=== PATIENT | male | born 1955 | race Hispanic/Latino ===

== ENCOUNTER 2016-12-01 17:49 | Inpatient (IN) | payer OTHER ==
[~2016-12-01] VITALS: Ht 170.2 cm; Wt 77.8 kg
[~2016-12-01 17:49] MED LIST: /MOXI40TA OR; COMBIVENT MDI INH; KCL PO; LASI40TA PO; NO HISTORICAL MEDS; OMEP40CA2 PO; PRED10TA2 PO; PULM1SUS INH; TOPR25TA PO; TYLE325T5 PO
[2016-12-01] MEDS ORDERED: IPRATROPIUM 0.5MG/ALBUTEROL 2.5MG INH SOL UD 3ML (DUONEB)(J7620) As Ordered ONE (18:14)
[2016-12-01 18:35] LABS: ABG PARTIAL PRESSURE O2 78.2 mmHg (75.0-100.0)
[2016-12-01 18:36] LABS: ABG BASE EXCESS 2.5 (-2.0-2.0); ABG DEVICE NASAL CANN; ABG HCO3 30.5 MEQ/L (22.0-26.0); ABG STANDARD HCO3 26.7 MEQ/L (22.0-26.0); ABG TOTAL CO2 32.4 MEQ/L (22.0-29.0); ABG pH (ARTERIAL) 7.323 UNITS (7.350-7.450)
[2016-12-01 18:38] LABS: ABG PARTIAL PRESSURE CO2 60.2 mmHg (35.0-45.0)
[2016-12-01] MEDS ORDERED: methylPREDNISolone INJ 125 MG/2 ML VIAL (J2930) As Ordered ONE (18:42)
[2016-12-01] MEDS ORDERED: AZITHROMYCIN INJ 500MG VIAL (J0456) As Ordered ONE (18:54)
[2016-12-01] MEDS ORDERED: cefTRIAXone SOD 1 GM VIAL (J0696) As Ordered ONE (18:54)
[2016-12-01] MEDS ORDERED: ALBU17IN INH (19:04)
[2016-12-01] MEDS ORDERED: VITATAB11 PO (19:04)
[2016-12-01] MEDS ORDERED: COMBAER6 INH (19:04)
[2016-12-01 19:06] LABS: ALBUMIN 2.7 GM/DL (3.2-5.2); ALBUMIN/GLOBULIN RATIO 0.56 (1.00-1.93); ALKALINE PHOSPHATASE 147 U/L (45-117); ALT/SGPT 62 U/L (12-78); ANION GAP 5 MEQ/L (8-16); AST/SGOT 50 U/L (15-37); BILIRUBIN,DIRECT 0.2 MG/DL (0.0-0.2); BILIRUBIN,TOTAL 0.7 MG/DL (0.2-1.0); BLOOD UREA NITROGEN 21 MG/DL (7-18); CALCIUM LEVEL 8.4 MG/DL (8.5-10.1); CARBON DIOXIDE LEVEL 36 MEQ/L (21-32); CHLORIDE LEVEL 98 MEQ/L (98-107); CREATININE FOR GFR 1.01 MG/DL (0.70-1.30); GLOMERULAR FILTRATION RATE > 60.0 (>56); GLUCOSE, FASTING 156 MG/DL (70-105); POTASSIUM SERUM 4.2 MEQ/L (3.5-5.1); SODIUM LEVEL 139 MEQ/L (136-145); TOTAL PROTEIN 7.5 GM/DL (6.4-8.2)
[2016-12-01] MEDS ORDERED: FUROSEMIDE 40 MG/4 ML VIAL (J1940) As Ordered ONE (19:10)
[2016-12-01 19:11] LABS: BASO % 0.6 % (0.0-1.0); EOS # 0.1 K/mm3 (0.0-0.50); EOS % 1.1 % (0.0-3.0); LARGE UNSTAINED CELL # 0.1 K/mm3 (0.0-0.4); LARGE UNSTAINED CELL % 2.1 % (0.0-4.0); LYMPH # 1.5 K/mm3 (1.5-4.5); LYMPH % 21.5 % (24.0-44.0); MEAN CORPUSCULAR HEMOGLOBIN 30.3 pg (27.0-33.0); MEAN CORPUSCULAR VOLUME 104.6 fl (80.0-96.0); MONO # 0.6 K/mm3 (0.0-0.8); NEUTROPHILS # 4.2 K/mm3 (1.8-7.7); NEUTROPHILS % 65.6 % (36.0-66.0); PLATELET COUNT, AUTOMATED 174 k/mm3 (150-450); RED CELL DISTRIBUTION WIDTH 14.1 % (11.5-14.5); WHITE BLOOD COUNT 6.3 K/mm3 (4.0-10.0)
[2016-12-01 19:12] LABS: ADD MORPHOLOGY? YES
[2016-12-01 19:15] LABS: HYPOCHROMASIA 1+; POLYCHROMASIA 2+; STOMATOCYTES 1+
--- NOTE | 2016-12-01 19:20 | REPUSA ---
CLINICAL HISTORY: Right lower extremity swelling. TECHNIQUE: Duplex ultrasound of the right lower extremity veins was performed with grayscale, color f low imaging and Doppler spectral analysis, without and with compression. RIGHT LOWER EXTREMITY VENOUS DUPLEX ULTRASOUND: There is normal compressibility, flow and augmentation of the common femoral, superficial femoral, an d popliteal veins. IMPRESSION: No evidence of DVT in the right lower extremity.
[2016-12-01] MEDS ORDERED: FUROSEMIDE 40 MG/4 ML VIAL (J1940) IV SCH (19:30)
[2016-12-01] MEDS ORDERED: IPRATROPIUM 0.02% SOLN 0.5MG/2.5 ML NEB INH PRN (20:00)
[2016-12-01] MEDS: IPRATROPIUM 0.02% SOLN 0.5MG/2.5 ML NEB INH SCH (20:00)
[2016-12-01] MEDS ORDERED: LEVALBUTEROL 1.25 MG/0.5 ML CONCENTRATE NEB INH PRN (20:00)
[2016-12-01] MEDS: LEVALBUTEROL 1.25 MG/0.5 ML CONCENTRATE NEB INH SCH (20:00)
[2016-12-01] MEDS ORDERED: ACETAMINOPHEN TAB 650MG DOSE (2X325MG) PO PRN (20:15)
--- NOTE | 2016-12-01 20:20 | REP ---
AP PORTABLE CHEST: 12/01/2016 at 06:35 PM. Comparison: Portable chest 01/04/2013, CT angiogram chest 01/05/2013. Clinical history: Dyspnea. Findings: Lungs are hyperinflated. There is underlying COPD and some fibrosis. Patchy infrahilar atelectasis or early infiltrate may be present. There is fibrosis. The pulmonary arteries are prominent centrally consistent with COPD. I do not see pulmonary edema. There is mild venous hypertension, but the vessel margins are distinct. No interstitial edema suspected. Heart size not enlarged for portable lordotic technique. The aorta is normal. There is apparent densities overlying the mediastinum, which could be large bridging syndesmophytes or spurs in the spine. The appearance is similar to the previous study and was confirmed on prior CT. Impression: 1. Hyperinflation with COPD, some fibrosis and pulmonary artery hypertension. 2. No gross cardiomegaly but some pulmonary venous hypertension with distinct vessel margins, no evidence of edema. 3. Infrahilar patchy atelectasis or infiltrate on the right. Signed by Dominik Perales MD 12/01/2016 08:33 P
--- NOTE | 2016-12-01 21:36 | HPE ---
DATE OF ADMISSION: 12/01/2016 PRIMARY CARE PROVIDER: None. INPATIENT HOSPITALIST ATTENDING: Dr. Ernesto Deal CHIEF COMPLAINT: Shortness of breath. HISTORY OF PRESENT ILLNESS: 61-year-old male with a history of chronic obstructive pulmonary disease (COPD), congestive heart failure (CHF), unknown ejection fraction with previous admission four years ago for COPD and CHF exacerbation, who presented to the emergency room with a 2-week history of increased lower extremity edema, weight gain of about 25 pounds, shortness of breath initially with exertion and then progressively at rest, some chest pressure, no tightness, diaphoresis, nausea, vomiting, epigastric pain, fever, chills. No changes in appetite. With some dry cough. No productive sputum. 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 For the past 2 weeks he has had about one to two pillow orthopnea at home, decrease in exercise tolerance due to worsening shortness of breath. The patient admits to having noncompliance with a low salt diet. States that his significant other usually makes pasta from cans and jars at the store. He has noticed worsening edema with recent increased salt intake. The patient has not been watching his water intake as well. He currently still smokes five to six cigarettes per day. No diarrhea or constipation. No bright red blood per rectum or hematemesis. The patient has had increase in heaviness in lower extremities secondary to weight, but no significant weakness. The patient was seen at [facility] this afternoon where he was found to have 75% saturations on room air. He refused transport by emergency medical services (EMS) and presented to the emergency room on his own with saturations in the mid 80s. The hospitalist service was called for evaluation and management of the patient's shortness of breath. PAST MEDICAL HISTORY: 1. COPD. 2. CHF. PAST SURGICAL HISTORY: 1. Hernia repair. 2. Appendectomy. ALLERGIES: No known drug allergies. HOME MEDICATIONS: - Combivent 18/103 mcg per actuation, two puffs four times daily - Ventolin every 6 hours SOCIAL HISTORY: The patient had been a previous smoker of one pack a day since age 14, recently he has decreased his cigarette smoking to five to six cigarettes per day. 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 Denies any recreational drug use. FAMILY HISTORY: Father , unknown medical problems and unknown age. Mother is still alive at 86, unknown medical problems. One sister and four brothers, one brother with cancer, he is the youngest. His family is from [place]. REVIEW OF SYSTEMS: As per history of present illness. Twelve-point system otherwise negative aside from positive findings on history of present illness. PHYSICAL EXAMINATION: VITAL SIGNS: Blood pressure 145/93, pulse 115 and sinus, respiratory rate 18, temperature 98.6, 79% on room air, 74.84 kg, 5 feet 7 inches tall. GENERAL: The patient is awake, alert, oriented to person, place and time. He has mild respiratory distress, use of respiratory accessory muscles, anicteric sclerae. No jaundice. No pallor. Dry mucous membranes. Positive jugular venous distention (JVD). No thyromegaly or cervical lymphadenopathy. LUNGS: Diminished breath sounds with expiratory wheezing and rales bilaterally. HEART: S1, S2. Sinus rhythm. Episodes of sinus tachycardia. No murmurs or rubs noted. ABDOMEN: Soft, nontender, nondistended. Positive bowel sounds. EXTREMITIES: 3+ pitting edema to the sacrum. Onychomycoses of bilateral toes of both feet. LABORATORY DATA: White count 6.3, hemoglobin 16, hematocrit 56, platelet count 174, neutrophils 65.6%. Sodium 139, potassium 4.2, chloride 98, bicarbonate 36, BUN 21, creatinine 1.01, glucose 156, calcium of 8.4, total bilirubin 0.7, direct bilirubin 0.2, AST 50, ALT 62, alkaline phosphatase 147, total CK 216, MB fraction 7.4, relative index 2.43, troponin 0.05, BNP 1070. Total protein 7.5, albumin of 2.7. Respiratory syncytial virus (RSV) respiratory virus panel is pending. Two sets of blood cultures pending. IMAGING STUDIES: Chest x-ray with hilar infiltrate. Vascular ultrasound: No evidence of deep vein thrombosis (DVT) in the right lower extremity. EKG showed sinus rhythm with ventricular rate of 108, tachycardic, left atrial enlargement pattern consistent with pulmonary disease and right ventricle hypertrophy. ASSESSMENT AND PLAN: 61-year-old male with a history of chronic obstructive pulmonary disease (COPD), congestive heart failure (CHF), unknown ejection fraction, active smoker, admits to noncompliance with salt and water restriction , presented to the emergency room with 2-week history of increasing shortness of breath, lower extremity edema and 25 pound weight gain over the past 2 weeks. The patient was found to have an infrahilar infiltrate on chest x-ray, pulmonary edema with elevated BNP of 1070. The patient is admitted for congestive heart failure (CHF) exacerbation, unknown ejection fraction, to the hospitalist service as an inpatient for two midnights. Will be assigned to Dr. Ernesto Deal. IMPRESSION: 1. CHF, acute on chronic exacerbation, unknown ejection fraction. The patient is being admitted to telemetry for monitoring, rule out arrhythmia, rule out acute coronary syndrome and ischemia as the reason for the patient's decompensation. We will cycle cardiac markers every 6 hours. Check fasting lipid profile. Lasix 40 mg intravenous every 6 hours for a net negative balance of 1 liter daily, daily weights, fluid restriction, strict input and output, cardiac rehabilitation on discharge. Depending on the patient's ejection fraction, he may benefit from aspirin and statin and wxodosflhpw-jgvqkjiwpw-hnifpe (VEGA) inhibitor if creatinine permits. Await echocardiogram report. May benefit from a stress test as an outpatient to rule out ischemic heart disease. 2. COPD with active wheezing. It appears to be cardiac wheezing in light of the patient's infrahilar infiltrate and consolidation. Suspicious for bacterial pneumonia. The patient will be treated with IV ceftriaxone and azithromycin nebulizer treatments as needed. If persistent wheezing continues despite IV Lasix diuresis, may benefit from continued use of low dose steroids. Supplemental oxygen to keep saturations 88 to 92%. The patient has evidence of right ventricle hypertrophy, most likely suffers from cor pulmonale. 3. Acute hypoxic respiratory failure. Saturations to 79% on room air secondary to CHF exacerbation prompted by bacterial pneumonia and infrahilar consolidation on chest x-ray. Treat underlying cause and supplemental oxygen to keep saturations 88 to 92%. 4. Community acquired pneumonia. Check sputum culture. Continue ceftriaxone, azithromycin, nebulizer treatments and supplemental oxygen. Check for methicillin resistant Staphylococcus aureus (MRSA) and RSV panel. Check influenza A and B. 5. Active smoker. Tobacco cessation counseling. The patient refuses nicotine patch. 6. Abnormal liver function tests. Check hepatitis panel. Most likely due to congested liver from CHF. 7. Deep vein thrombosis (DVT) prophylaxis with subcutaneous Lovenox. MTDD
--- NOTE | 2016-12-01 23:36 | EDDOCDS ---
Physician Documentation [facility] Name: Kumar Shane Age: 61 yrs Sex: Male : 1955 Arrival Date: 12/01/2016 Time: 17:49 Bed 9 Private MD: NO PRIMARY PHYSICIAN, . Disposition: 12/01/16 19:16 Hospitalization ordered by Naomie Willoughby for Inpatient Admission. Preliminary diagnosis are Acute combined systolic (congestive) and diastolic (congestive) heart failure, Chronic obstructive pulmonary disease with acute lower respiratory infection. - Bed requested for PCU. - Status is Inpatient Admission. mlc - Condition is Stable. - Problem is an acute exacerbation. - Symptoms are unchanged. Historical: - Allergies: No known drug Allergies; - Home Meds: 1. Combivent 18-103 mcg/actuation Inhl aero 2 puffs 4 times per day (Last dose: 12/01/2016 09:00) 2. ventolin inhaler Unknown every 6 hours (Last dose: 12/01/2016 09:00) - PMHx: COPD; CHF; - PSHx: Hernia repair; Appendectomy; - Family history: Not pertinent. - Social history: Smoking status: Patient uses tobacco products, current every day smoker. No barriers to communication noted, The patient speaks fluent Nigerian, Speaks appropriately for age, Preferred Language: Nigerian. - : The pt / caregiver states he / she is not on anticoagulants. Home medication list is obtained from the patient. - Exposure Risk Screening:: None identified. Vital Signs: 12/01 17:51 BP 145 / 93; Pulse 115; Resp 18; Temp 98.6(O); Pulse Ox 79% ; Weight 74.84 kg / 164.99 gr2 lbs (R); Height 5 ft. 7 in. (170.18 cm) (R); Pain 0/10; 18:00 Resp 19; Pulse Ox 82% on R/A; Pain 0/10; lf1 18:12 Pulse 112 MON; Pulse Ox 92% on 4 lpm NC; dsf 18:16 Pulse 116 MON; Pulse Ox 95% ; dsf 18:22 Pulse 106 MON; Pulse Ox 98% ; dsf 18:25 BP 182 / 5; ac1 18:32 BP 182 / 0; ac1 18:48 BP 130 / 86 (auto/); dsf 18:49 Pulse 102 MON; Pulse Ox 100% ; dsf 18:58 BP 135 / 91 (auto/); dsf 18:59 Pulse 102 MON; Pulse Ox 94% ; dsf 19:13 BP 151 / 94 (auto/); dsf 19:14 Pulse 104 MON; Pulse Ox 93% ; dsf 19:28 BP 156 / 92 (auto/); dsf 19:29 Pulse 102 MON; Pulse Ox 92% ; dsf 19:37 Pulse 104 MON; Pulse Ox 93% ; dsf 19:58 BP 184 / 103 (auto/); dsf 19:58 Pulse 104 MON; Pulse Ox 95% ; dsf 20:13 BP 142 / 91 (auto/); dsf 20:14 Pulse 104 MON; Pulse Ox 92% ; dsf 20:28 BP 139 / 87 (auto/); mlc 20:28 Pulse 102 MON; Pulse Ox 95% ; mlc 20:58 BP 138 / 87 (auto/); mlc 21:06 BP 139 / 84 (auto/); mlc 21:13 BP 140 / 85 (auto/); mlc 21:28 BP 144 / 86 (auto/); mlc 21:28 Pulse 104 MON; Pulse Ox 92% ; mlc 21:43 BP 144 / 89 (auto/); mlc 21:43 Pulse 104 MON; Pulse Ox 91% ; mlc 21:58 BP 146 / 90 (auto/); mlc 21:58 Pulse 102 MON; Pulse Ox 91% ; mlc 22:13 BP 143 / 87 (auto/); mlc 22:13 Pulse 104 MON; Pulse Ox 93% ; mlc 22:28 BP 144 / 86 (auto/); mlc 22:43 BP 136 / 84 (auto/); mlc 22:43 Pulse 102 MON; Pulse Ox 93% ; mlc 22:58 BP 141 / 86 (auto/); mlc 22:58 Pulse 98 MON; Pulse Ox 93% ; mlc 23:13 BP 142 / 87 (auto/); mlc 23:14 Pulse 102 MON; Pulse Ox 92% ; mlc 23:28 BP 148 / 89 (auto/); mlc 23:28 Pulse 104 MON; Pulse Ox 92% ; mlc 23:32 BP 150 / 87; Pulse 107; Resp 20; Temp 98.1(O); Pulse Ox 92% on 2 lpm NC; Pain 0/10; jmv 17:51 Body Mass Index 25.84 (74.84 kg, 170.18 cm) gr2 MDM: 18:04 -Blood Culture (Adults Only), peripheral from different site, or from device/port/PICC sd1 etc. if present ordered. 18:04 Director Of Labor Relations/Pulse Ox/q 15 min VS ordered. sd1 18:04 IV Saline Lock ordered. sd1 18:04 Oxygen at 4L/Min NC or Home dosage ordered. sd1 18:04 Rhythm Strip to chart ordered. sd1 18:05 B-Type Natiuretic Peptide Ordered. EDMS 18:05 Basic Metabolic Profile Ordered. EDMS 18:05 CBC with Diff Ordered. EDMS 18:05 Cardiac Injury Profile Ordered. EDMS 18:05 Troponin Ordered. EDMS 18:05 -Blood Culture Ordered. EDMS 18:05 Chest, 1 View Ordered. EDMS 18:05 ECG WITH READING ER PHYS+CARDIAG ordered. EDMS 18:10 Albuterol-Ipratropium 1 neb Nebulizer every 20 minutes x3 ordered. sd1 18:11 Call Respiratory ordered. sd1 18:12 -Arterial Blood Gas Ordered. EDMS 18:13 Call Respiratory complete. lbd 18:14 -Blood Culture (Adults Only), peripheral from different site, or from device/port/PICC lbd etc. if present complete. 18:17 BLOOD CULTURES Ordered. EDMS 18:17 US Lower Extremity R/O DVT Ordered. EDMS 18:28 [facility] Banquet Server Order ordered. sd1 18:32 Albuterol-Ipratropium 1 neb Nebulizer every 20 minutes x3 ordered. ac1 18:32 LIVER PROFILE Ordered. EDMS 18:33 Financial registration complete. gb 18:33 [facility] Payment Agreement was scanned into [employer] and attached to record. gb 18:37 [facility] Banquet Server Order complete. lbd 18:39 Solu-MEDROL 125 mg IVP once ordered. sd1 18:40 -Arterial Blood Gas Reviewed. sd1 18:40 RESPIRATORY PANEL Ordered. EDMS 18:43 cefTRIAXone 1 grams IVPB once over 30 mins; dilute in 50mL of NS or D5W ordered. sd1 18:43 azithromycin 500 mg IVPB once over 1 hrs; dilute in 250mL of D5W or NS ordered. sd1 18:44 BED REQUEST+ADM ordered. EDMS 19:04 B-Type Natiuretic Peptide Reviewed. sd1 19:04 Furosemide 40 mg IVP once ordered. sd1 19:08 Basic Metabolic Profile Reviewed. sd1 19:08 LIVER PROFILE Reviewed. sd1 19:08 Troponin Reviewed. sd1 19:12 Basic Metabolic Profile Reviewed. sd1 19:12 Cardiac Injury Profile Reviewed. sd1 19:12 LIVER PROFILE Reviewed. sd1 19:12 Troponin Reviewed. sd1 19:13 RBC MORPH PROF NO CHARGE Ordered. EDMS 19:30 2 GRAM SODIUM DIET ordered. EDMS 19:32 PHYSICAL THERAPY EVAL & TREAT ordered. EDMS 19:33 Admission / Observation Status ordered. EDMS 19:33 ECHOCARD,DOPPLER/COLOR FLOW ordered. EDMS 19:34 CARDIAC MARKER PANEL Ordered. EDMS 19:35 CARDIAC MARKER PANEL Ordered. EDMS 19:37 CARDIAC MARKER PANEL Ordered. EDMS 20:04 CBC WITH DIFFERENTIAL Ordered. EDMS 20:04 CARDIAC RISK PROFILE Ordered. EDMS 20:04 THYROID STIMULATING HORMONE Ordered. EDMS 20:04 MAGNESIUM LEVEL Ordered. EDMS 20:26 MRSA SCREEN Ordered. EDMS 20:26 SPUTUM CULTURE AND GRAM STAIN Ordered. EDMS 20:39 BASIC METABOLIC PROFILE Ordered. EDMS Administered Medications: 18:10 Drug: Albuterol-Ipratropium 1 neb [ipratropium-albuterol 0.5 mg-3 mg(2.5 mg base)/3 mL ac1 nebulization soln (1 neb)] Route: Nebulizer; 18:20 Drug: Albuterol-Ipratropium 1 neb [ipratropium-albuterol 0.5 mg-3 mg(2.5 mg base)/3 mL ac1 nebulization soln (1 neb)] Route: Nebulizer; 18:20 Follow up: bs exp whz before and after tx ac1 18:25 Follow up: BP 182 / 5 ac1 18:25 Follow up: wnz bilat throughout before and after tx ac1 18:30 Drug: Albuterol-Ipratropium 1 neb [ipratropium-albuterol 0.5 mg-3 mg(2.5 mg base)/3 mL ac1 nebulization soln (1 neb)] Route: Nebulizer; 18:32 Follow up: BP 182 / 0 ac1 18:35 Follow up: bs whz bilat before and after tx ac1 18:52 Drug: Solu-MEDROL 125 mg [Solu-Medrol 500 mg intravenous solution (125 mg)] Route: IVP; dsf Site: right antecubital; 19:07 Drug: cefTRIAXone 1 grams [ceftriaxone 1 gram solution for injection] Route: IVPB; dsf Infused Over: 30 mins; Site: right antecubital; 19:37 Follow up: IV Status: Completed infusion; IV Intake: 50ml dsf 19:14 Drug: Furosemide 40 mg [furosemide 10 mg/mL injection solution (4 mL)] Route: IVP; dsf Site: right antecubital; 19:37 Drug: azithromycin 500 mg [azithromycin 500 mg intravenous solution] Route: IVPB; dsf Infused Over: 1 hrs; Site: right antecubital; 20:51 Follow up: IV Status: Completed infusion; IV Intake: 250ml dsf Signatures: Dispatcher [employer] EDMS Tricia Porter MD MD sd1 Merna Mckeon, Sporting Goods Sales Manager Unit lbd Lana Hines, Reg Reg gb Jasper,Sonam,RT RT ac1 Douglas Banks, SADDLE MECHANIC SADDLE MECHANIC [id number] Kendal Jaramillo,RN RN lf1 Zayda Rob,RN RN mlc Aurora Sandra RN dsf The chart was reviewed and I authenticate all verbal orders and agree with the evaluation and treatment provided.Corrections: (The following items were deleted from the chart) 18:32 18:29 LIVER PROFILE+LAB ordered. EDMS EDMS 20:39 19:31 BASIC METABOLIC PROFILE ordered. EDMS EDMS Attachments: 18:33 [facility] Payment Agreement gb MTDD
--- NOTE | 2016-12-01 23:36 | EDDOCDS ---
Nurse's Notes [facility] Name: Kumar Shane Age: 61 yrs Sex: Male : 1955 Arrival Date: 12/01/2016 Time: 17:49 Bed 9 Private MD: NO PRIMARY PHYSICIAN, . Diagnosis: Acute combined systolic (congestive) and diastolic (congestive) heart failure;Chronic obstructive pulmonary disease with acute lower respiratory infection Presentation: 12/01 17:58 Presenting complaint: Patient states: Was seen at [facility] this afternoon lf1 for SOB for two weeks and swelling in BL LE. O\\T\\ Sats were 75% on RA and pt. refused transport via EMS. Pt. presents to ED with SATS in the mid 80"s, states he has a history of COPD and has had shortness of breath for two weeks. Respiratory Distress: Mild respiratory distress is noted. Adult Sepsis Screening: The patient does not have new or worsening altered mentation. Patient's respiratory rate is less than 22. Systolic blood pressure is greater than 100. Patient has a qSOFA score of 0- Negative Sepsis Screen. Suicide/Homicide risk assessment- the patient denies having any suicidal and/or homicidal ideations and does not present with any other emotional, behavioral or mental health complaints. 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 Transition of care: Patient was received from [facility]. 17:58 Acuity: LOLA Level 2 lf1 17:58 Method Of Arrival: Walkin/Carried/Asstd lf1 18:02 Red Flag criteria, Finish triage while room being cleaned. Direct to room when lf1 available. charge nurse aware. Triage Assessment: 21:55 HIV screening NA for this visit Offered previously. mlc Historical: - Allergies: No known drug Allergies; - Home Meds: 1. Combivent 18-103 mcg/actuation Inhl aero 2 puffs 4 times per day (Last dose: 12/01/2016 09:00) 2. ventolin inhaler Unknown every 6 hours (Last dose: 12/01/2016 09:00) - PMHx: COPD; CHF; - PSHx: Hernia repair; Appendectomy; - Family history: Not pertinent. - Social history: Smoking status: Patient uses tobacco products, current every day smoker. No barriers to communication noted, The patient speaks fluent Anguillan, Speaks appropriately for age, Preferred Language: Anguillan. - : The pt / caregiver states he / she is not on anticoagulants. Home medication list is obtained from the patient. - Exposure Risk Screening:: None identified. Screenin:03 Screening information is obtained from the patient. Fall risk: No risks identified. dsf Assistance ADL's: requires no assistance with activities of daily living. Abuse/DV Screen: The patient / caregiver reports he/she is: not in a situation that causes fear, pain or injury. Nutritional screening: No deficits noted. Advance Directives: Currently, there is no health care proxy. home support is adequate. Assessment: 18:22 General: Appears in no apparent distress, Behavior is appropriate for age. Pain: Denies dsf pain. Neurological: Level of Consciousness is awake, alert, Oriented to person, place, time. Cardiovascular: Capillary refill < 3 seconds JVD is present bilaterally Heart tones S1 S2 present Edema is 3+ to left midcalf, left ankle, left foot, right midcalf, right ankle and right foot edema to bilateral knees and thighs. Right leg swelling worse than left Rhythm is sinus tachycardia. Respiratory: Airway is patent Respiratory effort is unlabored, Respiratory pattern is regular, Breath sounds with wheezes expiratory bilaterally. Reports shortness of breath on exertion since 2 weeks. GI: Abdomen is non- distended Bowel sounds present X 4 quads. Abd is soft and non tender X 4 quads. Derm: Skin is pink, warm & dry. 18:38 General: lab called PC02 60.2. Dr. Jaimes notified . dsf 19:22 Adult Sepsis Screening: The patient does not have new or worsening altered mentation. dsf Patient's respiratory rate is less than 22. Systolic blood pressure is greater than 100. Patient has a qSOFA score of 0- Negative Sepsis Screen. General: Appears in no apparent distress, comfortable, Behavior is appropriate for age, cooperative. Pain: Denies pain. Neurological: Level of Consciousness is awake, alert, Oriented to person, place, time. Cardiovascular: Capillary refill < 3 seconds Heart tones S1 S2 present Rhythm is sinus tachycardia. Respiratory: Airway is patent Respiratory effort is even, unlabored, Respiratory pattern is regular, symmetrical, Breath sounds with wheezes expiratory bilaterally. GI: Abdomen is non- distended Bowel sounds present X 4 quads. Abd is soft and non tender X 4 quads. Derm: Skin is pink, warm & dry. 20:22 General: Appears in no apparent distress, comfortable, Behavior is appropriate for age, dsf cooperative. Pain: Denies pain. Neurological: Level of Consciousness is awake, alert. Cardiovascular: Capillary refill < 3 seconds Rhythm is sinus tachycardia. Respiratory: Airway is patent Respiratory effort is even, unlabored, Respiratory pattern is regular, symmetrical. Derm: Skin is pink, warm & dry. 22:33 Reassessment: Patient appears in no apparent distress at this time. Patient denies pain mlc at this time. pt resting comfortably in bed. resp easy/unlabored. pt offers no complaints. . 22:33 Reassessment: PCU states there is still currently a patient in the assigned bed on the mlc unit, staff will call with update . 23:30 General: Appears in no apparent distress, comfortable, Behavior is cooperative. Pain: mlc Denies pain. Neurological: Level of Consciousness is awake, alert, Oriented to person, place, time. Respiratory: Airway is patent Respiratory effort is even, unlabored, Respiratory pattern is regular. Derm: Skin is pink, warm & dry. Vital Signs: 17:51 BP 145 / 93; Pulse 115; Resp 18; Temp 98.6(O); Pulse Ox 79% ; Weight 74.84 kg (R); gr2 Height 5 ft. 7 in. (170.18 cm) (R); Pain 0/10; 18:00 Resp 19; Pulse Ox 82% on R/A; Pain 0/10; lf1 18:12 Pulse 112 MON; Pulse Ox 92% on 4 lpm NC; dsf 18:16 Pulse 116 MON; Pulse Ox 95% ; dsf 18:22 Pulse 106 MON; Pulse Ox 98% ; dsf 18:25 BP 182 / 5; ac1 18:32 BP 182 / 0; ac1 18:48 BP 130 / 86 (auto/); dsf 18:49 Pulse 102 MON; Pulse Ox 100% ; dsf 18:58 BP 135 / 91 (auto/); dsf 18:59 Pulse 102 MON; Pulse Ox 94% ; dsf 19:13 BP 151 / 94 (auto/); dsf 19:14 Pulse 104 MON; Pulse Ox 93% ; dsf 19:28 BP 156 / 92 (auto/); dsf 19:29 Pulse 102 MON; Pulse Ox 92% ; dsf 19:37 Pulse 104 MON; Pulse Ox 93% ; dsf 19:58 BP 184 / 103 (auto/); dsf 19:58 Pulse 104 MON; Pulse Ox 95% ; dsf 20:13 BP 142 / 91 (auto/); dsf 20:14 Pulse 104 MON; Pulse Ox 92% ; dsf 20:28 BP 139 / 87 (auto/); mlc 20:28 Pulse 102 MON; Pulse Ox 95% ; mlc 20:58 BP 138 / 87 (auto/); mlc 21:06 BP 139 / 84 (auto/); mlc 21:13 BP 140 / 85 (auto/); mlc 21:28 BP 144 / 86 (auto/); mlc 21:28 Pulse 104 MON; Pulse Ox 92% ; mlc 21:43 BP 144 / 89 (auto/); mlc 21:43 Pulse 104 MON; Pulse Ox 91% ; mlc 21:58 BP 146 / 90 (auto/); mlc 21:58 Pulse 102 MON; Pulse Ox 91% ; mlc 22:13 BP 143 / 87 (auto/); mlc 22:13 Pulse 104 MON; Pulse Ox 93% ; mlc 22:28 BP 144 / 86 (auto/); mlc 22:43 BP 136 / 84 (auto/); mlc 22:43 Pulse 102 MON; Pulse Ox 93% ; mlc 22:58 BP 141 / 86 (auto/); mlc 22:58 Pulse 98 MON; Pulse Ox 93% ; mlc 23:13 BP 142 / 87 (auto/); mlc 23:14 Pulse 102 MON; Pulse Ox 92% ; mlc 23:28 BP 148 / 89 (auto/); mlc 23:28 Pulse 104 MON; Pulse Ox 92% ; mlc 23:32 BP 150 / 87; Pulse 107; Resp 20; Temp 98.1(O); Pulse Ox 92% on 2 lpm NC; Pain 0/10; jmv 17:51 Body Mass Index 25.84 (74.84 kg, 170.18 cm) gr2 Vitals: 17:51 Log In Time: December 01, 2016 at 17:51. RN notified that patient meets Red Flag gr2 criteria. ED Course: 17:50 Patient visited by Grace Lux. gr2 17:50 NO PRIMARY PHYSICIAN, . is Private Physician. gr2 17:50 Patient moved to Waiting gr2 17:56 Patient visited by Grace Lux. gr2 17:58 Patient moved to Triage 1 lf1 18:01 Triage Initiated lf1 18:03 Tricia Porter MD is Attending Physician. sd1 18:03 Patient visited by Tricia Porter MD. sd1 18:03 Patient moved to 9 lf1 18:03 quality assurance monitor on. Pulse ox on. NIBP on. dsf 18:03 Inserted saline lock: 20 gauge in right antecubital area The patient tolerated the dsf procedure well. O2 via nasal cannula \\T\\ 4L/min. 18:21 Troponin Sent. dsf 18:21 Cardiac Injury Profile Sent. dsf 18:21 CBC with Diff Sent. dsf 18:21 Basic Metabolic Profile Sent. dsf 18:21 B-Type Natiuretic Peptide Sent. dsf 18:21 -Blood Culture Sent. dsf 18:24 The patient / caregiver is instructed regarding the plan of care and ED course. Patient dsf has correct armband on for positive identification. Placed in gown. Bed in low position. Call light in reach. Side rails up X2. 18:25 Patient visited by Aurora Sandra RN. dsf 18:25 EKG done. (by ED staff). Reviewed by Tricia Porter MD. cmb 18:30 -Arterial Blood Gas Sent. ac1 18:33 Patient name changed from Kumar\\S\\\\S\\Svitlana\\S\\ to Kumar\\S\\ \\S\\Svitlana. EDMS 18:33 [facility] Payment Agreement was scanned into [employer] and attached to record. gb 18:52 RESPIRATORY PANEL Sent. dsf 18:52 BLOOD CULTURES Sent. dsf 18:53 Patient moved to Ultrasound am17 19:06 Patient moved to 9 am17 19:07 LIVER PROFILE Sent. dsf 19:16 Naomie Willoughby is Hospitalizing Provider. sd1 19:21 US Lower Extremity R/O DVT Returned. EDMS 19:38 Patient visited by Aurora Sandra,HENNA. dsf 21:00 Zayda Rob,HENNA is Primary Nurse. mlc 21:17 Chest, 1 View Returned. EDMS 21:55 No procedures done that require assistance. mlc 22:35 Patient visited by Zayda Rob RN. [facility] 23:33 Patient visited by Raj Bates PCA. jmv Administered Medications: 18:10 Drug: Albuterol-Ipratropium 1 neb [ipratropium-albuterol 0.5 mg-3 mg(2.5 mg base)/3 mL ac1 nebulization soln (1 neb)] Route: Nebulizer; 18:20 Drug: Albuterol-Ipratropium 1 neb [ipratropium-albuterol 0.5 mg-3 mg(2.5 mg base)/3 mL ac1 nebulization soln (1 neb)] Route: Nebulizer; 18:20 Follow up: bs exp whz before and after tx ac1 18:25 Follow up: BP 182 / 5 ac1 18:25 Follow up: wnz bilat throughout before and after tx ac1 18:30 Drug: Albuterol-Ipratropium 1 neb [ipratropium-albuterol 0.5 mg-3 mg(2.5 mg base)/3 mL ac1 nebulization soln (1 neb)] Route: Nebulizer; 18:32 Follow up: BP 182 / 0 ac1 18:35 Follow up: bs whz bilat before and after tx ac1 18:52 Drug: Solu-MEDROL 125 mg [Solu-Medrol 500 mg intravenous solution (125 mg)] Route: IVP; dsf Site: right antecubital; 19:07 Drug: cefTRIAXone 1 grams [ceftriaxone 1 gram solution for injection] Route: IVPB; dsf Infused Over: 30 mins; Site: right antecubital; 19:37 Follow up: IV Status: Completed infusion; IV Intake: 50ml dsf 19:14 Drug: Furosemide 40 mg [furosemide 10 mg/mL injection solution (4 mL)] Route: IVP; dsf Site: right antecubital; 19:37 Drug: azithromycin 500 mg [azithromycin 500 mg intravenous solution] Route: IVPB; dsf Infused Over: 1 hrs; Site: right antecubital; 20:51 Follow up: IV Status: Completed infusion; IV Intake: 250ml dsf Intake: 19:37 IV: 50.00ml; Total: 50.00ml. dsf 20:51 IV: 250.00ml; Total: 300.00ml. dsf Output: 20:01 Urine: 425.00ml (Voided); Total: 425.00ml. dsf 20:22 Urine: 375.00ml (Voided); Total: 800.00ml. dsf 21:55 Urine: 300.00ml (Voided); Total: 1100.00ml. [facility] RT: 18:10 Initial Med Neb Given as ordered. ac1 18:15 Respiratory: Breath sounds with wheezes bilaterally. at expiration. ac1 18:20 Subsequent Med Neb Given as ordered. ac1 18:25 Respiratory: Breath sounds with wheezes bilaterally. ac1 18:30 Subsequent Med Neb Given as ordered. ac1 18:43 Respiratory: Breath sounds with wheezes bilaterally. at expiration. ac1 Order Results: Lab Order: B-Type Natiuretic Peptide; SPEC'M 12/01/16 18:15 Test: BRAIN NATRIURETIC PEPTIDE; Value: 1070; Range: <100; Abnormal: Above high normal; Units: PG/ML; Status: F Lab Order: Basic Metabolic Profile; SPEC'M 12/01/16 18:15 Test: GLUCOSE, FASTING; Value: 156; Range: 70-105; Abnormal: Above high normal; Units: MG/DL; Status: F Test: BLOOD UREA NITROGEN; Value: 21; Range: 7-18; Abnormal: Above high normal; Units: MG/DL; Status: F Test: CREATININE FOR GFR; Value: 1.01; Range: 0.70-1.30; Units: MG/DL; Status: F Test: GLOMERULAR FILTRATION RATE; Value: > 60.0; Range: >56; Status: F Test: SODIUM LEVEL; Value: 139; Range: 136-145; Units: MEQ/L; Status: F Test: POTASSIUM SERUM; Value: 4.2; Range: 3.5-5.1; Units: MEQ/L; Status: F Test: CHLORIDE LEVEL; Value: 98; Range: 98-107; Units: MEQ/L; Status: F Test: CARBON DIOXIDE LEVEL; Value: 36; Range: 21-32; Abnormal: Above high normal; Units: MEQ/L; Status: F Test: ANION GAP; Value: 5; Range: 8-16; Abnormal: Below low normal; Units: MEQ/L; Status: F Test: CALCIUM LEVEL; Value: 8.4; Range: 8.5-10.1; Abnormal: Below low normal; Units: MG/DL; Status: F Test Note: ; Units are mL/min/1.73 m2 Chronic Kidney Disease Staging per NKF: Stage I & II GFR >=60 Normal to Mildly Decreased Stage III GFR 30-59 Moderately Decreased Stage IV GFR 15-29 Severely Decreased Stage V GFR <15 Very Little GFR Left ESRD GFR <15 on GENERAL STORE MANAGER Lab Order: CBC with Diff; SPEC'M 12/01/16 18:15 Test: WHITE BLOOD COUNT; Value: 6.3; Range: 4.0-10.0; Units: K/mm3; Status: F Test: RED BLOOD COUNT; Value: 5.38; Range: 4.30-6.10; Units: M/mm3; Status: F Test: HEMOGLOBIN; Value: 16.3; Range: 14.0-18.0; Units: g/dl; Status: F Test: HEMATOCRIT; Value: 56.3; Range: 42.0-52.0; Abnormal: Above high normal; Units: %; Status: F Test: MEAN CORPUSCULAR VOLUME; Value: 104.6; Range: 80.0-96.0; Abnormal: Above high normal; Units: fl; Status: F Test: MEAN CORPUSCULAR HEMOGLOBIN; Value: 30.3; Range: 27.0-33.0; Units: pg; Status: F Test: MEAN CORPUSCULAR HGB CONC; Value: 29.0; Range: 32.0-36.5; Abnormal: Below low normal; Units: g/dl; Status: F Test: RED CELL DISTRIBUTION WIDTH; Value: 14.1; Range: 11.5-14.5; Units: %; Status: F Test: PLATELET COUNT, AUTOMATED; Value: 174; Range: 150-450; Units: k/mm3; Status: F Test: NEUTROPHILS %; Value: 65.6; Range: 36.0-66.0; Units: %; Status: F Test: LYMPH %; Value: 21.5; Range: 24.0-44.0; Abnormal: Below low normal; Units: %; Status: F Test: MONO %; Value: 9.0; Range: 0.0-5.0; Abnormal: Above high normal; Units: %; Status: F Test: EOS %; Value: 1.1; Range: 0.0-3.0; Units: %; Status: F Test: BASO %; Value: 0.6; Range: 0.0-1.0; Units: %; Status: F Test: LARGE UNSTAINED CELL %; Value: 2.1; Range: 0.0-4.0; Units: %; Status: F Test: NEUTROPHILS #; Value: 4.2; Range: 1.8-7.7; Units: K/mm3; Status: F Test: LYMPH #; Value: 1.5; Range: 1.5-4.5; Units: K/mm3; Status: F Test: MONO #; Value: 0.6; Range: 0.0-0.8; Units: K/mm3; Status: F Test: EOS #; Value: 0.1; Range: 0.0-0.50; Units: K/mm3; Status: F Test: BASO #; Value: 0.0; Range: 0.0-0.2; Units: K/mm3; Status: F Test: LARGE UNSTAINED CELL #; Value: 0.1; Range: 0.0-0.4; Units: K/mm3; Status: F Lab Order: Cardiac Injury Profile; SPEC'M 12/01/16 18:15 Test: CPK CREATINE PHOSPHOKINASE; Value: 216; Range: 39-308; Units: U/L; Status: F Test: CK-MB VALUE MASS; Value: 7.4; Range: 0.0-3.6; Abnormal: Above high normal; Units: NG/ML; Status: F Test: MB/CK RELATIVE INDEX; Value: 3.42; Range: < OR =4; Status: F Test Note: ; DIAGNOSIS CRITERIA MMB ng/ml Relative Index (RI) NON-AMI < or = 5 N/A [place] ZONE > 5 < or = 4 AMI > 5 > 4 Lab Order: Troponin; SPEC'M 12/01/16 18:15 Test: TROPONIN I; Value: 0.05; Range: < 0.10; Units: NG/ML; Status: F Test Note: ; Troponin I Reference Interval for Telestream LOCI: 99th Percentile= 0.00-0.045 ng/ml Risk Stratification: <= 0.10 ng/ml Decreased Risk for Adverse Clinical Events. 0.10-1.50 ng/ml Increased Risk for Adverse Clinical Events. Evaluation of additional criterion and/or repeat testing in 2-6 hours is suggested to rule out myocardial damage. >= 1.50 ng/ml Indicative of Myocardial Injury. Lab Order: -Arterial Blood Gas; SPEC'M 12/01/16 18:19 Test: ABG pH (ARTERIAL); Value: 7.323; Range: 7.350-7.450; Abnormal: Below low normal; Units: UNITS; Status: F Test: ABG PARTIAL PRESSURE CO2; Value: 60.2; Range: 35.0-45.0; Abnormal: Above upper panic limits; Units: mmHg; Status: F Test: ABG PARTIAL PRESSURE O2; Value: 78.2; Range: 75.0-100.0; Units: mmHg; Status: F Test: ABG TOTAL CO2; Value: 32.4; Range: 22.0-29.0; Abnormal: Above high normal; Units: MEQ/L; Status: F Test: ABG HCO3; Value: 30.5; Range: 22.0-26.0; Abnormal: Above high normal; Units: MEQ/L; Status: F Test: ABG BASE EXCESS; Value: 2.5; Range: -2.0-2.0; Abnormal: Above high normal; Status: F Test: ABG STANDARD HCO3; Value: 26.7; Range: 22.0-26.0; Abnormal: Above high normal; Units: MEQ/L; Status: F Test: ABG O2 SATURATION; Value: 95.8; Range: 95.0-99.0; Units: %; Status: F Test: ABG DEVICE; Value: NASAL COOPER; Status: F Lab Order: LIVER PROFILE; SPEC'M 12/01/16 18:15 Test: AST/SGOT; Value: 50; Range: 15-37; Abnormal: Above high normal; Units: U/L; Status: F Test: ALT/SGPT; Value: 62; Range: 12-78; Units: U/L; Status: F Test: ALKALINE PHOSPHATASE; Value: 147; Range: 45-117; Abnormal: Above high normal; Units: U/L; Status: F Test: BILIRUBIN,TOTAL; Value: 0.7; Range: 0.2-1.0; Units: MG/DL; Status: F Test: BILIRUBIN,DIRECT; Value: 0.2; Range: 0.0-0.2; Units: MG/DL; Status: F Test: TOTAL PROTEIN; Value: 7.5; Range: 6.4-8.2; Units: GM/DL; Status: F Test: ALBUMIN; Value: 2.7; Range: 3.2-5.2; Abnormal: Below low normal; Units: GM/DL; Status: F Test: ALBUMIN/GLOBULIN RATIO; Value: 0.56; Range: 1.00-1.93; Abnormal: Below low normal; Status: F Lab Order: RESPIRATORY PANEL; SPEC'M 12/01/16 18:48 Test: RESPIRATORY PANEL; Value: RP PANEL RESULT NEGATIVE by PCR; Status: F Test: RESPIRATORY PANEL; Value: Comments:; Status: F Test Note: ; This respiratory PCR panel detects Influenza A H1, H3 and 2009 H1 viruses, Influenza B virus, Respiratory syncytial virus, Human metapneumovirus, Parainfluenza virus 1, 2, 3 and 4, Adenovirus, Rhinovirus/Enterovirus, Coronavirus HKU1, NL63, OC43 and 229E, Bordetella pertussis, Mycoplasma pneumoniae and Chlamydia pneumoniae. Lab Order: RBC MORPH PROF NO CHARGE; SPEC'M 12/01/16 18:15 Test: PLATELET ESTIMATE; Range: NORMAL; Status: I Test: POLYCHROMASIA; Value: 2+; Status: F Test: HYPOCHROMASIA; Value: 1+; Status: F Test: MACROCYTOSIS; Value: 2+; Status: F Test: STOMATOCYTES; Value: 1+; Status: F Test: PLATELET ESTIMATE; Value: NORMAL; Range: NORMAL; Status: F Radiology Order: Chest, 1 View Test: Chest, 1 View REASON FOR EXAMINATION: Shortness of Breath; AP PORTABLE CHEST: 12/01/2016 at 06:35 PM.; ; Comparison: Portable chest 01/04/2013, CT angiogram chest 01/05/2013.; ; Clinical history: Dyspnea.; ; Findings: Lungs are hyperinflated. There is underlying COPD and some fibrosis.; Patchy infrahilar atelectasis or early infiltrate may be present. There is; fibrosis. The pulmonary arteries are prominent centrally consistent with COPD.; I do not see pulmonary edema. There is mild venous hypertension, but the vessel; margins are distinct. No interstitial edema suspected. Heart size not enlarged; for portable lordotic technique. The aorta is normal. There is apparent; densities overlying the mediastinum, which could be large bridging syndesmophytes; or spurs in the spine. The appearance is similar to the previous study and was; confirmed on prior CT.; ; Impression:; ; 1. Hyperinflation with COPD, some fibrosis and pulmonary artery hypertension.; ; 2. No gross cardiomegaly but some pulmonary venous hypertension with distinct; vessel margins, no evidence of edema.; ; 3. Infrahilar patchy atelectasis or infiltrate on the right.; ; ; Signed by; Dominik Perales MD 12/01/2016 08:33 P; Radiology Order: US Lower Extremity R/O DVT Test: US Lower Extremity R/O DVT REASON FOR EXAMINATION: swelling; ; CLINICAL HISTORY: Right lower extremity swelling.; TECHNIQUE: Duplex ultrasound of the right lower extremity veins was performed with grayscale, color f; low imaging and Doppler spectral analysis, without and with compression.; ; ; RIGHT LOWER EXTREMITY VENOUS DUPLEX ULTRASOUND:; There is normal compressibility, flow and augmentation of the common femoral, superficial femoral, an; d popliteal veins.; ; IMPRESSION:; ; No evidence of DVT in the right lower extremity.; ; Outcome: 19:16 Decision to Hospitalize by Provider. sd1 21:58 Discharge Assessment: Patient awake, alert and oriented x 3. No cognitive and/or mlc functional deficits noted. Patient verbalized understanding of disposition instructions. patient administered narcotics - no. The following High Risk Discharge criteria are identified: None. Admitted to PCU accompanied by nurse, accompanied by tech, via stretcher, with oxygen, on monitor, with chart. Condition: stable. Admission hand-off: Report Faxed Fax receipt verified by HENNA Mckinnon. Property sent home with patient. 23:32 Ultrasound Study completed. mlc 23:35 Patient left the ED. mlc Signatures: Dispatcher [employer] EDVA Tricia Porter MD MD sd1 Lana Hines, Reg Reg Sonam Kaye,RT RT ac1 Kendal JaramilloRN RN lf1 Aurora Sandra RN RN [facility] Lelo Pool cmb Grace Lux gr2 Azalea Robledo am17 Zayda Rob RN RN Raj Ryan, KAE CLOSED CIRCUIT SCREEN WATCHER jmv Corrections: (The following items were deleted from the chart) 18:32 18:31 LIVER PROFILE+LAB sent. [facility] EDMS 18:32 18:31 Albuterol-Ipratropium 1 neb Nebulizer ac1 ac1 18:37 18:33 Respiratory: Breath sounds with wheezes bilaterally. at expiration ac1 ac1 18:39 18:20 Respiratory: Breath sounds with wheezes bilaterally. at expiration ac1 ac1 18:41 18:25 Subsequent Med Neb Given as ordered ac1 ac1 18:41 18:25 Respiratory: Breath sounds with wheezes bilaterally. at expiration ac1 ac1 18:41 18:30 Subsequent Med Neb Given as ordered ac1 ac1 MTDD
[2016-12-01 23:49] VITALS: BP 149/92
[2016-12-02] MEDS ORDERED: SLF 3 ML SYR IV PRN
[2016-12-02] MEDS: LEVALBUTEROL 1.25 MG/0.5 ML CONCENTRATE NEB INH SCH ×8 (00:07→23:56)
[2016-12-02] MEDS: IPRATROPIUM 0.02% SOLN 0.5MG/2.5 ML NEB INH SCH ×7 (00:07→23:56)
[2016-12-02] MEDS: FUROSEMIDE 40 MG/4 ML VIAL (J1940) IV SCH ×5 (00:16→23:54)
[2016-12-02 05:00] VITALS: BP 137/77
[2016-12-02] MEDS: SLF 3 ML SYR IV SCH ×3 (05:03→22:00)
[2016-12-02 05:28] LABS: ANION GAP 5 MEQ/L (8-16); BLOOD UREA NITROGEN 18 MG/DL (7-18); CALCIUM LEVEL 8.2 MG/DL (8.5-10.1); CARBON DIOXIDE LEVEL 38 MEQ/L (21-32); CHLORIDE LEVEL 97 MEQ/L (98-107); CHOLESTEROL LEVEL 106 MG/DL (<200); CREATININE FOR GFR 0.97 MG/DL (0.70-1.30); GLOMERULAR FILTRATION RATE > 60.0 (>56); GLUCOSE, FASTING 193 MG/DL (70-105); MAGNESIUM LEVEL 1.9 MG/DL (1.8-2.4); POTASSIUM SERUM 4.4 MEQ/L (3.5-5.1); SODIUM LEVEL 140 MEQ/L (136-145); TRIGLYCERIDES LEVEL 37 MG/DL (<150)
[2016-12-02 05:32] LABS: MEAN CORPUSCULAR HEMOGLOBIN 30.9 pg (27.0-33.0); MEAN CORPUSCULAR HGB CONC 29.9 g/dl (32.0-36.5); MEAN CORPUSCULAR VOLUME 103.3 fl (80.0-96.0); PLATELET COUNT, AUTOMATED 170 k/mm3 (150-450); RED CELL DISTRIBUTION WIDTH 14.3 % (11.5-14.5); WHITE BLOOD COUNT 4.1 K/mm3 (4.0-10.0)
[2016-12-02 08:00] VITALS: BP 146/85
[2016-12-02] MEDS: predniSONE 20 MG TAB PO SCH (09:01)
[2016-12-02] MEDS: ENOXAPARIN 40 MG/0.4 ML SYRINGE (J1650) SC SCH (09:01)
--- NOTE | 2016-12-02 10:14 | IPNPDOC ---
Text Note Date of Service The patient was seen on 12/02/16. NOTE Subjective: Patient is a 61-year-old male with congestive heart failure exacerbation, pneumonia, COPD seen for hospitalist follow up. Patient says that he has been dealing with swelling in his feet for the last 3 weeks. He is also been dealing with shortness of breath at work. Shortness of breath was reported as very bad. He said that he cannot go up any stairs without becoming short of breath. At baseline he says he has no limits and does not use any oxygen at home. Since admission he says that he has been getting better. His breathing is reported as improved. He has reported a lot of urine output. He is still having some shortness of breath and continued lower extremity swelling but reports these are improving. He denies any fevers, chills, sweats, chest pain/pressure, abdominal pain, nausea, vomiting, diarrhea, constipation. Objective: Vital signs: Temperature 96.8, pulse 105, respiratory rate 18, blood pressure 146/85, pulse ox 95% on 2 L nasal cannula Gen.: Patient awake, alert and oriented, verbal and able to answer questions appropriately. Patient does not appear to be in any acute distress Heart: Regular rate and rhythm, normal S1-S2. No murmurs, rubs, or clicks Lungs: Bilateral wheezes, right sided rhonchi to auscultation Abdomen: Active bowel sounds, soft, nontender, no masses to palpation Extremities: Bilateral lower extremity pitting edema to the level of knee Laboratory data: CBC: White blood cells 4.1, hemoglobin and hematocrit 16.0/53.5, platelets 170 Chemistry: Sodium 140, potassium 4.4, chloride 97, carbon dioxide 38, BUN 18, creatinine 0.97, glucose 193, calcium 8.2, magnesium 1.9 Cardiac marker panel at 04:46: Total creatinine kinase 153, CK-MB 5.4, CK-MB relative index 3.52, troponin I 0.04 Cardiac marker panel at 07:55: Total creatinine kinase 150, CK-MB 10.2, CK-MB relative index 3.46, troponin I 0.03 Lipid panel: Triglycerides 37, cholesterol 106, LDL 63.6, HDL 35 TSH 0.302, Free T4 1.33, total T3 of 71.0 ABG at 11:36: PH 7.337, PCO2 69.7, PaO2 70.7, HCO3 36.5 Microbiology: Blood cultures 2 pending Respiratory panel negative MRSA screen pending Assessment: Patient is a 61-year-old male with congestive heart failure exacerbation, pneumonia, COPD. He reports that he has been improving since admission yesterday and does not appear to be in any acute distress. Plan: #1: Congestive heart failure exacerbation: Patient currently diuresing well. We will continue to monitor patient. He will continue on his current Lasix dose 40 mg IV every 6 hours. We will follow-up results from echocardiogram when available. Order placed for repeat ABG at 17:00 #2: COPD: Unclear at this time if patient has COPD exacerbation superimposed on congestive heart failure. We'll continue him on azithromycin 250 mg by mouth daily, Rocephin 2 g IV daily, Atrovent nebulizer 0.5 mg scheduled every 4 hours , every 2 hours when necessary, Xopenex 1.25 mg scheduled every 4 hours, every 2 hours when necessary, prednisone 60 mg by mouth daily #3: Pneumonia versus atelectasis: Patient will continue on azithromycin, Rocephin #4: Subclinical hyperthyroidism: Elevated TSH with normal free T4, T3. In no further evaluation necessary #5: DVT prophylaxis: Continue Lovenox 40 mg subcutaneously daily My preceptor for this patient encounter was physically present in the building during the encounter and was fully available. As needed, all aspects of the patient interview, examination, medical decision making process, and medical care plan development were reviewed and approved by the preceptor. Preceptor is aware and concurs with the plan as stated in the body of this note and will attest to such by his/her cosignature Darlene JOHNSON, I+O VSDarlene, I+O Laboratory Tests 12/01/16 18:15 Red Blood Count 5.38, Mean Corpuscular Volume 104.6 H, Mean Corpuscular Hemoglobin 30.3, Mean Corpuscular Hemoglobin Concent 29.0 L, Red Cell Distribution Width 14.1, Neutrophils (%) (Auto) 65.6, Lymphocytes (%) (Auto) 21.5 L, Monocytes (%) (Auto) 9.0 H, Eosinophils (%) (Auto) 1.1, Basophils (%) ( Auto) 0.6, Neutrophils # (Auto) 4.2, Lymphocytes # (Auto) 1.5, Monocytes # (Auto ) 0.6, Eosinophils # (Auto) 0.1, Basophils # (Auto) 0.0 12/02/16 04:46 Red Blood Count 5.18, Mean Corpuscular Volume 103.3 H, Mean Corpuscular Hemoglobin 30.9, Mean Corpuscular Hemoglobin Concent 29.9 L, Red Cell Distribution Width 14.3, Neutrophils (%) (Auto) , Lymphocytes (%) (Auto) , Monocytes (%) (Auto) , Eosinophils (%) (Auto) , Basophils (%) (Auto) , Neutrophils # (Auto) , Lymphocytes # (Auto) , Monocytes # (Auto) , Eosinophils # (Auto) , Basophils # (Auto) Vital Signs Date Time Temp Pulse Resp B/P Pulse Ox O2 Delivery O2 Flow Rate FiO2 12/02/16 08:00 96.8 105 18 146/85 95 Nasal Cannula 2.0 I&O- Last 24 Hours up to 6 AM 12/02/16 06:00 Intake Total 474 ml Output Total 2300 ml Balance -1826 ml KASSIE ALEXANDRE DO Dec 02, 2016 10:14
[2016-12-02 11:53] LABS: ABG BASE EXCESS 7.5 (-2.0-2.0); ABG HCO3 36.5 MEQ/L (22.0-26.0); ABG PARTIAL PRESSURE O2 70.7 mmHg (75.0-100.0); ABG STANDARD HCO3 31.2 MEQ/L (22.0-26.0); ABG TOTAL CO2 38.6 MEQ/L (22.0-29.0); ABG pH (ARTERIAL) 7.337 UNITS (7.350-7.450)
[2016-12-02 11:57] LABS: ABG PARTIAL PRESSURE CO2 69.7 mmHg (35.0-45.0)
[2016-12-02 12:00] VITALS: BP 134/78
[2016-12-02 12:36] LABS: FREE T4 1.33 NG/DL (0.76-1.46)
--- NOTE | 2016-12-02 14:46 | ECGEPIP ---
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 Electronically Signed On 12-02-2016 14:46:20 EST by Randolph Adames
[2016-12-02 16:00] VITALS: BP 124/78
[2016-12-02] MEDS ORDERED: cefTRIAXone SOD 2 GM in D5W MINI-BAG PLUS 50 ML IV SCH (17:00)
[2016-12-02 17:14] LABS: ABG HCO3 37.3 MEQ/L (22.0-26.0); ABG STANDARD HCO3 31.3 MEQ/L (22.0-26.0); ABG TOTAL CO2 39.5 MEQ/L (22.0-29.0); ABG pH (ARTERIAL) 7.336 UNITS (7.350-7.450)
[2016-12-02 17:15] LABS: ABG PARTIAL PRESSURE CO2 71.4 mmHg (35.0-45.0); ABG PARTIAL PRESSURE O2 46.8 mmHg (75.0-100.0)
[2016-12-02] MEDS ORDERED: AZITHROMYCIN 250 MG TAB PO SCH (18:00)
[2016-12-02] MEDS ORDERED: ISOVUE-370 76% 100ML VIAL (Q9967) As Ordered ONE (18:22)
--- NOTE | 2016-12-02 18:46 | REP ---
Clinical: Acute chest pain. Technique: Axial contrast enhanced images from the thoracic inlet to the upper abdomen using 100 ml Isovue 370 intravenous contrast material with coronal and sagittal re-formations. Findings: Satisfactory enhancement of the pulmonary vasculature is achieved and no filling defects are identified to suggest pulmonary embolus. Thoracic aorta is normal caliber without aneurysm or dissection. Moderate right pleural effusion with moderate consolidation/atelectasis and air bronchograms. Small left pleural effusion and mild passive basilar atelectasis. Mild chronic bronchiectasis cannot be excluded. Limited evaluation of the upper abdomen suggests ascites and possible cirrhosis. Impression: 1. No evidence for pulmonary embolus. 2. Moderate right and small left pleural effusions with moderate right lower lobe consolidation and bibasilar passive atelectasis. 3. Mild chronic bronchiectasis. 4. Suspicion for perihepatic ascites. Signed by Lonnie Hassan MD 12/02/2016 06:37 P
[2016-12-02 20:00] VITALS: BP 140/91
[2016-12-02] MEDS ORDERED: SODIUM CHLORIDE NASAL 0.65% SPRAY BTL (OCEAN) PRN (21:00)
[2016-12-02 23:48] LABS: ABG BASE EXCESS 10.8 (-2.0-2.0); ABG HCO3 39.8 MEQ/L (22.0-26.0); ABG PARTIAL PRESSURE O2 58.9 mmHg (75.0-100.0); ABG STANDARD HCO3 34.4 MEQ/L (22.0-26.0); ABG pH (ARTERIAL) 7.367 UNITS (7.350-7.450)
[2016-12-02 23:56] VITALS: O2SAT 90
[2016-12-03] VITALS: BP 125/84
[2016-12-03] MEDS: IPRATROPIUM 0.02% SOLN 0.5MG/2.5 ML NEB INH SCH ×2 (03:56→08:31)
[2016-12-03] MEDS: LEVALBUTEROL 1.25 MG/0.5 ML CONCENTRATE NEB INH SCH ×2 (03:56→08:31)
[2016-12-03 04:00] VITALS: BP 130/75
[2016-12-03 05:14] LABS: MEAN CORPUSCULAR HEMOGLOBIN 30.1 pg (27.0-33.0); MEAN CORPUSCULAR HGB CONC 29.8 g/dl (32.0-36.5); MEAN CORPUSCULAR VOLUME 100.9 fl (80.0-96.0); PLATELET COUNT, AUTOMATED 180 k/mm3 (150-450); RED CELL DISTRIBUTION WIDTH 13.9 % (11.5-14.5); WHITE BLOOD COUNT 8.5 K/mm3 (4.0-10.0)
[2016-12-03 05:32] LABS: ANION GAP 5 MEQ/L (8-16); BLOOD UREA NITROGEN 18 MG/DL (7-18); CALCIUM LEVEL 8.2 MG/DL (8.5-10.1); CARBON DIOXIDE LEVEL 37 MEQ/L (21-32); CHLORIDE LEVEL 96 MEQ/L (98-107); GLOMERULAR FILTRATION RATE > 60.0 (>56); GLUCOSE, FASTING 162 MG/DL (70-105); POTASSIUM SERUM 4.4 MEQ/L (3.5-5.1); SODIUM LEVEL 138 MEQ/L (136-145)
[2016-12-03 05:40] LABS: HYPOCHROMASIA 2+
[2016-12-03] MEDS: SLF 3 ML SYR IV SCH (06:11)
[2016-12-03] MEDS: FUROSEMIDE 40 MG/4 ML VIAL (J1940) IV SCH (06:12)
[2016-12-03 08:00] VITALS: BP 131/79
[2016-12-03] MEDS: predniSONE 20 MG TAB PO SCH (08:35)
[2016-12-03] MEDS: ENOXAPARIN 40 MG/0.4 ML SYRINGE (J1650) SC SCH (08:35)
[2016-12-03 09:07] LABS: ABG BASE EXCESS 10.2 (-2.0-2.0); ABG HCO3 39.6 MEQ/L (22.0-26.0); ABG STANDARD HCO3 33.9 MEQ/L (22.0-26.0); ABG TOTAL CO2 41.8 MEQ/L (22.0-29.0); ABG pH (ARTERIAL) 7.351 UNITS (7.350-7.450)
[2016-12-03 09:10] LABS: ABG PARTIAL PRESSURE CO2 73.2 mmHg (35.0-45.0)
--- NOTE | 2016-12-03 15:04 | ECGEPIP ---
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
--- NOTE | 2016-12-03 16:36 | DS.PDOC ---
Discharge Summary General Date of Admission Dec 01, 2016 at 19:26 Date of Discharge Dec 03, 2016 at 10:20 Attending Physician: SHERON BETANCUR MD Discharge Summary PROCEDURES PERFORMED DURING STAY: None. COMPLICATIONS/CHIEF COMPLAINT: Chf Exacerbation ADMISSION/DISCHARGE DIAGNOSES: 1. Acute decompensated CHF exacerbation 2. Acute COPD exacerbation 3. Community-acquired pneumonia 4. Questionable cor pulmonale, echocardiogram pending 5. Acute on chronic respiratory acidosis 6. Questionable liver cirrhosis/ascites 7. Sinus tachycardia HISTORY OF PRESENT ILLNESS/HOSPITAL COURSE: This is a 61-year-old male with past medical history of COPD, possible CHF who presents complaining of swelling in his bilateral lower extremities over the last 3 weeks. Patient is also been having dyspnea on exertion which is progressively getting worse as well as orthopnea. Patient does not use oxygen at home. Patient denies chest pain/palpitations. No nausea/vomiting/abdominal pain. During the course of hospitalization patient was found to be in acute decompensated heart failure. Patient was started on diuretics. Patient was also noted to have acute on chronic respiratory acidosis and was placed on BiPAP however patient only used it for 45 minutes, and refused to use any longer. Patient was also found to have community acquired pneumonia for which was placed onto antibiotics. On 12/03/16, patient states he would like to leave AMA. I explained all the above diagnoses as well as the intended therapy. Patient understood the risks of leaving including worsening heart failure, COPD, pneumonia, as well as . Patient verbalized understanding of this diagnosis as well as the risks of leaving AGAINST MEDICAL ADVICE. Patient had good insight and good judgment. This was witnessed by the nurse at bedside. Patient signed AMA form. I have informed the patient to return to the ED as soon as possible if his symptoms worsen. He states he would like to leave now and that he will come back on Tuesday. DISCHARGE MEDICATIONS: Please see below. ALLERGIES: Please see below. PHYSICAL EXAMINATION ON DISCHARGE: Vitals: (see below) General: No acute distress, laying comfortably in bed. HEENT: Moist mucous membranes. Neck: Mild JVD. No lymphadenopathy Cardiac: Tachycardic, No murmurs Pulm: Coarse crackles bilateral lower bases b/l. No wheezing, rhonchi Abd: NT/ND + BS Ext: 2+ pitting edema the lateral lower extremities Alert and oriented 3. Good insight and judgment. LABORATORY DATA: Please see below. IMAGING: CTA chest 12/02/16 Impression: 1. No evidence for pulmonary embolus. 2. Moderate right and small left pleural effusions with moderate right lower lobe consolidation and bibasilar passive atelectasis. 3. Mild chronic bronchiectasis. 4. Suspicion for perihepatic ascites. Lower extremity ultrasound 12/01/16 IMPRESSION: No evidence of DVT in the right lower extremity. VTE Prophylaxis ordered?: Yes DISCHARGE CONDITION: Stable. DISPOSITION: Patient leaving AMA. ACTIVITY: As tolerated DIET: Low-sodium DISCHARGE PLAN AND INSTRUCTIONS: 1. Follow-up with PCP as soon as possible. Please return to the ED if symptoms worsen. TIME SPENT ON DISCHARGE: Greater than 30 minutes. Vital Signs/I&Os Vital Signs Date Time Temp Pulse Resp B/P Pulse Ox O2 Delivery O2 Flow Rate FiO2 12/03/16 08:00 Nasal Cannula 2.0 12/03/16 08:00 98.0 110 22 131/79 90 12/02/16 20:48 25 I&O- Last 24 Hours up to 6 AM 12/03/16 06:00 Intake Total 840 ml Output Total 2565 ml Balance -1725 ml Laboratory Data Labs 24H Laboratory Tests 2 12/02/16 17:03: Arterial Blood pH 7.336L, Arterial Blood Partial Pressure CO2 71.4*H, Arterial Blood Partial Pressure O2 46.8*L, Arterial Blood Total CO2 39.5H, Arterial Blood HCO3 37.3H, Arterial Blood Base Excess 8.0H, Arterial Blood Oxygen Saturation 81.1L, Blood Gas Bicarbonate Standard 31.3H 12/02/16 23:39: Arterial Blood pH 7.367, Arterial Blood Partial Pressure CO2 71.0*H, Arterial Blood Partial Pressure O2 58.9L, Arterial Blood Total CO2 42.0H, Arterial Blood HCO3 39.8H, Arterial Blood Base Excess 10.8H, Arterial Blood Oxygen Saturation 90.0L, Blood Gas Bicarbonate Standard 34.4H, Arterial Blood Gas Puncture Site RT RADIAL 12/03/16 04:56: Anion Gap 5L, Blood Urea Nitrogen 18, Creatinine 0.90, Sodium Level 138, Potassium Level 4.4, Chloride Level 96L, Carbon Dioxide Level 37H, Calcium Level 8.2L, Glomerular Filtration Rate > 60.0 12/03/16 04:57: White Blood Count 8.5, Red Blood Count 5.11, Hemoglobin 15.4, Hematocrit 51.6, Mean Corpuscular Volume 100.9H, Mean Corpuscular Hemoglobin 30.1, Mean Corpuscular Hemoglobin Concent 29.8L, Red Cell Distribution Width 13.9, Platelet Count 180, Neutrophils (%) (Auto) , Lymphocytes (%) (Auto) , Monocytes (%) (Auto) , Eosinophils (%) (Auto) , Basophils (%) (Auto) , Neutrophils # (Auto ) , Lymphocytes # (Auto) , Monocytes # (Auto) , Eosinophils # (Auto) , Basophils # (Auto) , Hypochromasia 2+, Large Unclassified Cells # , Large Unclassified Cells % , Lymphocytes (Manual) 10L, Monocytes (Manual) 7, Neutrophils 83H, Platelet Estimate NORMAL, Red Blood Cell Morphology NORMAL 12/03/16 08:56: Arterial Blood pH 7.351, Arterial Blood Partial Pressure CO2 73.2*H, Arterial Blood Partial Pressure O2 65.0L, Arterial Blood Total CO2 41.8H, Arterial Blood HCO3 39.6H, Arterial Blood Base Excess 10.2H, Arterial Blood Oxygen Saturation 92.7L, Blood Gas Bicarbonate Standard 33.9H CBC/BMP Laboratory Tests 12/03/16 04:56 Calcium Level 8.2 L 12/03/16 04:57 Red Blood Count 5.11, Mean Corpuscular Volume 100.9 H, Mean Corpuscular Hemoglobin 30.1, Mean Corpuscular Hemoglobin Concent 29.8 L, Red Cell Distribution Width 13.9, Neutrophils (%) (Auto) , Lymphocytes (%) (Auto) , Monocytes (%) (Auto) , Eosinophils (%) (Auto) , Basophils (%) (Auto) , Neutrophils # (Auto) , Lymphocytes # (Auto) , Monocytes # (Auto) , Eosinophils # (Auto) , Basophils # (Auto) Microbiology Microbiology 12/01/16 Blood Culture - Preliminary, Resulted No growth after 24 hours . All specim... 12/01/16 Blood Culture - Preliminary, Resulted No growth after 24 hours . All specim... 12/03/16 Gram Stain - Final, Resulted 12/03/16 Sputum Culture, Resulted Pending 12/02/16 MRSA Screen - Final, Complete 12/01/16 Respiratory Virus Panel (PCR) ([facility]LE[facility]) - Final, Complete Medications Scheduled Albuterol/Ipratropium (Combivent Respimat 20-100 Mcg/Act) 1 Aer Aer 2 PUFF INH QID (Reported) B1/B2/B3/B5/B6 (Vitamin B Complex) 1 Tab Tab 1 TAB PO DAILY (Reported) Scheduled PRN Albuterol Sulfate (Ventolin Hfa) 200 Puff/8 Gm Aers 2 PUFF INH QID PRN PRN SHORTNESS OF BREATH (Reported) Allergies Coded Allergies: No Known Drug Allergy (Verified Allergy, Unknown, 12/01/16) SHERON BETANCUR MD Dec 03, 2016 16:36
--- NOTE | 2016-12-04 00:36 | EDDOCDS ---
Physician Documentation [facility] Name: Kumar Shane Age: 61 yrs Sex: Male : 1955 Arrival Date: 12/01/2016 Time: 17:49 Bed 9 Private MD: NO PRIMARY PHYSICIAN, . Disposition: 12/01/16 19:16 Hospitalization ordered by Naomie Willoughby for Inpatient Admission. Preliminary diagnosis are Acute combined systolic (congestive) and diastolic (congestive) heart failure, Chronic obstructive pulmonary disease with acute lower respiratory infection. - Bed requested for PCU. - Status is Inpatient Admission. mlc - Condition is Stable. - Problem is an acute exacerbation. - Symptoms are unchanged. Historical: - Allergies: No known drug Allergies; - Home Meds: 1. Combivent 18-103 mcg/actuation Inhl aero 2 puffs 4 times per day (Last dose: 12/01/2016 09:00) 2. ventolin inhaler Unknown every 6 hours (Last dose: 12/01/2016 09:00) - PMHx: COPD; CHF; - PSHx: Hernia repair; Appendectomy; - Family history: Not pertinent. - Social history: Smoking status: Patient uses tobacco products, current every day smoker. No barriers to communication noted, The patient speaks fluent Irish, Speaks appropriately for age, Preferred Language: Irish. - : The pt / caregiver states he / she is not on anticoagulants. Home medication list is obtained from the patient. - Exposure Risk Screening:: None identified. Vital Signs: 12/01 17:51 BP 145 / 93; Pulse 115; Resp 18; Temp 98.6(O); Pulse Ox 79% ; Weight 74.84 kg / 164.99 gr2 lbs (R); Height 5 ft. 7 in. (170.18 cm) (R); Pain 0/10; 18:00 Resp 19; Pulse Ox 82% on R/A; Pain 0/10; lf1 18:12 Pulse 112 MON; Pulse Ox 92% on 4 lpm NC; dsf 18:16 Pulse 116 MON; Pulse Ox 95% ; dsf 18:22 Pulse 106 MON; Pulse Ox 98% ; dsf 18:25 BP 182 / 5; ac1 18:32 BP 182 / 0; ac1 18:48 BP 130 / 86 (auto/); dsf 18:49 Pulse 102 MON; Pulse Ox 100% ; dsf 18:58 BP 135 / 91 (auto/); dsf 18:59 Pulse 102 MON; Pulse Ox 94% ; dsf 19:13 BP 151 / 94 (auto/); dsf 19:14 Pulse 104 MON; Pulse Ox 93% ; dsf 19:28 BP 156 / 92 (auto/); dsf 19:29 Pulse 102 MON; Pulse Ox 92% ; dsf 19:37 Pulse 104 MON; Pulse Ox 93% ; dsf 19:58 BP 184 / 103 (auto/); dsf 19:58 Pulse 104 MON; Pulse Ox 95% ; dsf 20:13 BP 142 / 91 (auto/); dsf 20:14 Pulse 104 MON; Pulse Ox 92% ; dsf 20:28 BP 139 / 87 (auto/); mlc 20:28 Pulse 102 MON; Pulse Ox 95% ; mlc 20:58 BP 138 / 87 (auto/); mlc 21:06 BP 139 / 84 (auto/); mlc 21:13 BP 140 / 85 (auto/); mlc 21:28 BP 144 / 86 (auto/); mlc 21:28 Pulse 104 MON; Pulse Ox 92% ; mlc 21:43 BP 144 / 89 (auto/); mlc 21:43 Pulse 104 MON; Pulse Ox 91% ; mlc 21:58 BP 146 / 90 (auto/); mlc 21:58 Pulse 102 MON; Pulse Ox 91% ; mlc 22:13 BP 143 / 87 (auto/); mlc 22:13 Pulse 104 MON; Pulse Ox 93% ; mlc 22:28 BP 144 / 86 (auto/); mlc 22:43 BP 136 / 84 (auto/); mlc 22:43 Pulse 102 MON; Pulse Ox 93% ; mlc 22:58 BP 141 / 86 (auto/); mlc 22:58 Pulse 98 MON; Pulse Ox 93% ; mlc 23:13 BP 142 / 87 (auto/); mlc 23:14 Pulse 102 MON; Pulse Ox 92% ; mlc 23:28 BP 148 / 89 (auto/); mlc 23:28 Pulse 104 MON; Pulse Ox 92% ; mlc 23:32 BP 150 / 87; Pulse 107; Resp 20; Temp 98.1(O); Pulse Ox 92% on 2 lpm NC; Pain 0/10; jmv 17:51 Body Mass Index 25.84 (74.84 kg, 170.18 cm) gr2 MDM: 18:04 -Blood Culture (Adults Only), peripheral from different site, or from device/port/PICC sd1 etc. if present ordered. 18:04 Cattle Sorter/Pulse Ox/q 15 min VS ordered. sd1 18:04 IV Saline Lock ordered. sd1 18:04 Oxygen at 4L/Min NC or Home dosage ordered. sd1 18:04 Rhythm Strip to chart ordered. sd1 18:05 B-Type Natiuretic Peptide Ordered. EDMS 18:05 Basic Metabolic Profile Ordered. EDMS 18:05 CBC with Diff Ordered. EDMS 18:05 Cardiac Injury Profile Ordered. EDMS 18:05 Troponin Ordered. EDMS 18:05 -Blood Culture Ordered. EDMS 18:05 Chest, 1 View Ordered. EDMS 18:05 ECG WITH READING ER PHYS+CARDIAG ordered. EDMS 18:10 Albuterol-Ipratropium 1 neb Nebulizer every 20 minutes x3 ordered. sd1 18:11 Call Respiratory ordered. sd1 18:12 -Arterial Blood Gas Ordered. EDMS 18:13 Call Respiratory complete. lbd 18:14 -Blood Culture (Adults Only), peripheral from different site, or from device/port/PICC lbd etc. if present complete. 18:17 BLOOD CULTURES Ordered. EDMS 18:17 US Lower Extremity R/O DVT Ordered. EDMS 18:28 [facility] ordered. sd1 18:32 Albuterol-Ipratropium 1 neb Nebulizer every 20 minutes x3 ordered. ac1 18:32 LIVER PROFILE Ordered. EDMS 18:33 Financial registration complete. gb 18:33 [facility] Payment Agreement was scanned into [employer] and attached to record. gb 18:37 [facility] [employer] Order complete. lbd 18:39 Solu-MEDROL 125 mg IVP once ordered. sd1 18:40 -Arterial Blood Gas Reviewed. sd1 18:40 RESPIRATORY PANEL Ordered. EDMS 18:43 cefTRIAXone 1 grams IVPB once over 30 mins; dilute in 50mL of NS or D5W ordered. sd1 18:43 azithromycin 500 mg IVPB once over 1 hrs; dilute in 250mL of D5W or NS ordered. sd1 18:44 BED REQUEST+ADM ordered. EDMS 19:04 B-Type Natiuretic Peptide Reviewed. sd1 19:04 Furosemide 40 mg IVP once ordered. sd1 19:08 Basic Metabolic Profile Reviewed. sd1 19:08 LIVER PROFILE Reviewed. sd1 19:08 Troponin Reviewed. sd1 19:12 Basic Metabolic Profile Reviewed. sd1 19:12 Cardiac Injury Profile Reviewed. sd1 19:12 LIVER PROFILE Reviewed. sd1 19:12 Troponin Reviewed. sd1 19:13 RBC MORPH PROF NO CHARGE Ordered. EDMS 19:30 2 GRAM SODIUM DIET ordered. EDMS 19:32 PHYSICAL THERAPY EVAL & TREAT ordered. EDMS 19:33 Admission / Observation Status ordered. EDMS 19:33 ECHOCARD,DOPPLER/COLOR FLOW ordered. EDMS 19:34 CARDIAC MARKER PANEL Ordered. EDMS 19:35 CARDIAC MARKER PANEL Ordered. EDMS 19:37 CARDIAC MARKER PANEL Ordered. EDMS 20:04 CBC WITH DIFFERENTIAL Ordered. EDMS 20:04 CARDIAC RISK PROFILE Ordered. EDMS 20:04 THYROID STIMULATING HORMONE Ordered. EDMS 20:04 MAGNESIUM LEVEL Ordered. EDMS 20:26 MRSA SCREEN Ordered. EDMS 20:26 SPUTUM CULTURE AND GRAM STAIN Ordered. EDMS 20:39 BASIC METABOLIC PROFILE Ordered. EDMS 12/02 19:05 T-Sheet-- Draft Copy was scanned into [employer] and attached to record. klr Administered Medications: 12/01 18:10 Drug: Albuterol-Ipratropium 1 neb [ipratropium-albuterol 0.5 mg-3 mg(2.5 mg base)/3 mL ac1 nebulization soln (1 neb)] Route: Nebulizer; 18:20 Drug: Albuterol-Ipratropium 1 neb [ipratropium-albuterol 0.5 mg-3 mg(2.5 mg base)/3 mL ac1 nebulization soln (1 neb)] Route: Nebulizer; 18:20 Follow up: bs exp whz before and after tx ac1 18:25 Follow up: BP 182 / 5 ac1 18:25 Follow up: wnz bilat throughout before and after tx ac1 18:30 Drug: Albuterol-Ipratropium 1 neb [ipratropium-albuterol 0.5 mg-3 mg(2.5 mg base)/3 mL ac1 nebulization soln (1 neb)] Route: Nebulizer; 18:32 Follow up: BP 182 / 0 ac1 18:35 Follow up: bs whz bilat before and after tx ac1 18:52 Drug: Solu-MEDROL 125 mg [Solu-Medrol 500 mg intravenous solution (125 mg)] Route: IVP; dsf Site: right antecubital; 19:07 Drug: cefTRIAXone 1 grams [ceftriaxone 1 gram solution for injection] Route: IVPB; dsf Infused Over: 30 mins; Site: right antecubital; 19:37 Follow up: IV Status: Completed infusion; IV Intake: 50ml dsf 19:14 Drug: Furosemide 40 mg [furosemide 10 mg/mL injection solution (4 mL)] Route: IVP; dsf Site: right antecubital; 19:37 Drug: azithromycin 500 mg [azithromycin 500 mg intravenous solution] Route: IVPB; dsf Infused Over: 1 hrs; Site: right antecubital; 20:51 Follow up: IV Status: Completed infusion; IV Intake: 250ml dsf Signatures: Dispatcher [employer] EDMS Tricia Porter MD MD sdMerna Underwood, Gauntlet Pairer Unit lbd Lana Hines, Reg Reg gb [place],Sonam,RT RT ac1 Tiki Bankser, BROTH SETTER BROTH SETTER [id number] Kenadl Jaramillo RN RN lf1 Zayad Rob RN RN Lashae Jain Desiree RN dsf The chart was reviewed and I authenticate all verbal orders and agree with the evaluation and treatment provided.Corrections: (The following items were deleted from the chart) 18:32 18:29 LIVER PROFILE+LAB ordered. EDMS EDMS 20:39 19:31 BASIC METABOLIC PROFILE ordered. EDMS EDMS Attachments: 18:33 [facility] Payment Agreement gb 12/02 19:05 T-Sheet-- Draft Copy klr Chart Complete MTDD
--- NOTE | 2016-12-04 00:36 | EDDOCDS ---
Nurse's Notes [facility] Name: Kumar Shane Age: 61 yrs Sex: Male : 1955 Arrival Date: 12/01/2016 Time: 17:49 Bed 9 Private MD: NO PRIMARY PHYSICIAN, . Diagnosis: Acute combined systolic (congestive) and diastolic (congestive) heart failure;Chronic obstructive pulmonary disease with acute lower respiratory infection Presentation: 12/01 17:58 Presenting complaint: Patient states: Was seen at [facility] this afternoon lf1 for SOB for two weeks and swelling in BL LE. O\\T\\ Sats were 75% on RA and pt. refused transport via EMS. Pt. presents to ED with SATS in the mid 80"s, states he has a history of COPD and has had shortness of breath for two weeks. Respiratory Distress: Mild respiratory distress is noted. Adult Sepsis Screening: The patient does not have new or worsening altered mentation. Patient's respiratory rate is less than 22. Systolic blood pressure is greater than 100. Patient has a qSOFA score of 0- Negative Sepsis Screen. Suicide/Homicide risk assessment- the patient denies having any suicidal and/or homicidal ideations and does not present with any other emotional, behavioral or mental health complaints. 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 Transition of care: Patient was received from [facility]. 17:58 Acuity: LOLA Level 2 lf1 17:58 Method Of Arrival: Walkin/Carried/Asstd lf1 18:02 Red Flag criteria, Finish triage while room being cleaned. Direct to room when lf1 available. charge nurse aware. Triage Assessment: 21:55 HIV screening NA for this visit Offered previously. mlc Historical: - Allergies: No known drug Allergies; - Home Meds: 1. Combivent 18-103 mcg/actuation Inhl aero 2 puffs 4 times per day (Last dose: 12/01/2016 09:00) 2. ventolin inhaler Unknown every 6 hours (Last dose: 12/01/2016 09:00) - PMHx: COPD; CHF; - PSHx: Hernia repair; Appendectomy; - Family history: Not pertinent. - Social history: Smoking status: Patient uses tobacco products, current every day smoker. No barriers to communication noted, The patient speaks fluent Cambodian, Speaks appropriately for age, Preferred Language: Cambodian. - : The pt / caregiver states he / she is not on anticoagulants. Home medication list is obtained from the patient. - Exposure Risk Screening:: None identified. Screenin:03 Screening information is obtained from the patient. Fall risk: No risks identified. dsf Assistance ADL's: requires no assistance with activities of daily living. Abuse/DV Screen: The patient / caregiver reports he/she is: not in a situation that causes fear, pain or injury. Nutritional screening: No deficits noted. Advance Directives: Currently, there is no health care proxy. home support is adequate. Assessment: 18:22 General: Appears in no apparent distress, Behavior is appropriate for age. Pain: Denies dsf pain. Neurological: Level of Consciousness is awake, alert, Oriented to person, place, time. Cardiovascular: Capillary refill < 3 seconds JVD is present bilaterally Heart tones S1 S2 present Edema is 3+ to left midcalf, left ankle, left foot, right midcalf, right ankle and right foot edema to bilateral knees and thighs. Right leg swelling worse than left Rhythm is sinus tachycardia. Respiratory: Airway is patent Respiratory effort is unlabored, Respiratory pattern is regular, Breath sounds with wheezes expiratory bilaterally. Reports shortness of breath on exertion since 2 weeks. GI: Abdomen is non- distended Bowel sounds present X 4 quads. Abd is soft and non tender X 4 quads. Derm: Skin is pink, warm & dry. 18:38 General: lab called PC02 60.2. Dr. Jaimes notified . dsf 19:22 Adult Sepsis Screening: The patient does not have new or worsening altered mentation. dsf Patient's respiratory rate is less than 22. Systolic blood pressure is greater than 100. Patient has a qSOFA score of 0- Negative Sepsis Screen. General: Appears in no apparent distress, comfortable, Behavior is appropriate for age, cooperative. Pain: Denies pain. Neurological: Level of Consciousness is awake, alert, Oriented to person, place, time. Cardiovascular: Capillary refill < 3 seconds Heart tones S1 S2 present Rhythm is sinus tachycardia. Respiratory: Airway is patent Respiratory effort is even, unlabored, Respiratory pattern is regular, symmetrical, Breath sounds with wheezes expiratory bilaterally. GI: Abdomen is non- distended Bowel sounds present X 4 quads. Abd is soft and non tender X 4 quads. Derm: Skin is pink, warm & dry. 20:22 General: Appears in no apparent distress, comfortable, Behavior is appropriate for age, dsf cooperative. Pain: Denies pain. Neurological: Level of Consciousness is awake, alert. Cardiovascular: Capillary refill < 3 seconds Rhythm is sinus tachycardia. Respiratory: Airway is patent Respiratory effort is even, unlabored, Respiratory pattern is regular, symmetrical. Derm: Skin is pink, warm & dry. 22:33 Reassessment: Patient appears in no apparent distress at this time. Patient denies pain mlc at this time. pt resting comfortably in bed. resp easy/unlabored. pt offers no complaints. . 22:33 Reassessment: PCU states there is still currently a patient in the assigned bed on the mlc unit, staff will call with update . 23:30 General: Appears in no apparent distress, comfortable, Behavior is cooperative. Pain: mlc Denies pain. Neurological: Level of Consciousness is awake, alert, Oriented to person, place, time. Respiratory: Airway is patent Respiratory effort is even, unlabored, Respiratory pattern is regular. Derm: Skin is pink, warm & dry. Vital Signs: 17:51 BP 145 / 93; Pulse 115; Resp 18; Temp 98.6(O); Pulse Ox 79% ; Weight 74.84 kg (R); gr2 Height 5 ft. 7 in. (170.18 cm) (R); Pain 0/10; 18:00 Resp 19; Pulse Ox 82% on R/A; Pain 0/10; lf1 18:12 Pulse 112 MON; Pulse Ox 92% on 4 lpm NC; dsf 18:16 Pulse 116 MON; Pulse Ox 95% ; dsf 18:22 Pulse 106 MON; Pulse Ox 98% ; dsf 18:25 BP 182 / 5; ac1 18:32 BP 182 / 0; ac1 18:48 BP 130 / 86 (auto/); dsf 18:49 Pulse 102 MON; Pulse Ox 100% ; dsf 18:58 BP 135 / 91 (auto/); dsf 18:59 Pulse 102 MON; Pulse Ox 94% ; dsf 19:13 BP 151 / 94 (auto/); dsf 19:14 Pulse 104 MON; Pulse Ox 93% ; dsf 19:28 BP 156 / 92 (auto/); dsf 19:29 Pulse 102 MON; Pulse Ox 92% ; dsf 19:37 Pulse 104 MON; Pulse Ox 93% ; dsf 19:58 BP 184 / 103 (auto/); dsf 19:58 Pulse 104 MON; Pulse Ox 95% ; dsf 20:13 BP 142 / 91 (auto/); dsf 20:14 Pulse 104 MON; Pulse Ox 92% ; dsf 20:28 BP 139 / 87 (auto/); mlc 20:28 Pulse 102 MON; Pulse Ox 95% ; mlc 20:58 BP 138 / 87 (auto/); mlc 21:06 BP 139 / 84 (auto/); mlc 21:13 BP 140 / 85 (auto/); mlc 21:28 BP 144 / 86 (auto/); mlc 21:28 Pulse 104 MON; Pulse Ox 92% ; mlc 21:43 BP 144 / 89 (auto/); mlc 21:43 Pulse 104 MON; Pulse Ox 91% ; mlc 21:58 BP 146 / 90 (auto/); mlc 21:58 Pulse 102 MON; Pulse Ox 91% ; mlc 22:13 BP 143 / 87 (auto/); mlc 22:13 Pulse 104 MON; Pulse Ox 93% ; mlc 22:28 BP 144 / 86 (auto/); mlc 22:43 BP 136 / 84 (auto/); mlc 22:43 Pulse 102 MON; Pulse Ox 93% ; mlc 22:58 BP 141 / 86 (auto/); mlc 22:58 Pulse 98 MON; Pulse Ox 93% ; mlc 23:13 BP 142 / 87 (auto/); mlc 23:14 Pulse 102 MON; Pulse Ox 92% ; mlc 23:28 BP 148 / 89 (auto/); mlc 23:28 Pulse 104 MON; Pulse Ox 92% ; mlc 23:32 BP 150 / 87; Pulse 107; Resp 20; Temp 98.1(O); Pulse Ox 92% on 2 lpm NC; Pain 0/10; jmv 17:51 Body Mass Index 25.84 (74.84 kg, 170.18 cm) gr2 Vitals: 17:51 Log In Time: December 01, 2016 at 17:51. RN notified that patient meets Red Flag gr2 criteria. ED Course: 17:50 Patient visited by Grace Lux. gr2 17:50 NO PRIMARY PHYSICIAN, . is Private Physician. gr2 17:50 Patient moved to Waiting gr2 17:56 Patient visited by Grace Lux. gr2 17:58 Patient moved to Triage 1 lf1 18:01 Triage Initiated lf1 18:03 Tricia Porter MD is Attending Physician. sd1 18:03 Patient visited by Tricia Porter MD. sd1 18:03 Patient moved to 9 lf1 18:03 monitor worker on. Pulse ox on. NIBP on. dsf 18:03 Inserted saline lock: 20 gauge in right antecubital area The patient tolerated the dsf procedure well. O2 via nasal cannula \\T\\ 4L/min. 18:21 Troponin Sent. dsf 18:21 Cardiac Injury Profile Sent. dsf 18:21 CBC with Diff Sent. dsf 18:21 Basic Metabolic Profile Sent. dsf 18:21 B-Type Natiuretic Peptide Sent. dsf 18:21 -Blood Culture Sent. dsf 18:24 The patient / caregiver is instructed regarding the plan of care and ED course. Patient dsf has correct armband on for positive identification. Placed in gown. Bed in low position. Call light in reach. Side rails up X2. 18:25 Patient visited by Aurora Sandra RN. dsf 18:25 EKG done. (by ED staff). Reviewed by Tricia Porter MD. cmb 18:30 -Arterial Blood Gas Sent. ac1 18:33 Patient name changed from Kumar\\S\\\\S\\Svitlana\\S\\ to Kumar\\S\\ \\S\\Svitlana. EDMS 18:33 [facility] Payment Agreement was scanned into [employer] and attached to record. gb 18:52 RESPIRATORY PANEL Sent. dsf 18:52 BLOOD CULTURES Sent. dsf 18:53 Patient moved to Ultrasound am17 19:06 Patient moved to 9 am17 19:07 LIVER PROFILE Sent. dsf 19:16 Naomie Willoughby is Hospitalizing Provider. sd1 19:21 US Lower Extremity R/O DVT Returned. EDMS 19:38 Patient visited by Aurora Sandra,HENNA. dsf 21:00 Zayda Rob,HENNA is Primary Nurse. mlc 21:17 Chest, 1 View Returned. EDMS 21:55 No procedures done that require assistance. mlc 22:35 Patient visited by Zayda Rob RN. mlc 23:33 Patient visited by Raj Bates PCA. jmv 12/02 19:05 T-Sheet-- Draft Copy was scanned into [employer] and attached to record. klr Administered Medications: 12/01 18:10 Drug: Albuterol-Ipratropium 1 neb [ipratropium-albuterol 0.5 mg-3 mg(2.5 mg base)/3 mL ac1 nebulization soln (1 neb)] Route: Nebulizer; 18:20 Drug: Albuterol-Ipratropium 1 neb [ipratropium-albuterol 0.5 mg-3 mg(2.5 mg base)/3 mL ac1 nebulization soln (1 neb)] Route: Nebulizer; 18:20 Follow up: bs exp whz before and after tx ac1 18:25 Follow up: BP 182 / 5 ac1 18:25 Follow up: wnz bilat throughout before and after tx ac1 18:30 Drug: Albuterol-Ipratropium 1 neb [ipratropium-albuterol 0.5 mg-3 mg(2.5 mg base)/3 mL ac1 nebulization soln (1 neb)] Route: Nebulizer; 18:32 Follow up: BP 182 / 0 ac1 18:35 Follow up: bs whz bilat before and after tx ac1 18:52 Drug: Solu-MEDROL 125 mg [Solu-Medrol 500 mg intravenous solution (125 mg)] Route: IVP; dsf Site: right antecubital; 19:07 Drug: cefTRIAXone 1 grams [ceftriaxone 1 gram solution for injection] Route: IVPB; dsf Infused Over: 30 mins; Site: right antecubital; 19:37 Follow up: IV Status: Completed infusion; IV Intake: 50ml dsf 19:14 Drug: Furosemide 40 mg [furosemide 10 mg/mL injection solution (4 mL)] Route: IVP; dsf Site: right antecubital; 19:37 Drug: azithromycin 500 mg [azithromycin 500 mg intravenous solution] Route: IVPB; dsf Infused Over: 1 hrs; Site: right antecubital; 20:51 Follow up: IV Status: Completed infusion; IV Intake: 250ml dsf Intake: 19:37 IV: 50.00ml; Total: 50.00ml. dsf 20:51 IV: 250.00ml; Total: 300.00ml. dsf Output: 20:01 Urine: 425.00ml (Voided); Total: 425.00ml. dsf 20:22 Urine: 375.00ml (Voided); Total: 800.00ml. dsf 21:55 Urine: 300.00ml (Voided); Total: 1100.00ml. mlc RT: 18:10 Initial Med Neb Given as ordered. ac1 18:15 Respiratory: Breath sounds with wheezes bilaterally. at expiration. ac1 18:20 Subsequent Med Neb Given as ordered. ac1 18:25 Respiratory: Breath sounds with wheezes bilaterally. ac1 18:30 Subsequent Med Neb Given as ordered. ac1 18:43 Respiratory: Breath sounds with wheezes bilaterally. at expiration. ac1 Order Results: Lab Order: B-Type Natiuretic Peptide; SPEC' 12/01/16 18:15 Test: BRAIN NATRIURETIC PEPTIDE; Value: 1070; Range: <100; Abnormal: Above high normal; Units: PG/ML; Status: F Lab Order: Basic Metabolic Profile; [facility]' 12/01/16 18:15 Test: GLUCOSE, FASTING; Value: 156; Range: 70-105; Abnormal: Above high normal; Units: MG/DL; Status: F Test: BLOOD UREA NITROGEN; Value: 21; Range: 7-18; Abnormal: Above high normal; Units: MG/DL; Status: F Test: CREATININE FOR GFR; Value: 1.01; Range: 0.70-1.30; Units: MG/DL; Status: F Test: GLOMERULAR FILTRATION RATE; Value: > 60.0; Range: >56; Status: F Test: SODIUM LEVEL; Value: 139; Range: 136-145; Units: MEQ/L; Status: F Test: POTASSIUM SERUM; Value: 4.2; Range: 3.5-5.1; Units: MEQ/L; Status: F Test: CHLORIDE LEVEL; Value: 98; Range: 98-107; Units: MEQ/L; Status: F Test: CARBON DIOXIDE LEVEL; Value: 36; Range: 21-32; Abnormal: Above high normal; Units: MEQ/L; Status: F Test: ANION GAP; Value: 5; Range: 8-16; Abnormal: Below low normal; Units: MEQ/L; Status: F Test: CALCIUM LEVEL; Value: 8.4; Range: 8.5-10.1; Abnormal: Below low normal; Units: MG/DL; Status: F Test Note: ; Units are mL/min/1.73 m2 Chronic Kidney Disease Staging per NKF: Stage I & II GFR >=60 Normal to Mildly Decreased Stage III GFR 30-59 Moderately Decreased Stage IV GFR 15-29 Severely Decreased Stage V GFR <15 Very Little GFR Left ESRD GFR <15 on ENVIRONMENTAL SERVICES SUPERVISOR Lab Order: CBC with Diff; SPEC'M 12/01/16 18:15 Test: WHITE BLOOD COUNT; Value: 6.3; Range: 4.0-10.0; Units: K/mm3; Status: F Test: RED BLOOD COUNT; Value: 5.38; Range: 4.30-6.10; Units: M/mm3; Status: F Test: HEMOGLOBIN; Value: 16.3; Range: 14.0-18.0; Units: g/dl; Status: F Test: HEMATOCRIT; Value: 56.3; Range: 42.0-52.0; Abnormal: Above high normal; Units: %; Status: F Test: MEAN CORPUSCULAR VOLUME; Value: 104.6; Range: 80.0-96.0; Abnormal: Above high normal; Units: fl; Status: F Test: MEAN CORPUSCULAR HEMOGLOBIN; Value: 30.3; Range: 27.0-33.0; Units: pg; Status: F Test: MEAN CORPUSCULAR HGB CONC; Value: 29.0; Range: 32.0-36.5; Abnormal: Below low normal; Units: g/dl; Status: F Test: RED CELL DISTRIBUTION WIDTH; Value: 14.1; Range: 11.5-14.5; Units: %; Status: F Test: PLATELET COUNT, AUTOMATED; Value: 174; Range: 150-450; Units: k/mm3; Status: F Test: NEUTROPHILS %; Value: 65.6; Range: 36.0-66.0; Units: %; Status: F Test: LYMPH %; Value: 21.5; Range: 24.0-44.0; Abnormal: Below low normal; Units: %; Status: F Test: MONO %; Value: 9.0; Range: 0.0-5.0; Abnormal: Above high normal; Units: %; Status: F Test: EOS %; Value: 1.1; Range: 0.0-3.0; Units: %; Status: F Test: BASO %; Value: 0.6; Range: 0.0-1.0; Units: %; Status: F Test: LARGE UNSTAINED CELL %; Value: 2.1; Range: 0.0-4.0; Units: %; Status: F Test: NEUTROPHILS #; Value: 4.2; Range: 1.8-7.7; Units: K/mm3; Status: F Test: LYMPH #; Value: 1.5; Range: 1.5-4.5; Units: K/mm3; Status: F Test: MONO #; Value: 0.6; Range: 0.0-0.8; Units: K/mm3; Status: F Test: EOS #; Value: 0.1; Range: 0.0-0.50; Units: K/mm3; Status: F Test: BASO #; Value: 0.0; Range: 0.0-0.2; Units: K/mm3; Status: F Test: LARGE UNSTAINED CELL #; Value: 0.1; Range: 0.0-0.4; Units: K/mm3; Status: F Lab Order: Cardiac Injury Profile; [facility]' 12/01/16 18:15 Test: CPK CREATINE PHOSPHOKINASE; Value: 216; Range: 39-308; Units: U/L; Status: F Test: CK-MB VALUE MASS; Value: 7.4; Range: 0.0-3.6; Abnormal: Above high normal; Units: NG/ML; Status: F Test: MB/CK RELATIVE INDEX; Value: 3.42; Range: < OR =4; Status: F Test Note: ; DIAGNOSIS CRITERIA MMB ng/ml Relative Index (RI) NON-AMI < or = 5 N/A [place] > 5 < or = 4 AMI > 5 > 4 Lab Order: Troponin; [facility]' 12/01/16 18:15 Test: TROPONIN I; Value: 0.05; Range: < 0.10; Units: NG/ML; Status: F Test Note: ; Troponin I Reference Interval for Siemens [place] LOCI: 99th Percentile= 0.00-0.045 ng/ml Risk Stratification: <= 0.10 ng/ml Decreased Risk for Adverse Clinical Events. 0.10-1.50 ng/ml Increased Risk for Adverse Clinical Events. Evaluation of additional criterion and/or repeat testing in 2-6 hours is suggested to rule out myocardial damage. >= 1.50 ng/ml Indicative of Myocardial Injury. Lab Order: -Arterial Blood Gas; SPEC'12/01/16 18:19 Test: ABG pH (ARTERIAL); Value: 7.323; Range: 7.350-7.450; Abnormal: Below low normal; Units: UNITS; Status: F Test: ABG PARTIAL PRESSURE CO2; Value: 60.2; Range: 35.0-45.0; Abnormal: Above upper panic limits; Units: mmHg; Status: F Test: ABG PARTIAL PRESSURE O2; Value: 78.2; Range: 75.0-100.0; Units: mmHg; Status: F Test: ABG TOTAL CO2; Value: 32.4; Range: 22.0-29.0; Abnormal: Above high normal; Units: MEQ/L; Status: F Test: ABG HCO3; Value: 30.5; Range: 22.0-26.0; Abnormal: Above high normal; Units: MEQ/L; Status: F Test: ABG BASE EXCESS; Value: 2.5; Range: -2.0-2.0; Abnormal: Above high normal; Status: F Test: ABG STANDARD HCO3; Value: 26.7; Range: 22.0-26.0; Abnormal: Above high normal; Units: MEQ/L; Status: F Test: ABG O2 SATURATION; Value: 95.8; Range: 95.0-99.0; Units: %; Status: F Test: ABG DEVICE; Value: NASAL COOPER; Status: F Lab Order: LIVER PROFILE; [facility] 18[facility]15 Test: AST/SGOT; Value: 50; Range: 15-37; Abnormal: Above high normal; Units: U/L; Status: F Test: ALT/SGPT; Value: 62; Range: 12-78; Units: U/L; Status: F Test: ALKALINE PHOSPHATASE; Value: 147; Range: 45-117; Abnormal: Above high normal; Units: U/L; Status: F Test: BILIRUBIN,TOTAL; Value: 0.7; Range: 0.2-1.0; Units: MG/DL; Status: F Test: BILIRUBIN,DIRECT; Value: 0.2; Range: 0.0-0.2; Units: MG/DL; Status: F Test: TOTAL PROTEIN; Value: 7.5; Range: 6.4-8.2; Units: GM/DL; Status: F Test: ALBUMIN; Value: 2.7; Range: 3.2-5.2; Abnormal: Below low normal; Units: GM/DL; Status: F Test: ALBUMIN/GLOBULIN RATIO; Value: 0.56; Range: 1.00-1.93; Abnormal: Below low normal; Status: F Lab Order: RESPIRATORY PANEL; SPEC'M 12/01/16 18:48 Test: RESPIRATORY PANEL; Value: RP PANEL RESULT NEGATIVE by PCR; Status: F Test: RESPIRATORY PANEL; Value: Comments:; Status: F Test Note: ; This respiratory PCR panel detects Influenza A H1, H3 and 2009 H1 viruses, Influenza B virus, Respiratory syncytial virus, Human metapneumovirus, Parainfluenza virus 1, 2, 3 and 4, Adenovirus, Rhinovirus/Enterovirus, Coronavirus HKU1, NL63, OC43 and 229E, Bordetella pertussis, Mycoplasma pneumoniae and Chlamydia pneumoniae. Lab Order: RBC MORPH PROF NO CHARGE; SPEC'M 12/01/16 18:15 Test: PLATELET ESTIMATE; Range: NORMAL; Status: I Test: POLYCHROMASIA; Value: 2+; Status: F Test: HYPOCHROMASIA; Value: 1+; Status: F Test: MACROCYTOSIS; Value: 2+; Status: F Test: STOMATOCYTES; Value: 1+; Status: F Test: PLATELET ESTIMATE; Value: NORMAL; Range: NORMAL; Status: F Radiology Order: Chest, 1 View Test: Chest, 1 View REASON FOR EXAMINATION: Shortness of Breath; AP PORTABLE CHEST: 12/01/2016 at 06:35 PM.; ; Comparison: Portable chest 01/04/2013, CT angiogram chest 01/05/2013.; ; Clinical history: Dyspnea.; ; Findings: Lungs are hyperinflated. There is underlying COPD and some fibrosis.; Patchy infrahilar atelectasis or early infiltrate may be present. There is; fibrosis. The pulmonary arteries are prominent centrally consistent with COPD.; I do not see pulmonary edema. There is mild venous hypertension, but the vessel; margins are distinct. No interstitial edema suspected. Heart size not enlarged; for portable lordotic technique. The aorta is normal. There is apparent; densities overlying the mediastinum, which could be large bridging syndesmophytes; or spurs in the spine. The appearance is similar to the previous study and was; confirmed on prior CT.; ; Impression:; ; 1. Hyperinflation with COPD, some fibrosis and pulmonary artery hypertension.; ; 2. No gross cardiomegaly but some pulmonary venous hypertension with distinct; vessel margins, no evidence of edema.; ; 3. Infrahilar patchy atelectasis or infiltrate on the right.; ; ; Signed by; Dominik Perales MD 12/01/2016 08:33 P; Radiology Order: US Lower Extremity R/O DVT Test: US Lower Extremity R/O DVT REASON FOR EXAMINATION: swelling; ; CLINICAL HISTORY: Right lower extremity swelling.; TECHNIQUE: Duplex ultrasound of the right lower extremity veins was performed with grayscale, color f; low imaging and Doppler spectral analysis, without and with compression.; ; ; RIGHT LOWER EXTREMITY VENOUS DUPLEX ULTRASOUND:; There is normal compressibility, flow and augmentation of the common femoral, superficial femoral, an; d popliteal veins.; ; IMPRESSION:; ; No evidence of DVT in the right lower extremity.; ; Outcome: 19:16 Decision to Hospitalize by Provider. sd1 21:58 Discharge Assessment: Patient awake, alert and oriented x 3. No cognitive and/or mlc functional deficits noted. Patient verbalized understanding of disposition instructions. patient administered narcotics - no. The following High Risk Discharge criteria are identified: None. Admitted to PCU accompanied by nurse, accompanied by tech, via stretcher, with oxygen, on monitor, with chart. Condition: stable. Admission hand-off: Report Faxed Fax receipt verified by HENNA Mckinnon. Property sent home with patient. 23:32 Ultrasound Study completed. mlc 23:35 [place] [facility] [place]: Dispatcher [facility] Tricia Porter MD MD sd1 Lana Hines, Reg Reg gb Jasper,Sonam,RT RT ac1 Kendal JaramilloRN RN lf1 Aurora Sandra RN RN f Lelo Pool cmb Grace Lux gr2 Azalea Robledo am17 Zayda Rob,RN RN mlc Lashae Olmedo klr Paulo, Raj, [employer] OFFICER [employer]IA[employer] OFFICER jmv Corrections: (The following items were deleted from the chart) 18:32 18:31 LIVER PROFILE+LAB sent. [facility] EDMS 18:32 18:31 Albuterol-Ipratropium 1 neb Nebulizer ac1 ac1 18:37 18:33 Respiratory: Breath sounds with wheezes bilaterally. at expiration ac1 ac1 18:39 18:20 Respiratory: Breath sounds with wheezes bilaterally. at expiration ac1 ac1 18:41 18:25 Subsequent Med Neb Given as ordered ac1 ac1 18:41 18:25 Respiratory: Breath sounds with wheezes bilaterally. at expiration ac1 ac1 18:41 18:30 Subsequent Med Neb Given as ordered ac1 ac1 Chart Complete MTDD
--- NOTE | 2016-12-04 00:36 | EDDOCDS ---
Physician Documentation [facility] Name: Kumar Shane Age: 61 yrs Sex: Male : 1955 Arrival Date: 12/01/2016 Time: 17:49 Bed 9 Private MD: NO PRIMARY PHYSICIAN, . Disposition: 12/01/16 19:16 Hospitalization ordered by Naomie Willoughby for Inpatient Admission. Preliminary diagnosis are Acute combined systolic (congestive) and diastolic (congestive) heart failure, Chronic obstructive pulmonary disease with acute lower respiratory infection. - Bed requested for PCU. - Status is Inpatient Admission. mlc - Condition is Stable. - Problem is an acute exacerbation. - Symptoms are unchanged. Historical: - Allergies: No known drug Allergies; - Home Meds: 1. Combivent 18-103 mcg/actuation Inhl aero 2 puffs 4 times per day (Last dose: 12/01/2016 09:00) 2. ventolin inhaler Unknown every 6 hours (Last dose: 12/01/2016 09:00) - PMHx: COPD; CHF; - PSHx: Hernia repair; Appendectomy; - Family history: Not pertinent. - Social history: Smoking status: Patient uses tobacco products, current every day smoker. No barriers to communication noted, The patient speaks fluent Hong Konger, Speaks appropriately for age, Preferred Language: [place]er. - : The pt / caregiver states he / she is not on anticoagulants. Home medication list is obtained from the patient. - Exposure Risk Screening:: None identified. Vital Signs: 12/01 17:51 BP 145 / 93; Pulse 115; Resp 18; Temp 98.6(O); Pulse Ox 79% ; Weight 74.84 kg / 164.99 gr2 lbs (R); Height 5 ft. 7 in. (170.18 cm) (R); Pain 0/10; 18:00 Resp 19; Pulse Ox 82% on R/A; Pain 0/10; lf1 18:12 Pulse 112 MON; Pulse Ox 92% on 4 lpm NC; dsf 18:16 Pulse 116 MON; Pulse Ox 95% ; dsf 18:22 Pulse 106 MON; Pulse Ox 98% ; dsf 18:25 BP 182 / 5; ac1 18:32 BP 182 / 0; ac1 18:48 BP 130 / 86 (auto/); dsf 18:49 Pulse 102 MON; Pulse Ox 100% ; dsf 18:58 BP 135 / 91 (auto/); dsf 18:59 Pulse 102 MON; Pulse Ox 94% ; dsf 19:13 BP 151 / 94 (auto/); dsf 19:14 Pulse 104 MON; Pulse Ox 93% ; dsf 19:28 BP 156 / 92 (auto/); dsf 19:29 Pulse 102 MON; Pulse Ox 92% ; dsf 19:37 Pulse 104 MON; Pulse Ox 93% ; dsf 19:58 BP 184 / 103 (auto/); dsf 19:58 Pulse 104 MON; Pulse Ox 95% ; dsf 20:13 BP 142 / 91 (auto/); dsf 20:14 Pulse 104 MON; Pulse Ox 92% ; dsf 20:28 BP 139 / 87 (auto/); mlc 20:28 Pulse 102 MON; Pulse Ox 95% ; mlc 20:58 BP 138 / 87 (auto/); mlc 21:06 BP 139 / 84 (auto/); mlc 21:13 BP 140 / 85 (auto/); mlc 21:28 BP 144 / 86 (auto/); mlc 21:28 Pulse 104 MON; Pulse Ox 92% ; mlc 21:43 BP 144 / 89 (auto/); mlc 21:43 Pulse 104 MON; Pulse Ox 91% ; mlc 21:58 BP 146 / 90 (auto/); mlc 21:58 Pulse 102 MON; Pulse Ox 91% ; mlc 22:13 BP 143 / 87 (auto/); mlc 22:13 Pulse 104 MON; Pulse Ox 93% ; mlc 22:28 BP 144 / 86 (auto/); mlc 22:43 BP 136 / 84 (auto/); mlc 22:43 Pulse 102 MON; Pulse Ox 93% ; mlc 22:58 BP 141 / 86 (auto/); mlc 22:58 Pulse 98 MON; Pulse Ox 93% ; mlc 23:13 BP 142 / 87 (auto/); mlc 23:14 Pulse 102 MON; Pulse Ox 92% ; mlc 23:28 BP 148 / 89 (auto/); mlc 23:28 Pulse 104 MON; Pulse Ox 92% ; mlc 23:32 BP 150 / 87; Pulse 107; Resp 20; Temp 98.1(O); Pulse Ox 92% on 2 lpm NC; Pain 0/10; jmv 17:51 Body Mass Index 25.84 (74.84 kg, 170.18 cm) gr2 MDM: 18:04 -Blood Culture (Adults Only), peripheral from different site, or from device/port/PICC sd1 etc. if present ordered. 18:04 Supervisor Reinforced Steel Placing/Pulse Ox/q 15 min VS ordered. sd1 18:04 IV Saline Lock ordered. sd1 18:04 Oxygen at 4L/Min NC or Home dosage ordered. sd1 18:04 Rhythm Strip to chart ordered. sd1 18:05 B-Type Natiuretic Peptide Ordered. EDMS 18:05 Basic Metabolic Profile Ordered. EDMS 18:05 CBC with Diff Ordered. EDMS 18:05 Cardiac Injury Profile Ordered. EDMS 18:05 Troponin Ordered. EDMS 18:05 -Blood Culture Ordered. EDMS 18:05 Chest, 1 View Ordered. EDMS 18:05 ECG WITH READING ER PHYS+CARDIAG ordered. EDMS 18:10 Albuterol-Ipratropium 1 neb Nebulizer every 20 minutes x3 ordered. sd1 18:11 Call Respiratory ordered. sd1 18:12 -Arterial Blood Gas Ordered. EDMS 18:13 Call Respiratory complete. lbd 18:14 -Blood Culture (Adults Only), peripheral from different site, or from device/port/PICC lbd etc. if present complete. 18:17 BLOOD CULTURES Ordered. EDMS 18:17 US Lower Extremity R/O DVT Ordered. EDMS 18:[facility] Order ordered. sd1 18:32 Albuterol-Ipratropium 1 neb Nebulizer every 20 minutes x3 ordered. ac1 18:32 LIVER PROFILE Ordered. EDMS 18:33 Financial registration complete. gb 18:33 [facility] [place] was [place] into ICEdot and attached to record. gb 18:37 [facility] [place] Sales Project Coordinator Order complete. lbd 18:39 Solu-MEDROL 125 mg IVP once ordered. sd1 18:40 -Arterial Blood Gas Reviewed. sd1 18:40 RESPIRATORY PANEL Ordered. EDMS 18:43 cefTRIAXone 1 grams IVPB once over 30 mins; dilute in 50mL of NS or D5W ordered. sd1 18:43 azithromycin 500 mg IVPB once over 1 hrs; dilute in 250mL of D5W or NS ordered. sd1 18:44 BED REQUEST+ADM ordered. EDMS 19:04 B-Type Natiuretic Peptide Reviewed. sd1 19:04 Furosemide 40 mg IVP once ordered. sd1 19:08 Basic Metabolic Profile Reviewed. sd1 19:08 LIVER PROFILE Reviewed. sd1 19:08 Troponin Reviewed. sd1 19:12 Basic Metabolic Profile Reviewed. sd1 19:12 Cardiac Injury Profile Reviewed. sd1 19:12 LIVER PROFILE Reviewed. sd1 19:12 Troponin Reviewed. sd1 19:13 RBC MORPH PROF NO CHARGE Ordered. EDMS 19:30 2 GRAM SODIUM DIET ordered. EDMS 19:32 PHYSICAL THERAPY EVAL & TREAT ordered. EDMS 19:33 Admission / Observation Status ordered. EDMS 19:33 ECHOCARD,DOPPLER/COLOR FLOW ordered. EDMS 19:34 CARDIAC MARKER PANEL Ordered. EDMS 19:35 CARDIAC MARKER PANEL Ordered. EDMS 19:37 CARDIAC MARKER PANEL Ordered. EDMS 20:04 CBC WITH DIFFERENTIAL Ordered. EDMS 20:04 CARDIAC RISK PROFILE Ordered. EDMS 20:04 THYROID STIMULATING HORMONE Ordered. EDMS 20:04 MAGNESIUM LEVEL Ordered. EDMS 20:26 MRSA SCREEN Ordered. EDMS 20:26 SPUTUM CULTURE AND GRAM STAIN Ordered. EDMS 20:39 BASIC METABOLIC PROFILE Ordered. EDMS 12/02 19:05 T-Sheet-- Draft Copy was scanned into ICEdot and attached to record. klr Administered Medications: 12/01 18:10 Drug: Albuterol-Ipratropium 1 neb [ipratropium-albuterol 0.5 mg-3 mg(2.5 mg base)/3 mL ac1 nebulization soln (1 neb)] Route: Nebulizer; 18:20 Drug: Albuterol-Ipratropium 1 neb [ipratropium-albuterol 0.5 mg-3 mg(2.5 mg base)/3 mL ac1 nebulization soln (1 neb)] Route: Nebulizer; 18:20 Follow up: bs exp whz before and after tx ac1 18:25 Follow up: BP 182 / 5 ac1 18:25 Follow up: wnz bilat throughout before and after tx ac1 18:30 Drug: Albuterol-Ipratropium 1 neb [ipratropium-albuterol 0.5 mg-3 mg(2.5 mg base)/3 mL ac1 nebulization soln (1 neb)] Route: Nebulizer; 18:32 Follow up: BP 182 / 0 ac1 18:35 Follow up: bs whz bilat before and after tx ac1 18:52 Drug: Solu-MEDROL 125 mg [Solu-Medrol 500 mg intravenous solution (125 mg)] Route: IVP; dsf Site: right antecubital; 19:07 Drug: cefTRIAXone 1 grams [ceftriaxone 1 gram solution for injection] Route: IVPB; dsf Infused Over: 30 mins; Site: right antecubital; 19:37 Follow up: IV Status: Completed infusion; IV Intake: 50ml dsf 19:14 Drug: Furosemide 40 mg [furosemide 10 mg/mL injection solution (4 mL)] Route: IVP; dsf Site: right antecubital; 19:37 Drug: azithromycin 500 mg [azithromycin 500 mg intravenous solution] Route: IVPB; dsf Infused Over: 1 hrs; Site: right antecubital; 20:51 Follow up: IV Status: Completed infusion; IV Intake: 250ml dsf Signatures: Dispatcher MedHost EDMS Tricia Porter MD MD sdMerna Underwood, Cardroom Supervisor Unit lbd Lana Hines, Reg Reg gb [place],Sonam,RT RT ac1 Tiki Bankser, CRAP GAME BOX PERSON CRAP GAME BOX PERSON kb5 Kendal Jaramillo RN RN lf1 Zayda Rob RN RN Lashae Jain Desiree RN dsf The chart was reviewed and I authenticate all verbal orders and agree with the evaluation and treatment provided.Corrections: (The following items were deleted from the chart) 18:32 18:29 LIVER PROFILE+LAB ordered. EDMS EDMS 20:39 19:31 BASIC METABOLIC PROFILE ordered. EDMS EDMS Attachments: 18:33 [facility] gb 12/02 19:05 T-Sheet-- Draft Copy klr Chart Complete MTDD
--- NOTE | 2016-12-04 11:41 | ECHO ---
DATE OF PROCEDURE: 12/02/2016 REFERRING PHYSICIAN: Naomie Willoughby MD PATIENT LOCATION: Room 3223 REASON FOR ECHOCARDIOGRAM: Heart failure. 2D MEASUREMENTS: IVS: 1.4 cm LV: 3.7 cm LVPW: 1.4 cm LA: 3.2 cm Aorta: 3.4 cm DOPPLER MEASUREMENTS: Peak velocity across the aortic valve: 0.97 m/s Peak velocity across the LVOT: 0.52 m/s Mitral E: 0.62, Mitral A: 0.60, with a ratio of 1.0 Maximum tricuspid valve velocity: 4.2 m/s 2D COMMENTS: 1. Normal left ventricular size with mildly increased left ventricular wall thickness. Left ventricular systolic function is normal, estimated at 65 to 70%. 2. Normal left atrium. Markedly enlarged right atrium. Moderately enlarged right ventricle and the right ventricle free wall seems to be hypokinetic. 3. The atrial septum did not reveal any defect or shunt. 4. Normal aortic root. 5. Small pericardial effusion noted, no evidence of cardiac tamponade. 6. Normal aortic valve and mitral valve, as well as the tricuspid valve and the pulmonic valve. The proximal pulmonary artery branches may be minimally enlarged in limited views. 7. The inferior vena cava is mildly enlarged, central venous pressure is probably elevated. DOPPLER: It detects trace mitral regurgitation and severe tricuspid regurgitation as well as moderate pulmonic regurgitation. The calculated pulmonary artery systolic pressure is over 70 mmHg. Abnormal relaxation pattern was noted across the septal and lateral mitral valve annulus consistent with a pseudonormal pattern, left ventricular end-diastolic pressure is probably elevated. IMPRESSION: 1. Normal global left ventricular systolic function with mild concentric left ventricular hypertrophy. There are no features of left ventricular diastolic dysfunction. 2. Severe tricuspid regurgitation with severe pulmonary hypertension and dilated right heart chambers. Not mentioned, a V-shaped appearance of the ventricular septum was noted in both systole and diastole consistent with severe pulmonary hypertension, secondary to both volume and pressure overload to the right ventricle. 3. Moderate pulmonic regurgitation. 4. Trace mitral regurgitation. 5. Small pericardial effusion was noted, no evidence of cardiac tamponade.
--- NOTE | 2016-12-04 21:21 | EDDOCDS ---
Physician Documentation [facility] Name: Kumar Shane Age: 61 yrs Sex: Male : 1955 Arrival Date: 12/01/2016 Time: 17:49 Bed 9 Private MD: NO PRIMARY PHYSICIAN, . Disposition: 12/01/16 19:16 Hospitalization ordered by Naomie Willoughby for Inpatient Admission. Preliminary diagnosis are Acute combined systolic (congestive) and diastolic (congestive) heart failure, Chronic obstructive pulmonary disease with acute lower respiratory infection. - Bed requested for PCU. - Status is Inpatient Admission. mlc - Condition is Stable. - Problem is an acute exacerbation. - Symptoms are unchanged. Historical: - Allergies: No known drug Allergies; - Home Meds: 1. Combivent 18-103 mcg/actuation Inhl aero 2 puffs 4 times per day (Last dose: 12/01/2016 09:00) 2. ventolin inhaler Unknown every 6 hours (Last dose: 12/01/2016 09:00) - PMHx: COPD; CHF; - PSHx: Hernia repair; Appendectomy; - Family history: Not pertinent. - Social history: Smoking status: Patient uses tobacco products, current every day smoker. No barriers to communication noted, The patient speaks fluent Belgian, Speaks appropriately for age, Preferred Language: Belgian. - : The pt / caregiver states he / she is not on anticoagulants. Home medication list is obtained from the patient. - Exposure Risk Screening:: None identified. Vital Signs: 12/01 17:51 BP 145 / 93; Pulse 115; Resp 18; Temp 98.6(O); Pulse Ox 79% ; Weight 74.84 kg / 164.99 gr2 lbs (R); Height 5 ft. 7 in. (170.18 cm) (R); Pain 0/10; 18:00 Resp 19; Pulse Ox 82% on R/A; Pain 0/10; lf1 18:12 Pulse 112 MON; Pulse Ox 92% on 4 lpm NC; dsf 18:16 Pulse 116 MON; Pulse Ox 95% ; dsf 18:22 Pulse 106 MON; Pulse Ox 98% ; dsf 18:25 BP 182 / 5; ac1 18:32 BP 182 / 0; ac1 18:48 BP 130 / 86 (auto/); dsf 18:49 Pulse 102 MON; Pulse Ox 100% ; dsf 18:58 BP 135 / 91 (auto/); dsf 18:59 Pulse 102 MON; Pulse Ox 94% ; dsf 19:13 BP 151 / 94 (auto/); dsf 19:14 Pulse 104 MON; Pulse Ox 93% ; dsf 19:28 BP 156 / 92 (auto/); dsf 19:29 Pulse 102 MON; Pulse Ox 92% ; dsf 19:37 Pulse 104 MON; Pulse Ox 93% ; dsf 19:58 BP 184 / 103 (auto/); dsf 19:58 Pulse 104 MON; Pulse Ox 95% ; dsf 20:13 BP 142 / 91 (auto/); dsf 20:14 Pulse 104 MON; Pulse Ox 92% ; dsf 20:28 BP 139 / 87 (auto/); mlc 20:28 Pulse 102 MON; Pulse Ox 95% ; mlc 20:58 BP 138 / 87 (auto/); mlc 21:06 BP 139 / 84 (auto/); mlc 21:13 BP 140 / 85 (auto/); mlc 21:28 BP 144 / 86 (auto/); mlc 21:28 Pulse 104 MON; Pulse Ox 92% ; mlc 21:43 BP 144 / 89 (auto/); mlc 21:43 Pulse 104 MON; Pulse Ox 91% ; mlc 21:58 BP 146 / 90 (auto/); mlc 21:58 Pulse 102 MON; Pulse Ox 91% ; mlc 22:13 BP 143 / 87 (auto/); mlc 22:13 Pulse 104 MON; Pulse Ox 93% ; mlc 22:28 BP 144 / 86 (auto/); mlc 22:43 BP 136 / 84 (auto/); mlc 22:43 Pulse 102 MON; Pulse Ox 93% ; mlc 22:58 BP 141 / 86 (auto/); mlc 22:58 Pulse 98 MON; Pulse Ox 93% ; mlc 23:13 BP 142 / 87 (auto/); mlc 23:14 Pulse 102 MON; Pulse Ox 92% ; mlc 23:28 BP 148 / 89 (auto/); mlc 23:28 Pulse 104 MON; Pulse Ox 92% ; mlc 23:32 BP 150 / 87; Pulse 107; Resp 20; Temp 98.1(O); Pulse Ox 92% on 2 lpm NC; Pain 0/10; jmv 17:51 Body Mass Index 25.84 (74.84 kg, 170.18 cm) gr2 MDM: 18:04 -Blood Culture (Adults Only), peripheral from different site, or from device/port/PICC sd1 etc. if present ordered. 18:04 Prawn Trawler Hand/Pulse Ox/q 15 min VS ordered. sd1 18:04 IV Saline Lock ordered. sd1 18:04 Oxygen at 4L/Min NC or Home dosage ordered. sd1 18:04 Rhythm Strip to chart ordered. sd1 18:05 B-Type Natiuretic Peptide Ordered. EDMS 18:05 Basic Metabolic Profile Ordered. EDMS 18:05 CBC with Diff Ordered. EDMS 18:05 Cardiac Injury Profile Ordered. EDMS 18:05 Troponin Ordered. EDMS 18:05 -Blood Culture Ordered. EDMS 18:05 Chest, 1 View Ordered. EDMS 18:05 ECG WITH READING ER PHYS+CARDIAG ordered. EDMS 18:10 Albuterol-Ipratropium 1 neb Nebulizer every 20 minutes x3 ordered. sd1 18:11 Call Respiratory ordered. sd1 18:12 -Arterial Blood Gas Ordered. EDMS 18:13 Call Respiratory complete. lbd 18:14 -Blood Culture (Adults Only), peripheral from different site, or from device/port/PICC lbd etc. if present complete. 18:17 BLOOD CULTURES Ordered. EDMS 18:17 US Lower Extremity R/O DVT Ordered. EDMS 18:28 [facility] Order ordered. sd1 18:32 Albuterol-Ipratropium 1 neb Nebulizer every 20 minutes x3 ordered. ac1 18:32 LIVER PROFILE Ordered. EDMS 18:33 Financial registration complete. gb 18:33 [facility] [place] Agreement was scanned into Entitle and attached to record. gb 18:37 [facility] [place] Car Escort Order complete. lbd 18:39 Solu-MEDROL 125 mg IVP once ordered. sd1 18:40 -Arterial Blood Gas Reviewed. sd1 18:40 RESPIRATORY PANEL Ordered. EDMS 18:43 cefTRIAXone 1 grams IVPB once over 30 mins; dilute in 50mL of NS or D5W ordered. sd1 18:43 azithromycin 500 mg IVPB once over 1 hrs; dilute in 250mL of D5W or NS ordered. sd1 18:44 BED REQUEST+ADM ordered. EDMS 19:04 B-Type Natiuretic Peptide Reviewed. sd1 19:04 Furosemide 40 mg IVP once ordered. sd1 19:08 Basic Metabolic Profile Reviewed. sd1 19:08 LIVER PROFILE Reviewed. sd1 19:08 Troponin Reviewed. sd1 19:12 Basic Metabolic Profile Reviewed. sd1 19:12 Cardiac Injury Profile Reviewed. sd1 19:12 LIVER PROFILE Reviewed. sd1 19:12 Troponin Reviewed. sd1 19:13 RBC MORPH PROF NO CHARGE Ordered. EDMS 19:30 2 GRAM SODIUM DIET ordered. EDMS 19:32 PHYSICAL THERAPY EVAL & TREAT ordered. EDMS 19:33 Admission / Observation Status ordered. EDMS 19:33 ECHOCARD,DOPPLER/COLOR FLOW ordered. EDMS 19:34 CARDIAC MARKER PANEL Ordered. EDMS 19:35 CARDIAC MARKER PANEL Ordered. EDMS 19:37 CARDIAC MARKER PANEL Ordered. EDMS 20:04 CBC WITH DIFFERENTIAL Ordered. EDMS 20:04 CARDIAC RISK PROFILE Ordered. EDMS 20:04 THYROID STIMULATING HORMONE Ordered. EDMS 20:04 MAGNESIUM LEVEL Ordered. EDMS 20:26 MRSA SCREEN Ordered. EDMS 20:26 SPUTUM CULTURE AND GRAM STAIN Ordered. EDMS 20:39 BASIC METABOLIC PROFILE Ordered. EDMS 12/02 19:05 T-Sheet-- Draft Copy was scanned into Entitle and attached to record. klr Administered Medications: 12/01 18:10 Drug: Albuterol-Ipratropium 1 neb [ipratropium-albuterol 0.5 mg-3 mg(2.5 mg base)/3 mL ac1 nebulization soln (1 neb)] Route: Nebulizer; 18:20 Drug: Albuterol-Ipratropium 1 neb [ipratropium-albuterol 0.5 mg-3 mg(2.5 mg base)/3 mL ac1 nebulization soln (1 neb)] Route: Nebulizer; 18:20 Follow up: bs exp whz before and after tx ac1 18:25 Follow up: BP 182 / 5 ac1 18:25 Follow up: wnz bilat throughout before and after tx ac1 18:30 Drug: Albuterol-Ipratropium 1 neb [ipratropium-albuterol 0.5 mg-3 mg(2.5 mg base)/3 mL ac1 nebulization soln (1 neb)] Route: Nebulizer; 18:32 Follow up: BP 182 / 0 ac1 18:35 Follow up: bs whz bilat before and after tx ac1 18:52 Drug: Solu-MEDROL 125 mg [Solu-Medrol 500 mg intravenous solution (125 mg)] Route: IVP; dsf Site: right antecubital; 19:07 Drug: cefTRIAXone 1 grams [ceftriaxone 1 gram solution for injection] Route: IVPB; dsf Infused Over: 30 mins; Site: right antecubital; 19:37 Follow up: IV Status: Completed infusion; IV Intake: 50ml dsf 19:14 Drug: Furosemide 40 mg [furosemide 10 mg/mL injection solution (4 mL)] Route: IVP; dsf Site: right antecubital; 19:37 Drug: azithromycin 500 mg [azithromycin 500 mg intravenous solution] Route: IVPB; dsf Infused Over: 1 hrs; Site: right antecubital; 20:51 Follow up: IV Status: Completed infusion; IV Intake: 250ml dsf Signatures: Dispatcher MedHost EDMS Tricia Porter MD MD sdMerna Underwood, Summer Law Clerk Unit lbd Lana Hines, Reg Reg gb [place],Sonam,RT RT ac1 Tiki Bankser, AUTOMATIC WINDER OPERATOR AUTOMATIC WINDER OPERATOR [phone] Kendal Jaramillo RN RN lf1 Zayda Rob RN RN Lashae Jain Desiree RN dsf The chart was reviewed and I authenticate all verbal orders and agree with the evaluation and treatment provided.Corrections: (The following items were deleted from the chart) 18:32 18:29 LIVER PROFILE+LAB ordered. EDMS EDMS 20:39 19:31 BASIC METABOLIC PROFILE ordered. EDMS EDMS Attachments: 18:33 [facility] [place] Agreement gb 12/02 19:05 T-Sheet-- Draft Copy klr Chart Complete MTDD
--- NOTE | 2016-12-04 21:21 | EDDOCDS ---
Physician Documentation [facility] Name: Kumar Shane Age: 61 yrs Sex: Male : 1955 Arrival Date: 12/01/2016 Time: 17:49 Bed 9 Private MD: NO PRIMARY PHYSICIAN, . Disposition: 12/01/16 19:16 Hospitalization ordered by Naomie Willoughby for Inpatient Admission. Preliminary diagnosis are Acute combined systolic (congestive) and diastolic (congestive) heart failure, Chronic obstructive pulmonary disease with acute lower respiratory infection. - Bed requested for PCU. - Status is Inpatient Admission. mlc - Condition is Stable. - Problem is an acute exacerbation. - Symptoms are unchanged. Historical: - Allergies: No known drug Allergies; - Home Meds: 1. Combivent 18-103 mcg/actuation Inhl aero 2 puffs 4 times per day (Last dose: 12/01/2016 09:00) 2. ventolin inhaler Unknown every 6 hours (Last dose: 12/01/2016 09:00) - PMHx: COPD; CHF; - PSHx: Hernia repair; Appendectomy; - Family history: Not pertinent. - Social history: Smoking status: Patient uses tobacco products, current every day smoker. No barriers to communication noted, The patient speaks fluent [place], Speaks appropriately for age, Preferred Language: [place]. - : The pt / caregiver states he / she is not on anticoagulants. Home medication list is obtained from the patient. - Exposure Risk Screening:: None identified. Vital Signs: 12/01 17:51 BP 145 / 93; Pulse 115; Resp 18; Temp 98.6(O); Pulse Ox 79% ; Weight 74.84 kg / 164.99 gr2 lbs (R); Height 5 ft. 7 in. (170.18 cm) (R); Pain 0/10; 18:00 Resp 19; Pulse Ox 82% on R/A; Pain 0/10; lf1 18:12 Pulse 112 MON; Pulse Ox 92% on 4 lpm NC; dsf 18:16 Pulse 116 MON; Pulse Ox 95% ; dsf 18:22 Pulse 106 MON; Pulse Ox 98% ; dsf 18:25 BP 182 / 5; ac1 18:32 BP 182 / 0; ac1 18:48 BP 130 / 86 (auto/); dsf 18:49 Pulse 102 MON; Pulse Ox 100% ; dsf 18:58 BP 135 / 91 (auto/); dsf 18:59 Pulse 102 MON; Pulse Ox 94% ; dsf 19:13 BP 151 / 94 (auto/); dsf 19:14 Pulse 104 MON; Pulse Ox 93% ; dsf 19:28 BP 156 / 92 (auto/); dsf 19:29 Pulse 102 MON; Pulse Ox 92% ; dsf 19:37 Pulse 104 MON; Pulse Ox 93% ; dsf 19:58 BP 184 / 103 (auto/); dsf 19:58 Pulse 104 MON; Pulse Ox 95% ; dsf 20:13 BP 142 / 91 (auto/); dsf 20:14 Pulse 104 MON; Pulse Ox 92% ; dsf 20:28 BP 139 / 87 (auto/); mlc 20:28 Pulse 102 MON; Pulse Ox 95% ; mlc 20:58 BP 138 / 87 (auto/); mlc 21:06 BP 139 / 84 (auto/); mlc 21:13 BP 140 / 85 (auto/); mlc 21:28 BP 144 / 86 (auto/); mlc 21:28 Pulse 104 MON; Pulse Ox 92% ; mlc 21:43 BP 144 / 89 (auto/); mlc 21:43 Pulse 104 MON; Pulse Ox 91% ; mlc 21:58 BP 146 / 90 (auto/); mlc 21:58 Pulse 102 MON; Pulse Ox 91% ; mlc 22:13 BP 143 / 87 (auto/); mlc 22:13 Pulse 104 MON; Pulse Ox 93% ; mlc 22:28 BP 144 / 86 (auto/); mlc 22:43 BP 136 / 84 (auto/); mlc 22:43 Pulse 102 MON; Pulse Ox 93% ; mlc 22:58 BP 141 / 86 (auto/); mlc 22:58 Pulse 98 MON; Pulse Ox 93% ; mlc 23:13 BP 142 / 87 (auto/); mlc 23:14 Pulse 102 MON; Pulse Ox 92% ; mlc 23:28 BP 148 / 89 (auto/); mlc 23:28 Pulse 104 MON; Pulse Ox 92% ; mlc 23:32 BP 150 / 87; Pulse 107; Resp 20; Temp 98.1(O); Pulse Ox 92% on 2 lpm NC; Pain 0/10; jmv 17:51 Body Mass Index 25.84 (74.84 kg, 170.18 cm) gr2 MDM: 18:04 -Blood Culture (Adults Only), peripheral from different site, or from device/port/PICC sd1 etc. if present ordered. 18:04 Swed[place]/Pulse Ox/q 15 min VS ordered. sd1 18:04 IV Saline Lock ordered. sd1 18:04 Oxygen at 4L/Min NC or Home dosage ordered. sd1 18:04 Rhythm Strip to chart ordered. sd1 18:05 B-Type Natiuretic Peptide Ordered. EDMS 18:05 Basic Metabolic Profile Ordered. EDMS 18:05 CBC with Diff Ordered. EDMS 18:05 Cardiac Injury Profile Ordered. EDMS 18:05 Troponin Ordered. EDMS 18:05 -Blood Culture Ordered. EDMS 18:05 Chest, 1 View Ordered. EDMS 18:05 ECG WITH READING ER PHYS+CARDIAG ordered. EDMS 18:10 Albuterol-Ipratropium 1 neb Nebulizer every 20 minutes x3 ordered. sd1 18:11 Call Respiratory ordered. sd1 18:12 -Arterial Blood Gas Ordered. EDMS 18:13 Call Respiratory complete. lbd 18:14 -Blood Culture (Adults Only), peripheral from different site, or from device/port/PICC lbd etc. if present complete. 18:17 BLOOD CULTURES Ordered. EDMS 18:17 US Lower Extremity R/O DVT Ordered. EDMS 18:28 [facility] Bow Stapler Order ordered. sd1 18:32 Albuterol-Ipratropium 1 neb Nebulizer every 20 minutes x3 ordered. ac1 18:32 LIVER PROFILE Ordered. EDMS 18:33 Financial registration complete. gb 18:33 [facility] Payment Agreement was scanned into [employer] and attached to record. gb 18:37 [facility] [place] Order complete. lbd 18:39 Solu-MEDROL 125 mg IVP once ordered. sd1 18:40 -Arterial Blood Gas Reviewed. sd1 18:40 RESPIRATORY PANEL Ordered. EDMS 18:43 cefTRIAXone 1 grams IVPB once over 30 mins; dilute in 50mL of NS or D5W ordered. sd1 18:43 azithromycin 500 mg IVPB once over 1 hrs; dilute in 250mL of D5W or NS ordered. sd1 18:44 BED REQUEST+ADM ordered. EDMS 19:04 B-Type Natiuretic Peptide Reviewed. sd1 19:04 Furosemide 40 mg IVP once ordered. sd1 19:08 Basic Metabolic Profile Reviewed. sd1 19:08 LIVER PROFILE Reviewed. sd1 19:08 Troponin Reviewed. sd1 19:12 Basic Metabolic Profile Reviewed. sd1 19:12 Cardiac Injury Profile Reviewed. sd1 19:12 LIVER PROFILE Reviewed. sd1 19:12 Troponin Reviewed. sd1 19:13 RBC MORPH PROF NO CHARGE Ordered. EDMS 19:30 2 GRAM SODIUM DIET ordered. EDMS 19:32 PHYSICAL THERAPY EVAL & TREAT ordered. EDMS 19:33 Admission / Observation Status ordered. EDMS 19:33 ECHOCARD,DOPPLER/COLOR FLOW ordered. EDMS 19:34 CARDIAC MARKER PANEL Ordered. EDMS 19:35 CARDIAC MARKER PANEL Ordered. EDMS 19:37 CARDIAC MARKER PANEL Ordered. EDMS 20:04 CBC WITH DIFFERENTIAL Ordered. EDMS 20:04 CARDIAC RISK PROFILE Ordered. EDMS 20:04 THYROID STIMULATING HORMONE Ordered. EDMS 20:04 MAGNESIUM LEVEL Ordered. EDMS 20:26 MRSA SCREEN Ordered. EDMS 20:26 SPUTUM CULTURE AND GRAM STAIN Ordered. EDMS 20:39 BASIC METABOLIC PROFILE Ordered. EDMS 12/02 19:05 T-Sheet-- Draft Copy was scanned into [employer] and attached to record. klr Administered Medications: 12/01 18:10 Drug: Albuterol-Ipratropium 1 neb [ipratropium-albuterol 0.5 mg-3 mg(2.5 mg base)/3 mL ac1 nebulization soln (1 neb)] Route: Nebulizer; 18:20 Drug: Albuterol-Ipratropium 1 neb [ipratropium-albuterol 0.5 mg-3 mg(2.5 mg base)/3 mL ac1 nebulization soln (1 neb)] Route: Nebulizer; 18:20 Follow up: bs exp whz before and after tx ac1 18:25 Follow up: BP 182 / 5 ac1 18:25 Follow up: wnz bilat throughout before and after tx ac1 18:30 Drug: Albuterol-Ipratropium 1 neb [ipratropium-albuterol 0.5 mg-3 mg(2.5 mg base)/3 mL ac1 nebulization soln (1 neb)] Route: Nebulizer; 18:32 Follow up: BP 182 / 0 ac1 18:35 Follow up: bs whz bilat before and after tx ac1 18:52 Drug: Solu-MEDROL 125 mg [Solu-Medrol 500 mg intravenous solution (125 mg)] Route: IVP; dsf Site: right antecubital; 19:07 Drug: cefTRIAXone 1 grams [ceftriaxone 1 gram solution for injection] Route: IVPB; dsf Infused Over: 30 mins; Site: right antecubital; 19:37 Follow up: IV Status: Completed infusion; IV Intake: 50ml dsf 19:14 Drug: Furosemide 40 mg [furosemide 10 mg/mL injection solution (4 mL)] Route: IVP; dsf Site: right antecubital; 19:37 Drug: azithromycin 500 mg [azithromycin 500 mg intravenous solution] Route: IVPB; dsf Infused Over: 1 hrs; Site: right antecubital; 20:51 Follow up: IV Status: Completed infusion; IV Intake: 250ml dsf Signatures: Dispatcher [employer] EDMS Tricia Porter MD MD sdMerna Underwood, [employer] lbd Lana Hines, Reg Reg gb [place],Sonam,RT RT ac1 Tiki Bankser, TEMPLATE CLERK TEMPLATE CLERK [id number] Kendal Jaramillo RN RN lf1 Zayda Rob RN RN Lashae Jain Desiree RN dsf The chart was reviewed and I authenticate all verbal orders and agree with the evaluation and treatment provided.Corrections: (The following items were deleted from the chart) 18:32 18:29 LIVER PROFILE+LAB ordered. EDMS EDMS 20:39 19:31 BASIC METABOLIC PROFILE ordered. EDMS EDMS Attachments: 18:33 [facility] Payment Agreement gb 12/02 19:05 T-Sheet-- Draft Copy klr Chart Complete MTDD
--- NOTE | 2016-12-04 21:22 | EDDOCDS ---
Nurse's Notes [facility] Name: Kumar Shane Age: 61 yrs Sex: Male : 1955 Arrival Date: 12/01/2016 Time: 17:49 Bed 9 Private MD: NO PRIMARY PHYSICIAN, . Diagnosis: Acute combined systolic (congestive) and diastolic (congestive) heart failure;Chronic obstructive pulmonary disease with acute lower respiratory infection Presentation: 12/01 17:58 Presenting complaint: Patient states: Was seen at [facility] this afternoon lf1 for SOB for two weeks and swelling in BL LE. O\\T\\ Sats were 75% on RA and pt. refused transport via EMS. Pt. presents to ED with SATS in the mid 80"s, states he has a history of COPD and has had shortness of breath for two weeks. Respiratory Distress: Mild respiratory distress is noted. Adult Sepsis Screening: The patient does not have new or worsening altered mentation. Patient's respiratory rate is less than 22. Systolic blood pressure is greater than 100. Patient has a qSOFA score of 0- Negative Sepsis Screen. Suicide/Homicide risk assessment- the patient denies having any suicidal and/or homicidal ideations and does not present with any other emotional, behavioral or mental health complaints. 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 Transition of care: Patient was received from [facility] [place]. 17:58 Acuity: LOLA Level 2 lf1 17:58 Method Of Arrival: Walkin/Carried/Asstd lf1 18:02 Red Flag criteria, Finish triage while room being cleaned. Direct to room when lf1 available. charge nurse aware. Triage Assessment: 21:55 HIV screening NA for this visit Offered previously. mlc Historical: - Allergies: No known drug Allergies; - Home Meds: 1. Combivent 18-103 mcg/actuation Inhl aero 2 puffs 4 times per day (Last dose: 12/01/2016 09:00) 2. ventolin inhaler Unknown every 6 hours (Last dose: 12/01/2016 09:00) - PMHx: COPD; CHF; - PSHx: Hernia repair; Appendectomy; - Family history: Not pertinent. - Social history: Smoking status: Patient uses tobacco products, current every day smoker. No barriers to communication noted, The patient speaks fluent Japanese, Speaks appropriately for age, Preferred Language: Japanese. - : The pt / caregiver states he / she is not on anticoagulants. Home medication list is obtained from the patient. - Exposure Risk Screening:: None identified. Screenin:03 Screening information is obtained from the patient. Fall risk: No risks identified. dsf Assistance ADL's: requires no assistance with activities of daily living. Abuse/DV Screen: The patient / caregiver reports he/she is: not in a situation that causes fear, pain or injury. Nutritional screening: No deficits noted. Advance Directives: Currently, there is no health care proxy. home support is adequate. Assessment: 18:22 General: Appears in no apparent distress, Behavior is appropriate for age. Pain: Denies dsf pain. Neurological: Level of Consciousness is awake, alert, Oriented to person, place, time. Cardiovascular: Capillary refill < 3 seconds JVD is present bilaterally Heart tones S1 S2 present Edema is 3+ to left midcalf, left ankle, left foot, right midcalf, right ankle and right foot edema to bilateral knees and thighs. Right leg swelling worse than left Rhythm is sinus tachycardia. Respiratory: Airway is patent Respiratory effort is unlabored, Respiratory pattern is regular, Breath sounds with wheezes expiratory bilaterally. Reports shortness of breath on exertion since 2 weeks. GI: Abdomen is non- distended Bowel sounds present X 4 quads. Abd is soft and non tender X 4 quads. Derm: Skin is pink, warm & dry. 18:38 General: lab called PC02 60.2. Dr. Jaimes notified . dsf 19:22 Adult Sepsis Screening: The patient does not have new or worsening altered mentation. dsf Patient's respiratory rate is less than 22. Systolic blood pressure is greater than 100. Patient has a qSOFA score of 0- Negative Sepsis Screen. General: Appears in no apparent distress, comfortable, Behavior is appropriate for age, cooperative. Pain: Denies pain. Neurological: Level of Consciousness is awake, alert, Oriented to person, place, time. Cardiovascular: Capillary refill < 3 seconds Heart tones S1 S2 present Rhythm is sinus tachycardia. Respiratory: Airway is patent Respiratory effort is even, unlabored, Respiratory pattern is regular, symmetrical, Breath sounds with wheezes expiratory bilaterally. GI: Abdomen is non- distended Bowel sounds present X 4 quads. Abd is soft and non tender X 4 quads. Derm: Skin is pink, warm & dry. 20:22 General: Appears in no apparent distress, comfortable, Behavior is appropriate for age, dsf cooperative. Pain: Denies pain. Neurological: Level of Consciousness is awake, alert. Cardiovascular: Capillary refill < 3 seconds Rhythm is sinus tachycardia. Respiratory: Airway is patent Respiratory effort is even, unlabored, Respiratory pattern is regular, symmetrical. Derm: Skin is pink, warm & dry. 22:33 Reassessment: Patient appears in no apparent distress at this time. Patient denies pain mlc at this time. pt resting comfortably in bed. resp easy/unlabored. pt offers no complaints. . 22:33 Reassessment: PCU states there is still currently a patient in the assigned bed on the mlc unit, staff will call with update . 23:30 General: Appears in no apparent distress, comfortable, Behavior is cooperative. Pain: mlc Denies pain. Neurological: Level of Consciousness is awake, alert, Oriented to person, place, time. Respiratory: Airway is patent Respiratory effort is even, unlabored, Respiratory pattern is regular. Derm: Skin is pink, warm & dry. Vital Signs: 17:51 BP 145 / 93; Pulse 115; Resp 18; Temp 98.6(O); Pulse Ox 79% ; Weight 74.84 kg (R); gr2 Height 5 ft. 7 in. (170.18 cm) (R); Pain 0/10; 18:00 Resp 19; Pulse Ox 82% on R/A; Pain 0/10; lf1 18:12 Pulse 112 MON; Pulse Ox 92% on 4 lpm NC; dsf 18:16 Pulse 116 MON; Pulse Ox 95% ; dsf 18:22 Pulse 106 MON; Pulse Ox 98% ; dsf 18:25 BP 182 / 5; ac1 18:32 BP 182 / 0; ac1 18:48 BP 130 / 86 (auto/); dsf 18:49 Pulse 102 MON; Pulse Ox 100% ; dsf 18:58 BP 135 / 91 (auto/); dsf 18:59 Pulse 102 MON; Pulse Ox 94% ; dsf 19:13 BP 151 / 94 (auto/); dsf 19:14 Pulse 104 MON; Pulse Ox 93% ; dsf 19:28 BP 156 / 92 (auto/); dsf 19:29 Pulse 102 MON; Pulse Ox 92% ; dsf 19:37 Pulse 104 MON; Pulse Ox 93% ; dsf 19:58 BP 184 / 103 (auto/); dsf 19:58 Pulse 104 MON; Pulse Ox 95% ; dsf 20:13 BP 142 / 91 (auto/); dsf 20:14 Pulse 104 MON; Pulse Ox 92% ; dsf 20:28 BP 139 / 87 (auto/); mlc 20:28 Pulse 102 MON; Pulse Ox 95% ; mlc 20:58 BP 138 / 87 (auto/); mlc 21:06 BP 139 / 84 (auto/); mlc 21:13 BP 140 / 85 (auto/); mlc 21:28 BP 144 / 86 (auto/); mlc 21:28 Pulse 104 MON; Pulse Ox 92% ; mlc 21:43 BP 144 / 89 (auto/); mlc 21:43 Pulse 104 MON; Pulse Ox 91% ; mlc 21:58 BP 146 / 90 (auto/); mlc 21:58 Pulse 102 MON; Pulse Ox 91% ; mlc 22:13 BP 143 / 87 (auto/); mlc 22:13 Pulse 104 MON; Pulse Ox 93% ; mlc 22:28 BP 144 / 86 (auto/); mlc 22:43 BP 136 / 84 (auto/); mlc 22:43 Pulse 102 MON; Pulse Ox 93% ; mlc 22:58 BP 141 / 86 (auto/); mlc 22:58 Pulse 98 MON; Pulse Ox 93% ; mlc 23:13 BP 142 / 87 (auto/); mlc 23:14 Pulse 102 MON; Pulse Ox 92% ; mlc 23:28 BP 148 / 89 (auto/); mlc 23:28 Pulse 104 MON; Pulse Ox 92% ; mlc 23:32 BP 150 / 87; Pulse 107; Resp 20; Temp 98.1(O); Pulse Ox 92% on 2 lpm NC; Pain 0/10; jmv 17:51 Body Mass Index 25.84 (74.84 kg, 170.18 cm) gr2 Vitals: 17:51 Log In Time: December 01, 2016 at 17:51. RN notified that patient meets Red Flag gr2 criteria. ED Course: 17:50 Patient visited by Grace Lux. gr2 17:50 NO PRIMARY PHYSICIAN, . is Private Physician. gr2 17:50 Patient moved to Waiting gr2 17:56 Patient visited by Grace Lux. gr2 17:58 Patient moved to Triage 1 lf1 18:01 Triage Initiated lf1 18:03 Tricia Porter MD is Attending Physician. sd1 18:03 Patient visited by Tricia Porter MD. sd1 18:03 Patient moved to 9 lf1 18:03 copper miner blasting on. Pulse ox on. NIBP on. dsf 18:03 Inserted saline lock: 20 gauge in right antecubital area The patient tolerated the dsf procedure well. O2 via nasal cannula \\T\\ 4L/min. 18:21 Troponin Sent. dsf 18:21 Cardiac Injury Profile Sent. dsf 18:21 CBC with Diff Sent. dsf 18:21 Basic Metabolic Profile Sent. dsf 18:21 B-Type Natiuretic Peptide Sent. dsf 18:21 -Blood Culture Sent. dsf 18:24 The patient / caregiver is instructed regarding the plan of care and ED course. Patient dsf has correct armband on for positive identification. Placed in gown. Bed in low position. Call light in reach. Side rails up X2. 18:25 Patient visited by Aurora Sandra RN. dsf 18:25 EKG done. (by ED staff). Reviewed by Tricia Porter MD. cmb 18:30 -Arterial Blood Gas Sent. ac1 18:33 Patient name changed from Kumar\\S\\\\S\\Svitlana\\S\\ to Kumar\\S\\ \\S\\Svitlana. EDMS 18:33 [facility] Payment Agreement was scanned into [employer] and attached to record. gb 18:52 RESPIRATORY PANEL Sent. dsf 18:52 BLOOD CULTURES Sent. dsf 18:53 Patient moved to Ultrasound am17 19:06 Patient moved to 9 am17 19:07 LIVER PROFILE Sent. dsf 19:16 Naomie Willoughby is Hospitalizing Provider. sd1 19:21 US Lower Extremity R/O DVT Returned. EDMS 19:38 Patient visited by Aurora Sandra,HNENA. dsf 21:00 Zayda Rob,HENNA is Primary Nurse. mlc 21:17 Chest, 1 View Returned. EDMS 21:55 No procedures done that require assistance. mlc 22:35 Patient visited by Zayda Rob RN. mlc 23:33 Patient visited by Raj Bates PCA. jmv 12/02 19:05 T-Sheet-- Draft Copy was scanned into [employer] and attached to record. klr Administered Medications: 12/01 18:10 Drug: Albuterol-Ipratropium 1 neb [ipratropium-albuterol 0.5 mg-3 mg(2.5 mg base)/3 mL ac1 nebulization soln (1 neb)] Route: Nebulizer; 18:20 Drug: Albuterol-Ipratropium 1 neb [ipratropium-albuterol 0.5 mg-3 mg(2.5 mg base)/3 mL ac1 nebulization soln (1 neb)] Route: Nebulizer; 18:20 Follow up: bs exp whz before and after tx ac1 18:25 Follow up: BP 182 / 5 ac1 18:25 Follow up: wnz bilat throughout before and after tx ac1 18:30 Drug: Albuterol-Ipratropium 1 neb [ipratropium-albuterol 0.5 mg-3 mg(2.5 mg base)/3 mL ac1 nebulization soln (1 neb)] Route: Nebulizer; 18:32 Follow up: BP 182 / 0 ac1 18:35 Follow up: bs whz bilat before and after tx ac1 18:52 Drug: Solu-MEDROL 125 mg [Solu-Medrol 500 mg intravenous solution (125 mg)] Route: IVP; dsf Site: right antecubital; 19:07 Drug: cefTRIAXone 1 grams [ceftriaxone 1 gram solution for injection] Route: IVPB; dsf Infused Over: 30 mins; Site: right antecubital; 19:37 Follow up: IV Status: Completed infusion; IV Intake: 50ml dsf 19:14 Drug: Furosemide 40 mg [furosemide 10 mg/mL injection solution (4 mL)] Route: IVP; dsf Site: right antecubital; 19:37 Drug: azithromycin 500 mg [azithromycin 500 mg intravenous solution] Route: IVPB; dsf Infused Over: 1 hrs; Site: right antecubital; 20:51 Follow up: IV Status: Completed infusion; IV Intake: 250ml dsf Intake: 19:37 IV: 50.00ml; Total: 50.00ml. dsf 20:51 IV: 250.00ml; Total: 300.00ml. dsf Output: 20:01 Urine: 425.00ml (Voided); Total: 425.00ml. dsf 20:22 Urine: 375.00ml (Voided); Total: 800.00ml. dsf 21:55 Urine: 300.00ml (Voided); Total: 1100.00ml. mlc RT: 18:10 Initial Med Neb Given as ordered. ac1 18:15 Respiratory: Breath sounds with wheezes bilaterally. at expiration. ac1 18:20 Subsequent Med Neb Given as ordered. ac1 18:25 Respiratory: Breath sounds with wheezes bilaterally. ac1 18:30 Subsequent Med Neb Given as ordered. ac1 18:43 Respiratory: Breath sounds with wheezes bilaterally. at expiration. ac1 Order Results: Lab Order: B-Type Natiuretic Peptide; SPEC' 12/01/16 18:15 Test: BRAIN NATRIURETIC PEPTIDE; Value: 1070; Range: <100; Abnormal: Above high normal; Units: PG/ML; Status: F Lab Order: Basic Metabolic Profile; [facility]' 12/01/16 18:15 Test: GLUCOSE, FASTING; Value: 156; Range: 70-105; Abnormal: Above high normal; Units: MG/DL; Status: F Test: BLOOD UREA NITROGEN; Value: 21; Range: 7-18; Abnormal: Above high normal; Units: MG/DL; Status: F Test: CREATININE FOR GFR; Value: 1.01; Range: 0.70-1.30; Units: MG/DL; Status: F Test: GLOMERULAR FILTRATION RATE; Value: > 60.0; Range: >56; Status: F Test: SODIUM LEVEL; Value: 139; Range: 136-145; Units: MEQ/L; Status: F Test: POTASSIUM SERUM; Value: 4.2; Range: 3.5-5.1; Units: MEQ/L; Status: F Test: CHLORIDE LEVEL; Value: 98; Range: 98-107; Units: MEQ/L; Status: F Test: CARBON DIOXIDE LEVEL; Value: 36; Range: 21-32; Abnormal: Above high normal; Units: MEQ/L; Status: F Test: ANION GAP; Value: 5; Range: 8-16; Abnormal: Below low normal; Units: MEQ/L; Status: F Test: CALCIUM LEVEL; Value: 8.4; Range: 8.5-10.1; Abnormal: Below low normal; Units: MG/DL; Status: F Test Note: ; Units are mL/min/1.73 m2 Chronic Kidney Disease Staging per NKF: Stage I & II GFR >=60 Normal to Mildly Decreased Stage III GFR 30-59 Moderately Decreased Stage IV GFR 15-29 Severely Decreased Stage V GFR <15 Very Little GFR Left ESRD GFR <15 on LMFT Lab Order: CBC with Diff; SPEC'M 12/01/16 18:15 Test: WHITE BLOOD COUNT; Value: 6.3; Range: 4.0-10.0; Units: K/mm3; Status: F Test: RED BLOOD COUNT; Value: 5.38; Range: 4.30-6.10; Units: M/mm3; Status: F Test: HEMOGLOBIN; Value: 16.3; Range: 14.0-18.0; Units: g/dl; Status: F Test: HEMATOCRIT; Value: 56.3; Range: 42.0-52.0; Abnormal: Above high normal; Units: %; Status: F Test: MEAN CORPUSCULAR VOLUME; Value: 104.6; Range: 80.0-96.0; Abnormal: Above high normal; Units: fl; Status: F Test: MEAN CORPUSCULAR HEMOGLOBIN; Value: 30.3; Range: 27.0-33.0; Units: pg; Status: F Test: MEAN CORPUSCULAR HGB CONC; Value: 29.0; Range: 32.0-36.5; Abnormal: Below low normal; Units: g/dl; Status: F Test: RED CELL DISTRIBUTION WIDTH; Value: 14.1; Range: 11.5-14.5; Units: %; Status: F Test: PLATELET COUNT, AUTOMATED; Value: 174; Range: 150-450; Units: k/mm3; Status: F Test: NEUTROPHILS %; Value: 65.6; Range: 36.0-66.0; Units: %; Status: F Test: LYMPH %; Value: 21.5; Range: 24.0-44.0; Abnormal: Below low normal; Units: %; Status: F Test: MONO %; Value: 9.0; Range: 0.0-5.0; Abnormal: Above high normal; Units: %; Status: F Test: EOS %; Value: 1.1; Range: 0.0-3.0; Units: %; Status: F Test: BASO %; Value: 0.6; Range: 0.0-1.0; Units: %; Status: F Test: LARGE UNSTAINED CELL %; Value: 2.1; Range: 0.0-4.0; Units: %; Status: F Test: NEUTROPHILS #; Value: 4.2; Range: 1.8-7.7; Units: K/mm3; Status: F Test: LYMPH #; Value: 1.5; Range: 1.5-4.5; Units: K/mm3; Status: F Test: MONO #; Value: 0.6; Range: 0.0-0.8; Units: K/mm3; Status: F Test: EOS #; Value: 0.1; Range: 0.0-0.50; Units: K/mm3; Status: F Test: BASO #; Value: 0.0; Range: 0.0-0.2; Units: K/mm3; Status: F Test: LARGE UNSTAINED CELL #; Value: 0.1; Range: 0.0-0.4; Units: K/mm3; Status: F Lab Order: Cardiac Injury Profile; [facility]' 12/01/16 18:15 Test: CPK CREATINE PHOSPHOKINASE; Value: 216; Range: 39-308; Units: U/L; Status: F Test: CK-MB VALUE MASS; Value: 7.4; Range: 0.0-3.6; Abnormal: Above high normal; Units: NG/ML; Status: F Test: MB/CK RELATIVE INDEX; Value: 3.42; Range: < OR =4; Status: F Test Note: ; DIAGNOSIS CRITERIA MMB ng/ml Relative Index (RI) NON-AMI < or = 5 N/A [place]ONE > 5 < or = 4 AMI > 5 > 4 Lab Order: Troponin; [facility]' 12/01/16 18:15 Test: TROPONIN I; Value: 0.05; Range: < 0.10; Units: NG/ML; Status: F Test Note: ; Troponin I Reference Interval for Siemens [place] LOCI: 99th Percentile= 0.00-0.045 ng/ml Risk Stratification: <= 0.10 ng/ml Decreased Risk for Adverse Clinical Events. 0.10-1.50 ng/ml Increased Risk for Adverse Clinical Events. Evaluation of additional criterion and/or repeat testing in 2-6 hours is suggested to rule out myocardial damage. >= 1.50 ng/ml Indicative of Myocardial Injury. Lab Order: -Arterial Blood Gas; SPEC'12/01/16 18:19 Test: ABG pH (ARTERIAL); Value: 7.323; Range: 7.350-7.450; Abnormal: Below low normal; Units: UNITS; Status: F Test: ABG PARTIAL PRESSURE CO2; Value: 60.2; Range: 35.0-45.0; Abnormal: Above upper panic limits; Units: mmHg; Status: F Test: ABG PARTIAL PRESSURE O2; Value: 78.2; Range: 75.0-100.0; Units: mmHg; Status: F Test: ABG TOTAL CO2; Value: 32.4; Range: 22.0-29.0; Abnormal: Above high normal; Units: MEQ/L; Status: F Test: ABG HCO3; Value: 30.5; Range: 22.0-26.0; Abnormal: Above high normal; Units: MEQ/L; Status: F Test: ABG BASE EXCESS; Value: 2.5; Range: -2.0-2.0; Abnormal: Above high normal; Status: F Test: ABG STANDARD HCO3; Value: 26.7; Range: 22.0-26.0; Abnormal: Above high normal; Units: MEQ/L; Status: F Test: ABG O2 SATURATION; Value: 95.8; Range: 95.0-99.0; Units: %; Status: F Test: ABG DEVICE; Value: NASAL COOPER; Status: F Lab Order: LIVER PROFILE; [facility] 18:15 Test: AST/SGOT; Value: 50; Range: 15-37; Abnormal: Above high normal; Units: U/L; Status: F Test: ALT/SGPT; Value: 62; Range: 12-78; Units: U/L; Status: F Test: ALKALINE PHOSPHATASE; Value: 147; Range: 45-117; Abnormal: Above high normal; Units: U/L; Status: F Test: BILIRUBIN,TOTAL; Value: 0.7; Range: 0.2-1.0; Units: MG/DL; Status: F Test: BILIRUBIN,DIRECT; Value: 0.2; Range: 0.0-0.2; Units: MG/DL; Status: F Test: TOTAL PROTEIN; Value: 7.5; Range: 6.4-8.2; Units: GM/DL; Status: F Test: ALBUMIN; Value: 2.7; Range: 3.2-5.2; Abnormal: Below low normal; Units: GM/DL; Status: F Test: ALBUMIN/GLOBULIN RATIO; Value: 0.56; Range: 1.00-1.93; Abnormal: Below low normal; Status: F Lab Order: RESPIRATORY PANEL; SPEC'M 12/01/16 18:48 Test: RESPIRATORY PANEL; Value: RP PANEL RESULT NEGATIVE by PCR; Status: F Test: RESPIRATORY PANEL; Value: Comments:; Status: F Test Note: ; This respiratory PCR panel detects Influenza A H1, H3 and 2009 H1 viruses, Influenza B virus, Respiratory syncytial virus, Human metapneumovirus, Parainfluenza virus 1, 2, 3 and 4, Adenovirus, Rhinovirus/Enterovirus, Coronavirus HKU1, NL63, OC43 and 229E, Bordetella pertussis, Mycoplasma pneumoniae and Chlamydia pneumoniae. Lab Order: RBC MORPH PROF NO CHARGE; SPEC'M 12/01/16 18:15 Test: PLATELET ESTIMATE; Range: NORMAL; Status: I Test: POLYCHROMASIA; Value: 2+; Status: F Test: HYPOCHROMASIA; Value: 1+; Status: F Test: MACROCYTOSIS; Value: 2+; Status: F Test: STOMATOCYTES; Value: 1+; Status: F Test: PLATELET ESTIMATE; Value: NORMAL; Range: NORMAL; Status: F Radiology Order: Chest, 1 View Test: Chest, 1 View REASON FOR EXAMINATION: Shortness of Breath; AP PORTABLE CHEST: 12/01/2016 at 06:35 PM.; ; Comparison: Portable chest 01/04/2013, CT angiogram chest 01/05/2013.; ; Clinical history: Dyspnea.; ; Findings: Lungs are hyperinflated. There is underlying COPD and some fibrosis.; Patchy infrahilar atelectasis or early infiltrate may be present. There is; fibrosis. The pulmonary arteries are prominent centrally consistent with COPD.; I do not see pulmonary edema. There is mild venous hypertension, but the vessel; margins are distinct. No interstitial edema suspected. Heart size not enlarged; for portable lordotic technique. The aorta is normal. There is apparent; densities overlying the mediastinum, which could be large bridging syndesmophytes; or spurs in the spine. The appearance is similar to the previous study and was; confirmed on prior CT.; ; Impression:; ; 1. Hyperinflation with COPD, some fibrosis and pulmonary artery hypertension.; ; 2. No gross cardiomegaly but some pulmonary venous hypertension with distinct; vessel margins, no evidence of edema.; ; 3. Infrahilar patchy atelectasis or infiltrate on the right.; ; ; Signed by; Dominik Perales MD 12/01/2016 08:33 P; Radiology Order: US Lower Extremity R/O DVT Test: US Lower Extremity R/O DVT REASON FOR EXAMINATION: swelling; ; CLINICAL HISTORY: Right lower extremity swelling.; TECHNIQUE: Duplex ultrasound of the right lower extremity veins was performed with grayscale, color f; low imaging and Doppler spectral analysis, without and with compression.; ; ; RIGHT LOWER EXTREMITY VENOUS DUPLEX ULTRASOUND:; There is normal compressibility, flow and augmentation of the common femoral, superficial femoral, an; d popliteal veins.; ; IMPRESSION:; ; No evidence of DVT in the right lower extremity.; ; Outcome: 19:16 Decision to Hospitalize by Provider. sd1 21:58 Discharge Assessment: Patient awake, alert and oriented x 3. No cognitive and/or mlc functional deficits noted. Patient verbalized understanding of disposition instructions. patient administered narcotics - no. The following High Risk Discharge criteria are identified: None. Admitted to PCU accompanied by nurse, accompanied by tech, via stretcher, with oxygen, on monitor, with chart. Condition: stable. Admission hand-off: Report Faxed Fax receipt verified by HENNA Mckinnon. Property sent home with patient. 23:32 Ultrasound Study completed. mlc 23:35 Patient left the ED. [facility] [place] Signatures: Dispatcher [facility] Tricia Porter MD MD sd1 Lana Hines, Reg Reg gb Jasper,Sonam,RT RT ac1 Kendal JaramilloRN RN lf1 Aurora Sandra RN RN f Lelo Pool cmb Grace Lux gr2 Azalea Robledo am17 Zayda Rob,RN RN mlc Lashae Olmedo klr Paulo, Raj, CLINICAL RN LIAISON CLINICAL RN LIAISON jmv Corrections: (The following items were deleted from the chart) 18:32 18:31 LIVER PROFILE+LAB sent. [facility] EDMS 18:32 18:31 Albuterol-Ipratropium 1 neb Nebulizer ac1 ac1 18:37 18:33 Respiratory: Breath sounds with wheezes bilaterally. at expiration ac1 ac1 18:39 18:20 Respiratory: Breath sounds with wheezes bilaterally. at expiration ac1 ac1 18:41 18:25 Subsequent Med Neb Given as ordered ac1 ac1 18:41 18:25 Respiratory: Breath sounds with wheezes bilaterally. at expiration ac1 ac1 18:41 18:30 Subsequent Med Neb Given as ordered ac1 ac1 Chart Complete MTDD
== END 2016-12-03 10:20 | disposition left against medical advice (07) | DRG 194 ==
LOC: M ED 17:49 → M ED INP 19:26 → M PCU 23:46 → M ICU 12-02 19:21
PROVIDERS: ADMIT General Practice; ATTEND Internal Medicine
DX: I50.9 Heart failure, unspecified (principal); J96.01 Acute respiratory failure with hypoxia; J18.9 Pneumonia, unspecified organism; K74.60 Unspecified cirrhosis of liver; R18.8 Other ascites; J44.9 Chronic obstructive pulmonary disease, unspecified; F17.210 Nicotine dependence, cigarettes, uncomplicated; Z79.899 Other long term (current) drug therapy

== ENCOUNTER 2016-12-03 15:01 | Inpatient (IN) | payer OTHER ==
[~2016-12-03] VITALS: Ht 170.2 cm; Wt 68.0 kg
[~2016-12-03 15:01] MED LIST changes: +ALBU17IN INH; +COMBAER6 INH; +VITATAB11 PO
[2016-12-03] MEDS ORDERED: ALBUTEROL SULFATE 2.5 MG/0.5 ML INH NEB SOLN As Ordered ONE (15:31)
[2016-12-03] MEDS ORDERED: ONDANSETRON 4MG/2ML VIAL (J2405) IV PRN (15:45)
[2016-12-03] MEDS ORDERED: ALBUTEROL SULFATE 2.5 MG/0.5 ML INH NEB SOLN NEB PRN (15:45)
[2016-12-03] MEDS ORDERED: BISACODYL 10 MG SUPP PR PRN (15:45)
[2016-12-03 15:48] LABS: ABG BASE EXCESS 11.6 (-2.0-2.0); ABG DEVICE NASAL CANN; ABG HCO3 40.4 MEQ/L (22.0-26.0); ABG TOTAL CO2 42.5 MEQ/L (22.0-29.0); ABG pH (ARTERIAL) 7.385 UNITS (7.350-7.450)
[2016-12-03 15:49] LABS: ABG PARTIAL PRESSURE O2 45.1 mmHg (75.0-100.0)
--- NOTE | 2016-12-03 15:58 | HPEPDOC ---
Medical History and Physical Date of Admission 12/03/16 History and Physical ATTENDING: Dr. Deal PCP: None CC: SOB HPI: 61yoM with a past medical history significant for COPD who was admitted for COPD exacerbation and decompensated CHF who signed out AMA 12/03/16 AM and returns this PM related to worsening SOB. Pt states that while he was here he did notice improvement in his breathing and edema but he "had to leave" and states "I had to walk". Pt has had a 2-3 weeks h/o increased LE edema, weight gain of 25 pounds, SOB at rest, orthopnea, and decreased tolerance for activity. Denies cough/sputum. States he has wheezing all the time. Denies any fevers, chills, weakness, headache, CP, cough, palpitations, abdominal pain, N/V/D or changes in bowel or bladder habits. Upon presentation to the hospital the patient was found to have CHF and COPD exacerbation, thus the hospitalist team was consulted. PMHx: COPD CHF PSHX: hernia repair appendectomy SOCHX: The patient had been a previous smoker of one pack a day since age 14, recently he has decreased his cigarette smoking to five to six cigarettes per day. 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 Denies any recreational drug use. FAMHX: Father , unknown medical problems and unknown age. Mother is still alive at 86, unknown medical problems. One sister and four brothers, one brother with cancer, he is the youngest. His family is from [place]. ROS: As noted in HPI, otherwise 11pt ROS of systems reviewed and unremarkable. PE: GEN: 61yoM, appears older than stated age. No acute distress lying on stretcher in ED. Alert and oriented x 3. HEENT: Normocephalic, atraumatic. Pupils are equal, round, and reactive to light. Extraocular movements are intact. No nystagmus appreciated. Sclera are nonicteric. Conjunctiva without injection. Nose midline. EACs both patent BL. TMs both visualized and singh with good cone of light, no bulging or erythema. No facial asymmetry. Moist mucous membranes. Dentition poor. Pharynx pink and moist. Neck supple, trachea midline. No lymphadenopathy or thyromegaly appreciated. CHEST: Regular rate and rhythm, +S1, +S2. JVD elevated at angle of jaw at 45 degrees. LUNGS: decreased BS bilaterally. Diffuse insp/exp wheezes, rales at bases B/L, No rhonchi. Breathing appears symmetric and easy. Patient is speaking in full sentences. No accessory muscle use. ABD: Round, soft, non-tender, non-distended. +Bowel sounds throughout. No rebound or guarding. No costovertebral angle tenderness. EXT: 2-3mm edema progressing to prox pretibial areas B/L. trace at thighs B/L. 1-2mm sacral edema appreciated. SKIN: No rashes. NEURO: Alert and oriented x 3. Cranial nerves III-XII are intact. No focal deficits appreciated. A&P: 61yoM with a past medical history significant for COPD who was admitted for COPD exacerbation and decompensated CHF who signed out AMA 12/03/16 AM and returns this PM related to worsening SOB. The patient will be admitted to /S for at least [address] Deal's service. Pt is discussed with Dr White. 1. Chronic hypercarbic respiratory Failure. ABG pending. 2. COPD exacerbation. prn O2, Duoneb/Pulmicort nebs, restart antibiotics as previously ordered- IV Rocephin/Zithromax. Restart po prednisone. 3. Decompensated CHF. I/O, daily wt, low Na diet, IV Lasix 40 mg IV Q8. Monitor daily labs. Echo pending. 4. Tobacco use. encourage cessation. 5. Non compliance. encourage compliance with treatment. DVT prophylaxis. Lovenox. SCD/TEDS. The patient is a Full code. Vital Signs 173/101 116 22 96.9 88RA Laboratory Data Labs 24H Item Value Date Time White Blood Count 8.5 K/mm3 12/03/16456 Red Blood Count 5.11 M/mm3 12/03/16456 Hemoglobin 15.4 g/dl 12/03/16456 Hematocrit 51.6 % 12/03/16456 Mean Corpuscular Volume 100.9 fl H 12/03/16456 Mean Corpuscular Hemoglobin 30.1 pg 12/03/16456 Mean Corpuscular Hemoglobin Concent 29.8 g/dl L 12/03/16 045 Red Cell Distribution Width 13.9 % 12/03/16 045 Platelet Count 180 k/mm3 12/03/16 0457 Sodium Level 138 MEQ/L 12/03/16 0456 Potassium Level 4.4 MEQ/L 12/03/16 0456 Chloride Level 96 MEQ/L L 12/03/16 0456 Carbon Dioxide Level 37 MEQ/L H 12/03/16 0456 Anion Gap 5 MEQ/L L 12/03/16 0456 Blood Urea Nitrogen 18 MG/DL 12/03/16 0456 Creatinine 0.90 MG/DL 12/03/16 0456 Glomerular Filtration Rate > 60.0 12/03/16 0456 Fasting Glucose 162 MG/DL H 12/03/16 0456 Calcium Level 8.2 MG/DL L 12/03/16 0456 Home Medications Scheduled Albuterol/Ipratropium (Combivent Respimat 20-100 Mcg/Act) 1 Aer Aer 2 PUFF INH QID B1/B2/B3/B5/B6 (Vitamin B Complex) 1 Tab Tab 1 TAB PO DAILY Scheduled PRN Albuterol Sulfate (Ventolin Hfa) 200 Puff/8 Gm Aers 2 PUFF INH QID PRN PRN SHORTNESS OF BREATH Allergies Coded Allergies: No Known Drug Allergy (Verified Allergy, Unknown, 12/01/16) Oliva Ortiz Dec 03, 2016 15:58
[2016-12-03] MEDS ORDERED: FUROSEMIDE 20 MG/2 ML VIAL (J1940) As Ordered ONE (17:04)
[2016-12-03] MEDS ORDERED: FUROSEMIDE 40 MG/4 ML VIAL (J1940) As Ordered ONE (17:05)
[2016-12-03] MEDS ORDERED: FUROSEMIDE 100 MG/10 ML VIAL (J1940) IV ONE (17:15)
--- NOTE | 2016-12-03 19:38 | EDDOCDS ---
Physician Documentation [facility] Name: Kumar Shane Age: 61 yrs Sex: Male : 1955 Arrival Date: 12/03/2016 Time: 15:01 Bed 5 Private MD: NO PRIMARY PHYSICIAN, . Disposition: 12/03/16 15:23 Hospitalization ordered by Petty White for Inpatient Admission. Preliminary diagnosis is Chronic obstructive pulmonary disease with (acute) exacerbation. - Bed requested for 4 [place]. - Status is Inpatient Admission. mlc - Condition is Stable. - Problem is an ongoing problem. - Symptoms are unchanged. Historical: - Allergies: no known allergies; - Home Meds: 1. Combivent 18-103 mcg/actuation Inhl aero 2 puffs 4 times per day 2. ventolin inhaler Unknown every 6 hours - PMHx: CHF; COPD; - PSHx: Hernia repair; Appendectomy; - Social history: Smoking status: Patient uses tobacco products, current every day smoker. No barriers to communication noted, The patient speaks fluent [place]ian. - Family history: Not pertinent. - : The pt / caregiver states he / she is not on anticoagulants. Home medication list is obtained from the patient. - Exposure Risk Screening:: None identified. Vital Signs: 12/03 15:02 BP 173 / 101; Pulse 116; Resp 22; Temp 96.9(T); Pulse Ox 88% on R/A; Weight 80.38 kg / dem1 177.21 lbs (M); Height 5 ft. 7 in. (170.18 cm); Pain 0/10; 15:31 BP 142 / 91 (auto/); jo3 15:32 Pulse 112 MON; jo3 15:46 BP 132 / 83 (auto/); jo3 15:46 Pulse 104 MON; Pulse Ox 99% ; jo3 16:01 BP 143 / 93 (auto/); jo3 16:01 Pulse 108 MON; Pulse Ox 93% ; jo3 16:16 BP 142 / 89 (auto/); jo3 16:16 Pulse 104 MON; Pulse Ox 95% ; jo3 16:31 BP 148 / 94 (auto/); jo3 16:31 Pulse 104 MON; Pulse Ox 94% ; jo3 16:46 BP 153 / 104 (auto/); jo3 16:46 Pulse 106 MON; Pulse Ox 93% ; jo3 17:31 BP 157 / 94 (auto/); jo3 17:31 Pulse 104 MON; jo3 18:20 BP 166 / 92 (auto/); jo3 18:20 Pulse 104 MON; jo3 18:31 BP 158 / 94 (auto/); jo3 18:31 Pulse 106 MON; jo3 18:50 BP 149 / 96 (auto/); jo3 18:51 Pulse 108 MON; jo3 19:33 BP 159 / 81; Pulse 111; Resp 18; Temp 97.7; Pulse Ox 92% on 2 lpm NC; Pain 0/10; mlc 15:02 Body Mass Index 27.75 (80.38 kg, 170.18 cm) dem1 MDM: 15:22 Oxygen at 2L/min via NC ordered. ke 15:22 Call Respiratory ordered. ke 15:22 Albuterol 5 mg Nebulizer once ordered. ke 15:23 BED REQUEST+ADM ordered. EDMS 15:24 -Arterial Blood Gas Ordered. EDMS 15:26 Call Respiratory complete. jo3 15:43 Admission / Observation Status ordered. EDMS 15:43 2 GRAM SODIUM DIET ordered. EDMS 15:52 Financial registration complete. zo 16:00 [facility] Payment Agreement was scanned into [employer] and attached to record. zo 16:10 IV Saline Lock ordered. jo3 17:20 Furosemide 60 mg IVP once ordered. jo3 19:31 ARTERIAL BLOOD GAS Ordered. EDMS 19:31 CBC WITH DIFFERENTIAL Ordered. EDMS 19:31 BASIC METABOLIC PROFILE Ordered. EDMS Administered Medications: 15:42 Drug: Albuterol 5 mg [albuterol sulfate 2.5 mg/0.5 mL solution for nebulization (1 mL)] js Route: Nebulizer; 17:15 Drug: Furosemide 60 mg [furosemide 10 mg/mL injection solution (6 mL)] Route: IVP; jo3 Site: right antecubital; Signatures: Dispatcher [employer] EDMS Lewis Tijerina, Vicki Fierro RN RN jo3 Olin, Zoeann zo Raymond, Jessica, RN RN jjr Booth, Mandy, RN RN mlc Steggeman, Michele, RN RN mts Sumell, James js The chart was reviewed and I authenticate all verbal orders and agree with the evaluation and treatment provided.Corrections: (The following items were deleted from the chart) 17:27 16:05 ECHOCARD,DOPPLER/COLOR FLOW ordered. EDMS EDMS Attachments: 16:00 [facility] Payment Agreement zo MTDD
--- NOTE | 2016-12-03 19:38 | EDDOCDS ---
Nurse's Notes [facility] Name: Kumar Shane Age: 61 yrs Sex: Male : 1955 Arrival Date: 12/03/2016 Time: 15:01 Bed 5 Private MD: NO PRIMARY PHYSICIAN, . Diagnosis: Chronic obstructive pulmonary disease with (acute) exacerbation Presentation: 12/03 15:06 Presenting complaint: Patient states: admitted to [facility] 2 days ago and left this morning jjr AMA, dx CHF and COPD exac, returns with continued SOB. Adult Sepsis Screening: The patient does not have new or worsening altered mentation. Patient has a respiratory rate of greater than or equal to 22 (1 point). Systolic blood pressure is greater than 100. Patient has a qSOFA score of 1- Negative Sepsis Screen. Suicide/Homicide risk assessment- the patient denies having any suicidal and/or homicidal ideations and does not present with any other emotional, behavioral or mental health complaints. Status: Patient is not a extension service agent or dependent. Transition of care: patient was not received from another setting of care. 15:06 Acuity: LOLA Level 3 jjr 15:06 Method Of Arrival: Wheelchair jjr Triage Assessment: 15:08 General: Appears in no apparent distress. Pain: Denies pain. HIV screening NA for this jjr visit Offered previously. Respiratory: Onset: The symptoms/episode began/occurred gradually, Airway is patent Respiratory effort is even, unlabored, Respiratory pattern is regular. Historical: - Allergies: no known allergies; - Home Meds: 1. Combivent 18-103 mcg/actuation Inhl aero 2 puffs 4 times per day 2. ventolin inhaler Unknown every 6 hours - PMHx: CHF; COPD; - PSHx: Hernia repair; Appendectomy; - Social history: Smoking status: Patient uses tobacco products, current every day smoker. No barriers to communication noted, The patient speaks fluent [place] Islander. - Family history: Not pertinent. - : The pt / caregiver states he / she is not on anticoagulants. Home medication list is obtained from the patient. - Exposure Risk Screening:: None identified. Screenin:11 Screening information is obtained from the patient. Fall risk: No risks identified. jo3 Assistance ADL's: requires no assistance with activities of daily living. Abuse/DV Screen: The patient / caregiver reports he/she is: not in a situation that causes fear, pain or injury. Nutritional screening: No deficits noted. Advance Directives: There is no active DNR order. home support is adequate. Assessment: 16:11 General: Appears in no apparent distress, comfortable, Behavior is appropriate for age, jo3 cooperative, pleasant. Neurological: No deficits noted. Level of Consciousness is awake, alert, Oriented to person, place, time. Cardiovascular: Capillary refill is brisk Edema is 4+ to left midcalf, left ankle, left foot, right midcalf, right ankle and right foot pitting to left midcalf, left ankle, left foot, right midcalf, right ankle and right foot additional; dependent edema noted Rhythm is sinus tachycardia No ectopy. Chest pain is denied. Respiratory: Airway is patent Respiratory effort is even, unlabored, Breath sounds are diminished in right upper lobe, left upper lobe, left posterior upper lobe, right posterior upper lobe, left posterior lower lobe, right posterior middle lobe and right posterior lower lobe Breath sounds with wheezes expiratory in left posterior upper lobe, right posterior upper lobe, left posterior lower lobe, right posterior middle lobe and right posterior lower lobe Reports shortness of breath at rest. Derm: Skin is pink, warm & dry. 17:02 Reassessment: Patient appears in no apparent distress at this time. No significant jo3 changes noted at this time. Significant other at bedside. Awaiting admission at this time. Aware of plan of care . 18:00 General: Appears in no apparent distress, comfortable, Behavior is appropriate for age, jo3 cooperative, pleasant. Neurological: Level of Consciousness is awake, alert, Oriented to person, place, time. Cardiovascular: Rhythm is sinus tachycardia No ectopy. Respiratory: Airway is patent Respiratory effort is even, unlabored. : Urine is clear, 850cc out since Lasix administration. 18:50 Reassessment: Patient appears in no apparent distress at this time. No significant jo3 changes noted at this time. Pt resting quietly on stretcher in state of comfort. awaiting admission to medical floor at this time. Additional 250cc output noted. aware of plan of care . 19:33 General: Appears in no apparent distress, comfortable, Behavior is cooperative, mlc pleasant. Pain: Denies pain. Neurological: Level of Consciousness is awake, alert, Oriented to person, place, time. Cardiovascular: Heart tones S1 S2 present. Cardiovascular: Edema is 4+ to left knee, left midcalf, left ankle, left foot, right knee, right midcalf, right ankle and right foot. Respiratory: Airway is patent Respiratory effort is even, unlabored, Respiratory pattern is regular, Breath sounds are diminished bilaterally. Derm: Skin is pink, warm & dry. Vital Signs: 15:02 BP 173 / 101; Pulse 116; Resp 22; Temp 96.9(T); Pulse Ox 88% on R/A; Weight 80.38 kg dem1 (M); Height 5 ft. 7 in. (170.18 cm); Pain 0/10; 15:31 BP 142 / 91 (auto/); jo3 15:32 Pulse 112 MON; jo3 15:46 BP 132 / 83 (auto/); jo3 15:46 Pulse 104 MON; Pulse Ox 99% ; jo3 16:01 BP 143 / 93 (auto/); jo3 16:01 Pulse 108 MON; Pulse Ox 93% ; jo3 16:16 BP 142 / 89 (auto/); jo3 16:16 Pulse 104 MON; Pulse Ox 95% ; jo3 16:31 BP 148 / 94 (auto/); jo3 16:31 Pulse 104 MON; Pulse Ox 94% ; jo3 16:46 BP 153 / 104 (auto/); jo3 16:46 Pulse 106 MON; Pulse Ox 93% ; jo3 17:31 BP 157 / 94 (auto/); jo3 17:31 Pulse 104 MON; jo3 18:20 BP 166 / 92 (auto/); jo3 18:20 Pulse 104 MON; jo3 18:31 BP 158 / 94 (auto/); jo3 18:31 Pulse 106 MON; jo3 18:50 BP 149 / 96 (auto/); jo3 18:51 Pulse 108 MON; jo3 19:33 BP 159 / 81; Pulse 111; Resp 18; Temp 97.7; Pulse Ox 92% on 2 lpm NC; Pain 0/10; mlc 15:02 Body Mass Index 27.75 (80.38 kg, 170.18 cm) [facility] Vitals: 15:02 Log In Time: December 03, 2016 at 15:00. RN notified that patient meets Red Flag dem1 criteria. ED Course: 15:02 Patient visited by Rick Willson. dem1 15:02 NO PRIMARY PHYSICIAN, . is Private Physician. dem1 15:02 Patient moved to Waiting dem1 15:05 Patient visited by Rick Willson. dem1 15:08 Triage Initiated jjr 15:09 Patient moved to 5 jjr 15:13 [facility] ke 15:13 Patient visited by Lewis Tijerina FNP. ke 15:13 Patient visited by Lewis Tijerina FNP. ke 15:23 Petty White is Hospitalizing Provider. ke 15:41 -Arterial Blood Gas Sent. js 16:00 Patient name changed from Kumar\S\\S\Svitlana\S\ to Kumar\S\ \S\Svitlana. EDMS 16:00 REPLACED BY [facility] Payment Agreement was scanned into [employer] and attached to record. zo 16:11 The patient / caregiver is instructed regarding the plan of care and ED course. jo3 16:11 Inserted saline lock: 18 gauge in right antecubital area. jo3 16:15 Patient visited by Vicki Arellano,HENNA. jo3 17:03 Patient visited by Vicki Arellano,HENNA. jo3 19:04 Zayda Rob,HENNA is Primary Nurse. mlc 19:33 No procedures done that require assistance. mlc Administered Medications: 15:42 Drug: Albuterol 5 mg [albuterol sulfate 2.5 mg/0.5 mL solution for nebulization (1 mL)] js Route: Nebulizer; 17:15 Drug: Furosemide 60 mg [furosemide 10 mg/mL injection solution (6 mL)] Route: IVP; jo3 Site: right antecubital; Output: 18:05 Urine: 875.00ml (Voided); Total: 875.00ml. jjr 18:52 Urine: 250.00ml (Voided); Total: 1125.00ml. jo3 19:33 Urine: 625.00ml (Voided); Total: 1750.00ml. mlc RT: 15:42 ABG's drawn from right radial artery allens test done and positive pressure held for 5 js minutes no bleeding noted pressure bandage applied specimen sent pt. tolerated well. Initial Med Neb Given as ordered Patient was instructed and evaluated on procedure Patient tolerated procedure well without adverse effect. Oxygen is room air. Respiratory: Breath sounds are diminished bilaterally. Order Results: Lab Order: -Arterial Blood Gas; SPEC'M 12/03/16 15:38 Test: ABG pH (ARTERIAL); Value: 7.385; Range: 7.350-7.450; Units: UNITS; Status: F Test: ABG PARTIAL PRESSURE CO2; Value: 69.0; Range: 35.0-45.0; Abnormal: Above upper panic limits; Units: mmHg; Status: F Test: ABG PARTIAL PRESSURE O2; Value: 45.1; Range: 75.0-100.0; Abnormal: Critical Low; Units: mmHg; Status: F Test: ABG TOTAL CO2; Value: 42.5; Range: 22.0-29.0; Abnormal: Above high normal; Units: MEQ/L; Status: F Test: ABG HCO3; Value: 40.4; Range: 22.0-26.0; Abnormal: Above high normal; Units: MEQ/L; Status: F Test: ABG BASE EXCESS; Value: 11.6; Range: -2.0-2.0; Abnormal: Above high normal; Status: F Test: ABG STANDARD HCO3; Value: 35.0; Range: 22.0-26.0; Abnormal: Above high normal; Units: MEQ/L; Status: F Test: ABG O2 SATURATION; Value: 83.6; Range: 95.0-99.0; Abnormal: Below low normal; Units: %; Status: F Test: ABG DEVICE; Value: NASAL COOPER; Status: F Outcome: 15:23 Decision to Hospitalize by Provider. 19:21 Admission hand-off: Report Faxed Fax receipt verified by HENNA Patterson. [facility] 19:33 Discharge Assessment: Patient awake, alert and oriented x 3. No cognitive and/or [facility] functional deficits noted. Patient verbalized understanding of disposition instructions. patient administered narcotics - no. The following High Risk Discharge criteria are identified: None. Admitted to Med/Surg accompanied by tech, via stretcher, with chart. Condition: stable. No special radiology studies were completed. Property :Personal belongings accompany Pt. 19:37 Patient left the ED. [facility] Signatures: Dispatcher [facility] Wil Gamble Karl, LUMBER MATERIAL HANDLER LUMBER MATERIAL HANDLER Vicki Carey,RN RN jo3 Chawdick George Jessica, RN RN Rick Schuster Mandy,RN RN mlc MTDD
[2016-12-03 19:44] VITALS: BP 146/96
[2016-12-03] MEDS: BUDESONIDE 0.5 MG/2 ML INHALATION SUSPENSION INH SCH (20:00)
[2016-12-03] MEDS: IPRATROPIUM 0.5MG/ALBUTEROL 2.5MG INH SOL UD 3ML (DUONEB)(J7620) NEB SCH (20:00)
[2016-12-03] MEDS: SENOKOT S TAB PO SCH (21:03)
[2016-12-03 22:00] VITALS: BP 148/90
[2016-12-03] MEDS: FUROSEMIDE 40 MG/4 ML VIAL (J1940) IV SCH (23:49)
[2016-12-04] MEDS: IPRATROPIUM 0.5MG/ALBUTEROL 2.5MG INH SOL UD 3ML (DUONEB)(J7620) NEB SCH ×4 (01:35→20:15)
[2016-12-04 05:48] LABS: MEAN CORPUSCULAR HEMOGLOBIN 30.5 pg (27.0-33.0); MEAN CORPUSCULAR HGB CONC 30.2 g/dl (32.0-36.5); MEAN CORPUSCULAR VOLUME 100.9 fl (80.0-96.0); PLATELET COUNT, AUTOMATED 176 k/mm3 (150-450); RED CELL DISTRIBUTION WIDTH 13.9 % (11.5-14.5); WHITE BLOOD COUNT 6.8 K/mm3 (4.0-10.0)
[2016-12-04 05:50] LABS: ANION GAP 3 MEQ/L (8-16); BLOOD UREA NITROGEN 14 MG/DL (7-18); CALCIUM LEVEL 8.8 MG/DL (8.5-10.1); CARBON DIOXIDE LEVEL 44 MEQ/L (21-32); CHLORIDE LEVEL 92 MEQ/L (98-107); CREATININE FOR GFR 0.71 MG/DL (0.70-1.30); GLOMERULAR FILTRATION RATE > 60.0 (>56); GLUCOSE, FASTING 89 MG/DL (70-105); POTASSIUM SERUM 4.1 MEQ/L (3.5-5.1); SODIUM LEVEL 139 MEQ/L (136-145)
[2016-12-04 06:00] VITALS: BP 151/91
[2016-12-04] MEDS: BUDESONIDE 0.5 MG/2 ML INHALATION SUSPENSION INH SCH ×2 (07:54→20:15)
[2016-12-04] MEDS: cefTRIAXone SOD 2 GM in D5W MINI-BAG PLUS 50 ML IV SCH (08:05)
[2016-12-04] MEDS: FUROSEMIDE 40 MG/4 ML VIAL (J1940) IV SCH ×2 (08:05→16:00)
[2016-12-04 08:28] LABS: ABG BASE EXCESS 11.5 (-2.0-2.0); ABG HCO3 40.5 MEQ/L (22.0-26.0); ABG PARTIAL PRESSURE O2 56.7 mmHg (75.0-100.0); ABG TOTAL CO2 42.7 MEQ/L (22.0-29.0); ABG pH (ARTERIAL) 7.378 UNITS (7.350-7.450)
[2016-12-04 08:42] LABS: ABG PARTIAL PRESSURE CO2 70.4 mmHg (35.0-45.0)
[2016-12-04] MEDS: predniSONE 20 MG TAB PO SCH (09:42)
[2016-12-04] MEDS: SENOKOT S TAB PO SCH ×2 (09:42→20:19)
[2016-12-04] MEDS: AZITHROMYCIN 250 MG TAB PO SCH (09:42)
[2016-12-04] MEDS: PANTOPRAZOLE 40MG TAB (PROTONIX) PO SCH (09:42)
[2016-12-04] MEDS: ENOXAPARIN 40 MG/0.4 ML SYRINGE (J1650) SC SCH (09:43)
--- NOTE | 2016-12-04 09:48 | REP ---
Clinical: Question of cirrhosis. Technique: Real time singh scale ultrasound examination using curved array transducer. Findings: The liver has a coarsened echotexture without focal hepatic lesion identified and may be related to underlying hepatocellular disease. The pancreas is incompletely evaluated due to interposed bowel gas. The gallbladder is without gallstones, wall thickening, or pericholecystic fluid. No biliary ductal dilatation is appreciated and the common bile duct measures 5 mm diameter. The right kidney is normal in reniform shape without hydronephrosis and measures 10.4 x 5.7 x 4.7 cm demonstrating extra renal pelvis. Right pleural effusion noted. Impression: Coarsened hepatic echotexture may reflect underlying hepatocellular disease. Signed by Lonnie Hassan MD 12/04/2016 09:39 A
[2016-12-04 10:03] VITALS: BP 150/91
--- NOTE | 2016-12-04 11:21 | IPNPDOC ---
Text Note Date of Service The patient was seen on 12/04/16. NOTE Subjective: Patient is a 61-year-old male with congestive heart failure exacerbation, community-acquired pneumonia seen for hospitalist follow up. Patient says that his legs are thinning out and that he is breathing a little bit better. He continues to have a little shortness of breath. He denies any fevers, chills, sweats, chest pain/pressure, abdominal pain, nausea, vomiting, diarrhea or constipation. Objective: Vital signs: Temperature 96.8, pulse 109, respiratory rate 18, blood pressure 150/91, pulse ox 89% on 1 L nasal cannula Gen.: Patient awake, alert and oriented, verbal and able to answer questions appropriately. Patient does not appear to be in any acute distress Heart: Tachycardic with regular rhythm, normal S1-S2. No murmurs, rubs, clicks or gallops Lungs: Bilateral wheezes to auscultation. No rales or rhonchi Abdomen: Active bowel sounds, soft, nontender, no masses to palpation Extremities: Bilateral lower extremity pitting edema to level of just below knee Laboratory data: CBC: White blood cells 6.8, hemoglobin and hematocrit 15.9/52.7, platelets 176 Chemistry: Sodium 139, potassium 4.1, chloride 92, Carbon dioxide 44, BUN 13, creatinine 0.71, glucose 89, calcium 8.8 ABG: PH 7.378, PCO2 70.4, PO2 56.7, HCO3 of 40.5, oxygen saturation 88% Microbiology: Blood cultures 2 no growth after 48 hours Sputum: Few white blood cells, few epithelial cells, few gram-positive cocci in pairs and chains, few gram-negative rods Imaging: Abdominal ultrasound: Coarse hepatic echotexture which may reflect underlying hepatocellular disease Assessment: Patient is a 61-year-old male with exacerbation of congestive heart failure, community-acquired pneumonia. He continues to show daily improvement. Plan: #1: Congestive heart failure exacerbation: Results from echocardiogram still pending. He will continue on his current dose of Lasix 40 mg IV every 8 hours ( for a net negative fluid balance of 2 1/2 L). #2: Community-acquired pneumonia: Orders placed for urine antigen for Legionella and strep pneumoniae. Patient will continue on his current dose of azithromycin 500 mg by mouth daily, ceftriaxone 2 g IV every 24 hours #3: COPD: Patient will continue on current medications albuterol sulfate 2.5 mg inhalation every 2 hours when necessary, DuoNeb a 3 mL scheduled every 6 hours, azithromycin 500 mg by mouth daily, Pulmicort 0.5 mg scheduled inhalation twice a day, ceftriaxone 2 g IV every 24 hours, prednisone 40 mg by mouth daily #4: Abnormal liver ultrasound: Further evaluation for hepatocellular disease with hepatitis profile. We will check a drug screen, ethanol level. #5: DVT prophylaxis: Continue Lovenox 40 mg subcutaneously daily My preceptor for this patient encounter was physically present in the building during the encounter and was fully available. As needed, all aspects of the patient interview, examination, medical decision making process, and medical care plan development were reviewed and approved by the preceptor. Preceptor is aware and concurs with the plan as stated in the body of this note and will attest to such by his/her cosignature Darlene JOHNSON, I+O VS, Darlene I+O Laboratory Tests 12/04/16 05:21 Calcium Level 8.8, Red Blood Count 5.23, Mean Corpuscular Volume 100.9 H, Mean Corpuscular Hemoglobin 30.5, Mean Corpuscular Hemoglobin Concent 30.2 L, Red Cell Distribution Width 13.9, Neutrophils (%) (Auto) , Lymphocytes (%) (Auto) , Monocytes (%) (Auto) , Eosinophils (%) (Auto) , Basophils (%) (Auto) , Neutrophils # (Auto) , Lymphocytes # (Auto) , Monocytes # (Auto) , Eosinophils # (Auto) , Basophils # (Auto) Vital Signs Date Time Temp Pulse Resp B/P Pulse Ox O2 Delivery O2 Flow Rate FiO2 12/04/16 10:03 96.8 109 18 150/91 89 Nasal Cannula 1.0 I&O- Last 24 Hours up to 6 AM 12/04/16 06:00 Intake Total 720 ml Output Total 3250 ml Balance -2530 ml KASSIE ALEXANDRE DO Dec 04, 2016 11:21
[2016-12-04 14:30] VITALS: BP 137/81
[2016-12-04 22:00] VITALS: BP 137/84
[2016-12-05] MEDS: FUROSEMIDE 40 MG/4 ML VIAL (J1940) IV SCH ×3 (00:17→16:00)
[2016-12-05] MEDS: IPRATROPIUM 0.5MG/ALBUTEROL 2.5MG INH SOL UD 3ML (DUONEB)(J7620) NEB SCH ×4 (01:27→20:19)
[2016-12-05 06:00] VITALS: BP 158/88
[2016-12-05 06:29] LABS: ANION GAP 5 MEQ/L (8-16); BLOOD UREA NITROGEN 15 MG/DL (7-18); CALCIUM LEVEL 8.7 MG/DL (8.5-10.1); CARBON DIOXIDE LEVEL 45 MEQ/L (21-32); CHLORIDE LEVEL 90 MEQ/L (98-107); CREATININE FOR GFR 0.82 MG/DL (0.70-1.30); GLOMERULAR FILTRATION RATE > 60.0 (>56); GLUCOSE, FASTING 121 MG/DL (70-105); POTASSIUM SERUM 3.8 MEQ/L (3.5-5.1); SODIUM LEVEL 140 MEQ/L (136-145)
[2016-12-05 06:32] LABS: BASO % 0.2 % (0.0-1.0); EOS % 0.6 % (0.0-3.0); LARGE UNSTAINED CELL # 0.2 K/mm3 (0.0-0.4); LARGE UNSTAINED CELL % 2.6 % (0.0-4.0); LYMPH # 1.4 K/mm3 (1.5-4.5); LYMPH % 15.6 % (24.0-44.0); MEAN CORPUSCULAR HEMOGLOBIN 30.3 pg (27.0-33.0); MEAN CORPUSCULAR HGB CONC 30.1 g/dl (32.0-36.5); MEAN CORPUSCULAR VOLUME 100.8 fl (80.0-96.0); MONO # 0.9 K/mm3 (0.0-0.8); MONO % 12.4 % (0.0-5.0); NEUTROPHILS # 5.2 K/mm3 (1.8-7.7); NEUTROPHILS % 68.6 % (36.0-66.0); PLATELET COUNT, AUTOMATED 176 k/mm3 (150-450); RED CELL DISTRIBUTION WIDTH 13.9 % (11.5-14.5); WHITE BLOOD COUNT 7.6 K/mm3 (4.0-10.0)
[2016-12-05] MEDS: BUDESONIDE 0.5 MG/2 ML INHALATION SUSPENSION INH SCH ×2 (08:05→20:19)
[2016-12-05] MEDS: AZITHROMYCIN 250 MG TAB PO SCH (08:09)
[2016-12-05] MEDS: SENOKOT S TAB PO SCH ×2 (08:09→20:46)
[2016-12-05] MEDS: predniSONE 20 MG TAB PO SCH (08:09)
[2016-12-05] MEDS: cefTRIAXone SOD 2 GM in D5W MINI-BAG PLUS 50 ML IV SCH (08:09)
[2016-12-05] MEDS: PANTOPRAZOLE 40MG TAB (PROTONIX) PO SCH (08:09)
[2016-12-05] MEDS: ENOXAPARIN 40 MG/0.4 ML SYRINGE (J1650) SC SCH (08:10)
--- NOTE | 2016-12-05 11:40 | IPNPDOC ---
Text Note Date of Service The patient was seen on 12/05/16. NOTE Subjective: Pt states his breathing and LE swelling are improving. Objective: Vitals: (see below) General: No acute distress, laying comfortably in bed. HEENT: Moist mucous membranes. Neck: Mild JVD. No lymphadenopathy Cardiac: Tachycardic, No murmurs Pulm: Coarse crackles b/l bases R>L. Mild exp wheezing. B/l rhonchi. Abd: NT/ND + BS Ext: 2+ Pitting edema BLE improved from yesterday. Labs (see below) Images: Abd u/s 12/04/16 Findings: The liver has a coarsened echotexture without focal hepatic lesion identified and may be related to underlying hepatocellular disease. The pancreas is incompletely evaluated due to interposed bowel gas. The gallbladder is without gallstones, wall thickening, or pericholecystic fluid. No biliary ductal dilatation is appreciated and the common bile duct measures 5 mm diameter. The right kidney is normal in reniform shape without hydronephrosis and measures 10.4 x 5.7 x 4.7 cm demonstrating extra renal pelvis. Right pleural effusion noted. Impression: Coarsened hepatic echotexture may reflect underlying hepatocellular disease. CTA Chest 12/03/16 Impression: 1. No evidence for pulmonary embolus. 2. Moderate right and small left pleural effusions with moderate right lower lobe consolidation and bibasilar passive atelectasis. 3. Mild chronic bronchiectasis. 4. Suspicion for perihepatic ascites. Echo 12/02/16 IMPRESSION: 1. Normal global left ventricular systolic function with mild concentric left ventricular hypertrophy. There are no features of left ventricular diastolic dysfunction. 2. Severe tricuspid regurgitation with severe pulmonary hypertension and dilated right heart chambers. Not mentioned, a V-shaped appearance of the ventricular septum was noted in both systole and diastole consistent with severe pulmonary hypertension, secondary to both volume and pressure overload to the right ventricle. 3. Moderate pulmonic regurgitation. 4. Trace mitral regurgitation. 5. Small pericardial effusion was noted, no evidence of cardiac tamponade. Assessment/Plan 1. Acute decompensated right sided HF with Cor Pulmonale; Has Severe pulm HTN. ( Echo see above) COPD. CTA negative for PE. Continue diuresis, as is he diuresing well. ?Need for nitrates. Will consult cardiology given new diagnosis , and the need for careful diuresis. 2. Acte COPD exacerbation with chronic CO2 retention. Likely from CAP, which is being treated with Azithro/rocephin. Blood/sputum cx pending. Cont steroids, nebs. 3. Hepatocellular dz - LFTs noted. Hepatitis panel. ? related to cor pulmonale. 4. Sinus Tachycardia DVT prophy: Enoxaparin VS,Fishbone, I+O VS, Fishbone, I+O Laboratory Tests 12/05/16 05:51 Calcium Level 8.7 12/05/16 05:52 Red Blood Count 5.28, Mean Corpuscular Volume 100.8 H, Mean Corpuscular Hemoglobin 30.3, Mean Corpuscular Hemoglobin Concent 30.1 L, Red Cell Distribution Width 13.9, Neutrophils (%) (Auto) 68.6 H, Lymphocytes (%) (Auto) 15.6 L, Monocytes (%) (Auto) 12.4 H, Eosinophils (%) (Auto) 0.6, Basophils (%) ( Auto) 0.2, Neutrophils # (Auto) 5.2, Lymphocytes # (Auto) 1.4 L, Monocytes # ( Auto) 0.9 H, Eosinophils # (Auto) 0.0, Basophils # (Auto) 0.0 Vital Signs Date Time Temp Pulse Resp B/P Pulse Ox O2 Delivery O2 Flow Rate FiO2 12/05/16 09:00 Nasal Cannula 1.0 12/05/16 06:00 97.3 103 20 158/88 91 I&O- Last 24 Hours up to 6 AM 12/05/16 06:00 Intake Total 1130 ml Output Total 3850 ml Balance -2720 ml SHERON BETANCUR MD Dec 05, 2016 11:40
[2016-12-05 12:13] VITALS: BP 143/82
[2016-12-05 16:20] VITALS: BP 146/89
[2016-12-05 19:38] VITALS: BP 157/95
--- NOTE | 2016-12-05 20:38 | EDDOCDS ---
Physician Documentation [facility] Name: Kumar Shane Age: 61 yrs Sex: Male : 1955 Arrival Date: 12/03/2016 Time: 15:01 Bed 5 Private MD: NO PRIMARY PHYSICIAN, . Disposition: 12/03/16 15:23 Hospitalization ordered by Petty White for Inpatient Admission. Preliminary diagnosis is Chronic obstructive pulmonary disease with (acute) exacerbation. - Bed requested for 4 [place]. - Status is Inpatient Admission. mlc - Condition is Stable. - Problem is an ongoing problem. - Symptoms are unchanged. Historical: - Allergies: no known allergies; - Home Meds: 1. Combivent 18-103 mcg/actuation Inhl aero 2 puffs 4 times per day 2. ventolin inhaler Unknown every 6 hours - PMHx: CHF; COPD; - PSHx: Hernia repair; Appendectomy; - Social history: Smoking status: Patient uses tobacco products, current every day smoker. No barriers to communication noted, The patient speaks fluent Danish. - Family history: Not pertinent. - : The pt / caregiver states he / she is not on anticoagulants. Home medication list is obtained from the patient. - Exposure Risk Screening:: None identified. Vital Signs: 12/03 15:02 BP 173 / 101; Pulse 116; Resp 22; Temp 96.9(T); Pulse Ox 88% on R/A; Weight 80.38 kg / dem1 177.21 lbs (M); Height 5 ft. 7 in. (170.18 cm); Pain 0/10; 15:31 BP 142 / 91 (auto/); jo3 15:32 Pulse 112 MON; jo3 15:46 BP 132 / 83 (auto/); jo3 15:46 Pulse 104 MON; Pulse Ox 99% ; jo3 16:01 BP 143 / 93 (auto/); jo3 16:01 Pulse 108 MON; Pulse Ox 93% ; jo3 16:16 BP 142 / 89 (auto/); jo3 16:16 Pulse 104 MON; Pulse Ox 95% ; jo3 16:31 BP 148 / 94 (auto/); jo3 16:31 Pulse 104 MON; Pulse Ox 94% ; jo3 16:46 BP 153 / 104 (auto/); jo3 16:46 Pulse 106 MON; Pulse Ox 93% ; jo3 17:31 BP 157 / 94 (auto/); jo3 17:31 Pulse 104 MON; jo3 18:20 BP 166 / 92 (auto/); jo3 18:20 Pulse 104 MON; jo3 18:31 BP 158 / 94 (auto/); jo3 18:31 Pulse 106 MON; jo3 18:50 BP 149 / 96 (auto/); jo3 18:51 Pulse 108 MON; jo3 19:33 BP 159 / 81; Pulse 111; Resp 18; Temp 97.7; Pulse Ox 92% on 2 lpm NC; Pain 0/10; mlc 15:02 Body Mass Index 27.75 (80.38 kg, 170.18 cm) dem1 MDM: 15:22 Oxygen at 2L/min via NC ordered. ke 15:22 Call Respiratory ordered. ke 15:22 Albuterol 5 mg Nebulizer once ordered. ke 15:23 BED REQUEST+ADM ordered. EDMS 15:24 -Arterial Blood Gas Ordered. EDMS 15:26 Call Respiratory complete. jo3 15:43 Admission / Observation Status ordered. EDMS 15:43 2 GRAM SODIUM DIET ordered. EDMS 15:52 Financial registration complete. zo 16:00 [facility] Payment Agreement was scanned into CardioMind and attached to record. zo 16:10 IV Saline Lock ordered. jo3 17:20 Furosemide 60 mg IVP once ordered. jo3 19:31 ARTERIAL BLOOD GAS Ordered. EDMS 19:31 CBC WITH DIFFERENTIAL Ordered. EDMS 19:31 BASIC METABOLIC PROFILE Ordered. EDMS 12/04 09:16 T-Sheet-- Draft Copy was scanned into CardioMind and attached to record. [facility] Administered Medications: 12/03 15:42 Drug: Albuterol 5 mg [albuterol sulfate 2.5 mg/0.5 mL solution for nebulization (1 mL)] js Route: Nebulizer; 17:15 Drug: Furosemide 60 mg [furosemide 10 mg/mL injection solution (6 mL)] Route: IVP; jo3 Site: right antecubital; Signatures: Dispatcher MedHost EDMS Lewis Tijerina, Vicki Fierro RN RN jo3 Chadwick George Jessica, RN RN jjr Booth, Mandy, RN RN mlc Steggeman, Michele, RN RN Tricia Momin James js The chart was reviewed and I authenticate all verbal orders and agree with the evaluation and treatment provided.Corrections: (The following items were deleted from the chart) 17:27 16:05 ECHOCARD,DOPPLER/COLOR FLOW ordered. EDMS EDMS Attachments: 16:00 [facility] Payment Agreement zo 12/04 09:16 T-Sheet-- Draft Copy [facility] Chart Complete MTDD
--- NOTE | 2016-12-05 20:38 | EDDOCDS ---
Nurse's Notes [facility] Name: Kumar Shane Age: 61 yrs Sex: Male : 1955 Arrival Date: 12/03/2016 Time: 15:01 Bed 5 Private MD: NO PRIMARY PHYSICIAN, . Diagnosis: Chronic obstructive pulmonary disease with (acute) exacerbation Presentation: 12/03 15:06 Presenting complaint: Patient states: admitted to [facility] 2 days ago and left this morning jjr AMA, dx CHF and COPD exac, returns with continued SOB. Adult Sepsis Screening: The patient does not have new or worsening altered mentation. Patient has a respiratory rate of greater than or equal to 22 (1 point). Systolic blood pressure is greater than 100. Patient has a qSOFA score of 1- Negative Sepsis Screen. Suicide/Homicide risk assessment- the patient denies having any suicidal and/or homicidal ideations and does not present with any other emotional, behavioral or mental health complaints. Status: Patient is not a electromedical service engineer or dependent. Transition of care: patient was not received from another setting of care. 15:06 Acuity: LOLA Level 3 jjr 15:06 Method Of Arrival: Wheelchair jjr Triage Assessment: 15:08 General: Appears in no apparent distress. Pain: Denies pain. HIV screening NA for this jjr visit Offered previously. Respiratory: Onset: The symptoms/episode began/occurred gradually, Airway is patent Respiratory effort is even, unlabored, Respiratory pattern is regular. Historical: - Allergies: no known allergies; - Home Meds: 1. Combivent 18-103 mcg/actuation Inhl aero 2 puffs 4 times per day 2. ventolin inhaler Unknown every 6 hours - PMHx: CHF; COPD; - PSHx: Hernia repair; Appendectomy; - Social history: Smoking status: Patient uses tobacco products, current every day smoker. No barriers to communication noted, The patient speaks fluent Latvian. - Family history: Not pertinent. - : The pt / caregiver states he / she is not on anticoagulants. Home medication list is obtained from the patient. - Exposure Risk Screening:: None identified. Screenin:11 Screening information is obtained from the patient. Fall risk: No risks identified. jo3 Assistance ADL's: requires no assistance with activities of daily living. Abuse/DV Screen: The patient / caregiver reports he/she is: not in a situation that causes fear, pain or injury. Nutritional screening: No deficits noted. Advance Directives: There is no active DNR order. home support is adequate. Assessment: 16:11 General: Appears in no apparent distress, comfortable, Behavior is appropriate for age, jo3 cooperative, pleasant. Neurological: No deficits noted. Level of Consciousness is awake, alert, Oriented to person, place, time. Cardiovascular: Capillary refill is brisk Edema is 4+ to left midcalf, left ankle, left foot, right midcalf, right ankle and right foot pitting to left midcalf, left ankle, left foot, right midcalf, right ankle and right foot additional; dependent edema noted Rhythm is sinus tachycardia No ectopy. Chest pain is denied. Respiratory: Airway is patent Respiratory effort is even, unlabored, Breath sounds are diminished in right upper lobe, left upper lobe, left posterior upper lobe, right posterior upper lobe, left posterior lower lobe, right posterior middle lobe and right posterior lower lobe Breath sounds with wheezes expiratory in left posterior upper lobe, right posterior upper lobe, left posterior lower lobe, right posterior middle lobe and right posterior lower lobe Reports shortness of breath at rest. Derm: Skin is pink, warm & dry. 17:02 Reassessment: Patient appears in no apparent distress at this time. No significant jo3 changes noted at this time. Significant other at bedside. Awaiting admission at this time. Aware of plan of care . 18:00 General: Appears in no apparent distress, comfortable, Behavior is appropriate for age, jo3 cooperative, pleasant. Neurological: Level of Consciousness is awake, alert, Oriented to person, place, time. Cardiovascular: Rhythm is sinus tachycardia No ectopy. Respiratory: Airway is patent Respiratory effort is even, unlabored. : Urine is clear, 850cc out since Lasix administration. 18:50 Reassessment: Patient appears in no apparent distress at this time. No significant jo3 changes noted at this time. Pt resting quietly on stretcher in state of comfort. awaiting admission to medical floor at this time. Additional 250cc output noted. aware of plan of care . 19:33 General: Appears in no apparent distress, comfortable, Behavior is cooperative, mlc pleasant. Pain: Denies pain. Neurological: Level of Consciousness is awake, alert, Oriented to person, place, time. Cardiovascular: Heart tones S1 S2 present. Cardiovascular: Edema is 4+ to left knee, left midcalf, left ankle, left foot, right knee, right midcalf, right ankle and right foot. Respiratory: Airway is patent Respiratory effort is even, unlabored, Respiratory pattern is regular, Breath sounds are diminished bilaterally. Derm: Skin is pink, warm & dry. Vital Signs: 15:02 BP 173 / 101; Pulse 116; Resp 22; Temp 96.9(T); Pulse Ox 88% on R/A; Weight 80.38 kg dem1 (M); Height 5 ft. 7 in. (170.18 cm); Pain 0/10; 15:31 BP 142 / 91 (auto/); jo3 15:32 Pulse 112 MON; jo3 15:46 BP 132 / 83 (auto/); jo3 15:46 Pulse 104 MON; Pulse Ox 99% ; jo3 16:01 BP 143 / 93 (auto/); jo3 16:01 Pulse 108 MON; Pulse Ox 93% ; jo3 16:16 BP 142 / 89 (auto/); jo3 16:16 Pulse 104 MON; Pulse Ox 95% ; jo3 16:31 BP 148 / 94 (auto/); jo3 16:31 Pulse 104 MON; Pulse Ox 94% ; jo3 16:46 BP 153 / 104 (auto/); jo3 16:46 Pulse 106 MON; Pulse Ox 93% ; jo3 17:31 BP 157 / 94 (auto/); jo3 17:31 Pulse 104 MON; jo3 18:20 BP 166 / 92 (auto/); jo3 18:20 Pulse 104 MON; jo3 18:31 BP 158 / 94 (auto/); jo3 18:31 Pulse 106 MON; jo3 18:50 BP 149 / 96 (auto/); jo3 18:51 Pulse 108 MON; jo3 19:33 BP 159 / 81; Pulse 111; Resp 18; Temp 97.7; Pulse Ox 92% on 2 lpm NC; Pain 0/10; mlc 15:02 Body Mass Index 27.75 (80.38 kg, 170.18 cm) [facility] Vitals: 15:02 Log In Time: December 03, 2016 at 15:00. RN notified that patient meets Red Flag dem1 criteria. ED Course: 15:02 Patient visited by Rick Willson. dem1 15:02 NO PRIMARY PHYSICIAN, . is Private Physician. dem1 15:02 Patient moved to Waiting dem1 15:05 Patient visited by Rick Willson. dem1 15:08 Triage Initiated jjr 15:09 Patient moved to 5 jjr 15:13 [facility] ke 15:13 Patient visited by Lewis Tijerina FNP. ke 15:13 Patient visited by Lewis Tijerina FNP. ke 15:23 Petty White is Hospitalizing Provider. ke 15:41 -Arterial Blood Gas Sent. js 16:00 Patient name changed from Kumar\S\\S\Svitlana\S\ to Kumar\S\ \S\Svitlana. EDMS 16:00 [facility] Payment Agreement was scanned into In[employer] and attached to record. zo 16:11 The patient / caregiver is instructed regarding the plan of care and ED course. jo3 16:11 Inserted saline lock: 18 gauge in right antecubital area. jo3 16:15 Patient visited by Vicki Arellano,HENNA. jo3 17:03 Patient visited by Vicki Arellano,HENNA. jo3 19:04 Zayda Rob,HENNA is Primary Nurse. mlc 19:33 No procedures done that require assistance. mlc 12/04 09:16 T-Sheet-- Draft Copy was scanned into In[employer] and attached to record. seh Administered Medications: 12/03 15:42 Drug: Albuterol 5 mg [albuterol sulfate 2.5 mg/0.5 mL solution for nebulization (1 mL)] js Route: Nebulizer; 17:15 Drug: Furosemide 60 mg [furosemide 10 mg/mL injection solution (6 mL)] Route: IVP; jo3 Site: right antecubital; Output: 18:05 Urine: 875.00ml (Voided); Total: 875.00ml. jjr 18:52 Urine: 250.00ml (Voided); Total: 1125.00ml. jo3 19:33 Urine: 625.00ml (Voided); Total: 1750.00ml. mlc RT: 15:42 ABG's drawn from right radial artery allens test done and positive pressure held for 5 js minutes no bleeding noted pressure bandage applied specimen sent pt. tolerated well. Initial Med Neb Given as ordered Patient was instructed and evaluated on procedure Patient tolerated procedure well without adverse effect. Oxygen is room air. Respiratory: Breath sounds are diminished bilaterally. Order Results: Lab Order: -Arterial Blood Gas; SPEC'M 12/03/16 15:38 Test: ABG pH (ARTERIAL); Value: 7.385; Range: 7.350-7.450; Units: UNITS; Status: F Test: ABG PARTIAL PRESSURE CO2; Value: 69.0; Range: 35.0-45.0; Abnormal: Above upper panic limits; Units: mmHg; Status: F Test: ABG PARTIAL PRESSURE O2; Value: 45.1; Range: 75.0-100.0; Abnormal: Critical Low; Units: mmHg; Status: F Test: ABG TOTAL CO2; Value: 42.5; Range: 22.0-29.0; Abnormal: Above high normal; Units: MEQ/L; Status: F Test: ABG HCO3; Value: 40.4; Range: 22.0-26.0; Abnormal: Above high normal; Units: MEQ/L; Status: F Test: ABG BASE EXCESS; Value: 11.6; Range: -2.0-2.0; Abnormal: Above high normal; Status: F Test: ABG STANDARD HCO3; Value: 35.0; Range: 22.0-26.0; Abnormal: Above high normal; Units: MEQ/L; Status: F Test: ABG O2 SATURATION; Value: 83.6; Range: 95.0-99.0; Abnormal: Below low normal; Units: %; Status: F Test: ABG DEVICE; Value: NASAL COOPER; Status: F Outcome: 15:23 Decision to Hospitalize by Provider. ke 19:21 Admission hand-off: Report Faxed Fax receipt verified by HENNA Patterson. [facility] [place] 19:33 Discharge Assessment: Patient awake, alert and oriented x 3. No cognitive and/or [facility] [place] functional deficits noted. Patient verbalized understanding of disposition instructions. patient administered narcotics - no. The following High Risk Discharge criteria are identified: None. Admitted to Med/Surg accompanied by tech, via stretcher, with chart. Condition: stable. No special radiology studies were completed. Property :Personal belongings accompany Pt. 19:37 Patient left the ED. [facility] [place] Signatures: Dispatcher MedHost EDMS Wil White Karl, HEALTH PLAN ADVISOR Vicki Velarde,RN RN Chadwick Herrera Jessica RN RN Rick Schuster Mandy, RN RN mlc Hoffert, Sarah seh Chart Complete MTDD
--- NOTE | 2016-12-05 20:39 | EDDOCDS ---
Physician Documentation [facility] Name: Kumar Shane Age: 61 yrs Sex: Male : 1955 Arrival Date: 12/03/2016 Time: 15:01 Bed 5 Private MD: NO PRIMARY PHYSICIAN, . Disposition: 12/03/16 15:23 Hospitalization ordered by Petty White for Inpatient Admission. Preliminary diagnosis is Chronic obstructive pulmonary disease with (acute) exacerbation. - Bed requested for 4 [place]. - Status is Inpatient Admission. mlc - Condition is Stable. - Problem is an ongoing problem. - Symptoms are unchanged. Historical: - Allergies: no known allergies; - Home Meds: 1. Combivent 18-103 mcg/actuation Inhl aero 2 puffs 4 times per day 2. ventolin inhaler Unknown every 6 hours - PMHx: CHF; COPD; - PSHx: Hernia repair; Appendectomy; - Social history: Smoking status: Patient uses tobacco products, current every day smoker. No barriers to communication noted, The patient speaks fluent Tajik. - Family history: Not pertinent. - : The pt / caregiver states he / she is not on anticoagulants. Home medication list is obtained from the patient. - Exposure Risk Screening:: None identified. Vital Signs: 12/03 15:02 BP 173 / 101; Pulse 116; Resp 22; Temp 96.9(T); Pulse Ox 88% on R/A; Weight 80.38 kg / dem1 177.21 lbs (M); Height 5 ft. 7 in. (170.18 cm); Pain 0/10; 15:31 BP 142 / 91 (auto/); jo3 15:32 Pulse 112 MON; jo3 15:46 BP 132 / 83 (auto/); jo3 15:46 Pulse 104 MON; Pulse Ox 99% ; jo3 16:01 BP 143 / 93 (auto/); jo3 16:01 Pulse 108 MON; Pulse Ox 93% ; jo3 16:16 BP 142 / 89 (auto/); jo3 16:16 Pulse 104 MON; Pulse Ox 95% ; jo3 16:31 BP 148 / 94 (auto/); jo3 16:31 Pulse 104 MON; Pulse Ox 94% ; jo3 16:46 BP 153 / 104 (auto/); jo3 16:46 Pulse 106 MON; Pulse Ox 93% ; jo3 17:31 BP 157 / 94 (auto/); jo3 17:31 Pulse 104 MON; jo3 18:20 BP 166 / 92 (auto/); jo3 18:20 Pulse 104 MON; jo3 18:31 BP 158 / 94 (auto/); jo3 18:31 Pulse 106 MON; jo3 18:50 BP 149 / 96 (auto/); jo3 18:51 Pulse 108 MON; jo3 19:33 BP 159 / 81; Pulse 111; Resp 18; Temp 97.7; Pulse Ox 92% on 2 lpm NC; Pain 0/10; mlc 15:02 Body Mass Index 27.75 (80.38 kg, 170.18 cm) dem1 MDM: 15:22 Oxygen at 2L/min via NC ordered. ke 15:22 Call Respiratory ordered. ke 15:22 Albuterol 5 mg Nebulizer once ordered. ke 15:23 BED REQUEST+ADM ordered. EDMS 15:24 -Arterial Blood Gas Ordered. EDMS 15:26 Call Respiratory complete. jo3 15:43 Admission / Observation Status ordered. EDMS 15:43 2 GRAM SODIUM DIET ordered. EDMS 15:52 Financial registration complete. zo 16:00 [facility] [place] Agreement was scanned into MetaNotes and attached to record. zo 16:10 IV Saline Lock ordered. jo3 17:20 Furosemide 60 mg IVP once ordered. jo3 19:31 ARTERIAL BLOOD GAS Ordered. EDMS 19:31 CBC WITH DIFFERENTIAL Ordered. EDMS 19:31 BASIC METABOLIC PROFILE Ordered. EDMS 12/04 09:16 T-Sheet-- Draft Copy was scanned into MetaNotes and attached to record. [facility] Administered Medications: 12/03 15:42 Drug: Albuterol 5 mg [albuterol sulfate 2.5 mg/0.5 mL solution for nebulization (1 mL)] js Route: Nebulizer; 17:15 Drug: Furosemide 60 mg [furosemide 10 mg/mL injection solution (6 mL)] Route: IVP; jo3 Site: right antecubital; Signatures: Dispatcher MedHost EDMS Lewis Tijerina, Vicki Fierro RN RN jo3 Chadwick George Jessica, RN RN jjr Booth, Mandy, RN RN mlc Steggeman, Michele, RN RN Tricia Momin James js The chart was reviewed and I authenticate all verbal orders and agree with the evaluation and treatment provided.Corrections: (The following items were deleted from the chart) 17:27 16:05 ECHOCARD,DOPPLER/COLOR FLOW ordered. EDMS EDMS Attachments: 16:00 [facility] Payment Agreement zo 12/04 09:16 T-Sheet-- Draft Copy [facility] Chart Complete MTDD
--- NOTE | 2016-12-05 21:32 | CR ---
DATE OF CONSULTATION: 12/05/2016 REFERRING PROVIDER: Dr. Ernesto Deal. REASON FOR CONSULTATION: Heart failure. HISTORY OF PRESENT ILLNESS: A 61-year-old male with a history of chronic obstructive pulmonary disease (COPD) and congestive heart failure was recently admitted on 11/29/2016, with manifestation of heart failure. However, he had an echocardiogram done on 12/02/2016, that revealed a normal global left ventricular systolic function estimated at 65-70%, but markedly enlarged right atrium and moderately enlarged right ventricle with right ventricular systolic dysfunction. Also noted was severe tricuspid regurgitation with severe pulmonary hypertension, and the calculated pulmonary artery systolic pressure was over 70 mmHg. Moderate pulmonic regurgitation also noted with small pericardial effusion. The patient was treated for a couple of days, but it seemed that he left the hospital on 12/03/2016, and according to the chart, he stated that he needed to work and he was not improving. He came back the same day because he was not feeling well and was admitted with the same diagnosis. Cardiology consult was called. When I saw Mr. Kumar Shane, he was lying supine in bed in no acute distress at rest. Prior to his first hospitalization, it seemed that he was having orthopnea. His pedal edema has improved. He denies any chest pain, palpitations, syncope or near syncope. He has no nausea, vomiting, diarrhea, melena, or hematemesis. He denies any bleeding. There is no focal manifestation. He has a past medical history positive as mentioned above for COPD and congestive heart failure due to left ventricular diastolic dysfunction, and his echocardiogram done on revealed right-sided systolic dysfunction with a dilated right heart chambers and severe pulmonary hypertension, small pericardial effusion. He denies any history of hypertension, hyperlipidemia, diabetes mellitus, obstructive coronary artery disease, myocardial infarction, cerebrovascular accident (CVA), sudden cardiac . He denies kidney disease, thyroid disorders. Past surgical history is positive for appendectomy and hernia repair; otherwise unremarkable. CURRENT MEDICATIONS: - Lovenox 40 mg subcutaneous daily - pantoprazole 40 mg by mouth daily - Zithromax 500 mg by mouth daily - prednisone 40 mg by mouth daily - ceftriaxone 2 grams Intravenous (IV) daily - Lasix 40 mg IV every eight hours - Senokot one tablet by mouth three times a day - DuoNeb one nebulizer every six hours via inhalation - Pulmicort 0.5 mg twice a day via inhalation - Dulcolax 10 mg via suppository per rectum daily for constipation - Zofran 4 mg IV as needed for nausea or vomiting - albuterol sulfate 2.5 mg every two hours as needed for shortness of breath and wheezing FAMILY HISTORY: Noncontributory. SOCIAL HISTORY: The patient lives with his significant other. He does smoke, less than 10 cigarettes a day. He denies alcohol (EtOH) abuse. His parents are from [place] and his mother is still alive. ADVANCE DIRECTIVES: The patient is FULL CODE. PHYSICAL EXAMINATION: VITAL SIGNS: The patient is alert and oriented, in no acute distress at rest, and his blood pressure when I saw him earlier today was 143/82, with a pulse of 107, respirations 18, and his temperature is 98.5 degrees Fahrenheit, with an oxygen saturation of 84-91% on one liter nasal cannula. He has a negative fluid balance of 2.8 liters for 12/04/2016. HEENT: Atraumatic. NECK: Supple. No carotid bruits. LUNGS: Decreased breath sounds at the bases, particularly at the right base, but no wheezing or crackles. HEART: Examination reveals normal S1, S2 without gallops. The point of maximum impulse (PMI) is slightly displaced anteriorly. There is no rub. There is a systolic murmur grade 1-2 over 6 at the lower left sternal border without any significant radiation. ABDOMEN: Soft and bowel sounds active. EXTREMITIES: Reveal +2 bilateral pedal edema. NEUROLOGIC: Examination is negative for focal deficit. LABORATORY DATA: BMP done today, 12/05/2016, revealed a sodium of 140, potassium 3.8, chloride 90, CO2 45, BUN 15, creatinine 0.82, GFR more than 60, fasting glucose 121, and calcium 8.7. CBC revealed a WBC of 7.6, hemoglobin 16.0, hematocrit 53.2, and MCV was 100.8 with platelets of 176,000. Toxicology screening is pending. Workup for hepatitis also pending. ABG on admission 12/03/2016, revealed a pH of 7.38, pCO2 69.0, pO2 45.1, with a bicarbonate of 40 and done on nasal cannula. ABG done yesterday, 12/04/2016, revealed a pH of 7.37, with a pCO2 of 70.4, pO2 of 66.7, and bicarbonate 40.5. IMAGING: Abdominal ultrasound done on 12/04/2016, revealed right pleural effusion and findings consistent with underlying hepatocellular disease. No hydronephrosis. Electrocardiogram done on 12/01/2016, on the last hospitalization, revealed a normal sinus rhythm, mildly tachycardic at 108 beats per minute, biatrial enlargement, right axis deviation, nonspecific ST-T abnormalities, and increased right ventricular strain. Chest x-ray on 12/01/2016, revealed findings consistent with COPD and some pulmonary fibrosis, and findings of pulmonary artery hypertension. No cardiomegaly. Ultrasound of the right lower extremity done on 12/01/2016, revealed no evidence of DVT. CT pulmonary angiogram on 12/02/2016, revealed no evidence of pulmonary embolism but moderate right pleural effusion and smaller left pleural effusion, chronic bronchiectasis and perihepatic ascites. IMPRESSION: 1. A 61-year-old male with a long history of chronic obstructive pulmonary disease, smoking, who was admitted with shortness of breath and was found to have severe pulmonary hypertension and right ventricular systolic dysfunction and dilated right heart chambers, severe tricuspid regurgitation, possible ascites. Findings are most probably consistent with right-sided heart failure. It seems on the second hospitalization, his condition has improved. The IV Lasix will now continue the same, and we will need to monitor closely his blood urea nitrogen (BUN) and creatinine, and serum potassium. He will need to change his diet. He knows that he has to follow a low-salt diet upon discharge. I have noted that his blood pressure is on the high side, so he will be started on an angiotensin II receptor blockers (ARB), but I doubt this will help with his right ventricular systolic dysfunction. He probably has severe lung disease and upon discharge, he should have a referral to see one of the pulmonologists. His Lasix can be continued accordingly. Regarding his right pleural effusion, if there is no improvement, he might benefit from thoracentesis for both diagnostic purpose and symptomatic treatment in view of his shortness of breath. He does have a long history of smoking, he is at risk to develop malignant lung disease. 2. Probable pneumonia, and this is being addressed. 3. History of chronic obstructive pulmonary disease (COPD), severe. 4. History of smoking. The patient is aware that he needs to quit smoking. This was discussed with family. It was a pleasure to participate in the care of . Kumar Shane for his underlying cardiac condition. I will continue to monitor him along with you as needed while in the hospital and upon discharge as outpatient if necessary. Please do not hesitate to call if any questions.
[2016-12-06 00:15] VITALS: BP 158/97
[2016-12-06] MEDS: IPRATROPIUM 0.5MG/ALBUTEROL 2.5MG INH SOL UD 3ML (DUONEB)(J7620) NEB SCH ×4 (01:08→20:03)
[2016-12-06 04:24] VITALS: BP 158/99
[2016-12-06 05:41] LABS: MEAN CORPUSCULAR HEMOGLOBIN 29.8 pg (27.0-33.0); MEAN CORPUSCULAR HGB CONC 29.9 g/dl (32.0-36.5); MEAN CORPUSCULAR VOLUME 99.8 fl (80.0-96.0); PLATELET COUNT, AUTOMATED 175 k/mm3 (150-450); RED CELL DISTRIBUTION WIDTH 13.8 % (11.5-14.5); WHITE BLOOD COUNT 5.9 K/mm3 (4.0-10.0)
[2016-12-06 06:01] LABS: BLOOD UREA NITROGEN 15 MG/DL (7-18); CALCIUM LEVEL 8.6 MG/DL (8.5-10.1); CHLORIDE LEVEL 91 MEQ/L (98-107); CREATININE FOR GFR 0.84 MG/DL (0.70-1.30); GLOMERULAR FILTRATION RATE > 60.0 (>56); GLUCOSE, FASTING 96 MG/DL (70-105); POTASSIUM SERUM 3.8 MEQ/L (3.5-5.1); SODIUM LEVEL 138 MEQ/L (136-145)
[2016-12-06 06:28] LABS: CARBON DIOXIDE LEVEL 48 MEQ/L (21-32)
[2016-12-06] MEDS: BUDESONIDE 0.5 MG/2 ML INHALATION SUSPENSION INH SCH ×2 (07:14→20:02)
[2016-12-06 07:17] LABS: HYPOCHROMASIA 1+
[2016-12-06 08:00] VITALS: BP 157/97
[2016-12-06 08:08] LABS: ABG BASE EXCESS 11.1 (-2.0-2.0); ABG HCO3 38.8 MEQ/L (22.0-26.0); ABG PARTIAL PRESSURE O2 50.7 mmHg (75.0-100.0); ABG STANDARD HCO3 34.5 MEQ/L (22.0-26.0); ABG TOTAL CO2 40.7 MEQ/L (22.0-29.0)
[2016-12-06 08:11] LABS: ABG PARTIAL PRESSURE CO2 61.2 mmHg (35.0-45.0)
[2016-12-06] MEDS: predniSONE 20 MG TAB PO SCH (08:21)
[2016-12-06] MEDS: SENOKOT S TAB PO SCH ×2 (08:21→20:01)
[2016-12-06] MEDS: AZITHROMYCIN 250 MG TAB PO SCH (08:21)
[2016-12-06] MEDS: PANTOPRAZOLE 40MG TAB (PROTONIX) PO SCH (08:21)
[2016-12-06] MEDS: FUROSEMIDE 40 MG/4 ML VIAL (J1940) IV SCH ×2 (08:21)
[2016-12-06] MEDS: ENOXAPARIN 40 MG/0.4 ML SYRINGE (J1650) SC SCH (08:22)
[2016-12-06] MEDS: cefTRIAXone SOD 2 GM in D5W MINI-BAG PLUS 50 ML IV SCH (08:22)
[2016-12-06] MEDS: LOSARTAN 25 MG TAB PO SCH (10:27)
--- NOTE | 2016-12-06 10:36 | IPNPDOC ---
Text Note Date of Service The patient was seen on 12/06/16. NOTE Subjective: Patient is a 61-year-old male with COPD, congestive heart failure seen for hospitalist follow-up. He says that he is breathing well, breathing better than normal. He denies any fevers, chills, sweats, chest pain/pressure, shortness of breath or difficulty breathing, abdominal pain, nausea, vomiting, diarrhea, constipation. Objective: Vital signs: Temperature 97.0, pulse 106, respiratory rate 18, blood pressure 157/97, pulse ox 96% on room air Gen.: Patient awake, alert and oriented, verbal and able to answer questions appropriately. Patient does not appear to be in any acute distress Heart: Tachycardic, regular rhythm, normal S1-S2. No murmurs, rubs, clicks or gallops Lungs: Clear to auscultation bilaterally. No wheezes, rales or rhonchi Abdomen: Active bowel sounds, soft, nontender, no masses to palpation Extremities: Bilateral lower extremity pitting edema to below knees Laboratory data: CBC: White blood cells 5.9, hemoglobin and hematocrit 16.1/53.9, platelets 175 Chemistry: Sodium 138, potassium 3.8, chloride 91, carbon dioxide 48, BUN 15, creatinine 0.84, glucose 96, calcium 8.6 ABG: PH 7.42, PCO2 61.2, PO2 50.7, HCO3 38.8, oxygen saturation 86% Assessment: Patient is a 61-year-old male with exacerbation of congestive heart failure, community-acquired pneumonia. He continues to show daily improvement Plan: #1: Congestive heart failure: Echocardiogram showed normal left ventricular systolic function, severe pulmonary hypertension. As to not over diurese patient , dose of Lasix was decreased to 40 mg IV every 12 hours with net negative goal of 1500 miles per day #2: Community-acquired pneumonia: Continue ceftriaxone 2 g IV every 24 hours, azithromycin 500 mg by mouth daily #3: Pulmonary hypertension: Diagnosed via echocardiogram. Patient will require referral to pulmonology as outpatient #4: COPD: Stable, continue current medications #5: DVT prophylaxis: Continue Lovenox 40 mg subcutaneously daily My preceptor for this patient encounter was physically present in the building during the encounter and was fully available. As needed, all aspects of the patient interview, examination, medical decision making process, and medical care plan development were reviewed and approved by the preceptor. Preceptor is aware and concurs with the plan as stated in the body of this note and will attest to such by his/her cosignature Darlene JOHNSON, I+O Darlene JOHNSON I+O Laboratory Tests 12/06/16 05:08 Calcium Level 8.6, Red Blood Count 5.40, Mean Corpuscular Volume 99.8 H, Mean Corpuscular Hemoglobin 29.8, Mean Corpuscular Hemoglobin Concent 29.9 L, Red Cell Distribution Width 13.8, Neutrophils (%) (Auto) , Lymphocytes (%) (Auto) , Monocytes (%) (Auto) , Eosinophils (%) (Auto) , Basophils (%) (Auto) , Neutrophils # (Auto) , Lymphocytes # (Auto) , Monocytes # (Auto) , Eosinophils # (Auto) , Basophils # (Auto) Vital Signs Date Time Temp Pulse Resp B/P Pulse Ox O2 Delivery O2 Flow Rate FiO2 12/06/16 10:27 154/92 12/06/16 08:00 97.0 106 18 96 Room Air 12/06/16 04:32 1.0 I&O- Last 24 Hours up to 6 AM 12/06/16 06:00 Intake Total 1770 ml Output Total 2650 ml Balance -880 ml KASSIE ALEXANDRE DO Dec 06, 2016 10:36
[2016-12-06 12:00] VITALS: BP 132/97
[2016-12-06 16:00] VITALS: BP 132/78
[2016-12-06 20:00] VITALS: BP 136/80
[2016-12-07] VITALS: BP 138/90
[2016-12-07] MEDS ORDERED: FUROSEMIDE 40 MG/4 ML VIAL (J1940) IV SCH
[2016-12-07] MEDS: IPRATROPIUM 0.5MG/ALBUTEROL 2.5MG INH SOL UD 3ML (DUONEB)(J7620) NEB SCH ×4 (00:54→20:19)
[2016-12-07 04:00] VITALS: BP 138/89
[2016-12-07 06:21] LABS: BASO % 0.2 % (0.0-1.0); EOS % 0.3 % (0.0-3.0); LARGE UNSTAINED CELL # 0.3 K/mm3 (0.0-0.4); LARGE UNSTAINED CELL % 4.1 % (0.0-4.0); LYMPH # 1.5 K/mm3 (1.5-4.5); LYMPH % 25.7 % (24.0-44.0); MEAN CORPUSCULAR HGB CONC 30.2 g/dl (32.0-36.5); MEAN CORPUSCULAR VOLUME 99.1 fl (80.0-96.0); MONO # 0.7 K/mm3 (0.0-0.8); MONO % 11.1 % (0.0-5.0); NEUTROPHILS # 3.5 K/mm3 (1.8-7.7); NEUTROPHILS % 58.5 % (36.0-66.0); PLATELET COUNT, AUTOMATED 187 k/mm3 (150-450); RED CELL DISTRIBUTION WIDTH 13.9 % (11.5-14.5)
[2016-12-07 06:27] LABS: ANION GAP 3 MEQ/L (8-16); BLOOD UREA NITROGEN 14 MG/DL (7-18); CALCIUM LEVEL 8.5 MG/DL (8.5-10.1); CARBON DIOXIDE LEVEL 43 MEQ/L (21-32); CHLORIDE LEVEL 92 MEQ/L (98-107); CREATININE FOR GFR 0.78 MG/DL (0.70-1.30); GLOMERULAR FILTRATION RATE > 60.0 (>56); GLUCOSE, FASTING 85 MG/DL (70-105); POTASSIUM SERUM 3.8 MEQ/L (3.5-5.1); SODIUM LEVEL 138 MEQ/L (136-145)
[2016-12-07] MEDS: BUDESONIDE 0.5 MG/2 ML INHALATION SUSPENSION INH SCH ×2 (07:49→20:20)
[2016-12-07] MEDS: LOSARTAN 25 MG TAB PO SCH (09:00)
[2016-12-07] MEDS: predniSONE 20 MG TAB PO SCH (09:08)
[2016-12-07] MEDS: ENOXAPARIN 40 MG/0.4 ML SYRINGE (J1650) SC SCH (09:08)
[2016-12-07] MEDS: AZITHROMYCIN 250 MG TAB PO SCH (09:08)
[2016-12-07] MEDS: PANTOPRAZOLE 40MG TAB (PROTONIX) PO SCH (09:08)
[2016-12-07] MEDS: cefTRIAXone SOD 2 GM in D5W MINI-BAG PLUS 50 ML IV SCH (09:08)
[2016-12-07] MEDS: SENOKOT S TAB PO SCH ×2 (09:09→21:50)
--- NOTE | 2016-12-07 09:50 | IPNPDOC ---
Text Note Date of Service The patient was seen on 12/07/16. NOTE Subjective: Patient is a 61-year-old male admitted for COPD, congestive heart failure exacerbation, who is found to have pulmonary hypertension, seen for hospitalist follow up. Patient says he is doing beautiful today, his legs are looking good. He is not requiring any oxygen. Says he has been up walking around his room. He denies any fevers, chills, sweats, chest pain, pressure, shortness of breath, difficulty breathing, abdominal pain, nausea, vomiting, diarrhea, constipation Objective: Vital signs: Temperature 95.6, pulse 104, respiratory rate 20, blood pressure 124/80, pulse ox 96% on room air Gen.: Patient awake, alert and oriented, verbal and able to answer questions appropriately. Patient does not appear to be in any acute distress Heart: Regular rate and rhythm, normal S1-S2. No murmurs, rubs, clicks or gallops Lungs: Clear to auscultation bilaterally. No wheezes, rales or rhonchi Abdomen: Active bowel sounds, soft, nontender, no masses to palpation Extremities: Bilateral lower extremity pitting edema to mid [place] Laboratory data: CBC: White blood cells 6.0, hemoglobin and hematocrit 16.4/30.0, platelets 187 Chemistry: Sodium 1:30, potassium 3.8, chloride 92, Carbon dioxide 43, BUN 14, creatinine 0.78, glucose 85, calcium 8.5 Hepatitis serology: Hepatitis A IgM negative, hep B surface antigen negative, hep beatris core IgM antibody negative, hep C antibody index 0.1 Microbiology: Blood cultures 2 no growth after 5 days Assessment: Patient is a 61-year-old male with congestive heart failure exacerbation, community-acquired pneumonia. He continues to show daily improvement Plan: #1: Congestive heart failure exacerbation: Improving. Patient will be transferred to [facility]. Patient's Lasix changed to 40 mg by mouth twice a day. #2: Community-acquired pneumonia: Continue ceftriaxone 2 g IV every 24 hours, azithromycin 500 mg by mouth daily #3: Pulmonary hypertension: Diagnosed via echocardiogram. Patient will require outpatient referral to pulmonology #4: COPD: Stable, continue current medications #5: DVT prophylaxis: Continue Lovenox 40 mg subcutaneously daily My preceptor for this patient encounter was physically present in the building during the encounter and was fully available. As needed, all aspects of the patient interview, examination, medical decision making process, and medical care plan development were reviewed and approved by the preceptor. Preceptor is aware and concurs with the plan as stated in the body of this note and will attest to such by his/her cosignature Darlene JOHNSON, I+O Darlene JOHNSON I+O Laboratory Tests 12/07/16 05:45 Calcium Level 8.5, Red Blood Count 5.47, Mean Corpuscular Volume 99.1 H, Mean Corpuscular Hemoglobin 30.0, Mean Corpuscular Hemoglobin Concent 30.2 L, Red Cell Distribution Width 13.9, Neutrophils (%) (Auto) 58.5, Lymphocytes (%) (Auto ) 25.7, Monocytes (%) (Auto) 11.1 H, Eosinophils (%) (Auto) 0.3, Basophils (%) ( Auto) 0.2, Neutrophils # (Auto) 3.5, Lymphocytes # (Auto) 1.5, Monocytes # (Auto ) 0.7, Eosinophils # (Auto) 0.0, Basophils # (Auto) 0.0 Vital Signs Date Time Temp Pulse Resp B/P Pulse Ox O2 Delivery O2 Flow Rate FiO2 12/07/16 09:00 124/80 12/07/16 08:00 95.6 104 20 96 Room Air 12/06/16 04:32 1.0 I&O- Last 24 Hours up to 6 AM 12/07/16 06:00 Intake Total 1200 ml Output Total 4150 ml Balance -2950 ml KASSIE ALEXANDRE DO Dec 07, 2016 09:50
[2016-12-07 11:45] VITALS: BP 130/90
[2016-12-07 20:00] VITALS: BP 136/85
[2016-12-07] MEDS: FUROSEMIDE 40 MG TAB PO SCH (21:50)
[2016-12-08] VITALS (7 sets, daily range): BP systolic 134–148; BP diastolic 80–90
[2016-12-08] MEDS: IPRATROPIUM 0.5MG/ALBUTEROL 2.5MG INH SOL UD 3ML (DUONEB)(J7620) NEB SCH ×4 (02:29→20:39)
[2016-12-08 06:58] LABS: BASO % 0.3 % (0.0-1.0); EOS # 0.1 K/mm3 (0.0-0.50); LARGE UNSTAINED CELL # 0.2 K/mm3 (0.0-0.4); LARGE UNSTAINED CELL % 3.7 % (0.0-4.0); LYMPH # 1.5 K/mm3 (1.5-4.5); LYMPH % 24.8 % (24.0-44.0); MEAN CORPUSCULAR HEMOGLOBIN 29.4 pg (27.0-33.0); MEAN CORPUSCULAR HGB CONC 30.2 g/dl (32.0-36.5); MEAN CORPUSCULAR VOLUME 97.6 fl (80.0-96.0); MONO # 0.7 K/mm3 (0.0-0.8); NEUTROPHILS # 3.6 K/mm3 (1.8-7.7); NEUTROPHILS % 58.2 % (36.0-66.0); PLATELET COUNT, AUTOMATED 179 k/mm3 (150-450); RED CELL DISTRIBUTION WIDTH 13.7 % (11.5-14.5); WHITE BLOOD COUNT 6.2 K/mm3 (4.0-10.0)
[2016-12-08 07:19] LABS: ANION GAP 6 MEQ/L (8-16); BLOOD UREA NITROGEN 16 MG/DL (7-18); CALCIUM LEVEL 8.7 MG/DL (8.5-10.1); CARBON DIOXIDE LEVEL 38 MEQ/L (21-32); CHLORIDE LEVEL 95 MEQ/L (98-107); CREATININE FOR GFR 0.79 MG/DL (0.70-1.30); GLOMERULAR FILTRATION RATE > 60.0 (>56); GLUCOSE, FASTING 88 MG/DL (70-105); SODIUM LEVEL 139 MEQ/L (136-145)
[2016-12-08] MEDS: BUDESONIDE 0.5 MG/2 ML INHALATION SUSPENSION INH SCH ×2 (08:22→20:39)
[2016-12-08] MEDS: ENOXAPARIN 40 MG/0.4 ML SYRINGE (J1650) SC SCH (08:27)
[2016-12-08] MEDS: cefTRIAXone SOD 2 GM in D5W MINI-BAG PLUS 50 ML IV SCH (08:27)
[2016-12-08] MEDS: FUROSEMIDE 40 MG TAB PO SCH (08:28)
[2016-12-08] MEDS: predniSONE 20 MG TAB PO SCH (08:28)
[2016-12-08] MEDS: AZITHROMYCIN 250 MG TAB PO SCH (08:28)
[2016-12-08] MEDS: PANTOPRAZOLE 40MG TAB (PROTONIX) PO SCH (08:28)
[2016-12-08] MEDS: SENOKOT S TAB PO SCH ×2 (08:31→21:14)
[2016-12-08] MEDS: LOSARTAN 25 MG TAB PO SCH (08:31)
--- NOTE | 2016-12-08 16:54 | IPNPDOC ---
Text Note Date of Service The patient was seen on 12/08/16. NOTE Subjective: Patient is a 61-year-old male admitted for COPD, congestive heart failure exacerbation, who was found to have pulmonary hypertension, seen for hospitalist follow up. Patient says that he is feeling good. He says that he has been walking up and down the halls. He says that he feels like he can go home. He denies any fevers, chills, sweats, chest pain/pressure, shortness of breath, difficulty breathing, abdominal pain, nausea, vomiting, diarrhea, constipation. Of note, patient mentions that he currently does not have a primary care provider. Patient says that he was seeing Dr. Avilez but Dr. Avilez has since retired. Objective: Vital signs: Temperature 98.7, pulse 108, respiratory rate 20, blood pressure 134/86, pulse ox 92% on room air Gen.: Patient awake, alert and oriented, verbal and able to answer questions appropriately. Patient does not appear to be in any acute distress Heart: Tachycardic with regular rhythm. No murmurs, rubs, clicks or gallops Lungs: Clear to auscultation bilaterally. No wheezes, rales or rhonchi Abdomen: Active bowel sounds, soft, nontender, no masses to palpation Extremities: Mild bilateral pitting edema to mid [place] Laboratory data: CBC: White blood cells 6.2, hemoglobin and hematocrit 15.9/52.6, platelets 179 Chemistry: Sodium 139, potassium 4.0, chloride 95, carbon dioxide 38, BUN 16, creatinine 0.79, glucose 88, calcium 8.7 Assessment: Patient is a 61-year-old male with congestive heart failure exacerbation, community-acquired pneumonia, who was found to have pulmonary hypertension on echocardiogram. Patient continues to show daily improvement. Plan: #1: Congestive heart failure exacerbation: Improving. Patient given a.m. dose of Lasix, p.m. dose discontinued #2: Community-acquired pneumonia: Continue ceftriaxone 2 g IV every 24 hours, azithromycin 500 mg by mouth daily #3: Pulmonary hypertension: Diagnosed via echocardiogram. Patient will require outpatient referral to pulmonology #4: COPD: Stable, continue current medications #5: DVT prophylaxis: Continue Lovenox 40 mg subcutaneously daily Disposition: Anticipate discharge within next 24 hours. Patient will require appointment with new primary care provider prior to discharge. My preceptor for this patient encounter was physically present in the building during the encounter and was fully available. As needed, all aspects of the patient interview, examination, medical decision making process, and medical care plan development were reviewed and approved by the preceptor. Preceptor is aware and concurs with the plan as stated in the body of this note and will attest to such by his/her cosignature Darlene JOHNSON, I+O VSDarlene I+O Laboratory Tests 12/08/16 06:21 Calcium Level 8.7, Red Blood Count 5.39, Mean Corpuscular Volume 97.6 H, Mean Corpuscular Hemoglobin 29.4, Mean Corpuscular Hemoglobin Concent 30.2 L, Red Cell Distribution Width 13.7, Neutrophils (%) (Auto) 58.2, Lymphocytes (%) (Auto ) 24.8, Monocytes (%) (Auto) 12.0 H, Eosinophils (%) (Auto) 1.0, Basophils (%) ( Auto) 0.3, Neutrophils # (Auto) 3.6, Lymphocytes # (Auto) 1.5, Monocytes # (Auto ) 0.7, Eosinophils # (Auto) 0.1, Basophils # (Auto) 0.0 Vital Signs Date Time Temp Pulse Resp B/P Pulse Ox O2 Delivery O2 Flow Rate FiO2 12/08/16 12:00 98.7 108 20 134/86 92 Room Air 12/06/16 04:32 1.0 I&O- Last 24 Hours up to 6 AM 12/08/16 06:00 Intake Total 1390 ml Output Total 1825 ml Balance -435 ml KASSIE ALEXANDRE DO Dec 08, 2016 16:53
[2016-12-09] VITALS: BP 132/80
[2016-12-09 00:06] LABS: ORGANISM ID Not indicated. (.); SPECIMEN SOURCE Urine (.)
[2016-12-09] MEDS: IPRATROPIUM 0.5MG/ALBUTEROL 2.5MG INH SOL UD 3ML (DUONEB)(J7620) NEB SCH ×2 (02:11→07:55)
[2016-12-09 04:00] VITALS: BP 140/98
[2016-12-09 07:24] LABS: BASO % 0.2 % (0.0-1.0); EOS % 0.5 % (0.0-3.0); LARGE UNSTAINED CELL # 0.3 K/mm3 (0.0-0.4); LARGE UNSTAINED CELL % 3.8 % (0.0-4.0); LYMPH # 1.5 K/mm3 (1.5-4.5); LYMPH % 22.4 % (24.0-44.0); MEAN CORPUSCULAR HEMOGLOBIN 30.1 pg (27.0-33.0); MEAN CORPUSCULAR HGB CONC 30.6 g/dl (32.0-36.5); MEAN CORPUSCULAR VOLUME 98.6 fl (80.0-96.0); MONO # 0.7 K/mm3 (0.0-0.8); MONO % 10.6 % (0.0-5.0); NEUTROPHILS # 4.1 K/mm3 (1.8-7.7); NEUTROPHILS % 62.5 % (36.0-66.0); PLATELET COUNT, AUTOMATED 185 k/mm3 (150-450); RED CELL DISTRIBUTION WIDTH 13.7 % (11.5-14.5); WHITE BLOOD COUNT 6.6 K/mm3 (4.0-10.0)
[2016-12-09] MEDS ORDERED: COZA1TAB PO (07:38)
[2016-12-09] MEDS ORDERED: FURO40TA2 PO (07:38)
[2016-12-09] MEDS ORDERED: PRED10TA OR (07:38)
[2016-12-09 07:40] LABS: ANION GAP 6 MEQ/L (8-16); BLOOD UREA NITROGEN 19 MG/DL (7-18); CALCIUM LEVEL 8.8 MG/DL (8.5-10.1); CARBON DIOXIDE LEVEL 37 MEQ/L (21-32); CHLORIDE LEVEL 100 MEQ/L (98-107); CREATININE FOR GFR 0.84 MG/DL (0.70-1.30); GLOMERULAR FILTRATION RATE > 60.0 (>56); GLUCOSE, FASTING 104 MG/DL (70-105); POTASSIUM SERUM 4.2 MEQ/L (3.5-5.1); SODIUM LEVEL 143 MEQ/L (136-145)
[2016-12-09] MEDS: BUDESONIDE 0.5 MG/2 ML INHALATION SUSPENSION INH SCH (07:55)
[2016-12-09 08:00] VITALS: BP 145/70
[2016-12-09] MEDS: ENOXAPARIN 40 MG/0.4 ML SYRINGE (J1650) SC SCH (08:52)
[2016-12-09] MEDS: PANTOPRAZOLE 40MG TAB (PROTONIX) PO SCH (08:52)
[2016-12-09] MEDS: cefTRIAXone SOD 2 GM in D5W MINI-BAG PLUS 50 ML IV SCH (08:52)
[2016-12-09] MEDS: SENOKOT S TAB PO SCH (08:53)
[2016-12-09] MEDS: LOSARTAN 25 MG TAB PO SCH (08:53)
[2016-12-09] MEDS: AZITHROMYCIN 250 MG TAB PO SCH (08:53)
[2016-12-09] MEDS: predniSONE 20 MG TAB PO SCH (08:53)
--- NOTE | 2016-12-09 11:07 | DS.PDOC ---
Discharge Summary General Date of Admission Dec 03, 2016 at 15:37 Date of Discharge Dec 09, 2016 at 10:50 Discharge Summary Consults: Dr. Millard (Cardiology) Discharge diagnosis: Congestive heart failure exacerbation Secondary diagnosis: Community-acquired pneumonia, pulmonary hypertension, COPD Hospital course: Patient initially admitted on 12/01/16 with complaint of shortness of breath. Patient was admitted, started on IV Lasix for congestive heart failure exacerbation. Started on ceftriaxone, azithromycin, prednisone for COPD exacerbation, community-acquired pneumonia. On 12/03/16 recent decided to leave AGAINST MEDICAL ADVICE. Patient was readmitted to hospital later that day. He was restarted on his medications. Echocardiogram performed prior to discharge from initial hospitalization showed normal left ventricular systolic function with mild left ventricular hypertrophy, severe tricuspid regurgitation, severe pulmonary hypertension, moderate pulmonary regurgitation, trace mitral regurgitation. Abdominal ultrasound performed on 12/04/16 showed coarsened hepatic echotexture, patient was evaluated for hepatitis, hepatitis panel negative. Patient continued on antibiotics throughout hospital course. Patient continued on diuretics, diuretics were tapered at end of hospitalization. Remainder of patient's hospitalization was uneventful. Progress note on date of discharge: Subjective: Patient awake in bed. He says he is feeling good today. He says he is ready to go home. He denies any fevers, chills, sweats, chest pain/pressure, shortness of breath, difficulty breathing, abdominal pain, nausea, vomiting, diarrhea, constipation. Objective: Vitals: Temperature 97.9, pulse 108, respiratory rate 18, blood pressure 145/70 , pulse ox 92% on room air Gen.: Patient awake, alert and oriented, verbal and able to answer questions appropriately. He does not appear to be in any acute distress Heart: Tachycardic, regular rhythm. No murmurs, rubs, clicks or gallops Lungs: Clear to auscultation bilaterally. No wheezes, rales or rhonchi Abdomen: Active bowel sounds, soft, nontender, no masses to palpation Labs: CBC: White blood cell 6.6, hemoglobin and hematocrit 16.1/52.7, platelets 185 Chemistry: Sodium 143, potassium 4.2, chloride 100, Carbon dioxide 37, BUN 6, creatinine 0.84, glucose 104, calcium 8.8 Assessment: Patient is a 61-year-old male admitted for congestive heart failure exacerbation , community-acquired pneumonia. Patient was found to have pulmonary hypertension on echocardiogram while hospitalized. Patient is ready to be discharged home today. Disposition: Discharge patient to home Follow-up: With Moralesfransico Potrillo on 12/16 at 10:45am Patient will require outpatient referral to pulmonology for further evaluation of pulmonary hypertension Activity: As tolerated Diet: 2 g sodium diet, 1500 mL fluid restriction Medications on discharge: Furosemide 40 mg by mouth daily Losartan 25 mg by mouth daily Prednisone 30 mg 3 days, then 20 mg 3 days, then 10 mg 3 days, then stop Albuterol sulfate 2 puffs 4 times a day as needed for shortness of breath Combivent 2 puffs inhaled 4 times a day Vitamin B complex 1 tablet by mouth daily Cc: Dr. Donahue Time spent on discharge: Greater than 30 minutes Medications Scheduled Albuterol/Ipratropium (Combivent Respimat 20-100 Mcg/Act) 1 Aer Aer 2 PUFF INH QID (Reported) B1/B2/B3/B5/B6 (Vitamin B Complex) 1 Tab Tab 1 TAB PO DAILY (Reported) Furosemide (Furosemide) 40 Mg Tab 40 MG PO DAILY Losartan Potassium (Cozaar) 25 Mg Tab 25 MG PO DAILY Prednisone (Prednisone) 10 Mg Tab 10 MG OR DAILY Scheduled PRN Albuterol Sulfate (Ventolin Hfa) 200 Puff/8 Gm Aers 2 PUFF INH QID PRN PRN SHORTNESS OF BREATH (Reported) Allergies Coded Allergies: No Known Drug Allergy (Verified Allergy, Unknown, 12/01/16) KASSIE ALEXANDRE DO Dec 09, 2016 11:07
== END 2016-12-09 10:50 | disposition home or self-care (01) | DRG 194 ==
LOC: M ED 15:01 → M ED INP 15:37 → M MSPAV 19:44 → M PCU 12-05 12:09 → M PED 12-07 11:45
PROVIDERS: ADMIT Internal Medicine Nephrology; ATTEND Internal Medicine
DX: I50.33 Acute on chronic diastolic (congestive) heart failure (principal); J96.12 Chronic respiratory failure with hypercapnia; J18.9 Pneumonia, unspecified organism; I27.2 Other secondary pulmonary hypertension; I27.81 Cor pulmonale (chronic); J44.1 Chronic obstructive pulmonary disease with (acute) exacerbation; I36.1 Nonrheumatic tricuspid (valve) insufficiency; F17.210 Nicotine dependence, cigarettes, uncomplicated; Z91.19 Patient's noncompliance with other medical treatment and regimen; Z79.899 Other long term (current) drug therapy

== ENCOUNTER → 2017-01-21 | Outpatient (CLI) | payer OTHER ==
[~2017-01-21] MED LIST changes: +COZA1TAB PO; +FURO40TA2 PO; +PRED10TA OR
[2017-01-21 16:37] LABS: BASO % 0.7 % (0.0-1.0); EOS # 0.1 K/mm3 (0.0-0.50); EOS % 2.8 % (0.0-3.0); LARGE UNSTAINED CELL # 0.2 K/mm3 (0.0-0.4); LARGE UNSTAINED CELL % 3.4 % (0.0-4.0); LYMPH # 1.9 K/mm3 (1.5-4.5); MEAN CORPUSCULAR HEMOGLOBIN 28.7 pg (27.0-33.0); MEAN CORPUSCULAR HGB CONC 29.4 g/dl (32.0-36.5); MEAN CORPUSCULAR VOLUME 97.5 fl (80.0-96.0); MONO # 0.5 K/mm3 (0.0-0.8); MONO % 11.1 % (0.0-5.0); NEUTROPHILS # 2.1 K/mm3 (1.8-7.7); PLATELET COUNT, AUTOMATED 157 k/mm3 (150-450); RED CELL DISTRIBUTION WIDTH 13.6 % (11.5-14.5); WHITE BLOOD COUNT 4.6 K/mm3 (4.0-10.0)
[2017-01-21 17:50] LABS: ALBUMIN 3.3 GM/DL (3.2-5.2); ALBUMIN/GLOBULIN RATIO 0.79 (1.00-1.93); ALKALINE PHOSPHATASE 137 U/L (45-117); ALT/SGPT 35 U/L (12-78); ANION GAP 5 MEQ/L (8-16); AST/SGOT 27 U/L (15-37); BILIRUBIN,TOTAL 0.3 MG/DL (0.2-1.0); BLOOD UREA NITROGEN 11 MG/DL (7-18); CALCIUM LEVEL 8.8 MG/DL (8.5-10.1); CARBON DIOXIDE LEVEL 33 MEQ/L (21-32); CHLORIDE LEVEL 103 MEQ/L (98-107); CREATININE FOR GFR 0.98 MG/DL (0.70-1.30); FREE T4 1.07 NG/DL (0.76-1.46); GLOMERULAR FILTRATION RATE > 60.0 (>56); GLUCOSE, FASTING 129 MG/DL (70-105); POTASSIUM SERUM 4.8 MEQ/L (3.5-5.1); SODIUM LEVEL 141 MEQ/L (136-145); TOTAL PROTEIN 7.5 GM/DL (6.4-8.2)
== END ==
LOC: M WUC 12:05
PROVIDERS: ATTEND Physician Assistant
DX: I50.22 Chronic systolic (congestive) heart failure (principal)

== ENCOUNTER 2017-03-09 15:06 | Inpatient (IN) | payer OTHER ==
[~2017-03-09] VITALS: Ht 162.6 cm; Wt 69.8 kg
[2017-03-09] MEDS ORDERED: BREO1INH3 INH (15:18)
[2017-03-09] MEDS ORDERED: SPIR25TA2 PO (15:18)
[2017-03-09] MEDS ORDERED: FUROSEMIDE 40 MG/4 ML VIAL (J1940) IV ONE (16:00)
[2017-03-09 16:11] LABS: ADD MORPHOLOGY? YES; BASO # 0.1 K/mm3 (0.0-0.2); BASO % 1.2 % (0.0-1.0); EOS % 0.7 % (0.0-3.0); LARGE UNSTAINED CELL # 0.2 K/mm3 (0.0-0.4); LARGE UNSTAINED CELL % 3.5 % (0.0-4.0); LYMPH # 1.4 K/mm3 (1.5-4.5); LYMPH % 21.4 % (24.0-44.0); MEAN CORPUSCULAR HEMOGLOBIN 30.5 pg (27.0-33.0); MEAN CORPUSCULAR HGB CONC 29.6 g/dl (32.0-36.5); MEAN CORPUSCULAR VOLUME 102.9 fl (80.0-96.0); MONO # 0.9 K/mm3 (0.0-0.8); MONO % 13.2 % (0.0-5.0); NEUTROPHILS # 3.9 K/mm3 (1.8-7.7); PLATELET COUNT, AUTOMATED 159 k/mm3 (150-450); RED CELL DISTRIBUTION WIDTH 16.2 % (11.5-14.5); WHITE BLOOD COUNT 6.4 K/mm3 (4.0-10.0)
[2017-03-09 16:15] LABS: ALBUMIN 2.9 GM/DL (3.2-5.2); ALKALINE PHOSPHATASE 138 U/L (45-117); ALT/SGPT 88 U/L (12-78); ANION GAP 3 MEQ/L (8-16); AST/SGOT 82 U/L (15-37); BILIRUBIN,DIRECT 0.4 MG/DL (0.0-0.2); BLOOD UREA NITROGEN 35 MG/DL (7-18); CARBON DIOXIDE LEVEL 39 MEQ/L (21-32); CHLORIDE LEVEL 92 MEQ/L (98-107); GLOMERULAR FILTRATION RATE > 60.0 (>56); GLUCOSE, FASTING 107 MG/DL (70-105); POTASSIUM SERUM 5.1 MEQ/L (3.5-5.1); SODIUM LEVEL 134 MEQ/L (136-145); THYROXINE (T4) 7.8 UG/DL (4.5-12.0); TOTAL PROTEIN 7.7 GM/DL (6.4-8.2)
[2017-03-09 17:34] LABS: ANISOCYTOSIS 1+; HYPOCHROMASIA 2+; OVALOCYTES 1+; POIKILOCYTOSIS 1+; POLYCHROMASIA 1+; TARGET CELLS 1+
[2017-03-09] MEDS ORDERED: FUROSEMIDE 100 MG/10 ML VIAL (J1940) IV ONE (18:00)
[2017-03-09] MEDS ORDERED: FURO40TA2 PO (18:18)
[2017-03-09] MEDS ORDERED: ONDANSETRON 4 MG TAB (S0181) PO PRN (18:30)
[2017-03-09] MEDS ORDERED: GLUCOSE 4 GM CHEW TABLET PO PRN (18:30)
[2017-03-09] MEDS ORDERED: ACETAMINOPHEN TAB 650MG DOSE (2X325MG) PO PRN (18:30)
[2017-03-09] MEDS ORDERED: GLUCAGON FOR INJ 1 MG VIAL (J1610) SC PRN (18:30)
[2017-03-09] MEDS ORDERED: DEXTROSE 50% 50 ML SYRINGE IV PRN (18:30)
[2017-03-09] MEDS ORDERED: ONDANSETRON 4MG/2ML VIAL (J2405) IV PRN (18:30)
--- NOTE | 2017-03-09 19:29 | HPEPDOC ---
Medical History and Physical Date of Admission March 09, 2017 at 18:27 History and Physical HISTORY AND PHYSICAL Date of admission: 03/09/2017 PCP: The patient is unsure of his PCPs name, but he does note that the first name is Morales and his office is on [facility] Chief complaint: Trouble breathing and swelling for the past month HPI: 61-year-old male with COPD, chronic diastolic CHF who presented to the emergency department stating that he had had increasing shortness of breath as well as increasing lower extremity edema for the past month. At baseline, he has no limitations to his physical abilities, and a week or 2 ago he noticed he had trouble climbing stairs, and now he notes that he can't even walk 20 feet without getting short of breath. He states that nothing seems to make her breathing easier, but he does find that sitting makes the breathing more difficult. Interestingly enough, he notes that lying flat does not bother him. He states that he has not missed any doses of his medications. He reports that he saw his PCP yesterday, who added on spironolactone. 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 He denies any alcohol or drug use. He does smoke regularly. He used to smoke approximately one pack per day but is now down to about 5 cigarettes daily. Allergies: No known drug allergies Review of systems: General: Positive for chills, negative for fever Eyes: Positive for blurry vision, negative for ocular discharge ENT: Negative for sore throat and nose bleed Cardiovascular: Negative for chest pain and palpitations Respiratory: Positive for cough and shortness of breath GI: Negative for nausea, vomiting, diarrhea, constipation Musculoskeletal: Negative for neck and back pain Skin: Negative for rash Neuro: Negative for headache, dizziness, numbness, tingling Psych: Negative for depression and suicidal ideation Endocrine: Negative For polyuria : Negative for dysuria Heme: Negative for bleeding Home meds: See below Physical exam: Vital signs: Vital Sign - Last 24 Hours 03/09/17 03/09/17 03/09/17 03/09/17 15:07 15:21 15:30 15:32 Temp 98.7 Pulse 116 106 Resp 28 B/P (MAP) 127/94 (105) 137/87 (104) Pulse Ox 74 92 O2 Delivery Room Air Nasal Cannula Nasal Cannula O2 Flow Rate 4.0 4.0 03/09/17 03/09/17 03/09/17 03/09/17 15:32 15:36 15:45 15:51 Pulse 103 103 B/P (MAP) 134/92 (106) Pulse Ox 96 97 03/09/17 03/09/17 03/09/17 03/09/17 16:01 16:02 16:06 16:10 Pulse 103 B/P (MAP) 149/109 (122) 150/91 (110) 151/96 (114) Pulse Ox 95 03/09/17 03/09/17 03/09/17 03/09/17 16:20 16:21 16:30 16:36 Pulse 102 101 B/P (MAP) 140/95 (110) 148/97 (114) Pulse Ox 92 94 03/09/17 03/09/17 03/09/17 03/09/17 16:45 16:46 16:51 17:00 Pulse 101 B/P (MAP) 146/100 (115) 150/99 (116) 150/98 (115) Pulse Ox 94 03/09/17 03/09/17 03/09/17 03/09/17 17:06 17:21 17:36 17:39 Pulse 105 108 100 B/P (MAP) 134/86 (102) Pulse Ox 94 03/09/17 03/09/17 03/09/17 03/09/17 17:41 17:45 17:51 18:00 Temp 98.7 Pulse 106 99 Resp 28 B/P (MAP) 134/86 (102) 127/84 (98) 120/78 (92) Pulse Ox 92 96 O2 Delivery Nasal Cannula O2 Flow Rate 4.0 03/09/17 03/09/17 03/09/17 03/09/17 18:06 18:15 18:21 18:30 Pulse 98 97 B/P (MAP) 138/87 (104) 142/96 (111) Pulse Ox 95 92 03/09/17 03/09/17 03/09/17 03/09/17 18:36 18:45 18:51 19:00 Pulse 102 96 B/P (MAP) 143/87 (105) 136/90 (105) Pulse Ox 93 94 03/09/17 03/09/17 19:06 19:16 Temp 98.9 Pulse 102 B/P (MAP) 136/76 (96) Gen.: awake, alert, no acute distress Eyes: Extraocular movements intact, normal sclera ENT: Moist mucous membranes Cardiovascular: RRR, no murmurs rubs or gallops Lungs: coarse rhonchi in all lung doan Abdomen: Soft, NT/ND, normal BS Musculoskeletal: normal range of motion Extremities: 3+ pitting edema extending above the knees Neuro: alert and oriented 3, normal speech, no focal deficits Psych: Normal mood with congruent affect Labs and radiology: See below Potassium 5.1 Creatinine 1.3 A1c 6.7 AST 82, ALT 88, alkaline phosphatase 138 Troponin 0.06 BNP 1600 EKG does not show any evidence of acute infarct or ischemia Assessment and plan: 61-year-old male with COPD and chronic diastolic CHF who presented to the emergency department with increasing shortness of breath and lower extremity swelling and is admitted with acute on chronic diastolic CHF exacerbation. 1. Acute on chronic diastolic CHF exacerbation: Patient is extremely edematous and has coarse rhonchi on exam. He has received IV Lasix in the ER, which we will continue. An echo completed in November of this year shows diastolic dysfunction as well as right heart failure with severe TR, severe pulmonary hypertension, and moderate pulmonary regurgitation. We will follow daily weights and I's and O's. We will monitor the patient on telemetry and continue to trend troponins. 2. COPD: The patient is currently requiring 4 L of oxygen, but on exam, his lungs sound more rhonchorous and consistent with fluid rather than wheezy as if a COPD exacerbation. We will continue to treat the CHF exacerbation, and we'll continue his home Combivent. As we do not have his home Breo Ellipta on formulary, we'll substitute Advair. 3. Hyperkalemia: The patient's potassium is 5.1. He does report taking spironolactone at home, but per his report, he only recently started that in the last day or 2. We will hold his spironolactone and recheck his potassium in the morning as he is receiving IV Lasix. He will be monitored on telemetry. 4. Diabetes mellitus type 2: The patient's A1c is 6.7. The patient does not report a history of diabetes mellitus and this seems to be a new finding for him. We will use sliding scale insulin while in-house. Upon discharge, it will be important to discuss with the patient fingerstick monitoring and consider possibly starting him on an oral agent. 5. Transaminitis: Most likely this secondary to hepatic congestion from his CHF. We will continue to trend. DVT prophylaxis: Lovenox Dispo: admit as an inpatient to the service of Dr. Deal CODE STATUS: Full code Vital Signs Vital Signs Date Time Temp Pulse Resp B/P (MAP) Pulse Ox O2 Delivery O2 Flow Rate FiO2 03/09/17 19:16 98.9 136/76 (96) 03/09/17 19:06 102 03/09/17 18:51 94 03/09/17 17:41 28 Nasal Cannula 4.0 Laboratory Data Labs 24H Laboratory Tests 2 03/09/17 15:29: White Blood Count 6.4, Red Blood Count 5.13, Hemoglobin 15.6, Hematocrit 52.8H, Mean Corpuscular Volume 102.9H, Mean Corpuscular Hemoglobin 30.5, Mean Corpuscular Hemoglobin Concent 29.6L, Red Cell Distribution Width 16.2H, Platelet Count 159, Neutrophils (%) (Auto) 60.0, Lymphocytes (%) (Auto) 21.4L, Monocytes (%) (Auto) 13.2H, Eosinophils (%) (Auto) 0.7, Basophils (%) (Auto) 1.2H, Neutrophils # (Auto) 3.9, Lymphocytes # (Auto) 1.4L, Monocytes # (Auto) 0.9H, Eosinophils # (Auto) 0.0, Basophils # (Auto) 0.1, Large Unclassified Cells % 3.5, Large Unclassified Cells # 0.2, Platelet Estimate NORMAL, Polychromasia 1+, Hypochromasia 2+, Poikilocytosis 1+, Anisocytosis 1+, Macrocytosis 2+, Target Cells 1+, Ovalocytes 1+, Anion Gap 3L, Glomerular Filtration Rate > 60.0, Estimated Mean Plasma Glucose 146H, Hemoglobin A1c 6.7H , Calcium Level 9.0, Aspartate Amino Transf (AST/SGOT) 82H, Alanine Aminotransferase (ALT/SGPT) 88H, Alkaline Phosphatase 138H, Total Bilirubin 1.0 , Direct Bilirubin 0.4H, Total Creatine Kinase 305, Creatine Kinase MB 8.9H, Creatine Kinase MB Relative Index 2.91, Troponin I 0.06, B-Type Natriuretic Peptide 1600H, Total Protein 7.7, Albumin 2.9L, Albumin/Globulin Ratio 0.60L, Thyroid Stimulating Hormone (TSH) 1.600, Thyroxine (T4) 7.8 CBC/BMP Laboratory Tests 03/09/17 15:29 Red Blood Count 5.13, Mean Corpuscular Volume 102.9 H, Mean Corpuscular Hemoglobin 30.5, Mean Corpuscular Hemoglobin Concent 29.6 L, Red Cell Distribution Width 16.2 H, Neutrophils (%) (Auto) 60.0, Lymphocytes (%) (Auto) 21.4 L, Monocytes (%) (Auto) 13.2 H, Eosinophils (%) (Auto) 0.7, Basophils (%) ( Auto) 1.2 H, Neutrophils # (Auto) 3.9, Lymphocytes # (Auto) 1.4 L, Monocytes # ( Auto) 0.9 H, Eosinophils # (Auto) 0.0, Basophils # (Auto) 0.1 Home Medications Scheduled Albuterol/Ipratropium (Combivent Respimat 20-100 Mcg/Act) 1 Aer Aer, 2 PUFF INH QID Fluticasone/Vilanterol (Breo Ellipta 200-25 Mcg/INH) 1 Inh Inh, 1 PUFF INH DAILY Furosemide (Furosemide) 40 Mg Tab, 40 MG PO BID Spironolactone (Spironolactone) 25 Mg Tab, 25 MG PO DAILY Scheduled PRN Albuterol Sulfate (Ventolin Hfa) 200 Puff/8 Gm Aers, 2 PUFF INH QID PRN for SHORTNESS OF BREATH Allergies Coded Allergies: No Known Drug Allergy (Verified Allergy, Unknown, 12/01/16) OTTO WOODS March 09, 2017 19:29
--- NOTE | 2017-03-09 19:41 | REP ---
CHEST, TWO VIEWS: REASON: Dyspnea. COMPARISON: 12/01/2016 Cardiomediastinal silhouette and lung doan are unchanged allowing for the technical differences between the exams. There is cardiomegaly and evidence of pulmonary arterial hypertension with chronic central pulmonary venous engorgement. No acute patchy parenchymal opacities or pleural effusions have developed. There is no keri evidence of pulmonary edema. There is no change in the osseous structures. IMPRESSION: Stable appearing chronic changes as described above. Signed by Dajuan Ziegler DO 03/10/2017 09:05 A
[2017-03-09] MEDS: IPRATROPIUM 0.5MG/ALBUTEROL 2.5MG INH SOL UD 3ML (DUONEB)(J7620) INH SCH ×2 (20:00→20:47)
[2017-03-09 20:15] VITALS: BP 145/97
[2017-03-09] MEDS: HumaLOG INSULIN (NovoLOG) PER UNIT SC SCH (20:28)
[2017-03-09 20:50] VITALS: O2SAT 92
[2017-03-09] MEDS: FUROSEMIDE 100 MG/10 ML VIAL (J1940) IV SCH (22:06)
--- NOTE | 2017-03-09 22:14 | REP ---
Clinical: Shortness of breath and edema . Technique: Chicas scale and color Doppler evaluation using linear high frequency transducer. Findings: Ultrasound examination of the right and left lower extremity deep venous structures from the common femoral vein to the popliteal vein demonstrates normal compressibility flow and wave patterns in response to respiration and augmentation. There is no evidence for deep venous thrombosis. Marked bilateral subcutaneous edema noted (right greater than left). Of note, venous wave pattern is pulsatile and may reflect underlying cardiac dysfunction. Impression: No evidence for deep venous thrombosis. Signed by Lonnie Hassan MD 03/09/2017 10:06 P
[2017-03-10] VITALS: BP 143/93
[2017-03-10 04:00] VITALS: BP 137/101
[2017-03-10 05:06] LABS: ALBUMIN 2.8 GM/DL (3.2-5.2); ALBUMIN/GLOBULIN RATIO 0.58 (1.00-1.93); ALKALINE PHOSPHATASE 132 U/L (45-117); ALT/SGPT 91 U/L (12-78); AST/SGOT 82 U/L (15-37); BILIRUBIN,TOTAL 0.9 MG/DL (0.2-1.0); BLOOD UREA NITROGEN 33 MG/DL (7-18); CALCIUM LEVEL 9.1 MG/DL (8.5-10.1); CHLORIDE LEVEL 91 MEQ/L (98-107); CREATININE FOR GFR 1.28 MG/DL (0.70-1.30); GLOMERULAR FILTRATION RATE > 60.0 (>56); GLUCOSE, FASTING 95 MG/DL (70-105); MAGNESIUM LEVEL 1.9 MG/DL (1.8-2.4); POTASSIUM SERUM 4.8 MEQ/L (3.5-5.1); SODIUM LEVEL 136 MEQ/L (136-145); TOTAL PROTEIN 7.6 GM/DL (6.4-8.2)
[2017-03-10 05:24] LABS: DIFF SLIDE NUMBER 63; MEAN CORPUSCULAR HEMOGLOBIN 30.8 pg (27.0-33.0); MEAN CORPUSCULAR HGB CONC 29.7 g/dl (32.0-36.5); MEAN CORPUSCULAR VOLUME 103.5 fl (80.0-96.0); PLATELET COUNT, AUTOMATED 146 k/mm3 (150-450); RED CELL DISTRIBUTION WIDTH 15.9 % (11.5-14.5); WHITE BLOOD COUNT 5.3 K/mm3 (4.0-10.0)
[2017-03-10 05:25] LABS: ANION GAP 1 MEQ/L (8-16); CARBON DIOXIDE LEVEL 44 MEQ/L (21-32)
[2017-03-10] MEDS: FUROSEMIDE 100 MG/10 ML VIAL (J1940) IV SCH ×2 (05:39→14:49)
[2017-03-10 06:03] LABS: BASOPHILS 1 % (0-4)
[2017-03-10 06:06] LABS: HYPOCHROMASIA 3+
[2017-03-10] MEDS: HumaLOG INSULIN (NovoLOG) PER UNIT SC SCH ×5 (07:44→21:00)
[2017-03-10 08:00] VITALS: BP 132/82
[2017-03-10] MEDS: ENOXAPARIN 40 MG/0.4 ML SYRINGE (J1650) SC SCH (08:37)
[2017-03-10] MEDS: IPRATROPIUM 0.5MG/ALBUTEROL 2.5MG INH SOL UD 3ML (DUONEB)(J7620) INH SCH ×4 (08:54→20:00)
--- NOTE | 2017-03-10 08:57 | ECGEPIP ---
Stationary ECG Study [facility] - ED Test Date: 2017-03-09 Pat Name: TRINY AMOR Department: Room: - Gender: M Boarding Mother: tk : 1955 Requested By: KAYLA Stout Order Number: [id number] Reading MD: Tricia Porter Measurements Intervals [place] Rate: 102 P: 75 CO: 134 QRS: 138 QRSD: 88 T: 12 QT: 323 QTc: 421 Interpretive Statements SINUS TACHYCARDIA LEFT ATRIAL ENLARGEMENT PATTERN CONSISTENT WITH PULMONARY DISEASE RIGHT VENTRICULAR HYPERTROPHY AND ST-T CHANGE VS ISCHEMIA DECREASED RATE 12/02/16 Electronically Signed On 03-10-2017 8:56:43 EDT by Tricia Porter
[2017-03-10] MEDS: ADVAIR HFA 230/21 INHALER INH SCH ×2 (09:00→19:10)
[2017-03-10 09:42] LABS: ABG pH (ARTERIAL) 7.247 UNITS (7.350-7.450)
[2017-03-10 09:43] LABS: ABG PARTIAL PRESSURE CO2 99.2 mmHg (35.0-45.0); ABG PARTIAL PRESSURE O2 94.9 mmHg (75.0-100.0); ABG TOTAL CO2 45.3 MEQ/L (22.0-29.0)
[2017-03-10 09:44] LABS: ABG BASE EXCESS 9.8 (-2.0-2.0); ABG HCO3 42.2 MEQ/L (22.0-26.0)
[2017-03-10 09:45] LABS: ABG STANDARD HCO3 33.5 MEQ/L (22.0-26.0)
[2017-03-10 12:00] VITALS: BP 122/77
[2017-03-10 12:04] LABS: ABG BASE EXCESS 13.6 (-2.0-2.0); ABG HCO3 45.2 MEQ/L (22.0-26.0)
[2017-03-10 12:05] LABS: ABG PARTIAL PRESSURE O2 65.9 mmHg (75.0-100.0); ABG STANDARD HCO3 37.4 MEQ/L (22.0-26.0); ABG TOTAL CO2 48.1 MEQ/L (22.0-29.0); ABG pH (ARTERIAL) 7.306 UNITS (7.350-7.450)
[2017-03-10 12:16] LABS: ABG PARTIAL PRESSURE CO2 92.7 mmHg (35.0-45.0)
--- NOTE | 2017-03-10 13:34 | IPNPDOC ---
Text Note Date of Service The patient was seen on 03/10/17. NOTE Subjective: Pt states his breathing has slightly improving. Objective: Vitals: (see below) General: No acute distress, laying comfortably in bed. HEENT: Moist mucous membranes. Neck: Mild JVD. No lymphadenopathy Cardiac: Tachycardic, No murmurs Pulm: Coarse crackles b/l bases. Mild exp wheezing. B/l rhonchi. Abd: NT/ND + BS Ext: 2+ Pitting edema BLE Labs (see below) Images: CXR 03/09/17 Cardiomediastinal silhouette and lung doan are unchanged allowing for the technical differences between the exams. There is cardiomegaly and evidence of pulmonary arterial hypertension with chronic central pulmonary venous engorgement. No acute patchy parenchymal opacities or pleural effusions have developed. There is no keri evidence of pulmonary edema. There is no change in the osseous structures. IMPRESSION: Stable appearing chronic changes as described above. Echo 12/02/16 IMPRESSION: 1. Normal global left ventricular systolic function with mild concentric left ventricular hypertrophy. There are no features of left ventricular diastolic dysfunction. 2. Severe tricuspid regurgitation with severe pulmonary hypertension and dilated right heart chambers. Not mentioned, a V-shaped appearance of the ventricular septum was noted in both systole and diastole consistent with severe pulmonary hypertension, secondary to both volume and pressure overload to the right ventricle. 3. Moderate pulmonic regurgitation. 4. Trace mitral regurgitation. 5. Small pericardial effusion was noted, no evidence of cardiac tamponade. Assessment/Plan 1. Acute decompensated right sided HF with Cor Pulmonale; Has Severe pulm HTN/ TR. (Echo see above) Continue diuresis with lasix IV. Monitor I/O. 2. Acte COPD exacerbation with acute hypoxic and hypercapneic resp. failure. Does have chronic CO2 retention with baseline PaCO2 in the 60-70. Cont steroids , nebs. Placed on BiPAP with slight improvement. Will continue Bipap. Fluid restriction. 3. Hepatocellular dz - LFTs noted. ? related to cor pulmonale/vascular congestion. 4. Sinus Tachycardia 2/2 to above. cont to monitor. DVT prophy: Enoxaparin Will need outpt pulmonary f/u. Prognosis is guarded. VS,Fishbone, I+O VS, Fishbone, I+O Laboratory Tests 03/09/17 15:29 Red Blood Count 5.13, Mean Corpuscular Volume 102.9 H, Mean Corpuscular Hemoglobin 30.5, Mean Corpuscular Hemoglobin Concent 29.6 L, Red Cell Distribution Width 16.2 H, Neutrophils (%) (Auto) 60.0, Lymphocytes (%) (Auto) 21.4 L, Monocytes (%) (Auto) 13.2 H, Eosinophils (%) (Auto) 0.7, Basophils (%) ( Auto) 1.2 H, Neutrophils # (Auto) 3.9, Lymphocytes # (Auto) 1.4 L, Monocytes # ( Auto) 0.9 H, Eosinophils # (Auto) 0.0, Basophils # (Auto) 0.1 03/10/17 04:32 Red Blood Count 5.17, Mean Corpuscular Volume 103.5 H, Mean Corpuscular Hemoglobin 30.8, Mean Corpuscular Hemoglobin Concent 29.7 L, Red Cell Distribution Width 15.9 H, Calcium Level 9.1, Aspartate Amino Transf (AST/SGOT) 82 H, Alanine Aminotransferase (ALT/SGPT) 91 H, Total Creatine Kinase 187, Alkaline Phosphatase 132 H, Total Bilirubin 0.9, Total Protein 7.6, Albumin 2.8 L Vital Signs Date Time Temp Pulse Resp B/P (MAP) Pulse Ox O2 Delivery O2 Flow Rate FiO2 03/10/17 12:00 BIPAP/CPAP 35 03/10/17 12:00 99.1 106 20 122/77 (92) 96 4.0 I&O- Last 24 Hours up to 6 AM 03/10/17 05:59 Intake Total 600 ml Output Total 3725 ml Balance -3125 ml SHERON BETANCUR MD Mar 10, 2017 13:34
[2017-03-10] MEDS ORDERED: ISOVUE-370 76% 100ML VIAL (Q9967) As Ordered ONE (15:41)
[2017-03-10 15:55] LABS: ABG BASE EXCESS 16.8 (-2.0-2.0); ABG HCO3 48.7 MEQ/L (22.0-26.0); ABG PARTIAL PRESSURE O2 60.3 mmHg (75.0-100.0); ABG STANDARD HCO3 40.8 MEQ/L (22.0-26.0); ABG TOTAL CO2 51.6 MEQ/L (22.0-29.0); ABG pH (ARTERIAL) 7.332 UNITS (7.350-7.450)
[2017-03-10 16:00] VITALS: BP 148/92
--- NOTE | 2017-03-10 17:43 | REP ---
CT ANGIOGRAM CHEST: TECHNIQUE: Axial contrast enhanced images from the thoracic inlet to the upper abdomen using 100 mL Isovue 370 intravenous contrast material with multiplanar reformations. The lungs show small effusions bilaterally with minor bibasilar atelectasis. There is no CT evidence of a pulmonary embolism. I do not see significant adenopathy in the mediastinal or hilar regions. There is no thoracic aortic aneurysm or dissection. There is no pericardial effusion. The heart is normal in size. There is mild free fluid around the liver. Pancreas demonstrates apparent dilated duct in the region of the pancreatic head and body. IMPRESSION: No CT evidence of pulmonary embolism. Very small bilateral pleural effusions with bibasilar atelectatic change. Mild perihepatic ascites. Pancreatic duct appears somewhat dilated in the region of the pancreatic head and body, approximate diameter is maximally 9 mm. Further evaluation may be made with MRCP. Signed by Orville Chicas MD 03/10/2017 07:16 P
[2017-03-10 20:00] VITALS: BP 139/86
[2017-03-10 23:32] LABS: ABG BASE EXCESS 15.1 (-2.0-2.0); ABG HCO3 45.7 MEQ/L (22.0-26.0); ABG PARTIAL PRESSURE O2 60.2 mmHg (75.0-100.0); ABG STANDARD HCO3 38.8 MEQ/L (22.0-26.0); ABG TOTAL CO2 48.3 MEQ/L (22.0-29.0); ABG pH (ARTERIAL) 7.348 UNITS (7.350-7.450)
[2017-03-11] VITALS (7 sets, daily range): BP systolic 108–137; BP diastolic 68–90; O2SAT 97
[2017-03-11 05:09] LABS: DIFF SLIDE NUMBER 38; MEAN CORPUSCULAR HGB CONC 29.2 g/dl (32.0-36.5); MEAN CORPUSCULAR VOLUME 102.9 fl (80.0-96.0); PLATELET COUNT, AUTOMATED 148 k/mm3 (150-450); RED CELL DISTRIBUTION WIDTH 16.1 % (11.5-14.5); WHITE BLOOD COUNT 5.3 K/mm3 (4.0-10.0)
[2017-03-11 05:10] LABS: BASO % 0.6 % (0.0-1.0); EOS % 0.4 % (0.0-3.0); LARGE UNSTAINED CELL # 0.2 K/mm3 (0.0-0.4); LARGE UNSTAINED CELL % 3.8 % (0.0-4.0); LYMPH # 1.3 K/mm3 (1.5-4.5); LYMPH % 24.2 % (24.0-44.0); MONO # 0.7 K/mm3 (0.0-0.8); MONO % 12.8 % (0.0-5.0); NEUTROPHILS # 3.1 K/mm3 (1.8-7.7); NEUTROPHILS % 58.3 % (36.0-66.0)
[2017-03-11 05:11] LABS: ADD MORPHOLOGY? YES
[2017-03-11 05:17] LABS: ALKALINE PHOSPHATASE 118 U/L (45-117); ALT/SGPT 72 U/L (12-78); AST/SGOT 59 U/L (15-37); BILIRUBIN,TOTAL 0.8 MG/DL (0.2-1.0); BLOOD UREA NITROGEN 25 MG/DL (7-18); CALCIUM LEVEL 8.6 MG/DL (8.5-10.1); CHLORIDE LEVEL 93 MEQ/L (98-107); CREATININE FOR GFR 0.75 MG/DL (0.70-1.30); GLUCOSE, FASTING 99 MG/DL (70-105); MAGNESIUM LEVEL 1.9 MG/DL (1.8-2.4); POTASSIUM SERUM 4.3 MEQ/L (3.5-5.1); SODIUM LEVEL 139 MEQ/L (136-145); TOTAL PROTEIN 6.7 GM/DL (6.4-8.2)
[2017-03-11 05:40] LABS: ANION GAP 1 MEQ/L (8-16); CARBON DIOXIDE LEVEL 45 MEQ/L (21-32)
[2017-03-11 06:14] LABS: ALBUMIN 2.4 GM/DL (3.2-5.2); ALBUMIN/GLOBULIN RATIO 0.56 (1.00-1.93)
[2017-03-11 06:24] LABS: HYPOCHROMASIA 1+
[2017-03-11] MEDS: HumaLOG INSULIN (NovoLOG) PER UNIT SC SCH ×2 (07:15→12:00)
[2017-03-11] MEDS: ADVAIR HFA 230/21 INHALER INH SCH ×2 (07:49→19:45)
[2017-03-11] MEDS: IPRATROPIUM 0.5MG/ALBUTEROL 2.5MG INH SOL UD 3ML (DUONEB)(J7620) INH SCH ×4 (08:00→20:00)
[2017-03-11 08:31] LABS: ABG BASE EXCESS 12.4 (-2.0-2.0); ABG HCO3 41.9 MEQ/L (22.0-26.0); ABG PARTIAL PRESSURE O2 67.9 mmHg (75.0-100.0); ABG STANDARD HCO3 36.1 MEQ/L (22.0-26.0); ABG TOTAL CO2 44.2 MEQ/L (22.0-29.0)
[2017-03-11 08:35] LABS: ABG PARTIAL PRESSURE CO2 75.9 mmHg (35.0-45.0)
[2017-03-11] MEDS ORDERED: SPIRONOLACTONE 25 MG TAB PO SCH (09:00)
[2017-03-11] MEDS: ENOXAPARIN 40 MG/0.4 ML SYRINGE (J1650) SC SCH (09:08)
[2017-03-11] MEDS: FUROSEMIDE 40 MG/4 ML VIAL (J1940) IV SCH ×2 (09:08→20:58)
--- NOTE | 2017-03-11 10:58 | IPNPDOC ---
Text Note Date of Service The patient was seen on 03/11/17. NOTE Subjective: Breathing has improved. Was feeling fatigued yesterday, but fells better since his hypercapnia has improved on BIPAP. Objective: Vitals: (see below) General: No acute distress, laying comfortably in bed. HEENT: Moist mucous membranes. Neck: Mild JVD. No lymphadenopathy Cardiac: Tachycardic, No murmurs Pulm: Coarse crackles b/l bases. Mild exp wheezing. B/l rhonchi. Abd: NT/ND + BS Ext: 2+ Pitting edema BLE Labs (see below) Images: CXR 03/09/17 Cardiomediastinal silhouette and lung doan are unchanged allowing for the technical differences between the exams. There is cardiomegaly and evidence of pulmonary arterial hypertension with chronic central pulmonary venous engorgement. No acute patchy parenchymal opacities or pleural effusions have developed. There is no keri evidence of pulmonary edema. There is no change in the osseous structures. IMPRESSION: Stable appearing chronic changes as described above. Echo 12/02/16 IMPRESSION: 1. Normal global left ventricular systolic function with mild concentric left ventricular hypertrophy. There are no features of left ventricular diastolic dysfunction. 2. Severe tricuspid regurgitation with severe pulmonary hypertension and dilated right heart chambers. Not mentioned, a V-shaped appearance of the ventricular septum was noted in both systole and diastole consistent with severe pulmonary hypertension, secondary to both volume and pressure overload to the right ventricle. 3. Moderate pulmonic regurgitation. 4. Trace mitral regurgitation. 5. Small pericardial effusion was noted, no evidence of cardiac tamponade. Assessment/Plan 1. Acute decompensated right sided HF with R; Has Severe pulm HTN/TR. (Echo see above) Continue diuresis with lasix IV. Monitor I/O. Restart spironolactone. 2. Acte COPD exacerbation with acute hypoxic and hypercapneic resp. failure. Does have chronic CO2 retention with baseline PaCO2 in the 60-70, now down from 99 to 75. Cont steroids, nebs. Placed on BiPAP with significant improvement. Will continue Bipap. Fluid restriction. 3. Hepatocellular dz - LFTs noted. ? related to cor pulmonale/vascular congestion. 4. Sinus Tachycardia 2/2 to above. improved. CTA negative for PE. Cont to monitor. DVT prophy: Enoxaparin Will need outpt pulmonary f/u. Prognosis is guarded. VS,Fishbone, I+O VS, Fishbone, I+O Laboratory Tests 03/11/17 04:15 Red Blood Count 5.10, Mean Corpuscular Volume 102.9 H, Mean Corpuscular Hemoglobin 30.0, Mean Corpuscular Hemoglobin Concent 29.2 L, Red Cell Distribution Width 16.1 H, Neutrophils (%) (Auto) 58.3, Lymphocytes (%) (Auto) 24.2, Monocytes (%) (Auto) 12.8 H, Eosinophils (%) (Auto) 0.4, Basophils (%) ( Auto) 0.6, Neutrophils # (Auto) 3.1, Lymphocytes # (Auto) 1.3 L, Monocytes # ( Auto) 0.7, Eosinophils # (Auto) 0.0, Basophils # (Auto) 0.0, Calcium Level 8.6, Aspartate Amino Transf (AST/SGOT) 59 H, Alanine Aminotransferase (ALT/SGPT) 72, Alkaline Phosphatase 118 H, Total Bilirubin 0.8, Total Protein 6.7, Albumin 2.4 L Vital Signs Date Time Temp Pulse Resp B/P (MAP) Pulse Ox O2 Delivery O2 Flow Rate FiO2 03/11/17 08:00 BIPAP/CPAP 35 03/11/17 08:00 98.4 98 24 131/90 (104) 94 03/11/17 04:00 2.0 I&O- Last 24 Hours up to 6 AM 03/11/17 06:00 Intake Total 1200 ml Output Total 3150 ml Balance -1950 ml SHERON BETANCUR MD Mar 11, 2017 10:58
[2017-03-11 15:21] LABS: ABG BASE EXCESS 17.4 (-2.0-2.0); ABG HCO3 47.9 MEQ/L (22.0-26.0); ABG PARTIAL PRESSURE O2 61.8 mmHg (75.0-100.0); ABG STANDARD HCO3 41.4 MEQ/L (22.0-26.0); ABG TOTAL CO2 50.5 MEQ/L (22.0-29.0)
[2017-03-11 15:24] LABS: ABG PARTIAL PRESSURE CO2 84.7 mmHg (35.0-45.0)
[2017-03-11 22:31] LABS: ABG pH (ARTERIAL) 7.399 UNITS (7.350-7.450)
[2017-03-11 22:34] LABS: ABG BASE EXCESS 16.9 (-2.0-2.0); ABG HCO3 46.5 MEQ/L (22.0-26.0); ABG PARTIAL PRESSURE O2 86.8 mmHg (75.0-100.0); ABG TOTAL CO2 48.9 MEQ/L (22.0-29.0)
[2017-03-12] VITALS (9 sets, daily range): BP systolic 116–142; BP diastolic 66–89; O2SAT 93–95
[2017-03-12 04:53] LABS: MEAN CORPUSCULAR HEMOGLOBIN 30.5 pg (27.0-33.0); MEAN CORPUSCULAR HGB CONC 29.6 g/dl (32.0-36.5); MEAN CORPUSCULAR VOLUME 102.8 fl (80.0-96.0); PLATELET COUNT, AUTOMATED 152 k/mm3 (150-450); WHITE BLOOD COUNT 5.4 K/mm3 (4.0-10.0)
[2017-03-12 04:59] LABS: ALBUMIN 2.4 GM/DL (3.2-5.2); ALBUMIN/GLOBULIN RATIO 0.55 (1.00-1.93); ALKALINE PHOSPHATASE 113 U/L (45-117); ALT/SGPT 63 U/L (12-78); AST/SGOT 44 U/L (15-37); BILIRUBIN,TOTAL 0.9 MG/DL (0.2-1.0); BLOOD UREA NITROGEN 17 MG/DL (7-18); CALCIUM LEVEL 8.9 MG/DL (8.5-10.1); CHLORIDE LEVEL 92 MEQ/L (98-107); CREATININE FOR GFR 0.76 MG/DL (0.70-1.30); GLOMERULAR FILTRATION RATE > 60.0 (>56); GLUCOSE, FASTING 93 MG/DL (70-105); MAGNESIUM LEVEL 1.9 MG/DL (1.8-2.4); POTASSIUM SERUM 3.9 MEQ/L (3.5-5.1); SODIUM LEVEL 142 MEQ/L (136-145); TOTAL PROTEIN 6.8 GM/DL (6.4-8.2)
[2017-03-12 05:38] LABS: ANION GAP 4 MEQ/L (8-16); CARBON DIOXIDE LEVEL 46 MEQ/L (21-32)
[2017-03-12 05:58] LABS: ABG BASE EXCESS 16.7 (-2.0-2.0); ABG HCO3 45.4 MEQ/L (22.0-26.0); ABG PARTIAL PRESSURE CO2 69.6 mmHg (35.0-45.0); ABG PARTIAL PRESSURE O2 61.1 mmHg (75.0-100.0); ABG STANDARD HCO3 40.7 MEQ/L (22.0-26.0); ABG TOTAL CO2 47.5 MEQ/L (22.0-29.0); ABG pH (ARTERIAL) 7.432 UNITS (7.350-7.450)
[2017-03-12 06:34] LABS: BASOPHILS 1 % (0-4)
[2017-03-12 06:35] LABS: ANISOCYTOSIS 2+; POLYCHROMASIA 1+
[2017-03-12 06:36] LABS: POIKILOCYTOSIS 1+
[2017-03-12] MEDS ORDERED: AcetaZOLAMIDE 250 MG TAB PO ONE (08:00)
[2017-03-12] MEDS: IPRATROPIUM 0.5MG/ALBUTEROL 2.5MG INH SOL UD 3ML (DUONEB)(J7620) INH SCH ×4 (08:00→20:00)
[2017-03-12] MEDS: ADVAIR HFA 230/21 INHALER INH SCH ×2 (08:12→20:43)
--- NOTE | 2017-03-12 08:26 | REP ---
Portable chest, 08:08 a.m., 03/12/2017: Comparisons are the PA and lateral chest 03/09/[address] of 03/10 17. There are no focal infiltrates. There are no pleural effusions. Cardiac size is upper normal. The central maria isabel appear enlarged, unchanged, possibly pulmonary hypertension. No hilar masses are identified on the comparison CT. Mediastinum and bony thorax are unremarkable. Impression: No acute cardiopulmonary findings. Signed by Orville Hidalgo MD 03/12/2017 08:18 A
[2017-03-12] MEDS ORDERED: FUROSEMIDE 40 MG/4 ML VIAL (J1940) IV SCH (09:00)
[2017-03-12] MEDS: ENOXAPARIN 40 MG/0.4 ML SYRINGE (J1650) SC SCH (09:54)
[2017-03-12] MEDS: NICOTINE 7 MG/24 HR TRANSDERMAL TD SCH (10:58)
--- NOTE | 2017-03-12 11:10 | IPNPDOC ---
Text Note Date of Service The patient was seen on 03/12/17. NOTE Subjective: Breathing has continued to improve. Tolerated BiPAP well. Objective: Vitals: (see below) General: No acute distress, laying comfortably in bed. HEENT: Moist mucous membranes. Neck: Mild JVD. No lymphadenopathy Cardiac: Tachycardic, No murmurs Pulm: Coarse crackles b/l bases. Mild exp wheezing. B/l rhonchi. Improved. Abd: NT/ND + BS Ext: 2+ Pitting edema BLE, improved. Labs (see below) Images: CXR 03/09/17 Cardiomediastinal silhouette and lung doan are unchanged allowing for the technical differences between the exams. There is cardiomegaly and evidence of pulmonary arterial hypertension with chronic central pulmonary venous engorgement. No acute patchy parenchymal opacities or pleural effusions have developed. There is no keri evidence of pulmonary edema. There is no change in the osseous structures. IMPRESSION: Stable appearing chronic changes as described above. Echo 12/02/16 IMPRESSION: 1. Normal global left ventricular systolic function with mild concentric left ventricular hypertrophy. There are no features of left ventricular diastolic dysfunction. 2. Severe tricuspid regurgitation with severe pulmonary hypertension and dilated right heart chambers. Not mentioned, a V-shaped appearance of the ventricular septum was noted in both systole and diastole consistent with severe pulmonary hypertension, secondary to both volume and pressure overload to the right ventricle. 3. Moderate pulmonic regurgitation. 4. Trace mitral regurgitation. 5. Small pericardial effusion was noted, no evidence of cardiac tamponade. Assessment/Plan 1. Acute decompensated right sided HF with R; Has Severe pulm HTN/TR. (Echo see above) Continue diuresis with lasix IV. Monitor I/O. Restart spironolactone. 2. Acte COPD exacerbation with acute hypoxic and hypercapnic resp. failure. Does have chronic CO2 retention with baseline PaCO2 in the 60-70, now down from 99 --> 75--> 69. Cont steroids, nebs. Placed on BiPAP with significant improvement. Fluid restriction. 3. Metabolic alkalosis 2/2 lasix. Hold lasix for now. Diamox 500mg x1. 4. Hepatocellular dz - LFTs improved. ? related to cor pulmonale/vascular congestion. 5. Sinus Tachycardia 2/2 to above. improved. CTA negative for PE. Cont to monitor. DVT prophy: Enoxaparin Will need outpt pulmonary f/u. Prognosis is guarded. VS,Fishbone, I+O VS, Fishbone, I+O Laboratory Tests 03/12/17 04:05 Red Blood Count 5.14, Mean Corpuscular Volume 102.8 H, Mean Corpuscular Hemoglobin 30.5, Mean Corpuscular Hemoglobin Concent 29.6 L, Red Cell Distribution Width 16.0 H, Calcium Level 8.9, Aspartate Amino Transf (AST/SGOT) 44 H, Alanine Aminotransferase (ALT/SGPT) 63, Alkaline Phosphatase 113, Total Bilirubin 0.9, Total Protein 6.8, Albumin 2.4 L Vital Signs Date Time Temp Pulse Resp B/P (MAP) Pulse Ox O2 Delivery O2 Flow Rate FiO2 03/12/17 08:13 106 03/12/17 08:13 94 Nasal Cannula 3.0 03/12/17 08:13 30 03/12/17 08:00 99.7 142/80 (100) 03/12/17 04:00 40 I&O- Last 24 Hours up to 6 AM 03/12/17 06:00 Intake Total 840 ml Output Total 3275 ml Balance -2435 ml SHERON BETANCUR MD Mar 12, 2017 11:10
--- NOTE | 2017-03-12 11:36 | ECHO ---
DATE OF STUDY: 03/10/2017 REFERRING PHYSICIAN: Dr. Ernesto Deal INDICATION: Heart failure, unspecified. HEIGHT: 163 cm WEIGHT: 78 kg 2D MEASUREMENTS: Left atrium: 4.1 cm Aortic root: 3.6 cm Ventricular septum: 1.52 cm Posterior wall: 1.60 cm Left ventricle diastole: 4.1 cm LVOT: 2.0 cm Right ventricle: 4.2 cm Inferior vena cava: 2.0 cm DOPPLER MEASUREMENTS: Aortic valve velocity: 96.1 cm/s LVOT velocity: 63.2 cm/s Mitral E velocity: 70.1 cm/s Mitral A velocity: 79.0 cm/s Severe tricuspid regurgitation. Estimated right ventricle systolic pressure: At least 104 mmHg assuming a right pressure of at least 20 mmHg. Mild pulmonic regurgitation. MITRAL ANNULAR TISSUE DOPPLER: Technically difficult acquisition. DESCRIPTION: Rhythm was sinus tachycardia. Image quality was fair. No pericardial effusion. This is a 2D, M-mode, color flow Doppler, and pulse wave Doppler examination including mitral annular tissue Doppler. CONCLUSIONS: 1. Very severe elevation of estimated right ventricle systolic pressure (at least 104 mmHg). Mild right ventricle dilatation with presence of right ventricle hypertrophy. Severe reduction in right ventricle diastolic function with severe hypokinesis of the right ventricle free wall. Partial flattening of the ventricular septum in both diastole and systole in keeping with both volume and pressure overload of the right ventricle. Structurally, normal-appearing tricuspid leaflets. Severe tricuspid regurgitation. Mild pulmonic regurgitation. Mild right atrial dilatation. Inferior vena cava plethora. Suggestive of elevated central venous pressure of at least 20 mmHg. 2. Normal left ventricle regional wall motion. Normal left ventricular (LV) systolic function. Left ventricular ejection fraction (LVEF) 70% by visual estimate. Moderate concentric left ventricle hypertrophy. Probably grade 1 LV diastolic dysfunction (impaired relaxation filling pattern). 3. Mild left atrial dilatation.
[2017-03-12 16:41] LABS: ANION GAP 2 MEQ/L (8-16); BLOOD UREA NITROGEN 17 MG/DL (7-18); CALCIUM LEVEL 8.4 MG/DL (8.5-10.1); CARBON DIOXIDE LEVEL 41 MEQ/L (21-32); CHLORIDE LEVEL 95 MEQ/L (98-107); CREATININE FOR GFR 0.75 MG/DL (0.70-1.30); GLOMERULAR FILTRATION RATE > 60.0 (>56); GLUCOSE, FASTING 121 MG/DL (70-105); MAGNESIUM LEVEL 1.9 MG/DL (1.8-2.4); POTASSIUM SERUM 4.1 MEQ/L (3.5-5.1); SODIUM LEVEL 138 MEQ/L (136-145)
[2017-03-13] VITALS (10 sets, daily range): BP systolic 116–136; BP diastolic 63–88; O2SAT 94–98
[2017-03-13 04:46] LABS: MEAN CORPUSCULAR HEMOGLOBIN 30.5 pg (27.0-33.0); MEAN CORPUSCULAR HGB CONC 29.4 g/dl (32.0-36.5); MEAN CORPUSCULAR VOLUME 103.7 fl (80.0-96.0); PLATELET COUNT, AUTOMATED 139 k/mm3 (150-450); RED CELL DISTRIBUTION WIDTH 15.9 % (11.5-14.5); WHITE BLOOD COUNT 5.7 K/mm3 (4.0-10.0)
[2017-03-13 04:52] LABS: ALBUMIN 2.4 GM/DL (3.2-5.2); ALBUMIN/GLOBULIN RATIO 0.51 (1.00-1.93); ALKALINE PHOSPHATASE 116 U/L (45-117); ALT/SGPT 56 U/L (12-78); ANION GAP 2 MEQ/L (8-16); AST/SGOT 47 U/L (15-37); BILIRUBIN,TOTAL 0.7 MG/DL (0.2-1.0); BLOOD UREA NITROGEN 15 MG/DL (7-18); CALCIUM LEVEL 8.7 MG/DL (8.5-10.1); CARBON DIOXIDE LEVEL 40 MEQ/L (21-32); CHLORIDE LEVEL 98 MEQ/L (98-107); CREATININE FOR GFR 0.84 MG/DL (0.70-1.30); GLOMERULAR FILTRATION RATE > 60.0 (>56); GLUCOSE, FASTING 118 MG/DL (70-105); MAGNESIUM LEVEL 2.1 MG/DL (1.8-2.4); POTASSIUM SERUM 4.3 MEQ/L (3.5-5.1); SODIUM LEVEL 140 MEQ/L (136-145); TOTAL PROTEIN 7.1 GM/DL (6.4-8.2)
[2017-03-13 05:19] LABS: EOSINOPHILS 1 % (0-5); HYPOCHROMASIA 2+
[2017-03-13 05:20] LABS: ANISOCYTOSIS 1+
[2017-03-13 06:30] LABS: ABG pH (ARTERIAL) 7.294 UNITS (7.350-7.450)
[2017-03-13 06:32] LABS: ABG BASE EXCESS 5.2 (-2.0-2.0); ABG HCO3 34.7 MEQ/L (22.0-26.0); ABG PARTIAL PRESSURE CO2 73.2 mmHg (35.0-45.0); ABG PARTIAL PRESSURE O2 123.1 mmHg (75.0-100.0)
[2017-03-13 06:33] LABS: ABG STANDARD HCO3 29.1 MEQ/L (22.0-26.0)
[2017-03-13] MEDS: IPRATROPIUM 0.5MG/ALBUTEROL 2.5MG INH SOL UD 3ML (DUONEB)(J7620) INH SCH ×4 (08:00→20:00)
[2017-03-13] MEDS: ADVAIR HFA 230/21 INHALER INH SCH ×2 (08:08→20:07)
[2017-03-13] MEDS: ENOXAPARIN 40 MG/0.4 ML SYRINGE (J1650) SC SCH (09:07)
[2017-03-13] MEDS: NICOTINE 7 MG/24 HR TRANSDERMAL TD SCH (09:07)
[2017-03-13] MEDS: FUROSEMIDE 20 MG/2 ML VIAL (J1940) IV SCH ×2 (09:07→16:37)
--- NOTE | 2017-03-13 13:38 | IPNPDOC ---
Text Note Date of Service The patient was seen on 03/13/17. NOTE Subjective: Tolerated BiPAP well. Objective: Vitals: (see below) General: No acute distress, laying comfortably in bed. HEENT: Moist mucous membranes. Neck: Mild JVD. No lymphadenopathy Cardiac: Tachycardic, No murmurs Pulm: Coarse crackles b/l bases. Mild exp wheezing. B/l rhonchi. Improved. Abd: NT/ND + BS Ext: 1+ Pitting edema BLE, improved. Labs (see below) Images: CXR 03/09/17 Cardiomediastinal silhouette and lung doan are unchanged allowing for the technical differences between the exams. There is cardiomegaly and evidence of pulmonary arterial hypertension with chronic central pulmonary venous engorgement. No acute patchy parenchymal opacities or pleural effusions have developed. There is no keri evidence of pulmonary edema. There is no change in the osseous structures. IMPRESSION: Stable appearing chronic changes as described above. Echo 12/02/16 IMPRESSION: 1. Normal global left ventricular systolic function with mild concentric left ventricular hypertrophy. There are no features of left ventricular diastolic dysfunction. 2. Severe tricuspid regurgitation with severe pulmonary hypertension and dilated right heart chambers. Not mentioned, a V-shaped appearance of the ventricular septum was noted in both systole and diastole consistent with severe pulmonary hypertension, secondary to both volume and pressure overload to the right ventricle. 3. Moderate pulmonic regurgitation. 4. Trace mitral regurgitation. 5. Small pericardial effusion was noted, no evidence of cardiac tamponade. Assessment/Plan 1. Acute decompensated right sided HF with R; Has Severe pulm HTN/TR. (Echo see above) Restart lasix IV. s/p one dose of diamox. Monitor I/O. -8L balance. Will also start low dose ACEi 2. Acte COPD exacerbation with acute hypoxic and hypercapnic resp. failure. Does have chronic CO2 retention with baseline PaCO2 in the 60-70, Improved. Cont bipap at night. Cont steroids, nebs. Fluid restriction. 3. Metabolic alkalosis improved s/p Diamox x1. 4. Hepatocellular dz - LFTs improved. ? related to cor pulmonale/vascular congestion. 5. Sinus Tachycardia 2/2 to above. improved. CTA negative for PE. Cont to monitor. DVT prophy: Enoxaparin Will need outpt pulmonary f/u. Prognosis is guarded. VS,Fishbone, I+O VS, Fishbone, I+O Laboratory Tests 03/12/17 16:05 Calcium Level 8.4 L 03/13/17 04:03 Calcium Level 8.7, Red Blood Count 4.82, Mean Corpuscular Volume 103.7 H, Mean Corpuscular Hemoglobin 30.5, Mean Corpuscular Hemoglobin Concent 29.4 L, Red Cell Distribution Width 15.9 H, Aspartate Amino Transf (AST/SGOT) 47 H, Alanine Aminotransferase (ALT/SGPT) 56, Alkaline Phosphatase 116, Total Bilirubin 0.7, Total Protein 7.1, Albumin 2.4 L Vital Signs Date Time Temp Pulse Resp B/P (MAP) Pulse Ox O2 Delivery O2 Flow Rate FiO2 03/13/17 12:00 99.2 116 18 116/70 (85) 95 Nasal Cannula 3.0 03/13/17 08:09 40 I&O- Last 24 Hours up to 6 AM 03/13/17 06:00 Intake Total 1210 ml Output Total 1900 ml Balance -690 ml SHERON BETANCUR MD Mar 13, 2017 13:38
[2017-03-13] MEDS: LISINOPRIL *2.5 MG* TAB PO SCH (14:59)
--- NOTE | 2017-03-13 16:36 | ECGEPIP ---
Stationary ECG Study [facility] Test Date: 2017-03-12 Pat Name: TRINY AMOR Department: Room: [place] [address] Gender: M Education Specialist: : [id number] Requested By: SHERON BETANCUR Order Number: [id number] Reading MD: Marcelina Curtis Measurements Intervals [place] Rate: 114 P: 72 NE: 134 QRS: 156 QRSD: 86 T: 1 QT: 313 QTc: 431 Interpretive Statements SINUS TACHYCARDIA LEFT ATRIAL ENLARGEMENT PATTERN CONSISTENT WITH PULMONARY DISEASE RIGHT VENTRICULAR HYPERTROPHY AND ST-T CHANGE SIMILAR 03/09/17 Electronically Signed On 03-13-2017 16:36:39 EDT by Marcelina Curtis
[2017-03-14] VITALS (7 sets, daily range): BP systolic 120–135; BP diastolic 69–86; O2SAT 97
[2017-03-14 04:19] LABS: MEAN CORPUSCULAR HEMOGLOBIN 30.1 pg (27.0-33.0); MEAN CORPUSCULAR HGB CONC 28.7 g/dl (32.0-36.5); MEAN CORPUSCULAR VOLUME 104.8 fl (80.0-96.0); PLATELET COUNT, AUTOMATED 156 k/mm3 (150-450); RED CELL DISTRIBUTION WIDTH 15.8 % (11.5-14.5); WHITE BLOOD COUNT 4.8 K/mm3 (4.0-10.0)
[2017-03-14 04:28] LABS: ALBUMIN 2.4 GM/DL (3.2-5.2); ALKALINE PHOSPHATASE 116 U/L (45-117); ALT/SGPT 51 U/L (12-78); ANION GAP 2 MEQ/L (8-16); AST/SGOT 36 U/L (15-37); BILIRUBIN,TOTAL 0.5 MG/DL (0.2-1.0); BLOOD UREA NITROGEN 18 MG/DL (7-18); CALCIUM LEVEL 8.6 MG/DL (8.5-10.1); CARBON DIOXIDE LEVEL 37 MEQ/L (21-32); CHLORIDE LEVEL 102 MEQ/L (98-107); CREATININE FOR GFR 0.84 MG/DL (0.70-1.30); GLOMERULAR FILTRATION RATE > 60.0 (>56); GLUCOSE, FASTING 131 MG/DL (70-105); MAGNESIUM LEVEL 2.1 MG/DL (1.8-2.4); POTASSIUM SERUM 4.3 MEQ/L (3.5-5.1); SODIUM LEVEL 141 MEQ/L (136-145); TOTAL PROTEIN 7.2 GM/DL (6.4-8.2)
[2017-03-14 05:13] LABS: BASOPHILS 1 % (0-4); EOSINOPHILS 1 % (0-5)
[2017-03-14 05:14] LABS: ANISOCYTOSIS 1+; HYPOCHROMASIA 3+
[2017-03-14] MEDS: ADVAIR HFA 230/21 INHALER INH SCH ×2 (07:38→20:06)
[2017-03-14] MEDS: IPRATROPIUM 0.5MG/ALBUTEROL 2.5MG INH SOL UD 3ML (DUONEB)(J7620) INH SCH ×4 (08:00→20:00)
[2017-03-14] MEDS: TIOTROPIUM INHALER/CAPSULE (SPIRIVA) INH SCH (08:00)
[2017-03-14] MEDS: LISINOPRIL *2.5 MG* TAB PO SCH (08:20)
[2017-03-14] MEDS: FUROSEMIDE 20 MG/2 ML VIAL (J1940) IV SCH (08:20)
[2017-03-14] MEDS: ENOXAPARIN 40 MG/0.4 ML SYRINGE (J1650) SC SCH (08:20)
[2017-03-14] MEDS: NICOTINE 7 MG/24 HR TRANSDERMAL TD SCH (08:20)
[2017-03-14 08:36] LABS: ABG BASE EXCESS 1.8 (-2.0-2.0); ABG HCO3 29.4 MEQ/L (22.0-26.0); ABG PARTIAL PRESSURE CO2 58.1 mmHg (35.0-45.0); ABG PARTIAL PRESSURE O2 75.9 mmHg (75.0-100.0); ABG TOTAL CO2 31.2 MEQ/L (22.0-29.0); ABG pH (ARTERIAL) 7.322 UNITS (7.350-7.450)
--- NOTE | 2017-03-14 12:02 | IPNPDOC ---
Text Note Date of Service The patient was seen on 03/14/17. NOTE Subjective: Breathing and LE edema have significantly improved. Objective: Vitals: (see below) General: No acute distress, laying comfortably in bed. HEENT: Moist mucous membranes. Neck: Mild JVD. No lymphadenopathy Cardiac: Tachycardic, No murmurs Pulm: Coarse crackles b/l bases. Mild exp wheezing. B/l rhonchi. Improved. Abd: NT/ND + BS Ext: 1+ Pitting edema BLE, improved. Labs (see below) Images: CXR 03/09/17 Cardiomediastinal silhouette and lung doan are unchanged allowing for the technical differences between the exams. There is cardiomegaly and evidence of pulmonary arterial hypertension with chronic central pulmonary venous engorgement. No acute patchy parenchymal opacities or pleural effusions have developed. There is no keri evidence of pulmonary edema. There is no change in the osseous structures. IMPRESSION: Stable appearing chronic changes as described above. Echo 12/02/16 IMPRESSION: 1. Normal global left ventricular systolic function with mild concentric left ventricular hypertrophy. There are no features of left ventricular diastolic dysfunction. 2. Severe tricuspid regurgitation with severe pulmonary hypertension and dilated right heart chambers. Not mentioned, a V-shaped appearance of the ventricular septum was noted in both systole and diastole consistent with severe pulmonary hypertension, secondary to both volume and pressure overload to the right ventricle. 3. Moderate pulmonic regurgitation. 4. Trace mitral regurgitation. 5. Small pericardial effusion was noted, no evidence of cardiac tamponade. Assessment/Plan 1. Acute decompensated right sided HF with R; Has Severe pulm HTN/TR. (Echo see above) Cont lasix IV. s/p one dose of diamox. Monitor I/O. -9.7L balance. Cont low dose ACEi. Fluid restriction. Pulmonary consulted. 2. Acte COPD exacerbation with acute hypoxic and hypercapnic resp. failure. Does have chronic CO2 retention with baseline PaCO2 in the 60-70, Improved. Off bipap now. Cont steroids, nebs. ABG in am. 3. Metabolic alkalosis improved s/p Diamox x1. 4. Hepatocellular dz - LFTs improved. ? related to cor pulmonale/vascular congestion. 5. Sinus Tachycardia 2/2 to above. improved. CTA negative for PE. Cont to monitor. DVT prophy: Enoxaparin Will need outpt pulmonary f/u. Prognosis is guarded. VS,Fishbone, I+O VS, Fishbone, I+O Laboratory Tests 03/14/17 03:36 Red Blood Count 5.01, Mean Corpuscular Volume 104.8 H, Mean Corpuscular Hemoglobin 30.1, Mean Corpuscular Hemoglobin Concent 28.7 L, Red Cell Distribution Width 15.8 H, Calcium Level 8.6, Aspartate Amino Transf (AST/SGOT) 36, Alanine Aminotransferase (ALT/SGPT) 51, Alkaline Phosphatase 116, Total Bilirubin 0.5, Total Protein 7.2, Albumin 2.4 L Vital Signs Date Time Temp Pulse Resp B/P (MAP) Pulse Ox O2 Delivery O2 Flow Rate FiO2 03/14/17 08:20 131/83 03/14/17 08:00 99.1 104 20 95 Nasal Cannula 2.0 03/14/17 00:00 40 I&O- Last 24 Hours up to 6 AM 03/14/17 06:00 Intake Total 1460 ml Output Total 3175 ml Balance -1715 ml SHERON BETANCUR MD Mar 14, 2017 12:02
--- NOTE | 2017-03-14 13:52 | CCN ---
DATE: 03/14/2017 HISTORY OF PRESENT ILLNESS: Mr. Shane was admitted to the hospital on 03/09/2017. He had acute on chronic hypercarbic hypoxic respiratory failure requiring bilevel noninvasive therapy. His pCO2 was as high as 99.2 on his initial presentation. I am consulted for the first time today for his COPD. Although it mentions diastolic dysfunction in the initial admission I believe he is more pulmonary hypertension as the cause of his systemic edema rather than diastolic dysfunction based on his echocardiogram that was obtained during his hospitalization which shows severe pulmonary hypertension, severe dilation of the right ventricle and "D"ing of the septum. There is concentric LVH with mild left atrial enlargement, grade 1 diastolic dysfunction. The patient himself states he feels that he is back at his baseline, has no increase in his usual level of shortness breath. No cough, fever, chills. He feels much better than when he first came in. We spent over 5 minutes discussing nicotine use and nicotine dependence. He plans on continuing attempts towards quitting using the patch. He has had chronic lower extremity edema. He states he is hungry and looking for lunch and that is his biggest complaint today. PAST MEDICAL HISTORY: 1. Chronic obstructive pulmonary disease. I do not have any formal spirometry or pulmonary function testing. 2. History of chronic hypercarbic respiratory failure with prior COPD admissions. 3. Severe pulmonary hypertension. 4. Nicotine dependence. FAMILY HISTORY: Patient denies family history of sarcoidosis. Denies any family history of hypertension, coronary disease or congestive heart failure (CHF). 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 He is a regular smoker, smokes one pack a day for the past 40 years. Denies alcohol use. No illicit drug use. ALLERGIES: No known drug allergies. CURRENT MEDICATIONS: - furosemide 20 mg IV b.i.d. - lisinopril 2.5 mg p.o. daily - nicotine one patch daily - Lovenox 40 mg subcu daily - Advair 2 puffs inhaled b.i.d. - DuoNeb - Tylenol - Zofran. REVIEW OF SYSTEMS: GENERAL: The patient denies any weight loss. No fever, chills, night sweats. HEENT: He has had no recent change in vision. No epistaxis. No difficulty swallowing. CARDIAC: He denies chest discomfort. No orthopnea, PND. No symptoms of claudication. PULMONARY: No pleuritis. No history of tuberculosis contacts. He denies hemoptysis. He has had no productive cough. He does have occasional wheeze. GASTROINTESTINAL (GI): No nausea, vomiting, diarrhea and change in bowel habits , constipation or blood in stool. GENITOURINARY (): No burning or pain with urination. No frequent nocturia. ENDOCRINE: He does complain of increased thirst, but has no prior history of diabetes or hypothyroidism. No hot or cold intolerance. NEURO: No unilateral weakness, tremor, or history of seizure. No history of head trauma. PSYCH: No depression, anxiety or mood swings. No suicidal ideation. ALLERGIES: No history of seasonal allergies or frequent respiratory infections. SLEEP: No snoring, witnessed apneas or history of sleep apnea. No excessive daytime somnolence. PHYSICAL EXAM: Temperature is 99.7, pulse is 109, respiratory rate is 22, blood pressure is 131/77, oxygen saturation is 95% on 2.0 liters. HEENT: Sclerae clear and anicteric. Pupils are equal and reactive to light. Tongue is midline. He is edentulous. CARDIOVASCULAR: Regular S1-S2 without audible murmur, rub or gallop. Heart sounds are quite distant. PMI does not appear displaced. He does have significant pitting edema to the level of his mid calf. PULMONARY: Decreased breath sounds throughout without rales, rhonchi or wheezes. Mild prolongation of the expiratory phase. No dullness to percussion. ABDOMEN: Soft, nontender, nondistended. No hepatosplenomegaly. No masses or hernia. SKIN: No rashes, jaundice or bruising. NEURO: No unilateral weakness, tremor or evidence of seizure activity. MUSCULOSKELETAL: Normal muscle tone for stated age. LABORATORY EVALUATION: Shows a white blood cell count of 4.8, hemoglobin of 15.1, hematocrit of 52.5 and a platelet count 156. Arterial blood gas this morning is 7.33, pCO2 of 58, PaO2 of 76. This is after being on bilevel at night. Sodium is 141, potassium 4.3, chloride is 102, bicarb is 37, BUN is 18, creatinine is 0.8 with a glucose of 131. Chest x-ray from admission shows cardiomegaly without significant infiltrate or pulmonary edema. CT angio from 03/10 shows no evidence of pulmonary embolism but does have bronchiectasis, gypsy pulmonary vasculature and very large RV. IMPRESSION: 1. Acute on chronic respiratory failure, hypercarbic, hypoxic in nature. Would attempt to take the patient off BiPAP tonight, recheck blood gas in the morning to ensure that he is safe to go home. 2. Probable underlying chronic obstructive pulmonary disease, likely the cause of the severe hypertension seen on echocardiogram. Recommend adding Spiriva, ambulating with oximetry to be ascertain oxygen requirements. At this point in time there is some evidence of bronchiectasis and CT scan, although mild. 3. Severe pulmonary hypertension. Treatment would be aimed at treatment of his underlying lung disease. He should followup in the office. He has appointment with me on March 28. Will at that time perform lung function testing. 4. Nicotine dependence. Extensive counseled on the need to quit smoking. He expresses understanding and will continue his efforts towards smoking cessation. He plans on using nicotine patches. Thank you for this consultation. JOSE FRANCISCO
[2017-03-14] MEDS ORDERED: SLF 3 ML SYR IV PRN (20:00)
[2017-03-14] MEDS: SLF 3 ML SYR IV SCH (21:35)
[2017-03-15 00:10] VITALS: BP 127/75
[2017-03-15 04:20] VITALS: BP 136/83
[2017-03-15] MEDS: SLF 3 ML SYR IV SCH ×2 (05:53→14:00)
[2017-03-15 06:15] LABS: ABG BASE EXCESS 5.2 (-2.0-2.0); ABG HCO3 33.3 MEQ/L (22.0-26.0); ABG PARTIAL PRESSURE O2 63.5 mmHg (75.0-100.0); ABG TOTAL CO2 35.3 MEQ/L (22.0-29.0); ABG pH (ARTERIAL) 7.335 UNITS (7.350-7.450)
[2017-03-15 06:18] LABS: ABG PARTIAL PRESSURE CO2 63.9 mmHg (35.0-45.0)
[2017-03-15 06:34] LABS: MEAN CORPUSCULAR VOLUME 103.5 fl (80.0-96.0); PLATELET COUNT, AUTOMATED 150 k/mm3 (150-450); RED CELL DISTRIBUTION WIDTH 15.9 % (11.5-14.5); WHITE BLOOD COUNT 4.5 K/mm3 (4.0-10.0)
[2017-03-15 06:42] LABS: ALBUMIN 2.3 GM/DL (3.2-5.2); ALKALINE PHOSPHATASE 102 U/L (45-117); ALT/SGPT 55 U/L (12-78); ANION GAP 1 MEQ/L (8-16); AST/SGOT 43 U/L (15-37); BILIRUBIN,TOTAL 0.6 MG/DL (0.2-1.0); BLOOD UREA NITROGEN 17 MG/DL (7-18); CALCIUM LEVEL 8.7 MG/DL (8.5-10.1); CARBON DIOXIDE LEVEL 35 MEQ/L (21-32); CHLORIDE LEVEL 104 MEQ/L (98-107); CREATININE FOR GFR 0.62 MG/DL (0.70-1.30); GLOMERULAR FILTRATION RATE > 60.0 (>56); GLUCOSE, FASTING 97 MG/DL (70-105); POTASSIUM SERUM 4.3 MEQ/L (3.5-5.1); SODIUM LEVEL 140 MEQ/L (136-145); TOTAL PROTEIN 6.9 GM/DL (6.4-8.2)
[2017-03-15 07:18] LABS: EOSINOPHILS 3 % (0-5)
[2017-03-15 07:20] LABS: ANISOCYTOSIS 1+; HYPOCHROMASIA 2+
[2017-03-15 07:55] VITALS: BP 142/91
[2017-03-15] MEDS: IPRATROPIUM 0.5MG/ALBUTEROL 2.5MG INH SOL UD 3ML (DUONEB)(J7620) INH SCH ×2 (08:00→11:11)
[2017-03-15] MEDS: TIOTROPIUM INHALER/CAPSULE (SPIRIVA) INH SCH (08:34)
[2017-03-15] MEDS: ADVAIR HFA 230/21 INHALER INH SCH (08:35)
[2017-03-15 08:56] VITALS: BP 142/91
[2017-03-15] MEDS: LISINOPRIL *2.5 MG* TAB PO SCH (08:56)
[2017-03-15] MEDS: NICOTINE 7 MG/24 HR TRANSDERMAL TD SCH (08:56)
[2017-03-15] MEDS: ENOXAPARIN 40 MG/0.4 ML SYRINGE (J1650) SC SCH (08:56)
[2017-03-15] MEDS ORDERED: LASI40TA PO (13:03)
[2017-03-15] MEDS ORDERED: NICO7PA TD (13:03)
[2017-03-15] MEDS ORDERED: ALBU17IN INH (14:09)
[2017-03-15] MEDS ORDERED: BREO1INH3 INH (14:09)
[2017-03-15] MEDS ORDERED: COMBAER6 INH (14:09)
[2017-03-15] MEDS ORDERED: SPIR25TA2 PO (14:09)
--- NOTE | 2017-03-15 19:06 | DSES ---
DATE OF ADMISSION: 03/09/2017 DATE OF DISCHARGE: 03/15/2017 PRIMARY CARE PROVIDER: Gabriel Portillo, in Dr. Donahue's office. CONSULTANTS: Dermatology Procedural Physician, Dr. Griffin Reina. PROCEDURES: None. COMPLICATIONS: None. ADMISSION/DISCHARGE DIAGNOSES: 1. Acute decompensated diastolic heart failure. 2. Severe pulmonary hypertension. 3. Severe tricuspid regurgitation. 4. Acute chronic obstructive pulmonary disease (COPD) exacerbation with acute hypoxic hypercapnic respiratory failure. 5. Metabolic alkalosis. 6. Hepatocellular disease. 7. Sinus tachycardia. HOSPITALIZATION COURSE: Patient is a 61-year-old male, presented to [facility] on 03/09/2017 for worsening shortness of breath. Patient was diagnosed with acute on chronic diastolic congestive heart failure exacerbation. Patient was started on Lasix. Patient was also started on bilevel positive airway pressure (BiPAP) for hypoxic hypercapnic respiratory failure. Later on, patient developed metabolic alkalosis secondary to Lasix diuresis and Lasix was discontinued. Patient was started on Diamox. With diuresis, patient had significant fluid output during hospitalization. Patient had approximately more than 8 liters of fluid negative output. On 03/10/2017, fibreglass lay up worker, Dr. Griffin Reina, consulted and patient was weaned off the bilevel positive airway pressure (BiPAP). On 03/15/2017, patient was cleared by the fibreglass lay up worker for discharge; however, at rest, patient does have a satisfactory oxygen saturation. During any type of exertion, patient does have acute oxygen desaturation; therefore, a prescription for portable oxygen was given to the patient and diuretic regimen was being adjusted. Patient was recommended to follow up with his primary care provider within one week. Patient will follow with fibreglass lay up worker, Dr. Griffin Reina, on 03/18/2017. VITAL SIGNS: Temperature 97.9, pulse 96, respirations 18, blood pressure 142/91, pulse oximetry 94% with 2 liters nasal cannula. LABORATORY DATA: WBC 4.5, hemoglobin 14.8, hematocrit 42.1, platelet count 150. Sodium 140, potassium 4.3, chloride 104, carbon dioxide 35, BUN 17, creatinine 0.62, GFR greater than 60, fasting glucose 97, calcium 8.7, magnesium 2. Total bilirubin 0.6, AST 43, ALT 55, alkaline phosphatase 02, albumin 2.3, total protein 6.9. On admission, arterial blood gas (ABG) showed pH of 7.247, pCO2 of 99.2, pO2 of 94.9, HCO3 of 42.5. On the day of discharge, ABG showed pH of 7.335, pCO2 is 63.9, pO2 is 63.5, HCO3 is 33.3. IMAGING STUDIES: Lower extremity bilateral Doppler on 03/09/2017 showed no evidence of deep venous thrombosis (DVT). CT angiogram of the chest done on 03/10/[address] evidence of pulmonary embolism (PE), mild perihepatic ascites. DISCHARGE MEDICATIONS: - Lasix 40 mg by mouth daily - Nicotine patch transdermal daily - Ventolin two puffs inhalation four times a day as needed for shortness of breath - Combivent two puffs inhalation four times a day - Breo one inhalation daily - spironolactone 25 mg by mouth daily DISCHARGE INSTRUCTIONS: Discharge lines. Discharge home. Activity as tolerated. Wear mask during exertions. Patient should follow with primary care provider, Gabriel Portillo, in Dr. Donahue's office within one week. Patient should follow with fibreglass lay up worker, Dr. Griffin Reina, on 03/28/2017. DISCHARGE CONDITION: Stable. DISCHARGE TIME: Greater than 30 minutes.
== END 2017-03-15 14:28 | disposition home or self-care (01) | DRG 194 ==
LOC: M ED 16:05 → M ED INP 18:27 → M ICU 20:17 → M PCU 03-14 13:20
PROVIDERS: ADMIT Hospitalist; ATTEND Internal Medicine
DX: I50.33 Acute on chronic diastolic (congestive) heart failure (principal); J96.01 Acute respiratory failure with hypoxia; J96.02 Acute respiratory failure with hypercapnia; E87.2 Acidosis; I27.2 Other secondary pulmonary hypertension; I36.0 Nonrheumatic tricuspid (valve) stenosis; J44.1 Chronic obstructive pulmonary disease with (acute) exacerbation; Z79.899 Other long term (current) drug therapy; R00.0 Tachycardia, unspecified; K76.9 Liver disease, unspecified; F17.200 Nicotine dependence, unspecified, uncomplicated; E87.5 Hyperkalemia

== ENCOUNTER → 2017-04-01 | Outpatient (CLI) | payer OTHER ==
[~2017-04-01] MED LIST changes: +BREO1INH3 INH; +NICO7PA TD; +SPIR25TA2 PO
[2017-04-01 18:15] LABS: ANION GAP 3 MEQ/L (8-16); BLOOD UREA NITROGEN 10 MG/DL (7-18); CALCIUM LEVEL 9.3 MG/DL (8.5-10.1); CARBON DIOXIDE LEVEL 41 MEQ/L (21-32); CHLORIDE LEVEL 98 MEQ/L (98-107); CREATININE FOR GFR 0.96 MG/DL (0.70-1.30); GLOMERULAR FILTRATION RATE > 60.0 (>56); GLUCOSE, FASTING 89 MG/DL (70-105); POTASSIUM SERUM 4.5 MEQ/L (3.5-5.1); SODIUM LEVEL 142 MEQ/L (136-145)
== END ==
LOC: M SMT 13:36
PROVIDERS: ATTEND Physician Assistant
DX: I50.22 Chronic systolic (congestive) heart failure (principal)

== ENCOUNTER 2017-09-25 14:05 | Inpatient (IN) | payer OTHER ==
[~2017-09-25] VITALS: Ht 162.6 cm; Wt 66.5 kg
[~2017-09-25 14:05] MED LIST changes: -PRED10TA OR; +PRED10TA2 OR
[2017-09-25] MEDS ORDERED: SPIR12.9 (14:16)
[2017-09-25] MEDS ORDERED: LOSA25TA8 (14:16)
[2017-09-25] MEDS ORDERED: ALBUTEROL SULFATE 2.5 MG/0.5 ML INH NEB SOLN As Ordered ONE (14:40)
[2017-09-25] MEDS ORDERED: ALBUTEROL SULFATE 2.5 MG/0.5 ML INH NEB SOLN NEB ONE (14:45)
[2017-09-25] MEDS ORDERED: IPRATROPIUM 0.5MG/ALBUTEROL 2.5MG INH SOL UD 3ML (DUONEB)(J7620) NEB ONE ×2 (14:45→15:30)
[2017-09-25] MEDS ORDERED: methylPREDNISolone INJ 125 MG/2 ML VIAL (J2930) IV ONE (14:45)
[2017-09-25 14:59] LABS: MEAN CORPUSCULAR HEMOGLOBIN 29.2 pg (27.0-33.0); MEAN CORPUSCULAR HGB CONC 30.4 g/dl (32.0-36.5); MEAN CORPUSCULAR VOLUME 96.2 fl (80.0-96.0); PLATELET COUNT, AUTOMATED 250 10^3/uL (150-450); RED CELL DISTRIBUTION WIDTH 13.6 % (11.5-14.5)
[2017-09-25 15:09] LABS: ABG BASE EXCESS 5.5 (-2.0-2.0); ABG HCO3 35.1 MEQ/L (22.0-26.0); ABG PARTIAL PRESSURE O2 57.5 mmHg (75.0-100.0); ABG STANDARD HCO3 29.1 MEQ/L (22.0-26.0); ABG TOTAL CO2 37.4 MEQ/L (23.0-31.0); ABG pH (ARTERIAL) 7.285 UNITS (7.350-7.450)
[2017-09-25 15:11] LABS: ADD MANUAL DIFFER YES; DIFF SLIDE NUMBER 121; POS COUNT POS FLAG; POSITIVE DIFF POS FLAG; WHITE BLOOD COUNT 31.2 10^3/uL (4.0-10.0)
[2017-09-25 15:13] LABS: ALBUMIN 2.7 GM/DL (3.2-5.2); ALKALINE PHOSPHATASE 222 U/L (45-117); ALT/SGPT 16 U/L (12-78); ANION GAP 7 MEQ/L (8-16); AST/SGOT 28 U/L (7-37); BILIRUBIN,DIRECT < 0.1 MG/DL (0.0-0.2); BILIRUBIN,TOTAL 0.3 MG/DL (0.2-1.0); BLOOD UREA NITROGEN 16 MG/DL (7-18); CALCIUM LEVEL 8.7 MG/DL (8.8-10.2); CARBON DIOXIDE LEVEL 34 MEQ/L (21-32); CHLORIDE LEVEL 94 MEQ/L (98-107); CREATININE FOR GFR 1.39 MG/DL (0.70-1.30); GLOMERULAR FILTRATION RATE 55.5 (>49); GLUCOSE, FASTING 178 MG/DL (80-110); POTASSIUM SERUM 4.4 MEQ/L (3.5-5.1); SODIUM LEVEL 135 MEQ/L (136-145); THYROXINE (T4) 10.8 UG/DL (4.5-12.0); TOTAL PROTEIN 9.4 GM/DL (6.4-8.2)
[2017-09-25 15:13] LABS: ABG PARTIAL PRESSURE CO2 75.6 mmHg (35.0-45.0)
[2017-09-25 15:24] LABS: BANDS 10 % (< 11)
[2017-09-25] MEDS ORDERED: CEFTRIAXONE SOD 1 GM in APPROPRIATE DILUENT 1 EA IV ONE (15:30)
[2017-09-25] MEDS ORDERED: ALBUTEROL SULFATE 2.5 MG/0.5 ML INH NEB SOLN INH ONE (15:30)
[2017-09-25] MEDS ORDERED: AZITHROMYCIN INJ 500 MG, VIAL MATE ADAPTER 1 EACH in D5W 250 ML IV ONE (15:30)
[2017-09-25] MEDS ORDERED: ONDANSETRON 4MG/2ML VIAL (J2405) IV PRN (16:00)
[2017-09-25] MEDS ORDERED: ACETAMINOPHEN TAB 650MG DOSE (2X325MG) PO PRN (16:00)
[2017-09-25] MEDS ORDERED: FUROSEMIDE 100 MG/10 ML VIAL (J1940) IV ONE (16:00)
--- NOTE | 2017-09-25 16:04 | REP ---
Portable chest, 03:02 p.m., single AP view the patient semi upright: Comparison is 03/09/2017. There is diffuse interstitial coarsening as an interval change compatible with vascular engorgement. The central pulmonary arteries are enlarged, unchanged, compatible with pulmonary hypertension. There are no focal infiltrates. No pleural effusions. Cardiac size is normal. Mediastinum and bony thorax are. Impression: Pulmonary vascular engorgement. Possible chronic pulmonary hypertension. Signed by Orville Hidalgo MD 09/25/2017 03:56 P
--- NOTE | 2017-09-25 16:27 | REP ---
CT of the chest without IV contrast: Comparison is 03/10/2017. There is a tree in bud pattern throughout the lung doan bilaterally, not present previously, compatible with diffuse pneumonitis. There are no focal infiltrates. There are no effusions. There are borderline enlarged mediastinal nodes measuring up to 8 mm short axis. There is no axillary adenopathy. In the absence of IV contrast the study is insensitive for hilar adenopathy. The thoracic aorta is unremarkable. Cardiac size is normal. There is no pericardial effusion. The visualized unenhanced upper abdominal contents are unremarkable except for nonobstructive left renal calculi in the left renal pelvis. Impression: Findings are compatible with diffuse bilateral pneumonitis. There are no pleural effusions. No focal infiltrate. Borderline mediastinal adenopathy. Nonobstructive left renal calculi. Signed by Orville Hidalgo MD 09/25/2017 04:17 P
[2017-09-25] MEDS ORDERED: LEVALBUTEROL 1.25 MG/0.5 ML CONCENTRATE NEB INH PRN (16:30)
[2017-09-25] MEDS ORDERED: SPIR12.9 INH (16:37)
[2017-09-25] MEDS ORDERED: LOSA25TA8 PO (16:37)
[2017-09-25] MEDS ORDERED: BREO1INH3 INH (16:37)
[2017-09-25] MEDS ORDERED: FURO40TA2 PO (16:37)
[2017-09-25] MEDS ORDERED: COMBAER6 INH (16:37)
[2017-09-25] MEDS ORDERED: SPIR25TA2 PO (16:37)
[2017-09-25] MEDS ORDERED: NICODIS TD (16:37)
[2017-09-25] MEDS ORDERED: VENTAER INH (16:37)
--- NOTE | 2017-09-25 16:43 | PHACANCOPD ---
PHARMACY VANCOMYCIN DOSING Pt Demographics Demographics Patient Age:62 , Weight:61.36 , Gender: male Adjusted Body Weight Date: 09/25/17, Adjusted Body Weight: Kg Events Past 24 Hours Events Past 24 Hours: NO: Dialysis, Diuretic Therapy, Change in CrCl, Fever, Elevation in WBC, Pending Diagnostics, Pending Procedures, Other Vancomycin Vancomycin indication: SEPSIS, RESPIRATORY INFECTION Vancomycin Target Ranges: 10-20 mcg/ml Vancomycin Load Y/N: Yes Load Dose Date Time Vancomycin Load Dose: 1.5G Date: 09/25/17 Time: 1800 Vancomycin Dose Date: 09/25/17. Current Vancomycin Dose: [1G IV Q24H] Intermittent Dosing?: No Labs Labs Item Value Date Time White Blood Count 31.2 10^3/uL *H 09/25/17 1433 Creatinine 1.39 MG/DL H 09/25/17 1433 Micro Microbiology 09/25/17 Blood Culture, Received Pending 09/25/17 Influenza Virus Type A Antigen - Final, Resulted 09/25/17 Influenza Virus Type B Antigen - Final, Resulted 09/25/17 Respiratory Virus Panel (PCR) ([facility]), Resulted Pending Creatinine Clearance Date:09/25/17. Creatinine Clearance: [47.32ML/MIN]. Assessment and Plan Maintaining Current Dose?: Yes Reason for dose change: No Dose Change Pharmacist Note Pharmacist Note Date: 09/25/17. Pharmacist note: PT is a 62 year old male being treated for sepsis and respiratory infection goal trough 10-20mcg/ml. The patient has not been treated with vancomycin here at [facility] in the past. To achieve go a 1.5g loading dose is scheduled tonight at 18:00. Maintenance therapy will consist of 1g iv q24h starting 09/26 @ 1800. We will continue to monitor and adjust dose as needed. NEHA GARCIA PHARMACY Sep 25, 2017 16:43
[2017-09-25] MEDS ORDERED: PIPERACILLIN/TAZOBACTAM SOD 3.375 GM in APPROPRIATE DILUENT 1 EA IV SCH (17:00)
[2017-09-25] MEDS ORDERED: NS 1,000 ML IV SCH (17:00)
[2017-09-25 17:42] VITALS: BP 124/66
--- NOTE | 2017-09-25 17:52 | HPE ---
DATE OF ADMISSION: 09/25/2017 PRIMARY CARE PROVIDER: Unknown. DEMOLITION SPECIALIST: Dr. Griffin Renia CHIEF COMPLAINT: Shortness of breath. HISTORY OF PRESENT ILLNESS: This is a 61-year-old male with a history of chronic obstructive pulmonary disease (COPD), end stage, on home oxygen 2 liters , cor pulmonale with severe pulmonary hypertension, grade 1 diastolic dysfunction with ejection fraction of 70% with severe tricuspid regurgitation, PA pressure of 104 mmHg from recent echo read by Dr. Adames on 04/08/2017, who presents to the emergency room with a several day history of worsening shortness of breath, which was first noted about 3 days ago when he was at home drinking eggnog, when he developed severe shortness of breath limiting his ambulation. The patient had progressive symptoms despite nebulizer treatments. He had green sputum production, which is different from his usual. Despite oxygen supplementation, the patient had no relief of symptoms. The had no relief of symptoms. He has also noticed increase in lower extremity edema, but has not had any weight gain, usually runs about 133 to 135 count. He admits to compliance with his medications and inhalers, as well as fluid restriction and salt and water intake. He denies any fevers, chills, nausea, vomiting, diarrhea, recent antibiotic use or steroid use. He usually follows with pulmonology and Dr. Millard as an outpatient. Previous admission in March 2017 was secondary to severe COPD exacerbation with cor pulmonale with vascular congestion causing transaminitis. The patient denies any recent sick contacts, recent travel. No changes in his medications. In the emergency room, he was found to be tachycardic, ventricular rate of 130, hypoxic 89% [place] [address]. Chest x-ray showing pulmonary congestion and pulmonary vascular engorgement. Possible chronic pulmonary hypertension with BNP level of 13,000. The patient's lactic acid was elevated at 4, creatinine 1.39. The hospitalist service was called for admission for severe respiratory distress. PAST MEDICAL HISTORY: 1. Cor pulmonale. 2. COPD. 3. Grade 1 diastolic dysfunction with ejection fraction of 70%. 4. Tricuspid regurgitation. 5. Severe pulmonary hypertension, PA pressure of 104 mmHg. PAST SURGICAL HISTORY: 1. Hernia repair. 2. Appendectomy. FAMILY HISTORY: Mother alive at age 86 from [place]. Father . SOCIAL HISTORY: The patient smoked a pack a day since age 14. Currently smoking five to six cigarettes a day. 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 Denies alcohol or drug use. ALLERGIES: No known drug allergies. HOME MEDICATIONS: - albuterol two puffs inhaled four times a day as needed - Combivent two puffs four times a day as needed - Lasix 40 mg twice a day - losartan 25 mg twice a day - nicotine 21 mg daily - spironolactone 25 mg daily - Breo Ellipta one inhalation daily - Spiriva one puff twice a day REVIEW OF SYSTEMS: Per history of present illness. 12-point system otherwise negative. PHYSICAL EXAMINATION: Temperature 99.7, pulse 121, respiratory rate 24, blood pressure 127/76, 93% on 3 liters nasal cannula. GENERAL: The patient is in severe distress, uses respiratory accessory muscles. Three to four word conversational dyspnea. No tracheal deviation. Dry mucous membranes. LUNGS: Diminished. Bilateral coarse breath sounds. Prolonged expiration. HEART: S1, S2. Sinus tachycardia. Left lower sternal borders systolic ejection murmur. ABDOMEN: Soft, nontender, nondistended. Positive bowel sounds. EXTREMITIES: 2+ pitting edema. LABORATORY DATA: White count 31.2, hemoglobin 14, hematocrit 48, platelet count 250, 78% neutrophils, 10 bands. Sodium 135, potassium 4.4, chloride 94, bicarbonate 34, BUN 16, creatinine 1.39, glucose 178, lactic acid of 4, calcium 8.7, total bilirubin 0.3, direct bilirubin less than 0.1, AST 28, ALT 16, alkaline phosphatase 222, total CK 144, MB fraction 2.8, relative index 1.94, troponin 0.19. Pro BNP 53078. TSH 0.299. Respiratory panel, influenza A and B are negative. Blood culture pending. Chest x-ray showing pulmonary vascular engorgement, possible chronic pulmonary hypertension. CT of the chest with diffuse bilateral pneumonitis. No focal infiltrate. Borderline mediastinal adenopathy. Nonobstructive left renal calculi. Tree and bud pattern throughout the lung doan bilaterally. ASSESSMENT AND PLAN: This is a 62-year-old male with a history of end stage chronic obstructive pulmonary disease (COPD), home oxygen 2 liters at home as needed, history of grade 1 left ventricular diastolic dysfunction, ejection fraction of 70%, severe pulmonary hypertension, PA pressure of 104 mmHg, severe tricuspid regurgitation, actively smoking five to six cigarettes a day. Previously admitted 03/09/2017, 12/03/2016 for similar episodes, presents with complaints of worsening shortness of breath since Tuesday, found to have bilateral pneumonitis, hypoxia, oxygen saturation 89% on room air, tachycardic with white count of 30,000 and complains of green sputum production. The patient will be admitted as an inpatient for two midnights, assigned to Dr. Tanya Cole for the following issues: 1. Sepsis. The patient has a white count of 31,000, no recent antibiotic use, no complaints of diarrhea. No recent steroid use. He is currently afebrile. Complained of green sputum production concerning for possible pseudomonas. He continues to be hypoxic at the bedside and has been given ceftriaxone and azithromycin by the emergency room. I would like to extend this for broader spectrum, particularly to cover pseudomonad, therefore, Zosyn has been given. Vancomycin for possible methicillin resistant Staphylococcus aureus (MRSA). Respiratory panel, sputum and urine. Streptococcal antigen. Azithromycin to cover atypical. The patient's blood gas is concerning with a pH of 7.2 and CO2 of 75.6. Therefore, I have discussed this case with Dr. Ferrer. We will repeat the blood gas and decide whether the patient requires a trial of BiPAP at this time with lactic acidosis, increased white count, concern for infection despite respiratory distress, we will do a trial of fluids. He did receive a dose of Lasix earlier on due to worsening distress and history of sammi pulmonale with 2 to 3+ pitting edema in the lower extremities, which is most likely chronic. In light of the renal failure, lactic acidosis, increased white count, we will try fluids. Dairy Husbandman, Dr. Liam Rose, has been consulted for fluid management in light of the patient's respiratory issues to prevent fluid overload and cor pulmonale exacerbation. 2. History of cor pulmonale secondary to end stage COPD and severe pulmonary hypertension with PA pressure of 104 mmHg on recent echo on 04/08/2017, read by Dr. Randolph Adames, severe tricuspid regurgitation. The patient will be treated for COPD exacerbation with Solu-Medrol and nebulizer treatments, supplemental oxygen. 3. COPD exacerbation. The patient is on steroids, nebulizers, Spiriva, supplemental oxygen. BiPAP if needed if the patient continues to have significant respiratory acidosis with CO2 elevation due to CO2 retention or if the patient develops increased obtundation. 4. Active smoking. Tobacco cessation counseling. Nicotine patch as needed. 5. Cor pulmonale. Despite 2+ pitting edema in the lower extremities and elevated BNP, the patient appears to be infected with elevated white count, lactic acidosis and therefore we have covered him with antibiotics. Therefore, we will try fluid hydration for now. Monitor his respiratory status and defer to Dr. Liam Rose for any changes in fluid management. 6. Hypothyroidism with low TSH. Normal T4. Monitor for now. 7. Deep vein thrombosis (DVT) prophylaxis with Lovenox. 8. Active smoking. Tobacco cessation counseling, nicotine patch. The patient will be assigned to Dr. Tanya Cole at 7:00 p.m. on 09/25/2017. JOSE FRANCISCO
[2017-09-25] MEDS: VANCOMYCIN HCL 1,000 MG, VIAL MATE ADAPTER 1 EACH in D5W 250 ML IV SCH (18:03)
[2017-09-25] MEDS: NICOTINE 21MG/24HR 1 EA TRANSDERMAL TD SCH (18:03)
--- NOTE | 2017-09-25 19:10 | REPUSA ---
Clinical history: Pain, swelling. Findings: The common femoral, superficial femoral, popliteal, and other deep venous structures compre ss normally and demonstrate normal color Doppler flow. Normal venous waveforms with augmentation are seen. Impression: No evidence of deep vein thrombosis in the femoral popliteal venous system.
--- NOTE | 2017-09-25 19:44 | ECGEPIP ---
Stationary ECG Study [facility] - ED Test Date: 2017-09-25 Pat Name: TRINY AMOR Department: Room: - Gender: M Internal Investigator: LIA : [id number] Requested By: Lorie Pitt Order Number: [id number] Reading MD: Lorie Pitt Measurements Intervals [place] Rate: 137 P: 72 NH: 108 QRS: 139 QRSD: 86 T: 80 QT: 363 QTc: 550 Interpretive Statements SINUS TACHYCARDIA WITH SHORT NH INTERVAL PATTERN CONSISTENT WITH PULMONARY DISEASE RIGHT VENTRICULAR HYPERTROPHY AND ST T CHANGES RAD CW 03/12/[address] T WAVE CHANGES Electronically Signed On 09-25-2017 19:44:27 EST by Lorie Pitt
[2017-09-25 20:00] VITALS: BP 125/73
[2017-09-25] MEDS ORDERED: VANCOMYCIN HCL 500 MG in D5W MINI-BAG PLUS 100 ML IV ONE (20:00)
[2017-09-25] MEDS ORDERED: LEVALBUTEROL 1.25 MG/0.5 ML CONCENTRATE NEB INH SCH (20:00)
[2017-09-25 20:52] VITALS: O2SAT 93
[2017-09-25] MEDS: methylPREDNISolone INJ 125 MG/2 ML VIAL (J2930) IV SCH (21:03)
[2017-09-25] MEDS: PIPERACILLIN/TAZOBACTAM SOD 3.375 GM in APPROPRIATE DILUENT 1 EA IV SCH (21:04)
[2017-09-25] MEDS: ENOXAPARIN 40 MG/0.4 ML SYRINGE (J1650) SC SCH (21:04)
[2017-09-25] MEDS: LACTOBACILLUS ACIDOPHILUS CAP (BACID) PO SCH (21:04)
[2017-09-25] MEDS ORDERED: IPRATROPIUM 0.5MG/ALBUTEROL 2.5MG INH SOL UD 3ML (DUONEB)(J7620) NEB PRN (21:15)
[2017-09-25 23:12] LABS: ABG BASE EXCESS 6.9 (-2.0-2.0); ABG HCO3 36.9 MEQ/L (22.0-26.0); ABG PARTIAL PRESSURE CO2 79.7 mmHg (35.0-45.0); ABG PARTIAL PRESSURE O2 66.7 mmHg (75.0-100.0); ABG STANDARD HCO3 30.6 MEQ/L (22.0-26.0); ABG TOTAL CO2 39.3 MEQ/L (23.0-31.0); ABG pH (ARTERIAL) 7.283 UNITS (7.350-7.450)
[2017-09-26] VITALS (7 sets, daily range): BP systolic 128–158; BP diastolic 65–78; O2SAT 95
[2017-09-26] MEDS: IPRATROPIUM 0.5MG/ALBUTEROL 2.5MG INH SOL UD 3ML (DUONEB)(J7620) NEB SCH ×7 (00:33→23:05)
[2017-09-26 00:36] LABS: ANION GAP 1 MEQ/L (8-16); BLOOD UREA NITROGEN 19 MG/DL (7-18); CARBON DIOXIDE LEVEL 40 MEQ/L (21-32); CHLORIDE LEVEL 94 MEQ/L (98-107); CREATININE FOR GFR 1.21 MG/DL (0.70-1.30); GLOMERULAR FILTRATION RATE > 60.0 (>49); GLUCOSE, FASTING 320 MG/DL (80-110); POTASSIUM SERUM 3.9 MEQ/L (3.5-5.1); SODIUM LEVEL 135 MEQ/L (136-145)
[2017-09-26] MEDS: methylPREDNISolone INJ 125 MG/2 ML VIAL (J2930) IV SCH ×4 (03:39→20:54)
[2017-09-26] MEDS: PIPERACILLIN/TAZOBACTAM SOD 3.375 GM in APPROPRIATE DILUENT 1 EA IV SCH ×4 (03:39→20:54)
[2017-09-26 04:52] LABS: BASO % 0.1 % (0.0-1.0); IMMATURE GRANULOCYTE % 0.8 % (0-0); LYMPH # 1.2 10^3/uL (1.5-4.5); LYMPH % 4.4 % (24.0-44.0); MEAN CORPUSCULAR HEMOGLOBIN 29.7 pg (27.0-33.0); MEAN CORPUSCULAR HGB CONC 31.4 g/dl (32.0-36.5); MEAN CORPUSCULAR VOLUME 94.5 fl (80.0-96.0); MONO # 0.7 10^3/uL (0.0-0.8); MONO % 2.7 % (0.0-5.0); NEUTROPHILS # 24.8 10^3/uL (1.8-7.7); PLATELET COUNT, AUTOMATED 232 10^3/uL (150-450); RED CELL DISTRIBUTION WIDTH 13.5 % (11.5-14.5); WHITE BLOOD COUNT 26.9 10^3/uL (4.0-10.0)
[2017-09-26 05:12] LABS: ANION GAP 5 MEQ/L (8-16); BLOOD UREA NITROGEN 17 MG/DL (7-18); CALCIUM LEVEL 8.9 MG/DL (8.8-10.2); CARBON DIOXIDE LEVEL 36 MEQ/L (21-32); CHLORIDE LEVEL 95 MEQ/L (98-107); CREATININE FOR GFR 1.07 MG/DL (0.70-1.30); GLOMERULAR FILTRATION RATE > 60.0 (>49); GLUCOSE, FASTING 268 MG/DL (80-110); POTASSIUM SERUM 4.5 MEQ/L (3.5-5.1); SODIUM LEVEL 136 MEQ/L (136-145)
[2017-09-26] MEDS: TIOTROPIUM INHALER/CAPSULE (SPIRIVA) INH SCH (07:56)
[2017-09-26] MEDS: NICOTINE 21MG/24HR 1 EA TRANSDERMAL TD SCH (09:03)
[2017-09-26] MEDS: LACTOBACILLUS ACIDOPHILUS CAP (BACID) PO SCH ×2 (09:03→20:54)
--- NOTE | 2017-09-26 16:04 | IPNPDOC ---
Subjective Date Seen The patient was seen on 09/26/17. Subjective Chief Complaint/HPI The patient is a 62-year-old male admitted with a reason for visit of Acute Respiratory Distress. Events since last encounter Mr. Shane is sitting upright in the hospital bed when I entered the room. He does not appear to be in any acute distress. He is not using respiratory muscles for breathing. His speech is nonlabored. He indicates that he is feeling much better today, however he does continue to cough and wheeze. Otherwise, he denies any chest pain, discomfort, palpitations 80. He does admit to some shortness of breath with exertion, however they have not let him do much since he is here in the ICU. Otherwise, he has no additional complaints. General: Reports: Normal Appetite, Denies: Fatigue, Malaise Constitutional: Denies: Chills, Fever, Night Sweats ENT: Denies: Head Aches, Sore Throat Skin: Denies: Rash, Lesions, Bruising Pulmonary: Reports: Dyspnea, Cough Cardiovascular: Denies: Chest Pain, Palpitations, Edema Gastrointestinal: Denies: Nausea, Vomiting, Abdominal Pain, Diarrhea, Constipation Neurological: Denies: Weakness Objective Physical Examination General Exam: Positive: Alert, Cooperative, No Acute Distress Eye Exam: Positive: Conjunctiva & lids normal, EOMI, Negative: Sclera icteric, Ptosis Chest Exam: Positive: Clear to auscultation, Normal air movement, Rhonchi (fine ), Wheezing Heart Exam: Positive: Rate Normal, Negative: Gallops, Murmurs, Rubs Abdomen Exam: Positive: Normal bowel sounds, Soft, Negative: Tenderness, Hepatospenomegaly Extremity Exam: Positive: Normal pulses, Negative: Clubbing, Cyanosis, Edema Skin Exam: Positive: Nl turgor and temperature, Negative: Rash Neuro Exam: Positive: Normal Speech, Cranial Nerves 3-12 NL Psych Exam: Positive: Mental status NL, Mood NL, Oriented x 3 Assessment /Plan Problems (1) Sepsis Status: Acute (2) Acute respiratory failure with hypercapnia Status: Acute (3) Pneumonia Status: Acute (4) Dyspnea Status: Acute (5) Cor pulmonale Status: Chronic (6) Tobacco use Status: Chronic (7) COPD (chronic obstructive pulmonary disease) Status: Chronic (8) CHF (congestive heart failure) Status: Chronic (9) Low TSH level Status: Acute Plan/VTE VTE Prophylaxis Ordered?: Yes Plan Respiratory panel has returned indicating coronavirus and human rhinovirus/ enterovirus. I suspect that his pneumonia and acute respiratory distress is secondary to this viral pathogen, however given his septic presentation we will continue antibiotics until cultures return. It is my plan to discontinue vancomycin if his MRSA screen is negative, and then we can discontinue Zosyn and azithromycin if sputum is negative. 24-hour preliminary blood culture is negative. Leukocytosis is trending down however it is still significantly elevated although must be remembered that he is currently on steroids as well. His respiratory status does appear to be improving, he has also diuresed to a net negative a 1 L so far. Today I do believe that he appears euvolemic. His ABG would indicate a chronic respiratory acidosis with a chronic metabolic alkalosis, and he does appear to be close to his baseline at this time, and clinically his picture would support this as well, since he is sitting comfortably on only 2 L nasal cannula. We will transfer him out of the ICU and into the PCU at this time, such that we may be able to continue to monitor him on telemetry, but he does not appear to be in such critical condition as when he arrived. VS, I&O, 24H, Fishbone Vital Signs/I&O Vital Signs Date Time Temp Pulse Resp B/P (MAP) Pulse Ox O2 Delivery O2 Flow Rate FiO2 09/26/17 15:32 93 17 09/26/17 15:30 Nasal Cannula 2.0 09/26/17 15:28 88 09/26/17 15:25 99.8 158/78 (104) I&O- Last 24 Hours up to 6 AM 09/27/17 06:00 Intake Total 1080 ml Output Total 800 ml Balance 280 ml Laboratory Data 24H LABS Laboratory Tests 2 09/25/17 17:00: 09/25/17 18:53: 09/25/17 18:54: Lactic Acid Followup at 4 Hours 1.9 09/25/17 23:06: Blood Gas Bicarbonate Standard 30.6H, Arterial Blood pH 7.283L, Arterial Blood Partial Pressure CO2 79.7*H, Arterial Blood Partial Pressure O2 66.7L, Arterial Blood Total CO2 39.3H, Arterial Blood HCO3 36.9H, Arterial Blood Base Excess 6.9H, Arterial Blood Oxygen Saturation 91.8L 09/26/17 00:03: Anion Gap 1L, Glomerular Filtration Rate > 60.0, Blood Urea Nitrogen 19H, Creatinine 1.21, Sodium Level 135L, Potassium Level 3.9, Chloride Level 94L, Carbon Dioxide Level 40H, Calcium Level 9.0, Total Creatine Kinase 90, Creatine Kinase MB 3.6, Creatine Kinase MB Relative Index 4.00, Troponin I 0.23#H 09/26/17 04:44: Anion Gap 5L, Glomerular Filtration Rate > 60.0, Blood Urea Nitrogen 17, Creatinine 1.07, Sodium Level 136, Potassium Level 4.5, Chloride Level 95L, Carbon Dioxide Level 36H, Calcium Level 8.9, Total Creatine Kinase 80, Creatine Kinase MB 3.8H, Creatine Kinase MB Relative Index 4.75H, Troponin I 0.24H, Immature Granulocyte % (Auto) 0.8H, White Blood Count 26.9H, Red Blood Count 4.72, Hemoglobin 14.0, Hematocrit 44.6, Mean Corpuscular Volume 94.5, Mean Corpuscular Hemoglobin 29.7, Mean Corpuscular Hemoglobin Concent 31.4L, Red Cell Distribution Width 13.5, Platelet Count 232, Neutrophils (%) (Auto) 92.0H, Lymphocytes (%) (Auto) 4.4L, Monocytes (%) (Auto) 2.7, Eosinophils (%) (Auto) 0.0, Basophils (%) (Auto) 0.1, Neutrophils # (Auto) 24.8H, Lymphocytes # (Auto) 1.2L, Monocytes # (Auto) 0.7, Eosinophils # (Auto) 0.0, Basophils # (Auto) 0.0, Immature Granulocyte # (Auto) 0.2H, Nucleated Red Blood Cells % (auto) 0.0, NT- Pro-B-Type Natriuretic Peptide 5528H 09/26/17 12:03: Total Creatine Kinase 71, Creatine Kinase MB 3.8H, Creatine Kinase MB Relative Index 5.35H, Troponin I 0.18#H CBC/BMP Laboratory Tests 09/26/17 00:03 Calcium Level 9.0, Total Creatine Kinase 90 09/26/17 04:44 Calcium Level 8.9, Total Creatine Kinase 80, Red Blood Count 4.72, Mean Corpuscular Volume 94.5, Mean Corpuscular Hemoglobin 29.7, Mean Corpuscular Hemoglobin Concent 31.4 L, Red Cell Distribution Width 13.5, Neutrophils (%) ( Auto) 92.0 H, Lymphocytes (%) (Auto) 4.4 L, Monocytes (%) (Auto) 2.7, Eosinophils (%) (Auto) 0.0, Basophils (%) (Auto) 0.1, Neutrophils # (Auto) 24.8 H, Lymphocytes # (Auto) 1.2 L, Monocytes # (Auto) 0.7, Eosinophils # (Auto) 0.0 , Basophils # (Auto) 0.0 Microbiology Microbiology 09/25/17 Blood Culture, Received Pending 09/25/17 Blood Culture - Preliminary, Resulted No growth after 24 hours . All specim... 09/25/17 Gram Stain - Final, Resulted 09/25/17 Sputum Culture, Resulted Pending 09/25/17 MRSA Screen, Received Pending 09/25/17 Influenza Virus Type A Antigen - Final, Complete 09/25/17 Influenza Virus Type B Antigen - Final, Complete 09/25/17 Respiratory Virus Panel (PCR) ([facility]) - Final, Complete Coronavirus Nl63 Human Rhinovirus/Enterovirus KATYA SANCHEZ DO Sep 26, 2017 16:04
[2017-09-26] MEDS ORDERED: AZITHROMYCIN INJ 500 MG, VIAL MATE ADAPTER 1 EACH in D5W 250 ML IV SCH (17:00)
[2017-09-26] MEDS: VANCOMYCIN HCL 1,000 MG, VIAL MATE ADAPTER 1 EACH in D5W 250 ML IV SCH (18:16)
[2017-09-26] MEDS: ENOXAPARIN 40 MG/0.4 ML SYRINGE (J1650) SC SCH (20:53)
[2017-09-27] VITALS: BP 139/81
[2017-09-27] MEDS: IPRATROPIUM 0.5MG/ALBUTEROL 2.5MG INH SOL UD 3ML (DUONEB)(J7620) NEB SCH ×6 (03:33→23:48)
[2017-09-27] MEDS: methylPREDNISolone INJ 125 MG/2 ML VIAL (J2930) IV SCH ×2 (03:40→08:46)
[2017-09-27] MEDS: PIPERACILLIN/TAZOBACTAM SOD 3.375 GM in APPROPRIATE DILUENT 1 EA IV SCH ×2 (03:40→08:47)
[2017-09-27 04:00] VITALS: BP 159/92
[2017-09-27 04:59] LABS: MEAN CORPUSCULAR HEMOGLOBIN 29.2 pg (27.0-33.0); MEAN CORPUSCULAR HGB CONC 31.4 g/dl (32.0-36.5); PLATELET COUNT, AUTOMATED 267 10^3/uL (150-450); RED CELL DISTRIBUTION WIDTH 13.5 % (11.5-14.5); WHITE BLOOD COUNT 29.6 10^3/uL (4.0-10.0)
[2017-09-27 05:24] LABS: ANION GAP 5 MEQ/L (8-16); BLOOD UREA NITROGEN 19 MG/DL (7-18); CALCIUM LEVEL 9.1 MG/DL (8.8-10.2); CARBON DIOXIDE LEVEL 34 MEQ/L (21-32); CHLORIDE LEVEL 98 MEQ/L (98-107); CREATININE FOR GFR 0.99 MG/DL (0.70-1.30); GLOMERULAR FILTRATION RATE > 60.0 (>49); GLUCOSE, FASTING 212 MG/DL (80-110); POTASSIUM SERUM 4.5 MEQ/L (3.5-5.1); SODIUM LEVEL 137 MEQ/L (136-145)
[2017-09-27] MEDS: TIOTROPIUM INHALER/CAPSULE (SPIRIVA) INH SCH (07:17)
[2017-09-27 08:00] VITALS: BP 156/84
[2017-09-27] MEDS: LACTOBACILLUS ACIDOPHILUS CAP (BACID) PO SCH ×2 (08:45→21:48)
[2017-09-27] MEDS: NICOTINE 21MG/24HR 1 EA TRANSDERMAL TD SCH (08:46)
[2017-09-27 12:00] VITALS: BP 145/93
[2017-09-27] MEDS: FUROSEMIDE 40 MG TAB PO SCH ×2 (13:14→21:48)
--- NOTE | 2017-09-27 13:22 | CR ---
DATE OF CONSULTATION: 09/26/2017 REQUESTING PHYSICIAN: Dr. Naomie Willoughby REASON FOR CONSULTATION: Acute kidney injury, right heart failure, management of fluids, and diuretics. HISTORY OF PRESENT ILLNESS: Mr. Kumar Shane is a 62-year-old male with a past medical history that is significant for end-stage chronic obstructive pulmonary disease, home oxygen dependent on 2 liters, chronic active smoker, severe pulmonary hypertension, severe tricuspid regurgitation, right heart failure with RV systolic pressure of 104 mmHg on recent echo this year. The patient follows up with cardiology, Dr. Millard for his cor pulmonale right heart failure and Dr. Reina for his end-stage chronic obstructive pulmonary artery disease (COPD). He has a baseline creatinine of less than 1 and is maintained on a home diuretic regimen of Lasix and aldactone. Patient presented to the emergency room (ER) yesterday after 2 to 3 days of progressive worsening of his baseline shortness of breath to the point where he had difficulty ambulating. He had not relief with his nebulizer treatment or supplement oxygen. He denied any fevers at home, but was feeling fatigued and noted a green sputum production. In the emergency room patient was noted to be significantly tachycardic, heart rate 130s to 140s, saturating 89 to 94% on room air. Subsequently had low grade temperature of 100.1. Labs demonstrated a significant leukocytosis of 31,000 with a lactic acidosis of 4 and mild acute kidney injury. Blood gas demonstrated chronic respiratory acidosis with metabolic compensation. Respiratory panel was positive for coronavirus and rhinovirus. He was started on empiric antibiotics. The patient symptomatically improved and today tells me that he feels his breathing is back to his normal baseline. The patient symptomatically improved with IV steroids, breathing treatments, antibiotics, minimal hydration and tells me that he feels his breathing is currently back to his baseline. PAST MEDICAL HISTORY: 1. End-stage chronic obstructive pulmonary artery disease (COPD) on home oxygen, chronic active smoker. 2. Severe pulmonary hypertension with severe tricuspid regurgitation and RV systolic pressure of 104 mmHg. 3. Grade 1 diastolic dysfunction with LV ejection fraction of 70%. 4. Hypertension. PAST SURGICAL HISTORY: 1. Hernia repair. 2. Appendectomy. FAMILY HISTORY: Patient denies family history of end-stage renal disease. SOCIAL HISTORY: Notable for more than 40 pack year smoking history. 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 Denies alcohol or drug use. ALLERGIES: No known drug allergies. HOME MEDICATIONS: - albuterol two puffs inhaled as needed - Combivent two puffs inhaled four times a day as needed - Lasix 40 mg by mouth twice a day - Losartan 25 mg by mouth twice a day - aldactone 25 mg by mouth daily - Breo Ellipta one inhalation daily - Spiriva one puff twice a day REVIEW OF SYSTEMS: GENERAL: Patient denies fevers and chills. HEAD AND NECK: Denies visual change, sore throat, dysphagia. CARDIOVASCULAR: Patient notes edema. She denies palpitations or chest pain. RESPIRATORY: Patient is home oxygen dependent. Complains of recent green sputum production. Chronic active smoker. GI: Denies nausea, vomiting, diarrhea. GENITOURINARY: Patient denies hematuria or dysuria. MUSCULOSKELETAL: Patient denies myalgias or HEM/ONC: Patient denies easy bruising or bleeding. NEUROLOGIC: Patient denies syncope or focal weakness. SKIN: Patient denies rashes or ulcers. PSYCHIATRIC: Denies depression or anxiety. Remainder of review of systems is negative. PHYSICAL EXAMINATION: Temperature 99.1, pulse 110, respiratory rate 22, blood pressure 141/67, saturating 90-92% on nasal cannula. INTAKE AND OUTPUT: Oral intake yesterday is incompletely recorded 480 mL. Urine output yesterday 1000 mL. Weight on the bed scale 64.4 kg. GENERAL: The patient is seen sitting up in the intensive care unit (ICU), comfortable, interactive, in no acute respiratory distress. HEENT: Extraocular muscles are intact. His tongue is moist. The ears, nose and throat are unremarkable. NECK: There is jugular venous distention. LUNGS: There is harsh and coarse air entry bilaterally with prolonged expiration. There is no crackle at the base. CARDIAC: S1, S2, tachycardia, 2+ radial pulse, there is trace edema in the right lower extremity and no edema in the left lower extremity. ABDOMEN: Soft. Nontender. GENITOURINARY: Shows no palpable distended bladder. MUSCULOSKELETAL: Patient moves all four extremities without issue. I do not appreciate cogwheeling or cyanosis. EXTREMITIES: Right lower extremity trace edema. Left extremity no edema. NEUROLOGIC: No focal deficits. PSYCHIATRIC: Appropriate mood and affect. LABORATORIES: White count 26, hemoglobin 14, platelet 232. Sodium 136, potassium 4.5, bicarbonate 36, BUN 17, creatinine 1.0, glucose 268, BNP 5500 from 13,000 earlier. ABG Tph 7.28, pCo2 79, po2 66. IMAGING: CT chest 09/25/2017 no focal infiltrates or effusions. There is diffuse mediastinal adenopathy. There is nonobstructive left renal calculi. INPATIENT MEDICATIONS: - erythromycin 500 mg IV daily - Zosyn 3.375 IV every 6 - vancomycin 1 gram IV daily - Tylenol as needed - DuoNebs 3 mL nebulized every 4 hourly - Lovenox 40 mg subcutaneous daily - Solu-Medrol 80 mg IV every 6 - Zofran as needed - Spiriva one inhalation daily PROBLEMS: 1. Acute kidney injury in the setting of viral pneumonia and acute respiratory distress with marked leukocytosis of 31,000 and of 10% and mild lactic acidosis. The patient received both a dose of IV Lasix yesterday along with very minimal IV fluids. His renal function subsequently is improving towards baseline and he appears fairly euvolemic on exam at present with just mild edema in the peripheries. I would given him neither IV fluids at this time nor would I aggressively diuresis him. I suggest resuming him on his home diuretic regimen within the next 24 hours to avoid any developing fluid overload. At present his electrolytes are stable. He is noted to have a chronic metabolic alkalosis. His lactic acidosis has resolved. 2. Viral pneumonia and underlying end-stage chronic obstructive pulmonary artery disease (COPD) with home oxygen dependency. The patient is receiving around the clock nebulizer treatment along with IV Solu-Medrol. He was on empiric antibiotics that can likely be discontinued in the coming 24 hours if cultures remain negative. He is a chronic active smoker and counseled on smoking cessation. He has a chronic respiratory acidosis with metabolic compensation underlying. 3. Severe pulmonary hypertension, severe tricuspid regurgitation, right heart failure. The patient appears fairly euvolemic on exam with trace edema in the extremities. His BNP is noted to serially improve. He received both one dose of IV Lasix and very minimal IV fluids yesterday. I suggest holding off on both IV fluids and IV diuretics at this time. Would resume the patient on his home diuretic regimen more than becoming 24 hours to prevent any emerging volume overload. He denies any chronic fluid restriction as an outpatient and follows up with Dr. Millard and is on Lasix 40 mg by mouth twice a day with spironolactone 25 mg daily as his chronic diuretic regimen. 4. Metabolic alkalosis, respiratory acidosis secondary to underlying end-stage chronic obstructive pulmonary artery disease (COPD). 5. Hyperglycemia likely due to steroid use. DISPOSITION: Patient's renal function is improving towards baseline. His lactic acidosis has resolved. BNP has down trended. I suggest resuming him on his oral diuretic regimen by the morning. No further need of IV fluid at this time. Plan of care is discussed with Dr. Tanya Cole. Nephrology is signing off at this time. Please reconsult as needed. Thank you for involving me in the care of Mr. Shane.
[2017-09-27] MEDS ORDERED: SLF 3 ML SYR IV PRN (13:45)
[2017-09-27] MEDS: SLF 3 ML SYR IV SCH ×2 (14:14→21:48)
--- NOTE | 2017-09-27 15:15 | IPNPDOC ---
Subjective Date Seen The patient was seen on 09/27/17. Subjective Chief Complaint/HPI The patient is a 62-year-old male admitted with a reason for visit of Acute Respiratory Distress. Events since last encounter Mr. Shane is sitting upright in a chair when I entered the room. He states that he is feeling significantly better today. He has been up walking about the room, and requests that he be transferred to PCU so that he might be able to walk the hallways as well. No events overnight. He has been afebrile. He has no additional complaints at this time. Constitutional: Denies: Chills, Fever, Night Sweats ENT: Denies: Head Aches, Sore Throat Skin: Denies: Rash, Lesions, Bruising Pulmonary: Denies: Dyspnea, Cough Cardiovascular: Denies: Chest Pain, Palpitations Gastrointestinal: Denies: Nausea, Vomiting, Abdominal Pain, Diarrhea, Constipation Neurological: Denies: Weakness Objective Physical Examination General Exam: Positive: Alert, No Acute Distress Eye Exam: Positive: Conjunctiva & lids normal, EOMI, Negative: Sclera icteric, Ptosis Chest Exam: Positive: Wheezing (expiratory) Heart Exam: Positive: Rate Normal, Negative: Gallops, Murmurs, Rubs Telemetry: Positive: No significant arrhythmia Abdomen Exam: Positive: Normal bowel sounds, Soft, Negative: Tenderness, Hepatospenomegaly Extremity Exam: Positive: Edema (trace edema in the lower extremities bilaterally), Normal pulses, Negative: Clubbing, Cyanosis Skin Exam: Positive: Nl turgor and temperature, Negative: Rash Neuro Exam: Positive: Normal Speech, Cranial Nerves 3-12 NL Psych Exam: Positive: Mental status NL, Mood NL, Oriented x 3 Assessment /Plan Problems (1) Acute respiratory failure with hypercapnia Status: Acute (2) Pneumonia Status: Acute (3) Sepsis Status: Acute (4) Dyspnea Status: Acute (5) Cor pulmonale Status: Chronic (6) Tobacco use Status: Chronic (7) COPD (chronic obstructive pulmonary disease) Status: Chronic (8) CHF (congestive heart failure) Status: Chronic (9) Low TSH level Status: Acute Plan/VTE VTE Prophylaxis Ordered?: Yes Plan MRSA screen, blood cultures, and sputum culture have all returned back and are negative. His respiratory panel is positive for coronavirus. We will discontinue all of his antibiotics at this time. We will also start tapering his steroids as well. His diuretic was discontinued upon admission, and now he has begun to develop a trace edema in his lower extremities, therefore we will restart him on his home dose of furosemide which he normally takes twice a day, therefore we'll start with tonight's evening dose, and then continue at his usual home dose tomorrow. Attending Note: I have independently examined this patient and all aspects of the exam and treatment decisions have been discussed with the resident. A member of the hospitalist staff will continue to follow this patient through discharge. VS, I&O, 24H, Fishbone Vital Signs/I&O Vital Signs Date Time Temp Pulse Resp B/P (MAP) Pulse Ox O2 Delivery O2 Flow Rate FiO2 09/27/17 12:00 Nasal Cannula 3.0 09/27/17 12:00 100.2 110 22 145/93 (110) 89 I&O- Last 24 Hours up to 6 AM 09/27/17 06:00 Intake Total 2620 ml Output Total 1600 ml Balance 1020 ml Laboratory Data 24H LABS Laboratory Tests 2 09/27/17 04:53: Nucleated Red Blood Cells % (auto) 0.1H, Anion Gap 5L, Glomerular Filtration Rate > 60.0, Blood Urea Nitrogen 19H, Creatinine 0.99, Sodium Level 137, Potassium Level 4.5, Chloride Level 98, Carbon Dioxide Level 34H, Calcium Level 9.1 CBC/BMP Laboratory Tests 09/27/17 04:53 Red Blood Count 4.56, Mean Corpuscular Volume 93.0, Mean Corpuscular Hemoglobin 29.2, Mean Corpuscular Hemoglobin Concent 31.4 L, Red Cell Distribution Width 13.5, Calcium Level 9.1 Microbiology Microbiology 09/25/17 Blood Culture - Preliminary, Resulted No growth after 24 hours . All specim... 09/25/17 Blood Culture - Preliminary, Resulted No Growth after 48 hours. All Specime... 09/25/17 Gram Stain - Final, Complete 09/25/17 Sputum Culture - Final, Complete 09/25/17 MRSA Screen - Final, Complete 09/25/17 Influenza Virus Type A Antigen - Final, Complete 09/25/17 Influenza Virus Type B Antigen - Final, Complete 09/25/17 Respiratory Virus Panel (PCR) ([facility]) - Final, Complete Coronavirus Nl63 Human Rhinovirus/Enterovirus KATYA SANCHEZ DO Sep 27, 2017 15:15 GEORGETTE FARRIS DO Sep 27, 2017 18:13
[2017-09-27 16:00] VITALS: BP 138/82
[2017-09-27 20:00] VITALS: BP 146/87
[2017-09-27] MEDS: ENOXAPARIN 40 MG/0.4 ML SYRINGE (J1650) SC SCH (21:47)
[2017-09-27] MEDS: methylPREDNISolone INJ 40 MG/1 ML VIAL (J2920) IV SCH (21:48)
[2017-09-28] VITALS: BP 165/86
[2017-09-28] MEDS: IPRATROPIUM 0.5MG/ALBUTEROL 2.5MG INH SOL UD 3ML (DUONEB)(J7620) NEB SCH ×2 (03:32→08:00)
[2017-09-28 04:00] VITALS: BP 121/74
[2017-09-28 05:23] LABS: MEAN CORPUSCULAR HEMOGLOBIN 29.5 pg (27.0-33.0); MEAN CORPUSCULAR HGB CONC 32.1 g/dl (32.0-36.5); MEAN CORPUSCULAR VOLUME 91.6 fl (80.0-96.0); PLATELET COUNT, AUTOMATED 295 10^3/uL (150-450); RED CELL DISTRIBUTION WIDTH 13.7 % (11.5-14.5); WHITE BLOOD COUNT 15.5 10^3/uL (4.0-10.0)
[2017-09-28 05:42] LABS: ANION GAP 3 MEQ/L (8-16); BLOOD UREA NITROGEN 19 MG/DL (7-18); CALCIUM LEVEL 8.9 MG/DL (8.8-10.2); CARBON DIOXIDE LEVEL 39 MEQ/L (21-32); CHLORIDE LEVEL 97 MEQ/L (98-107); CREATININE FOR GFR 0.77 MG/DL (0.70-1.30); GLOMERULAR FILTRATION RATE > 60.0 (>49); GLUCOSE, FASTING 145 MG/DL (80-110); POTASSIUM SERUM 4.7 MEQ/L (3.5-5.1); SODIUM LEVEL 139 MEQ/L (136-145)
[2017-09-28] MEDS: SLF 3 ML SYR IV SCH (06:20)
[2017-09-28] MEDS: TIOTROPIUM INHALER/CAPSULE (SPIRIVA) INH SCH (08:04)
[2017-09-28] MEDS ORDERED: PRED10TA2 PO (08:25)
[2017-09-28 08:52] VITALS: BP 143/86
[2017-09-28] MEDS: LACTOBACILLUS ACIDOPHILUS CAP (BACID) PO SCH (08:53)
[2017-09-28] MEDS: methylPREDNISolone INJ 40 MG/1 ML VIAL (J2920) IV SCH (08:53)
[2017-09-28] MEDS: NICOTINE 21MG/24HR 1 EA TRANSDERMAL TD SCH (08:53)
[2017-09-28] MEDS: FUROSEMIDE 40 MG TAB PO SCH (08:53)
--- NOTE | 2017-09-28 20:01 | DS.PDOC ---
Discharge Summary General Date of Admission Sep 25, 2017 at 15:51 Date of Discharge 09/28/2017 Discharge Summary PRIMARY CARE PHYSICIAN: Dr. Rai ATTENDING AT TIME OF DISCHARGE: Dr. Torres DISCHARGE DIAGNOS(E)S: 1. Acute respiratory failure with hypercapnia 2. Pneumonia secondary to coronavirus and human rhinovirus/enterovirus 3. Sepsis 4. Dyspnea 5. Cor pulmonale 6. Tobacco use 7. COPD 8. Diastolic Congestive heart failure with preserved systolic ejection fraction 9. Low TSH HPI & HOSPITAL COURSE: Mr. Shane is a 62-year-old male who presented to emergency department with worsening shortness of breath and green sputum production. He was found to be in sepsis secondary to pneumonia, he was empirically treated with vancomycin, Zosyn, and azithromycin. Sputum cultures and blood cultures subsequently were negative, respiratory panel for PCR revealed coronavirus, and human rhinovirus/ enterovirus, therefore his antibiotics were discontinued. His steroids were tapered, and the patient continued to improve on a daily basis. He does have chronic hypercapnic respiratory failure with compensation, therefore his ABG will never returned back to perfect, however the patient did return back to his baseline level of functioning, and was up walking about the room with no shortness of breath on his usual home dose of oxygen, therefore he does appear to be stable for discharge at this time. PHYSICAL EXAMINATION ON DISCHARGE: GENERAL: Awake, alert, oriented. He is in no acute distress. CARDIOVASCULAR EXAMINATION: Regular rate and rhythm, with no rubs, gallops, or murmur. RESPIRATORY EXAMINATION: Expiratory wheezing throughout ABDOMINAL EXAMINATION: Soft, nontender, nondistended. Bowel sounds present. EXTREMITIES: No clubbing or edema noted. 2+ pulses in the radial bilaterally. DISPOSITION: Home DISCHARGE INSTRUCTIONS: For follow-up with primary care provider within 7-10 days. He may resume his usual diet. Activity as tolerated. He may return to work on 10/01/2017. If symptoms return, or if you experience worsening of your symptoms, please call your doctor or return to the emergency department. DISCHARGE MEDICATIONS: No changes home medications were made, however he will be sent home on a tapering dose of prednisone ITEMS THAT NEED OUTPATIENT FOLLOWUP: None My preceptor for this patient encounter was physically present in the building during the encounter and was fully available. As needed, all aspects of the patient interview, examination, medical decision making process, and medical care plan development were reviewed and approved by the preceptor. Preceptor is aware and concurs with the plan as stated in the body of this note and will attest to such by his/her cosignature. Vital Signs/I&Os Vital Signs Date Time Temp Pulse Resp B/P (MAP) Pulse Ox O2 Delivery O2 Flow Rate FiO2 09/28/17 08:52 Nasal Cannula 3.0 09/28/17 08:52 99.2 108 18 143/86 (105) 95 I&O- Last 24 Hours up to 6 AM 09/28/17 06:00 Intake Total 1370 ml Output Total 500 ml Balance 870 ml Laboratory Data Labs 24H Laboratory Tests 2 09/28/17 05:03: Nucleated Red Blood Cells % (auto) 0.0, Anion Gap 3L, Glomerular Filtration Rate > 60.0, Blood Urea Nitrogen 19H, Creatinine 0.77, Sodium Level 139, Potassium Level 4.7, Chloride Level 97L, Carbon Dioxide Level 39H, Calcium Level 8.9 CBC/BMP Laboratory Tests 09/28/17 05:03 Red Blood Count 4.55, Mean Corpuscular Volume 91.6, Mean Corpuscular Hemoglobin 29.5, Mean Corpuscular Hemoglobin Concent 32.1, Red Cell Distribution Width 13.7 , Calcium Level 8.9 Microbiology Microbiology 09/25/17 Blood Culture - Preliminary, Resulted No Growth after 72 hours. All specime... 09/25/17 Blood Culture - Preliminary, Resulted No Growth after 72 hours. All specime... 09/25/17 Gram Stain - Final, Complete 09/25/17 Sputum Culture - Final, Complete 09/25/17 MRSA Screen - Final, Complete 09/25/17 Influenza Virus Type A Antigen - Final, Complete 09/25/17 Influenza Virus Type B Antigen - Final, Complete 09/25/17 Respiratory Virus Panel (PCR) ([facility]) - Final, Complete Coronavirus Nl63 Human Rhinovirus/Enterovirus Discharge Medications Scheduled Fluticasone/Vilanterol (Breo Ellipta 200-25 Mcg/INH) 1 Inh Inh, 1 PUFF INH DAILY , (Reported) Furosemide (Furosemide) 40 Mg Tab, 40 MG PO BID, (Reported) Losartan Potassium (Losartan Potassium) 25 Mg Tab, 25 MG PO BID, (Reported) Nicotine (Nicotine Step 1) 21 Mg/24 Hr Dis, 21 MG TD DAILY, (Reported) NO PATCH ON CURRENTLY Prednisone (Prednisone) 10 Mg Tab, 10 MG PO TAPER Take 4 tabs daily x 3 days, then 3 tabs daily x 3 days, then 2 tabs daily x 3 days, then 1 tab daily x 3 days and stop Spironolactone (Spironolactone) 25 Mg Tab, 25 MG PO DAILY, (Reported) Tiotropium Clare Monohydrate (Spiriva Respimat) 2.5 Mcg/Act Spr, 1 PUFF INH BID, (Reported) Scheduled PRN Albuterol Sulfate (Ventolin Hfa) 108 Mcg/Act Aer, 2 PUFFS INH QID PRN for SHORTNESS OF BREATH, (Reported) Albuterol/Ipratropium (Combivent Respimat 20-100 Mcg/Act) 1 Aer Aer, 2 PUFF INH QID PRN for SHORTNESS OF BREATH, (Reported) Allergies Coded Allergies: No Known Drug Allergy (Verified Allergy, Unknown, 12/01/16) KATYA SANCHEZ DO Sep 28, 2017 20:01
[2017-09-29 00:07] LABS: ORGANISM ID Not indicated. (.); SPECIMEN SOURCE Urine (.)
[2017-10-01 00:09] LABS: M003-IGE ASPERGILLUS fumigatus 0.26 kU/L (Class 0/I)
== END 2017-09-28 10:08 | disposition home or self-care (01) | DRG 720 ==
LOC: M ED 14:05 → M ED INP 15:51 → M ICU 17:27
PROVIDERS: ADMIT Internal Medicine; ATTEND Hospitalist
DX: A41.9 Sepsis, unspecified organism (principal); J96.02 Acute respiratory failure with hypercapnia; E87.2 Acidosis; N17.9 Acute kidney failure, unspecified; I50.32 Chronic diastolic (congestive) heart failure; I27.81 Cor pulmonale (chronic); Z99.81 Dependence on supplemental oxygen; J44.1 Chronic obstructive pulmonary disease with (acute) exacerbation; J12.3 Human metapneumovirus pneumonia; I36.0 Nonrheumatic tricuspid (valve) stenosis; Z79.899 Other long term (current) drug therapy; E03.9 Hypothyroidism, unspecified

== ENCOUNTER → 2017-11-18 | Outpatient (CLI) | payer OTHER ==
[2017-11-18 13:58] LABS: BASO % 0.4 % (0.0-1.0); EOS # 0.1 10^3/uL (0.0-0.50); EOS % 2.1 % (0.0-3.0); HEMATOCRIT 48.1 % (42.0-52.0); HEMOGLOBIN 14.5 g/dl (14.0-18.0); IMMATURE GRANULOCYTE % 0.4 % (0-3.0); LYMPH # 1.8 10^3/uL (1.5-4.5); LYMPH % 32.7 % (24.0-44.0); MEAN CORPUSCULAR HEMOGLOBIN 29.2 pg (27.0-33.0); MEAN CORPUSCULAR HGB CONC 30.1 g/dl (32.0-36.5); MEAN CORPUSCULAR VOLUME 96.8 fl (80.0-96.0); MONO # 0.9 10^3/uL (0.0-0.8); MONO % 15.3 % (0.0-5.0); NEUTROPHILS # 2.8 10^3/uL (1.8-7.7); NEUTROPHILS % 49.1 % (36.0-66.0); PLATELET COUNT, AUTOMATED 277 10^3/uL (150-450); RED BLOOD COUNT 4.97 10^6/uL (4.30-6.10); RED CELL DISTRIBUTION WIDTH 18.2 % (11.5-14.5); WHITE BLOOD COUNT 5.6 10^3/uL (4.0-10.0)
[2017-11-18 14:14] LABS: ALBUMIN 2.9 GM/DL (3.2-5.2); ALBUMIN/GLOBULIN RATIO 0.63 (1.00-1.93); ALKALINE PHOSPHATASE 137 U/L (45-117); ALT/SGPT 21 U/L (12-78); ANION GAP 2 MEQ/L (8-16); AST/SGOT 27 U/L (7-37); BILIRUBIN,TOTAL 0.2 MG/DL (0.2-1.0); BLOOD UREA NITROGEN 11 MG/DL (7-18); CALCIUM LEVEL 8.3 MG/DL (8.8-10.2); CARBON DIOXIDE LEVEL 45 MEQ/L (21-32); CHLORIDE LEVEL 95 MEQ/L (98-107); CHOLESTEROL LEVEL 146 MG/DL (<200); CHOLESTEROL RISK RATIO 3.476 (<5); CREATININE FOR GFR 0.96 MG/DL (0.70-1.30); FREE T4 1.39 NG/DL (0.76-1.46); GLOMERULAR FILTRATION RATE > 60.0 (>49); GLUCOSE, FASTING 103 MG/DL (70-100); HDL CHOLESTEROL 42 MG/DL (>40); LDL CHOLESTEROL 90.4 MG/DL (<100); NON-HDL-C 104 MG/DL; NT-PRO BNP 4425 PG/ML (<125); POTASSIUM SERUM 4.3 MEQ/L (3.5-5.1); SODIUM LEVEL 142 MEQ/L (136-145); THYROID STIMULATING HORMONE 0.846 uIU/ML (0.358-3.740); TOTAL PROTEIN 7.5 GM/DL (6.4-8.2); TRIGLYCERIDES LEVEL 68 MG/DL (<150)
== END ==
LOC: M SMT 08:52
DX: R91.8 Other nonspecific abnormal finding of lung field (principal); F20.89 Other schizophrenia
CPT/HCPCS: 84443

== ENCOUNTER → 2018-03-10 | Outpatient (CLI) | payer MEDICAID, OTHER ==
[2018-03-10 13:17] LABS: BASO % 0.7 % (0.0-1.0); EOS # 0.2 10^3/uL (0.0-0.50); EOS % 3.7 % (0.0-3.0); HEMATOCRIT 44.3 % (42.0-52.0); HEMOGLOBIN 13.8 g/dl (13.5-17.5); IMMATURE GRANULOCYTE % 0.2 % (0-3.0); LYMPH # 2.3 10^3/uL (1.5-4.5); LYMPH % 40.7 % (24.0-44.0); MEAN CORPUSCULAR HEMOGLOBIN 29.6 pg (27.0-33.0); MEAN CORPUSCULAR HGB CONC 31.2 g/dl (32.0-36.5); MEAN CORPUSCULAR VOLUME 94.9 fl (80.0-96.0); MONO # 0.8 10^3/uL (0.0-0.8); MONO % 14.3 % (0.0-5.0); NEUTROPHILS # 2.3 10^3/uL (1.8-7.7); NEUTROPHILS % 40.4 % (36.0-66.0); PLATELET COUNT, AUTOMATED 198 10^3/uL (150-450); RED BLOOD COUNT 4.67 10^6/uL (4.30-6.10); RED CELL DISTRIBUTION WIDTH 14.3 % (11.5-14.5); WHITE BLOOD COUNT 5.8 10^3/uL (4.0-10.0)
[2018-03-10 13:22] LABS: ALBUMIN 3.5 GM/DL (3.2-5.2); ALBUMIN/GLOBULIN RATIO 0.81 (1.00-1.93); ALKALINE PHOSPHATASE 128 U/L (45-117); ALT/SGPT 23 U/L (12-78); ANION GAP 6 MEQ/L (8-16); AST/SGOT 21 U/L (7-37); BILIRUBIN,TOTAL 0.2 MG/DL (0.2-1.0); BLOOD UREA NITROGEN 12 MG/DL (7-18); CARBON DIOXIDE LEVEL 31 MEQ/L (21-32); CHLORIDE LEVEL 104 MEQ/L (98-107); CREATININE FOR GFR 1.23 MG/DL (0.70-1.30); GLOMERULAR FILTRATION RATE > 60.0 (>49); GLUCOSE, FASTING 143 MG/DL (70-100); NT-PRO BNP 83 PG/ML (<125); POTASSIUM SERUM 4.4 MEQ/L (3.5-5.1); SODIUM LEVEL 141 MEQ/L (136-145); TOTAL PROTEIN 7.8 GM/DL (6.4-8.2)
== END ==
LOC: M SMT 09:38
DX: I50.22 Chronic systolic (congestive) heart failure (principal); J44.1 Chronic obstructive pulmonary disease with (acute) exacerbation
CPT/HCPCS: 80053

== ENCOUNTER → 2018-04-28 | Outpatient (CLI) | payer OTHER | LOC: M SLEEP 19:26 | DX: G47.33 Obstructive sleep apnea (adult) (pediatric) (principal) | CPT/HCPCS: 95810 ==

== ENCOUNTER → 2018-06-02 | Outpatient (CLI) | payer OTHER | LOC: M SLEEP 19:23 | DX: G47.33 Obstructive sleep apnea (adult) (pediatric) (principal) | CPT/HCPCS: 95811 ==

== ENCOUNTER 2018-07-29 16:00 | Inpatient (IN) | payer MEDICAID, OTHER ==
[2018-07-29] MEDS: IPRATROPIUM 0.5MG/ALBUTEROL 2.5MG INH SOL UD 3ML (DUONEB)(J7620) NEB ×4 (16:30→20:00)
[2018-07-29 16:38] LABS: HEMATOCRIT 43.4 % (42.0-52.0); HEMOGLOBIN 13.6 g/dl (13.5-17.5); MEAN CORPUSCULAR HEMOGLOBIN 29.5 pg (27.0-33.0); MEAN CORPUSCULAR HGB CONC 31.3 g/dl (32.0-36.5); MEAN CORPUSCULAR VOLUME 94.1 fl (80.0-96.0); PLATELET COUNT, AUTOMATED 233 10^3/uL (150-450); RED BLOOD COUNT 4.61 10^6/uL (4.30-6.10); RED CELL DISTRIBUTION WIDTH 13.2 % (11.5-14.5); WHITE BLOOD COUNT 18.1 10^3/uL (4.0-10.0)
[2018-07-29 16:42] LABS: ABG BASE EXCESS 0.3 (-2.0-2.0); ABG HCO3 27.7 MEQ/L (22.0-26.0); ABG PARTIAL PRESSURE CO2 56.1 mmHg (35.0-45.0); ABG PARTIAL PRESSURE O2 137.6 mmHg (75.0-100.0); ABG STANDARD HCO3 24.8 MEQ/L (22.0-26.0); ABG TOTAL CO2 29.4 MEQ/L (23.0-31.0); ABG pH (ARTERIAL) 7.311 UNITS (7.350-7.450)
[2018-07-29 16:54] LABS: D-DIMER QUANT 1319.8 ng/ml (<500)
[2018-07-29 17:05] LABS: ADD MANUAL DIFFER YES; DIFF SLIDE NUMBER 170; POSITIVE DIFF POS FLAG
[2018-07-29 17:17] LABS: ATYPICAL LYMPH 2 % (0-5); LYMPHOCYTES 13 % (16-52); MONOCYTES 23 % (0-8); NEUTROPHILS 62 % (35-75); PLATELET ESTIMATE NORMAL (NORMAL)
[2018-07-29 17:18] LABS: ALBUMIN 2.8 GM/DL (3.2-5.2); ALBUMIN/GLOBULIN RATIO 0.43 (1.00-1.93); ALKALINE PHOSPHATASE 192 U/L (45-117); ALT/SGPT 14 U/L (12-78); ANION GAP 10 MEQ/L (8-16); AST/SGOT 20 U/L (7-37); BILIRUBIN,DIRECT 0.1 MG/DL (0.0-0.2); BILIRUBIN,TOTAL 0.3 MG/DL (0.2-1.0); BLOOD UREA NITROGEN 42 MG/DL (7-18); CALCIUM LEVEL 8.8 MG/DL (8.8-10.2); CARBON DIOXIDE LEVEL 31 MEQ/L (21-32); CHLORIDE LEVEL 91 MEQ/L (98-107); CPK CREATINE PHOSPHOKINASE 211 U/L (39-308); CREATININE FOR GFR 2.47 MG/DL (0.70-1.30); GLOMERULAR FILTRATION RATE 28.5 (>49); GLUCOSE, FASTING 156 MG/DL (70-100); MB/CK RELATIVE INDEX 2.65 (< OR =4); NT-PRO BNP 22118 PG/ML (<125); SODIUM LEVEL 132 MEQ/L (136-145); THYROID STIMULATING HORMONE 0.738 uIU/ML (0.358-3.740); TOTAL PROTEIN 9.3 GM/DL (6.4-8.2); TOXIC VACUOLATION 1+; TROPONIN I 0.06 NG/ML (< 0.10)
[2018-07-29 17:19] LABS: POLYCHROMASIA 1+
[2018-07-29 17:20] LABS: LACTIC ACID SEPSIS PROTOCOL 2.3 MMOL/L (0.4-2.0)
[2018-07-29] MEDS: dexameTHASONE 20 MG/5 ML VIAL (J1100) IV (17:57)
[2018-07-29] MEDS: NS 1,000 ML IV ×3 (17:58→23:47)
[2018-07-29] MEDS ORDERED: ACETAMINOPHEN TAB 650MG DOSE (2X325MG) PO (20:30)
[2018-07-29] MEDS: cefTRIAXone SOD 1 GM in D5W MINI-BAG PLUS 50 ML IV (23:45)
[2018-07-29] MEDS: SENOKOT S TAB PO (23:45)
[2018-07-29] MEDS: ENOXAPARIN 100MG/1ML SYRINGE (J1650) SC (23:45)
[2018-07-29] MEDS: AZITHROMYCIN 250 MG TAB PO (23:46)
[2018-07-29] MEDS: methylPREDNISolone INJ 40 MG/1 ML VIAL (J2920) IV (23:47)
[2018-07-30] MEDS ORDERED: methylPREDNISolone INJ 125 MG/2 ML VIAL (J2930) IV
[2018-07-30] MEDS: IPRATROPIUM 0.5MG/ALBUTEROL 2.5MG INH SOL UD 3ML (DUONEB)(J7620) NEB ×5 (03:23→20:00)
[2018-07-30] MEDS: methylPREDNISolone INJ 40 MG/1 ML VIAL (J2920) IV ×3 (05:29→18:04)
[2018-07-30 05:33] LABS: BASO % 0.2 % (0.0-1.0); HEMATOCRIT 37.3 % (42.0-52.0); HEMOGLOBIN 11.9 g/dl (13.5-17.5); IMMATURE GRANULOCYTE % 1.9 % (0-3.0); LYMPH # 1.1 10^3/uL (1.5-4.5); LYMPH % 8.9 % (24.0-44.0); MEAN CORPUSCULAR HEMOGLOBIN 29.5 pg (27.0-33.0); MEAN CORPUSCULAR HGB CONC 31.9 g/dl (32.0-36.5); MEAN CORPUSCULAR VOLUME 92.3 fl (80.0-96.0); MONO # 0.7 10^3/uL (0.0-0.8); MONO % 5.3 % (0.0-5.0); NEUTROPHILS # 10.7 10^3/uL (1.8-7.7); NEUTROPHILS % 83.7 % (36.0-66.0); PLATELET COUNT, AUTOMATED 220 10^3/uL (150-450); RED BLOOD COUNT 4.04 10^6/uL (4.30-6.10); RED CELL DISTRIBUTION WIDTH 13.2 % (11.5-14.5); WHITE BLOOD COUNT 12.8 10^3/uL (4.0-10.0)
[2018-07-30 06:05] LABS: ANION GAP 4 MEQ/L (8-16); BLOOD UREA NITROGEN 39 MG/DL (7-18); CALCIUM LEVEL 8.5 MG/DL (8.8-10.2); CARBON DIOXIDE LEVEL 31 MEQ/L (21-32); CHLORIDE LEVEL 98 MEQ/L (98-107); GLUCOSE, FASTING 163 MG/DL (70-100); POTASSIUM SERUM 4.7 MEQ/L (3.5-5.1); SODIUM LEVEL 133 MEQ/L (136-145)
[2018-07-30] MEDS: HEPARIN SOD (PORCINE) 5000 UNITS/ML VIAL SQ (07:31)
[2018-07-30] MEDS: NICOTINE 21MG/24HR 1 EA TRANSDERMAL TD (09:00)
[2018-07-30] MEDS: SENOKOT S TAB PO ×2 (09:00→20:58)
[2018-07-30] MEDS: FLUBLOK(EGG FREE)(QUAD)INFLUENZA VACC 0.5ML SYRINGE (90682)18YRS&OLDER IM (09:29)
[2018-07-30 09:46] LABS: PARTIAL THROMBOPLASTIN TIME 27.6 SECONDS (25.4-37.6)
[2018-07-30] MEDS: HEPARIN DRIP 25,000 UNITS in APPROPRIATE DILUENT 1 EA IV (10:52)
[2018-07-30 17:13] LABS: PARTIAL THROMBOPLASTIN TIME 35.7 SECONDS (25.4-37.6)
[2018-07-30] MEDS: HEPARIN SOD (PORCINE) 5000 UNITS/ML VIAL IV (17:57)
[2018-07-30] MEDS: ADVAIR HFA 230/21MCG INHALER INH (20:21)
[2018-07-30] MEDS: AZITHROMYCIN 250 MG TAB PO (20:58)
[2018-07-31] MEDS: cefTRIAXone SOD 1 GM in D5W MINI-BAG PLUS 50 ML IV (00:33)
[2018-07-31] MEDS: methylPREDNISolone INJ 40 MG/1 ML VIAL (J2920) IV ×3 (00:37→17:23)
[2018-07-31 02:10] LABS: PARTIAL THROMBOPLASTIN TIME 49.6 SECONDS (25.4-37.6)
[2018-07-31] MEDS: HEPARIN SOD (PORCINE) 5000 UNITS/ML VIAL IV (03:29)
[2018-07-31 05:27] LABS: HEMATOCRIT 37.1 % (42.0-52.0); HEMOGLOBIN 11.6 g/dl (13.5-17.5); MEAN CORPUSCULAR HEMOGLOBIN 29.4 pg (27.0-33.0); MEAN CORPUSCULAR HGB CONC 31.3 g/dl (32.0-36.5); MEAN CORPUSCULAR VOLUME 93.9 fl (80.0-96.0); PLATELET COUNT, AUTOMATED 272 10^3/uL (150-450); RED BLOOD COUNT 3.95 10^6/uL (4.30-6.10); RED CELL DISTRIBUTION WIDTH 13.3 % (11.5-14.5); WHITE BLOOD COUNT 13.6 10^3/uL (4.0-10.0)
[2018-07-31 05:40] LABS: ADD MANUAL DIFFER YES; DIFF SLIDE NUMBER 50; POS COUNT POS FLAG; POSITIVE MORPH POS FLAG
[2018-07-31 06:03] LABS: ANION GAP 4 MEQ/L (8-16); BLOOD UREA NITROGEN 35 MG/DL (7-18); CALCIUM LEVEL 8.9 MG/DL (8.8-10.2); CARBON DIOXIDE LEVEL 33 MEQ/L (21-32); CHLORIDE LEVEL 99 MEQ/L (98-107); CREATININE FOR GFR 1.09 MG/DL (0.70-1.30); GLOMERULAR FILTRATION RATE > 60.0 (>49); GLUCOSE, FASTING 160 MG/DL (70-100); POTASSIUM SERUM 4.5 MEQ/L (3.5-5.1); SODIUM LEVEL 136 MEQ/L (136-145)
[2018-07-31 06:10] LABS: LYMPHOCYTES 8 % (16-52); METAMYELOCYTES 1 % (0-0); MONOCYTES 13 % (0-8); NEUTROPHILS 78 % (35-75)
[2018-07-31 06:11] LABS: PLATELET ESTIMATE NORMAL (NORMAL)
[2018-07-31] MEDS: ADVAIR HFA 230/21MCG INHALER INH ×2 (07:14→20:53)
[2018-07-31] MEDS: IPRATROPIUM 0.5MG/ALBUTEROL 2.5MG INH SOL UD 3ML (DUONEB)(J7620) NEB ×4 (07:14→20:00)
[2018-07-31] MEDS: SENOKOT S TAB PO ×2 (07:38→21:00)
[2018-07-31 08:05] LABS: PARTIAL THROMBOPLASTIN TIME 103.4 SECONDS (25.4-37.6)
[2018-07-31] MEDS: NICOTINE 21MG/24HR 1 EA TRANSDERMAL TD (08:57)
[2018-07-31 14:48] LABS: PARTIAL THROMBOPLASTIN TIME 65.9 SECONDS (25.4-37.6)
[2018-07-31] MEDS: AZITHROMYCIN 250 MG TAB PO (21:43)
[2018-07-31] MEDS: HEPARIN DRIP 25,000 UNITS in APPROPRIATE DILUENT 1 EA IV (22:18)
[2018-08-01] MEDS: methylPREDNISolone INJ 40 MG/1 ML VIAL (J2920) IV ×2 (00:13→10:01)
[2018-08-01] MEDS: cefTRIAXone SOD 1 GM in D5W MINI-BAG PLUS 50 ML IV ×2 (00:13→23:53)
[2018-08-01 06:03] LABS: HEMATOCRIT 37.9 % (42.0-52.0); HEMOGLOBIN 11.6 g/dl (13.5-17.5); MEAN CORPUSCULAR HEMOGLOBIN 28.8 pg (27.0-33.0); MEAN CORPUSCULAR HGB CONC 30.6 g/dl (32.0-36.5); PLATELET COUNT, AUTOMATED 303 10^3/uL (150-450); RED BLOOD COUNT 4.03 10^6/uL (4.30-6.10); RED CELL DISTRIBUTION WIDTH 13.4 % (11.5-14.5); WHITE BLOOD COUNT 15.8 10^3/uL (4.0-10.0)
[2018-08-01 06:12] LABS: PARTIAL THROMBOPLASTIN TIME 22.9 SECONDS (25.4-37.6)
[2018-08-01 06:30] LABS: ANION GAP 1 MEQ/L (8-16); BLOOD UREA NITROGEN 28 MG/DL (7-18); CARBON DIOXIDE LEVEL 35 MEQ/L (21-32); CHLORIDE LEVEL 102 MEQ/L (98-107); CREATININE FOR GFR 0.97 MG/DL (0.70-1.30); GLOMERULAR FILTRATION RATE > 60.0 (>49); GLUCOSE, FASTING 155 MG/DL (70-100); POTASSIUM SERUM 4.6 MEQ/L (3.5-5.1); SODIUM LEVEL 138 MEQ/L (136-145)
[2018-08-01] MEDS: IPRATROPIUM 0.5MG/ALBUTEROL 2.5MG INH SOL UD 3ML (DUONEB)(J7620) NEB ×4 (07:23→20:00)
[2018-08-01] MEDS: ADVAIR HFA 230/21MCG INHALER INH ×2 (07:55→20:17)
[2018-08-01] MEDS: SENOKOT S TAB PO ×2 (09:00→21:00)
[2018-08-01 09:17] LABS: GOLD SPEC TUBE RECIEVED
[2018-08-01] MEDS: FUROSEMIDE 40 MG TAB PO (10:01)
[2018-08-01] MEDS: SPIRONOLACTONE 25 MG TAB PO (10:01)
[2018-08-01] MEDS: NICOTINE 21MG/24HR 1 EA TRANSDERMAL TD (10:02)
[2018-08-01] MEDS: TIOTROPIUM INHALER/CAPSULE (SPIRIVA) INH (12:05)
[2018-08-01] MEDS: HEPARIN SOD (PORCINE) 5000 UNITS/ML VIAL SQ ×2 (14:47→21:10)
[2018-08-01] MEDS: AZITHROMYCIN 250 MG TAB PO (21:10)
[2018-08-02] MEDS: methylPREDNISolone INJ 40 MG/1 ML VIAL (J2920) IV (05:02)
[2018-08-02] MEDS: HEPARIN SOD (PORCINE) 5000 UNITS/ML VIAL SQ ×2 (05:03→14:00)
[2018-08-02 05:46] LABS: HEMATOCRIT 39.4 % (42.0-52.0); HEMOGLOBIN 12.1 g/dl (13.5-17.5); MEAN CORPUSCULAR HEMOGLOBIN 29.4 pg (27.0-33.0); MEAN CORPUSCULAR HGB CONC 30.7 g/dl (32.0-36.5); MEAN CORPUSCULAR VOLUME 95.6 fl (80.0-96.0); PLATELET COUNT, AUTOMATED 345 10^3/uL (150-450); RED BLOOD COUNT 4.12 10^6/uL (4.30-6.10); RED CELL DISTRIBUTION WIDTH 13.7 % (11.5-14.5); WHITE BLOOD COUNT 17.9 10^3/uL (4.0-10.0)
[2018-08-02 06:02] LABS: ANION GAP 1 MEQ/L (8-16); BLOOD UREA NITROGEN 27 MG/DL (7-18); C REACTIVE PROTEIN QUANTITATIV 5.15 MG/DL (0.00-0.30); CALCIUM LEVEL 9.1 MG/DL (8.8-10.2); CARBON DIOXIDE LEVEL 36 MEQ/L (21-32); CHLORIDE LEVEL 105 MEQ/L (98-107); CREATININE FOR GFR 0.95 MG/DL (0.70-1.30); GLOMERULAR FILTRATION RATE > 60.0 (>49); GLUCOSE, FASTING 127 MG/DL (70-100); MAGNESIUM LEVEL 2.3 MG/DL (1.8-2.4); POTASSIUM SERUM 3.9 MEQ/L (3.5-5.1); SODIUM LEVEL 142 MEQ/L (136-145)
[2018-08-02 06:16] LABS: GOLD SPEC TUBE RECIEVED
[2018-08-02] MEDS: TIOTROPIUM INHALER/CAPSULE (SPIRIVA) INH (07:49)
[2018-08-02] MEDS: IPRATROPIUM 0.5MG/ALBUTEROL 2.5MG INH SOL UD 3ML (DUONEB)(J7620) NEB ×2 (07:49→11:22)
[2018-08-02] MEDS: ADVAIR HFA 230/21MCG INHALER INH (09:00)
[2018-08-02] MEDS: NICOTINE 21MG/24HR 1 EA TRANSDERMAL TD (09:00)
[2018-08-02] MEDS: SENOKOT S TAB PO (09:36)
[2018-08-02] MEDS: FUROSEMIDE 40 MG TAB PO (09:36)
[2018-08-02] MEDS: SPIRONOLACTONE 25 MG TAB PO (09:36)
== END 2018-08-02 15:27 | disposition home or self-care (01) | DRG 140 ==
LOC: M ED 16:00 → M ED INP 20:28 → M PCU 23:02
PROVIDERS: Hospitalist
DX: J44.1 Chronic obstructive pulmonary disease with (acute) exacerbation (principal); N17.9 Acute kidney failure, unspecified; J15.9 Unspecified bacterial pneumonia; I11.0 Hypertensive heart disease with heart failure; I27.81 Cor pulmonale (chronic); I50.32 Chronic diastolic (congestive) heart failure; A08.11 Acute gastroenteropathy due to Norwalk agent; F17.210 Nicotine dependence, cigarettes, uncomplicated; G47.33 Obstructive sleep apnea (adult) (pediatric); F20.9 Schizophrenia, unspecified; Z79.51 Long term (current) use of inhaled steroids; Z79.899 Other long term (current) drug therapy; J44.0 Chronic obstructive pulmonary disease with (acute) lower respiratory infection

== ENCOUNTER → 2018-09-14 | Outpatient (REF) | payer OTHER, MEDICAID ==
[2018-09-14 16:17] LABS: ALKALINE PHOSPHATASE 140 U/L (45-117); ALT/SGPT 20 U/L (12-78); ANION GAP 5 MEQ/L (8-16); AST/SGOT 18 U/L (7-37); BILIRUBIN,TOTAL 0.4 MG/DL (0.2-1.0); BLOOD UREA NITROGEN 9 MG/DL (7-18); CALCIUM LEVEL 9.6 MG/DL (8.8-10.2); CARBON DIOXIDE LEVEL 33 MEQ/L (21-32); CHLORIDE LEVEL 102 MEQ/L (98-107); CREATININE FOR GFR 1.15 MG/DL (0.70-1.30); GLOMERULAR FILTRATION RATE > 60.0 (>49); GLUCOSE, FASTING 83 MG/DL (70-100); POTASSIUM SERUM 4.4 MEQ/L (3.5-5.1); SODIUM LEVEL 140 MEQ/L (136-145)
[2018-09-14 16:18] LABS: ALBUMIN 3.9 GM/DL (3.2-5.2); ALBUMIN/GLOBULIN RATIO 0.98 (1.00-1.93); BASO % 0.6 % (0.0-1.0); EOS # 0.1 10^3/uL (0.0-0.50); EOS % 1.7 % (0.0-3.0); HEMATOCRIT 46.8 % (42.0-52.0); HEMOGLOBIN 14.8 g/dl (13.5-17.5); IMMATURE GRANULOCYTE % 0.3 % (0-3.0); LYMPH # 2.2 10^3/uL (1.5-4.5); LYMPH % 32.8 % (24.0-44.0); MEAN CORPUSCULAR HEMOGLOBIN 29.2 pg (27.0-33.0); MEAN CORPUSCULAR HGB CONC 31.6 g/dl (32.0-36.5); MEAN CORPUSCULAR VOLUME 92.5 fl (80.0-96.0); NEUTROPHILS # 3.3 10^3/uL (1.8-7.7); NEUTROPHILS % 49.6 % (36.0-66.0); NT-PRO BNP 74 PG/ML (<125); PLATELET COUNT, AUTOMATED 221 10^3/uL (150-450); RED BLOOD COUNT 5.06 10^6/uL (4.30-6.10); RED CELL DISTRIBUTION WIDTH 14.4 % (11.5-14.5); TOTAL PROTEIN 7.9 GM/DL (6.4-8.2); WHITE BLOOD COUNT 6.6 10^3/uL (4.0-10.0)
== END ==
LOC: M LAB REF 15:40
DX: I50.9 Heart failure, unspecified (principal); J44.9 Chronic obstructive pulmonary disease, unspecified

== ENCOUNTER 2018-11-16 13:12 | Emergency (ER) | payer OTHER ==
[~2018-11-16] VITALS: Ht 160 cm; Wt 72.3 kg
[~2018-11-16 13:12] MED LIST changes: +B COTAB3 PO; +CEFD1CAP8 PO; +LASI40TA9 PO; +LOSA25TA14; +LOSA25TA14 PO; +NICO21DI34 TD; +PROAAER10 INH; +SPIR-10 PO; +SPIR12.9; +SPIR12.9 INH; -SPIR25TA2 PO; +VENTAER INH
[2018-11-16] MEDS ORDERED: IBUPROFEN 600 MG TAB PO ONE (15:00)
--- NOTE | 2018-11-16 15:08 | REP ---
UNILATERAL LEFT RIBS, PA CHEST, FIVE VIEWS: HISTORY: Fall. COMPARISON: 07/31/2018. The lungs are clear. The heart is normal in size. The pulmonary vasculature is normal in appearance. There are fractures of the left 6th and 7th ribs. IMPRESSION: Fractures of the left 6th and 7th ribs. Electronically Signed by Anselmo Silva MD 11/16/2018 03:14 P
[2018-11-16 15:22] VITALS: BP 133/82
== END 2018-11-16 15:33 | disposition home or self-care (01) ==
LOC: M ED 13:12
DX: S22.42XA Multiple fractures of ribs, left side, initial encounter for closed fracture (principal); W00.1XXA Fall from stairs and steps due to ice and snow, initial encounter; Y92.099 Unspecified place in other non-institutional residence as the place of occurrence of the external cause; Y93.9 Activity, unspecified; Y99.9 Unspecified external cause status; I50.9 Heart failure, unspecified; I10 Essential (primary) hypertension; R51 Headache; J44.9 Chronic obstructive pulmonary disease, unspecified; N18.9 Chronic kidney disease, unspecified; F20.9 Schizophrenia, unspecified; Z72.0 Tobacco use; Z79.899 Other long term (current) drug therapy

== ENCOUNTER 2018-12-15 13:01 | Inpatient (IN) | payer OTHER ==
[~2018-12-15] VITALS: Ht 154.9 cm; Wt 72.7 kg
[2018-12-15] MEDS ORDERED: BUPR150T3 PO (13:10)
[2018-12-15] MEDS ORDERED: methylPREDNISolone INJ 125 MG/2 ML VIAL (J2930) IV ONE (14:00)
--- NOTE | 2018-12-15 14:02 | REP ---
CHEST, TWO VIEWS: COMPARISON: 07/31/2018 There is no evidence of acute infiltrate. No pleural effusion is seen. The heart is normal in size. The mediastinal silhouette is unremarkable. The visualized osseous structures are intact. There are mild degenerative changes of the spine. IMPRESSION: No acute pulmonary disease. Electronically Signed by Orville Chicas MD 12/18/2018 11:27 A
[2018-12-15 14:08] LABS: BASO # 0.1 10^3/uL (0.0-0.2); BASO % 0.6 % (0.0-1.0); EOS # 0.2 10^3/uL (0.0-0.50); HEMATOCRIT 50.1 % (42.0-52.0); HEMOGLOBIN 15.5 g/dl (13.5-17.5); LYMPH # 1.8 10^3/uL (1.5-4.5); LYMPH % 21.4 % (24.0-44.0); MEAN CORPUSCULAR HEMOGLOBIN 29.1 pg (27.0-33.0); MEAN CORPUSCULAR HGB CONC 30.9 g/dl (32.0-36.5); MEAN CORPUSCULAR VOLUME 94.2 fl (80.0-96.0); MONO # 1.7 10^3/uL (0.0-0.8); MONO % 20.3 % (0.0-5.0); NEUTROPHILS # 4.7 10^3/uL (1.8-7.7); NEUTROPHILS % 55.5 % (36.0-66.0); PLATELET COUNT, AUTOMATED 206 10^3/uL (150-450); RED BLOOD COUNT 5.32 10^6/uL (4.30-6.10); WHITE BLOOD COUNT 8.4 10^3/uL (4.0-10.0)
[2018-12-15 14:25] LABS: INR 1.01; PROTHROMBIN TIME 13.4 SECONDS (12.1-14.4)
[2018-12-15 14:26] LABS: PARTIAL THROMBOPLASTIN TIME 28.2 SECONDS (25.4-37.6)
[2018-12-15 14:43] LABS: BLOOD UREA NITROGEN 13 MG/DL (7-18); CALCIUM LEVEL 9.6 MG/DL (8.8-10.2); CARBON DIOXIDE LEVEL 32 MEQ/L (21-32); CHLORIDE LEVEL 95 MEQ/L (98-107); CPK CREATINE PHOSPHOKINASE 395 U/L (39-308); CREATININE FOR GFR 1.54 MG/DL (0.70-1.30); FREE T4 1.48 NG/DL (0.76-1.46); GLOMERULAR FILTRATION RATE 49.1 (>49); GLUCOSE, FASTING 160 MG/DL (70-100); MB/CK RELATIVE INDEX 1.04 (< OR =4); NT-PRO BNP 169 PG/ML (<125); POTASSIUM SERUM 4.2 MEQ/L (3.5-5.1); SODIUM LEVEL 135 MEQ/L (136-145); TROPONIN I < 0.02 NG/ML (< 0.10)
[2018-12-15] MEDS: ALBUTEROL SULFATE 2.5 MG/0.5 ML INH NEB SOLN NEB PRN (15:01)
[2018-12-15 15:09] LABS: INFLUENZA A AMPLIFICATION NEGATIVE (NEGATIVE); INFLUENZA B AMPLIFICATION NEGATIVE (NEGATIVE)
[2018-12-15 16:00] VITALS: O2SAT 84
[2018-12-15] MEDS ORDERED: LOSA50TA88 PO (16:55)
[2018-12-15] MEDS ORDERED: FURO40TA2 PO (16:55)
[2018-12-15] MEDS ORDERED: ACETAMINOPHEN TAB 650MG DOSE (2X325MG) PO PRN ×2 (17:30→18:15)
[2018-12-15] MEDS ORDERED: IPRATROPIUM 0.5MG/ALBUTEROL 2.5MG INH SOL UD 3ML (DUONEB)(J7620) NEB SCH (17:30)
[2018-12-15] MEDS: NS 1,000 ML IV SCH (18:07)
--- NOTE | 2018-12-15 18:49 | HPE ---
DATE OF ADMISSION: 12/15/2018 CHIEF COMPLAINT: Shortness of breath for 4 days with chest tightness, productive cough. HISTORY OF PRESENT ILLNESS: This is a 63-year-old gentleman with a past medical history of chronic obstructive pulmonary disease (COPD), on home oxygen as needed, diastolic heart failure, obstructive sleep apnea, hypertension with significant active smoking history, who presents with a chief complaint of shortness of breath, chest tightness and productive cough for the last several days. The patient reports that since Tuesday he has felt chest tightness, congestion, short of breath and has had a yellow productive cough. He does have a chronic cough and he feels like it is more productive in nature. He has been compliant with his home inhalers except for this morning, in which he missed his inhalers. He is also still actively smoking and a pack of cigarettes lasts him about 1-1/2 weeks. He used to be a heavier smoker. He does follow with Dr. Reina in pulmonary and his primary care provider is Dr. Moseley. He came for further evaluation because he felt like he could no longer breathe comfortably. ROS- neg in systems except as above PAST MEDICAL HISTORY: As noted above in the history of present illness. PAST SURGICAL HISTORY: Appendectomy. MEDICATIONS: The patient's home medications are: - albuterol every 4 hours as needed for shortness of breath - Combivent two puffs four times a day as needed for shortness of breath - B complex one tablet daily - Breo one puff inhaled daily - Spiriva one puff inhaled twice a day - bupropion 150 mg daily - Lasix 40 mg daily - losartan 50 mg daily - aldactone 25 mg twice a day ALLERGIES: No known drug allergies. SOCIAL HISTORY: The patient is . He is currently on disability and not working. He has been smoking since 13 years old up to two to three packs per day. Currently a pack lasts him about 1-1/2 weeks. He has two daughters. FAMILY HISTORY: No family history of lung cancer. PHYSICAL EXAMINATION: The patient is currently afebrile to 98.2, blood pressure 117/76, heart rate up to 113, saturating as low as 84% on room air. GENERAL: He appears comfortable and does not have increased work of breathing. HEENT: Oropharynx is clear. Neck is supple. CARDIOVASCULAR: Tachycardic, no murmurs, rubs or gallops. LUNGS: The patient does have some expiratory wheezing and diminished air flow bilaterally. No rales or rhonchi. ABDOMEN: Soft, nontender, nondistended. EXTREMITIES: No clubbing, cyanosis or edema. SKIN: Dry. PSYCHIATRIC: Mood stable. NEUROLOGIC: The patient is alert and oriented times three. Follows simple commands. No focal neurologic deficits. LABORATORIES: Complete blood count (CBC) is unremarkable with a white count of 8.4, hemoglobin 15, platelets 206. Chemistry shows a creatinine of 1.54, last creatinine was 1.15 in September 2018. His potassium is 4.2, sodium 135. BNP is only mildly elevated at 169. TSH is 0.46. Flu was negative. IMAGING: Chest x-ray shows no acute pulmonary disease. ASSESSMENT AND PLAN: This is a 63-year-old gentleman with a past medical history of heavy smoking use and chronic obstructive pulmonary disease (COPD), diastolic heart failure, obstructive sleep apnea, hypertension, who presents with a chief complaint of shortness of breath, chest tightness and productive cough for several days, likely secondary to COPD exacerbation. 1. COPD exacerbation with symptoms of shortness of breath and chest tightness. The patient's trigger is likely secondary to active smoking and noncompliance with his home medications. I will place him on nebulizers around the clock and as needed. I will start him on prednisone 60 mg to be continued for 5 days. Given that he does report some increased sputum production, I will place him on azithromycin for antibiotic coverage for his COPD exacerbation. Smoking cessation was encouraged, as this is likely a trigger for his current hospitalization. 2. Acute kidney injury. The patient does have a creatinine of 1.54, up from his last one of 1.15. This is likely secondary to dehydration. I will place him in normal saline at 75 mL per hour and we will repeat a BMP tomorrow. Primary team can consider further workup if not improved by tomorrow. I do not think that this acute kidney injury is from any heart failure exacerbation given his lungs are entirely clear and there is no evidence of volume overload. I am going to hold his home Lasix, losartan and aldactone for now until we see what his creatinine is tomorrow. Again, I do not think that this is any heart failure exacerbation causing poor flow as an explanation for his acute kidney injury. We will see what his creatinine is after a trial of fluids tomorrow. 3. History of diastolic heart failure. At this time, the patient appears euvolemic. Given his acute kidney injury, I am holding his Lasix, aldactone, and losartan, as noted above. We will repeat a BMP tomorrow and primary team to consider resuming upon resolution of his acute kidney injury. 4. Heavy nicotine use. Encouraged smoking cessation. At this time, the patient declines nicotine patch and says he does not have an urge to smoke. 5. Deep vein thrombosis (DVT) prophylaxis. I am placing the patient on Lovenox. MTDD
--- NOTE | 2018-12-15 18:52 | ECGEPIP ---
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
[2018-12-15] MEDS: IPRATROPIUM 0.5MG/ALBUTEROL 2.5MG INH SOL UD 3ML (DUONEB)(J7620) NEB SCH (20:00)
[2018-12-15] MEDS ORDERED: SPIRONOLACTONE 25 MG TAB PO SCH (21:00)
[2018-12-15 22:00] VITALS: BP 122/66
[2018-12-16] MEDS: IPRATROPIUM 0.5MG/ALBUTEROL 2.5MG INH SOL UD 3ML (DUONEB)(J7620) NEB SCH ×4 (03:14→19:39)
[2018-12-16 06:00] VITALS: BP 119/78
[2018-12-16 07:19] LABS: HEMOGLOBIN 14.7 g/dl (13.5-17.5); MEAN CORPUSCULAR HEMOGLOBIN 29.2 pg (27.0-33.0); MEAN CORPUSCULAR HGB CONC 31.3 g/dl (32.0-36.5); MEAN CORPUSCULAR VOLUME 93.3 fl (80.0-96.0); PLATELET COUNT, AUTOMATED 210 10^3/uL (150-450); RED BLOOD COUNT 5.04 10^6/uL (4.30-6.10); WHITE BLOOD COUNT 8.1 10^3/uL (4.0-10.0)
[2018-12-16] MEDS: NS 1,000 ML IV SCH (07:27)
[2018-12-16 07:48] LABS: BLOOD UREA NITROGEN 18 MG/DL (7-18); CALCIUM LEVEL 8.9 MG/DL (8.8-10.2); CARBON DIOXIDE LEVEL 33 MEQ/L (21-32); CHLORIDE LEVEL 99 MEQ/L (98-107); GLOMERULAR FILTRATION RATE > 60.0 (>49); GLUCOSE, FASTING 115 MG/DL (70-100); POTASSIUM SERUM 4.5 MEQ/L (3.5-5.1); SODIUM LEVEL 136 MEQ/L (136-145)
[2018-12-16 09:00] VITALS: BP 123/78
[2018-12-16] MEDS ORDERED: LOSARTAN 50 MG TAB PO SCH (09:00)
[2018-12-16] MEDS ORDERED: AZITHROMYCIN 250 MG TAB PO SCH (09:00)
[2018-12-16] MEDS ORDERED: predniSONE 20 MG TAB PO SCH (09:00)
[2018-12-16] MEDS ORDERED: FUROSEMIDE 40 MG TAB PO SCH (09:00)
[2018-12-16] MEDS: buPROPion **XL** TABLET 150MG (WELLBUTRIN XL) PO SCH (09:17)
[2018-12-16] MEDS: ENOXAPARIN 40 MG/0.4 ML SYRINGE (J1650) SC SCH (09:18)
--- NOTE | 2018-12-16 09:37 | IPN ---
DATE: 12/16/2018 Kumar is seen on 4-painting. He is a patient of [facility]. His pulmonology care is through Dr. Reina. He was admitted with exacerbation of chronic obstructive pulmonary disease (COPD). He says he feels a little better than yesterday. Denies any purulent sputum production, hemoptysis, fever, chills. He has had repeated hospitalizations for pneumonia. His history shows COPD, hypertension, obstructive sleep apnea (SHANI), and what is described as diastolic heart failure, which could be cor pulmonale. PHYSICAL EXAM: 119/78, pulse of 84, afebrile. LUNGS: Expiratory wheezes, all doan. Fairly good air movement. No retractions. HEART: Regular rate and rhythm. ABDOMEN: Soft. Nontender. No peripheral edema. LABS: CBC and BMP unchanged from yesterday. IMPRESSION: 1. Exacerbation of chronic obstructive pulmonary disease. Patient feels minimally improved. He has only been in the hospital for a day. Continue nebulized bronchodilator. I am changing his antibiotics. He is currently on azithromycin, and unfortunately in [facility], azithromycin has only approximately 50% efficacy versus streptococcus pneumococcus. Will change to doxycycline 100 mg by mouth twice a day. I am also putting him on intravenous (IV) steroids for a few days. 2. Hypertensive heart disease. Blood pressure is under good control. He is off his losartan at this point, and it does not look like he needs it currently. 3. History of depression. He is on Wellbutrin XL which is being continued. He could go home tomorrow if he feels markedly better, more likely, he will need to be here until Tuesday.
[2018-12-16] MEDS: DOXYCYCLINE HYCLATE 100 MG TAB PO SCH ×2 (10:48→21:02)
[2018-12-16] MEDS: methylPREDNISolone INJ 125 MG/2 ML VIAL (J2930) IV SCH ×2 (10:49→21:02)
[2018-12-16 20:00] VITALS: BP 131/89
[2018-12-17] VITALS: BP 133/86
[2018-12-17] MEDS: IPRATROPIUM 0.5MG/ALBUTEROL 2.5MG INH SOL UD 3ML (DUONEB)(J7620) NEB SCH ×3 (02:00→14:18)
[2018-12-17 05:00] VITALS: BP 142/93
[2018-12-17 06:43] LABS: HEMATOCRIT 46.1 % (42.0-52.0); HEMOGLOBIN 14.2 g/dl (13.5-17.5); MEAN CORPUSCULAR HEMOGLOBIN 28.6 pg (27.0-33.0); MEAN CORPUSCULAR HGB CONC 30.8 g/dl (32.0-36.5); MEAN CORPUSCULAR VOLUME 92.9 fl (80.0-96.0); PLATELET COUNT, AUTOMATED 213 10^3/uL (150-450); RED BLOOD COUNT 4.96 10^6/uL (4.30-6.10); WHITE BLOOD COUNT 7.8 10^3/uL (4.0-10.0)
[2018-12-17 07:20] LABS: BLOOD UREA NITROGEN 21 MG/DL (7-18); CALCIUM LEVEL 8.7 MG/DL (8.8-10.2); CARBON DIOXIDE LEVEL 28 MEQ/L (21-32); CHLORIDE LEVEL 101 MEQ/L (98-107); CREATININE FOR GFR 1.05 MG/DL (0.70-1.30); GLOMERULAR FILTRATION RATE > 60.0 (>49); GLUCOSE, FASTING 185 MG/DL (70-100); POTASSIUM SERUM 4.7 MEQ/L (3.5-5.1); SODIUM LEVEL 135 MEQ/L (136-145)
[2018-12-17] MEDS: methylPREDNISolone INJ 125 MG/2 ML VIAL (J2930) IV SCH (08:57)
[2018-12-17] MEDS: buPROPion **XL** TABLET 150MG (WELLBUTRIN XL) PO SCH (08:57)
[2018-12-17] MEDS: DOXYCYCLINE HYCLATE 100 MG TAB PO SCH (08:57)
[2018-12-17] MEDS: ENOXAPARIN 40 MG/0.4 ML SYRINGE (J1650) SC SCH (08:57)
[2018-12-17 14:31] VITALS: BP 143/87
[2018-12-17] MEDS ORDERED: DOXY100T PO (16:41)
[2018-12-17] MEDS ORDERED: PRED10TA2 PO (16:41)
[2018-12-17] MEDS ORDERED: methylPREDNISolone INJ 125 MG/2 ML VIAL (J2930) IV ONE (17:00)
[2018-12-17] MEDS ORDERED: DOXYCYCLINE HYCLATE 100 MG TAB PO ONE (17:00)
== END 2018-12-17 17:35 | disposition home or self-care (01) | DRG 140 ==
LOC: M ED 13:01 → M ED INP 17:17 → M MS4PR 21:25
PROVIDERS: ADMIT Internal Medicine; ATTEND Internal Medicine Nephrology
DX: J44.1 Chronic obstructive pulmonary disease with (acute) exacerbation (principal); N17.9 Acute kidney failure, unspecified; I11.0 Hypertensive heart disease with heart failure; I50.32 Chronic diastolic (congestive) heart failure; G47.33 Obstructive sleep apnea (adult) (pediatric); F17.200 Nicotine dependence, unspecified, uncomplicated; Z79.899 Other long term (current) drug therapy; F32.9 Major depressive disorder, single episode, unspecified

== ENCOUNTER 2019-04-09 19:12 | Emergency (ER) | payer OTHER ==
[~2019-04-09] VITALS: Ht 160 cm; Wt 77.3 kg
[~2019-04-09 19:12] MED LIST changes: -/MOXI40TA OR; +AVEL1TAB2 OR; +BUPR150T3 PO; +DOXY100T PO; +LOSA50TA88 PO; +METO-1 PO; -TOPR25TA PO
[2019-04-09 20:15] LABS: BASO # 0.1 10^3/uL (0.0-0.2); BASO % 0.4 % (0.0-1.0); EOS # 0.3 10^3/uL (0.0-0.50); EOS % 2.1 % (0.0-3.0); HEMATOCRIT 39.6 % (42.0-52.0); HEMOGLOBIN 12.3 g/dl (13.5-17.5); LYMPH # 2.6 10^3/uL (1.5-4.5); LYMPH % 22.5 % (24.0-44.0); MEAN CORPUSCULAR HEMOGLOBIN 29.1 pg (27.0-33.0); MEAN CORPUSCULAR HGB CONC 31.1 g/dl (32.0-36.5); MEAN CORPUSCULAR VOLUME 93.6 fl (80.0-96.0); MONO # 1.7 10^3/uL (0.0-0.8); MONO % 14.7 % (0.0-5.0); NEUTROPHILS % 59.5 % (36.0-66.0); PLATELET COUNT, AUTOMATED 278 10^3/uL (150-450); RED BLOOD COUNT 4.23 10^6/uL (4.30-6.10); WHITE BLOOD COUNT 11.8 10^3/uL (4.0-10.0)
[2019-04-09 20:33] LABS: ALBUMIN 2.8 GM/DL (3.2-5.2); ALT/SGPT 13 U/L (12-78); BILIRUBIN,DIRECT < 0.1 MG/DL (0.0-0.2); BILIRUBIN,TOTAL 0.1 MG/DL (0.2-1.0); BLOOD UREA NITROGEN 14 MG/DL (7-18); CALCIUM LEVEL 8.4 MG/DL (8.8-10.2); CARBON DIOXIDE LEVEL 33 MEQ/L (21-32); CHLORIDE LEVEL 100 MEQ/L (98-107); CK-MB VALUE MASS 2.2 NG/ML (<3.6); CPK CREATINE PHOSPHOKINASE 220 U/L (39-308); CREATININE FOR GFR 1.04 MG/DL (0.70-1.30); GLOMERULAR FILTRATION RATE > 60.0 (>49); GLUCOSE, FASTING 120 MG/DL (70-100); NT-PRO BNP 96 PG/ML (<125); SODIUM LEVEL 139 MEQ/L (136-145); THYROID STIMULATING HORMONE 0.455 uIU/ML (0.358-3.740); THYROXINE (T4) 12.6 UG/DL (4.5-12.0); TOTAL PROTEIN 7.1 GM/DL (6.4-8.2); TROPONIN I < 0.02 NG/ML (< 0.10)
[2019-04-09] MEDS ORDERED: methylPREDNISolone INJ 125 MG/2 ML VIAL (J2930) IV ONE (21:00)
[2019-04-09] MEDS: IPRATROPIUM 0.5MG/ALBUTEROL 2.5MG INH SOL UD 3ML (DUONEB)(J7620) NEB SCH ×3 (21:10→22:16)
--- NOTE | 2019-04-09 21:20 | REP ---
Clinical: Cough and dyspnea . Comparison: 12/15/2018, 09/25/2017 . Findings: The mediastinum and cardiac silhouette are stable and within normal limits for portable technique. The lung doan demonstrate chronic interstitial changes without acute consolidation, effusion, or pneumothorax. Skeletal structures are intact. Impression: No acute cardiopulmonary process appreciated. Electronically Signed by Lonnie Hassan MD 04/09/2019 09:11 P
[2019-04-09] MEDS ORDERED: FLUT1INH3 (21:39)
[2019-04-09] MEDS ORDERED: INCR1INH (21:39)
[2019-04-09] MEDS ORDERED: ALBU8.5H (21:39)
--- NOTE | 2019-04-09 22:25 | ECGEPIP ---
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
[2019-04-09 23:04] LABS: VENOUS BASE EXCESS 5.3 (-2.0-2.0); VENOUS HCO3 32.2 MEQ/L (23.0-27.0); VENOUS O2 SATURATION 96.6 % (60.0-80.0); VENOUS PARTIAL PRESSURE CO2 57.4 mmHg (38.0-50.0); VENOUS PARTIAL PRESSURE O2 90.5 mmHg (30.0-50.0); VENOUS PH 7.367 UNITS (7.330-7.430); VENOUS STANDARD HCO3 29.3 MEQ/L
[2019-04-09 23:30] VITALS: BP 116/72
[2019-04-09] MEDS ORDERED: AZITHROMYCIN 250 MG TAB PO ONE (23:30)
[2019-04-09] MEDS ORDERED: PRED20TA PO (23:33)
[2019-04-09] MEDS ORDERED: AZIT-12 PO (23:33)
== END 2019-04-10 00:04 | disposition home or self-care (01) ==
LOC: M ED 19:12
DX: J44.1 Chronic obstructive pulmonary disease with (acute) exacerbation (principal); R00.0 Tachycardia, unspecified; J98.4 Other disorders of lung; I10 Essential (primary) hypertension; F17.210 Nicotine dependence, cigarettes, uncomplicated; Z79.51 Long term (current) use of inhaled steroids; Z79.899 Other long term (current) drug therapy; Z86.79 Personal history of other diseases of the circulatory system
CPT/HCPCS: 71045; 80048; 80076; 82550; 82553; 82803; 83605; 83880; 84436; 84443; 85025; 87040; 93005; 93041; 94640; 96374; 99285; J2930

== ENCOUNTER → 2019-05-31 | Outpatient (REF) | payer OTHER ==
[~2019-05-31] MED LIST changes: +ALBU8.5H; +AZIT-12 PO; +FLUT1INH3; +FLUT1INH3 INH; +INCR1INH; +METF-839 PO; +PRED10PA PO; +PRED20TA PO
[2019-05-31 19:20] LABS: ALBUMIN 3.7 GM/DL (3.2-5.2); ALT/SGPT 16 U/L (12-78); BILIRUBIN,TOTAL 0.3 MG/DL (0.2-1.0); BLOOD UREA NITROGEN 14 MG/DL (7-18); CALCIUM LEVEL 9.7 MG/DL (8.8-10.2); CARBON DIOXIDE LEVEL 31 MEQ/L (21-32); CHLORIDE LEVEL 105 MEQ/L (98-107); CHOLESTEROL LEVEL 217 MG/DL (<200); CHOLESTEROL RISK RATIO 4.254 (<5); CREATININE FOR GFR 1.18 MG/DL (0.70-1.30); GLOMERULAR FILTRATION RATE > 60.0 (>49); GLUCOSE, FASTING 85 MG/DL (70-100); HDL CHOLESTEROL 51 MG/DL (>40); LDL CHOLESTEROL 147 MG/DL (<100); NON-HDL-C 166 MG/DL; NT-PRO BNP 33 PG/ML (<125); POTASSIUM SERUM 4.7 MEQ/L (3.5-5.1); SODIUM LEVEL 141 MEQ/L (136-145); TOTAL PROTEIN 7.9 GM/DL (6.4-8.2); TRIGLYCERIDES LEVEL 95 MG/DL (<150)
== END ==
LOC: M LAB REF 16:50
PROVIDERS: ATTEND Nurse Practitioner Adult Health
DX: J44.9 Chronic obstructive pulmonary disease, unspecified (principal); I50.9 Heart failure, unspecified

== ENCOUNTER → 2019-07-24 | Outpatient (CLI) | payer OTHER ==
[~2019-07-24] MED LIST changes: -FLUT1INH3 INH; -METF-839 PO; -PRED10PA PO
--- NOTE | 2019-07-25 05:19 | REP ---
Clinical: Lung screening. History smoking. Comparison: 09/25/2017 Technique: Axial low-dose noncontrast images from the thoracic inlet to the upper abdomen using lung screening technique. Findings: The lung doan are well-aerated. Mild/moderate emphysematous changes are suggested along with mild bronchiectasis. No consolidation, significant nodule or mass lesion is appreciated. No pleural effusion/reaction or pneumothorax. Tracheobronchial tree is patent. Mediastinum demonstrates mild atherosclerotic changes of the coronary arteries without cardiomegaly. Impression: Lung-RADS category I. No nodule or suspicious abnormality. Management recommendations include annual low-dose CT reevaluation/follow-up. Electronically Signed by Lonnie Hassan MD 07/25/2019 05:10 A
== END ==
LOC: M RAD 08:05
PROVIDERS: ATTEND Internal Medicine Pulmonary Disease
DX: F17.218 Nicotine dependence, cigarettes, with other nicotine-induced disorders (principal)

== ENCOUNTER 2019-08-08 16:12 | Inpatient (IN) | payer OTHER ==
[~2019-08-08] VITALS: Ht 160 cm; Wt 71.6 kg
[2019-08-08 16:41] LABS: BASO % 0.2 % (0.0-1.0); HEMATOCRIT 43.2 % (42.0-52.0); HEMOGLOBIN 13.5 g/dl (13.5-17.5); LYMPH # 1.8 10^3/uL (1.5-5.0); LYMPH % 8.4 % (24.0-44.0); MEAN CORPUSCULAR HEMOGLOBIN 28.8 pg (27.0-33.0); MEAN CORPUSCULAR HGB CONC 31.3 g/dl (32.0-36.5); MEAN CORPUSCULAR VOLUME 92.3 fl (80.0-96.0); MONO # 1.9 10^3/uL (0.0-0.8); MONO % 8.8 % (0.0-5.0); NEUTROPHILS # 17.4 10^3/uL (1.5-8.5); NEUTROPHILS % 81.5 % (36.0-66.0); PLATELET COUNT, AUTOMATED 190 10^3/uL (150-450); RED BLOOD COUNT 4.68 10^6/uL (4.30-6.10); WHITE BLOOD COUNT 21.4 10^3/uL (4.0-10.0)
[2019-08-08] MEDS ORDERED: methylPREDNISolone INJ 125 MG/2 ML VIAL (J2930) IV ONE (17:00)
[2019-08-08 17:07] LABS: CALCIUM LEVEL 9.1 MG/DL (8.8-10.2); CREATININE FOR GFR 1.42 MG/DL (0.70-1.30); GLOMERULAR FILTRATION RATE 53.8 (>49)
[2019-08-08] MEDS: IPRATROPIUM 0.5MG/ALBUTEROL 2.5MG INH SOL UD 3ML (DUONEB)(J7620) NEB SCH ×3 (17:17→17:40)
[2019-08-08 17:19] LABS: ABG BASE EXCESS 5.9 (-2.0-2.0); ABG HCO3 31.3 MEQ/L (22.0-26.0); ABG O2 SATURATION 91.1 % (95.0-99.0); ABG PARTIAL PRESSURE CO2 48.1 mmHg (35.0-45.0); ABG PARTIAL PRESSURE O2 58.3 mmHg (75.0-100.0); ABG STANDARD HCO3 29.7 MEQ/L (22.0-26.0); ABG TOTAL CO2 32.8 MEQ/L (23.0-31.0); ABG pH (ARTERIAL) 7.431 UNITS (7.350-7.450)
--- NOTE | 2019-08-08 17:56 | REP ---
Portable chest x-ray: Sitting AP view. History: Dyspnea and cough. Comparison portable chest x-ray April 09, 2019. Findings: EKG monitoring electrodes and oxygen delivery tubing overlie the chest. Lungs are exposed at a somewhat lordotic projection as before. No infiltrate is seen. Heart is not enlarged. There are degenerative changes in the thoracic spine. Impression: No acute abnormality. Electronically Signed by Xiang Glaser MD 08/08/2019 06:01 P
[2019-08-08] MEDS ORDERED: FLUT1INH3 INH (18:16)
[2019-08-08] MEDS ORDERED: METF-839 PO (18:16)
[2019-08-08] MEDS ORDERED: GLUCOSE 4 GM CHEW TABLET PO PRN (18:30)
[2019-08-08] MEDS ORDERED: DEXTROSE 50% 50 ML SYRINGE IV PRN (18:30)
[2019-08-08] MEDS ORDERED: GLUCAGON FOR INJ 1 MG VIAL (J1610) SC PRN (18:30)
[2019-08-08] MEDS ORDERED: NS 1,000 ML IV SCH (18:30)
--- NOTE | 2019-08-08 18:30 | HPEPDOC ---
[facility] Medical History & Physical Date of Admission Aug 08, 2019 Date of Service: Aug 08, 2019 Attending Physician: IBRAHIMA CARDONA MD History and Physical CHIEF COMPLAINT: Shortness of breath HISTORY OF PRESENT ILLNESS: 64-year-old male with past medical history of COPD on home oxygen, obstructive sleep apnea, hypertension, CHF, diabetes mellitus, presents with short of breath since last night. He reports waking up to urinate last night, taking his CPAP machine off and subsequent dyspnea at rest and exertion. He reports continued symptoms throughout the day, which prompted him to come to the ED, does not have any home nebulizers, received 3 DuoNeb treatments in the ED. He is requiring increased submental oxygen compared to home. He denies any other symptoms associated with the shortness of breath, has a baseline cough which is nonproductive, remains unchanged during this episode. He denies any fever, any vomiting, abdominal pain or diarrhea. He would usually gets COPD exacerbation multiple times per year, this is his third episode of the year. The patient denies any chest pain, any headache or any vision disturbances. 10 point review of system was negative except for above PAST MEDICAL HISTORY: 1. Objective sleep apnea. 2. COPD on home oxygen. 3. CHF. 4. Hypertension 5. Diabetes 6. Current smoker PAST SURGICAL HISTORY: 1. , Appendectomy. SOCIAL HISTORY: Current smoker, 1-2 packs per day. Denies alcohol use. Denies drug use FAMILY HISTORY: No family history of heart disease ALLERGIES: Please see below. HOME MEDICATIONS: Please see below. PHYSICAL EXAMINATION: VITAL SIGNS: Please see below. GENERAL: No distress HEENT: Normocephalic, atraumatic, moist mucous membranes NECK: Supple CARDIOVASCULAR EXAMINATION: S1, S2, no murmurs RESPIRATORY EXAMINATION: Diminished, distant, poor air movement, expiratory wheezing appreciated, no rhonchi ABDOMINAL EXAMINATION: Soft, nontender, nondistended, positive bowel sounds EXTREMITIES: Range of motion intact, trace lower family edema SKIN: No rash NEUROLOGICAL EXAMINATION: Alert and oriented 3, no focal deficits PSYCHIATRIC EXAMINATION: Calm and cooperative LABORATORY DATA: See below. IMAGING: Chest x-ray without acute pathology MICROBIOLOGY: Please see below. ASSESSMENT: 64-year-old male with history of CHF, COPD on home oxygen, obstructive sleep apnea, hypertension, diabetes, who has recurrent episodes of COPD exacerbation is being admitted for another episode of COPD exacerbation.. . PLAN: 1. COPD exacerbation. Tachycardic, Xopenex and ipratropium, Solu-Medrol 40 mg IV every 8 hours, supplemental oxygen as needed to maintain O2 sats of 90%. Doxycycline. 2. Acute kidney injury. Likely prerenal and medication related. Hold Lasix, losartan and spironolactone, gentle IV fluids. 3. CHF. Holding spironolactone and Lasix, will monitor volume status with IV fluids, currently euvolemic. 4. Obstructive sleep apnea. Continue CPAP with home settings 5. Hypertension. Blood pressure currently low normal, holding losartan for acute kidney injury, will monitor. 6. Diabetes mellitus. Hold metformin, sliding scale insulin with fingersticks before meals and at bedtime DVT prophylaxis: Heparin subcutaneous GI prophylaxis: Not needed at this time Vital Signs Vital Signs Date Time Temp Pulse Resp B/P (MAP) Pulse Ox O2 Delivery O2 Flow Rate FiO2 08/08/19 17:45 127 99/59 (72) 91 Nasal Cannula 3.0 08/08/19 16:12 98.9 22 Laboratory Data Labs 24H Laboratory Tests 2 08/08/19 16:28: Immature Granulocyte % (Auto) 1.1, Neutrophils (%) (Auto) 81.5H, Lymphocytes (%) (Auto) 8.4L, Monocytes (%) (Auto) 8.8H, Eosinophils (%) (Auto) 0.0, Basophils (%) (Auto) 0.2, Neutrophils # (Auto) 17.4H, Lymphocytes # (Auto) 1.8, Monocytes # (Auto) 1.9H, Eosinophils # (Auto) 0.0, Basophils # (Auto) 0.0, Nucleated Red Blood Cells % (auto) 0.0, Anion Gap 7L, Glomerular Filtration Rate 53.8, Calcium Level 9.1 08/08/19 17:10: Blood Gas Bicarbonate Standard 29.7H, Arterial Blood pH 7.431, Arterial Blood Partial Pressure CO2 48.1H, Arterial Blood Partial Pressure O2 58.3L, Arterial Blood Total CO2 32.8H, Arterial Blood HCO3 31.3H, Arterial Blood Base Excess 5.9H, Arterial Blood Oxygen Saturation 91.1L CBC/BMP Laboratory Tests 08/08/19 16:28 Home Medications Scheduled Bupropion Hcl (Bupropion Xl) 150 Mg Tab, 150 MG PO DAILY Fluticasone Propion/Salmeterol (Fluticasone-Salmeterol 232-14) 1 Each Aer.pow.ba, 1 INH INH BID PATIENT STATES HE WAS RECENTLY SWITCHED TO THIS MEDICATION AND IT HAS BEEN GIVING HIM HEADACHES AND DOESN'T SEEM TO BE WORKING. HE WAS PREVIOUSLY ON BREO 200MG AND INCRUSE INHALERS AND HE STATED THESE MEDICATIONS WORKED WELL BUT HIS INSURANCE WILL NO LONGER COVER BREO Furosemide (Furosemide) 40 Mg Tab, 40 MG PO DAILY Losartan Potassium (Losartan Potassium) 50 Mg Tab, 50 MG PO DAILY Metformin HCl (Metformin HCl) 500 Mg Tablet, 500 MG PO BID Spironolactone (Spironolactone) 25 Mg Tab, 25 MG PO BID Vitamin B Complex (Vitamin B Complex) 1 Tab Tab, 1 TAB PO DAILY Scheduled PRN Albuterol Sulfate (Proair Hfa) 108 Mcg/Act Aer, 2 PUFF INH Q4H PRN for SHORTNESS OF BREATH Ipratropium/Albuterol Sulfate (Combivent Respimat 20-100 Mcg) 1 Aer Aer, 1 PUFF INH QID PRN for SHORTNESS OF BREATH Allergies Coded Allergies: No Known Allergies (Unverified , 04/09/19) A-FIB/CHADSVASC A-FIB History Current/History of A-Fib/PAF?: No IBRAHIMA CARDONA MD Aug 08, 2019 18:30
[2019-08-08 19:56] VITALS: BP 108/68
[2019-08-08] MEDS: LEVALBUTEROL 1.25 MG/0.5 ML CONCENTRATE NEB NEB SCH (20:00)
[2019-08-08] MEDS: IPRATROPIUM 0.02% SOLN 0.5MG/2.5 ML NEB NEB SCH (20:00)
[2019-08-08] MEDS: DOXYCYCLINE HYCLATE 100 MG TAB PO SCH (20:26)
[2019-08-08] MEDS: HumaLOG INSULIN (NovoLOG) PER UNIT SC SCH (20:27)
[2019-08-08 22:00] VITALS: BP 110/72
[2019-08-08] MEDS: HEPARIN SOD (PORCINE) 5000 UNITS/ML VIAL SC SCH (22:03)
[2019-08-09] MEDS: LEVALBUTEROL 1.25 MG/0.5 ML CONCENTRATE NEB NEB SCH ×4 (00:39→20:36)
[2019-08-09] MEDS: IPRATROPIUM 0.02% SOLN 0.5MG/2.5 ML NEB NEB SCH ×4 (00:39→20:36)
[2019-08-09] MEDS: methylPREDNISolone INJ 40 MG/1 ML VIAL (J2920) IV SCH ×3 (02:00→17:21)
[2019-08-09 06:00] VITALS: BP 104/76
[2019-08-09] MEDS: HEPARIN SOD (PORCINE) 5000 UNITS/ML VIAL SC SCH ×3 (06:06→20:04)
[2019-08-09 06:54] LABS: HEMATOCRIT 42.5 % (42.0-52.0); HEMOGLOBIN 13.1 g/dl (13.5-17.5); MEAN CORPUSCULAR HEMOGLOBIN 28.4 pg (27.0-33.0); MEAN CORPUSCULAR HGB CONC 30.8 g/dl (32.0-36.5); PLATELET COUNT, AUTOMATED 186 10^3/uL (150-450); RED BLOOD COUNT 4.62 10^6/uL (4.30-6.10); WHITE BLOOD COUNT 14.9 10^3/uL (4.0-10.0)
--- NOTE | 2019-08-09 06:58 | ECGEPIP ---
[facility] - ED Test Date: 2019-08-08 Pat Name: TRINY AMOR Department: Room: - Gender: Male Sky Diver: TC : 1955 Requested By: Henrry Cadet Order Number: [id number] Reading MD: Tricia Porter Measurements Intervals Leon Rate: 126 P: 78 LA: 130 QRS: 91 QRSD: 86 T: 72 QT: 293 QTc: 426 Interpretive Statements SINUS TACHYCARDIA BORDERLINE RIGHT AXIS DEVIATION ABNORMAL RHYTHM ECG INCREASED RATE 04/09/19 Electronically Signed on 08-09-2019 6:58:32 EDT by Tricia Porter
[2019-08-09 07:32] LABS: ALBUMIN 2.5 GM/DL (3.2-5.2); BILIRUBIN,TOTAL 0.4 MG/DL (0.2-1.0); CREATININE FOR GFR 1.51 MG/DL (0.70-1.30); GLOMERULAR FILTRATION RATE 50.1 (>49); MAGNESIUM LEVEL 2.1 MG/DL (1.8-2.4); TOTAL PROTEIN 7.3 GM/DL (6.4-8.2)
[2019-08-09] MEDS: HumaLOG INSULIN (NovoLOG) PER UNIT SC SCH ×4 (07:38→20:33)
[2019-08-09] MEDS: DOXYCYCLINE HYCLATE 100 MG TAB PO SCH ×2 (08:40→20:04)
[2019-08-09] MEDS ORDERED: LOSARTAN 50 MG TAB PO SCH (09:00)
[2019-08-09] MEDS: buPROPion **XL** TABLET 150MG (WELLBUTRIN XL) PO SCH (09:33)
[2019-08-09] MEDS: FUROSEMIDE 40 MG/4 ML VIAL (J1940) IV SCH (12:06)
[2019-08-09 13:27] VITALS: BP 101/64
--- NOTE | 2019-08-09 13:56 | IPNPDOC ---
Date Seen The patient was seen on 08/09/19. Progress Note HISTORY OF PRESENT ILLNESS: 64-year-old male with past medical history of COPD on home oxygen, obstructive sleep apnea, hypertension, CHF, diabetes mellitus, presents with short of breath since last night. He reports waking up to urinate last night, taking his CPAP machine off and subsequent dyspnea at rest and exertion. He reports continued symptoms throughout the day, which prompted him to come to the ED, does not have any home nebulizers, received 3 DuoNeb treatments in the ED. He is requiring increased submental oxygen compared to home. He denies any other symptoms associated with the shortness of breath, has a baseline cough which is nonproductive, remains unchanged during this episode. He denies any fever, any vomiting, abdominal pain or diarrhea. He would usually gets COPD exacerbation multiple times per year, this is his third episode of the year. The patient denies any chest pain, any headache or any vision disturbances. 08/09/2019 Patient comfortable in bed, reports slight improvement in shortness of breath, otherwise without complaints. He denies any chest pain, vomiting, abdominal pain or diarrhea. He tolerated CPAP overnight without any difficulty 10 point review of system was negative except for above HOME MEDICATIONS: Please see below. PHYSICAL EXAMINATION: VITAL SIGNS: Please see below. GENERAL: No distress HEENT: Normocephalic, atraumatic, moist mucous membranes NECK: Positive JVD CARDIOVASCULAR EXAMINATION: S1, S2, no murmurs RESPIRATORY EXAMINATION: Distant, poor air movement, expiratory wheezing appreciated, no rhonchi ABDOMINAL EXAMINATION: Soft, nontender, nondistended, positive bowel sounds EXTREMITIES: Range of motion intact SKIN: No rash NEUROLOGICAL EXAMINATION: Alert and oriented 3, no focal deficits PSYCHIATRIC EXAMINATION: Calm and cooperative LABORATORY DATA: See below. IMAGING: Chest x-ray without acute pathology MICROBIOLOGY: Please see below. ASSESSMENT: 64-year-old male with history of CHF, COPD on home oxygen, obst ructive sleep apnea, hypertension, diabetes, who has recurrent episodes of COPD exacerbation is being admitted for another episode of COPD exacerbation.. . PLAN: 1. COPD exacerbation. Tachycardic, Xopenex and ipratropium, Solu-Medrol 40 mg IV every 8 hours, supplemental oxygen as needed to maintain O2 sats of 90%. Doxycycline. 2. Acute kidney injury. Likely cardiorenal syndrome Start Lasix IV 40 mg twice a day 3. CHF/cor pulmonale. TTE from 2 years ago shows right ventricular systolic pressure of greater than 104, current clinical presentation suggestive of right ventricular volume overload with subsequent development of cardiorenal syndrome, will attempt to diurese and monitor for improvement in renal function. TTE pending 4. Obstructive sleep apnea. Continue CPAP with home settings 5. Hypertension. holding losartan for acute kidney injury, will monitor. 6. Diabetes mellitus. Hold metformin, sliding scale insulin with fingersticks before meals and at bedtime DVT prophylaxis: Heparin subcutaneous GI prophylaxis: Not needed at this time VS, I&O, 24H, Fishbone Vital Signs/I&O Vital Signs Date Time Temp Pulse Resp B/P (MAP) Pulse Ox O2 Delivery O2 Flow Rate FiO2 08/09/19 13:27 98.6 114 18 101/64 (76) 93 08/09/19 09:08 2.0 08/08/19 19:30 Nasal Cannula I&O- Last 24 Hours up to 6 AM 08/09/19 06:00 Intake Total 930 ml Balance 930 ml Laboratory Data 24H LABS Laboratory Tests 2 08/08/19 16:28: Immature Granulocyte % (Auto) 1.1, Neutrophils (%) (Auto) 81.5H, Lymphocytes (%) (Auto) 8.4L, Monocytes (%) (Auto) 8.8H, Eosinophils (%) (Auto) 0.0, Basophils (%) (Auto) 0.2, Neutrophils # (Auto) 17.4H, Lymphocytes # (Auto) 1.8, Monocytes # (Auto) 1.9H, Eosinophils # (Auto) 0.0, Basophils # (Auto) 0.0, Nucleated Red Blood Cells % (auto) 0.0, Anion Gap 7L, Glomerular Filtration Rate 53.8, Calcium Level 9.1 08/08/19 17:10: Blood Gas Bicarbonate Standard 29.7H, Arterial Blood pH 7.431, Arterial Blood Partial Pressure CO2 48.1H, Arterial Blood Partial Pressure O2 58.3L, Arterial Blood Total CO2 32.8H, Arterial Blood HCO3 31.3H, Arterial Blood Base Excess 5.9H, Arterial Blood Oxygen Saturation 91.1L 08/08/19 20:03: Bedside Glucose (Misc Panel) 305H 08/09/19 06:24: Nucleated Red Blood Cells % (auto) 0.0, Anion Gap 5L, Glomerular Filtration Rate 50.1, Calcium Level 9.0, Magnesium Level 2.1, Total Bilirubin 0.4, Aspartate Amino Transf (AST/SGOT) 11, Alanine Aminotransferase (ALT/SGPT) 13, Alkaline Phosphatase 149H, Total Protein 7.3, Albumin 2.5L, Albumin/Globulin Ratio 0.52L 08/09/19 11:54: Bedside Glucose (Misc Panel) 149H CBC/BMP Laboratory Tests 08/08/19 16:28 08/09/19 06:24 IBRAHIMA CARDONA MD Aug 09, 2019 13:56
[2019-08-09 22:00] VITALS: BP 127/79
[2019-08-10] MEDS: FUROSEMIDE 40 MG/4 ML VIAL (J1940) IV SCH (01:00)
[2019-08-10] MEDS: methylPREDNISolone INJ 40 MG/1 ML VIAL (J2920) IV SCH ×2 (01:00→08:51)
[2019-08-10] MEDS: LEVALBUTEROL 1.25 MG/0.5 ML CONCENTRATE NEB NEB SCH ×2 (02:15→07:15)
[2019-08-10] MEDS: IPRATROPIUM 0.02% SOLN 0.5MG/2.5 ML NEB NEB SCH ×2 (02:15→07:15)
[2019-08-10 05:07] VITALS: BP 128/70
--- NOTE | 2019-08-10 05:31 | IPNPDOC ---
Text Note Date of Service The patient was seen on 08/10/19. NOTE Was paged because patient had complained of chest discomfort that started around 4 AM this morning. I ordered a stat EKG, cardiac enzymes, as well as his a.m. labs. On examination, patient was resting comfortably in bed. His chest pain was not reproducible by touch, but it was reproducible with movement. Chest pain was not radiating, states this feels different than his prior episodes of chest pain. Examination was benign. EKG was sinus, at a rate of 97, no ST elevation, normal axis. Prior EKG showventricular tachycardia. ia. Vital signs are significant normal limits. Currently pending cardiac enzymes. Based on the way patient's chest discomfort is reproducible with movement, unlikely to be [place]. Most likely musculoskeletal in nature. We'll continue monitoring. VS,Fishbone, I+O VS, Fishbone, I+O Laboratory Tests 08/09/19 06:24 Vital Signs Date Time Temp Pulse Resp B/P (MAP) Pulse Ox O2 Delivery O2 Flow Rate FiO2 08/09/19 22:00 98.3 111 94 127/79 (95) 94 Room Air 08/09/19 20:00 2.0 I&O- Last 24 Hours up to 6 AM 08/10/19 06:00 Intake Total 1150 ml Balance 1150 ml GME ATTESTATION GME ATTESTATION My faculty preceptor for this patient encounter was physically present during the encounter and was fully available. All aspects of the patient interview, examination, medical decision making process, and medical care plan development were reviewed and approved by the faculty preceptor. The faculty preceptor is aware and concurs with the plan as stated in the body of this note and will attest to such by his/her cosignature. ALEXANDER WOODARD DO Aug 10, 2019 05:31
[2019-08-10 06:02] LABS: BLOOD UREA NITROGEN 32 MG/DL (7-18); CARBON DIOXIDE LEVEL 33 MEQ/L (21-32); CHLORIDE LEVEL 100 MEQ/L (98-107); CK-MB VALUE MASS 3.4 NG/ML (<3.6); CPK CREATINE PHOSPHOKINASE 81 U/L (39-308); GLOMERULAR FILTRATION RATE > 60.0 (>49); GLUCOSE, FASTING 187 MG/DL (70-100); POTASSIUM SERUM 4.5 MEQ/L (3.5-5.1); SODIUM LEVEL 136 MEQ/L (136-145); TROPONIN I < 0.02 NG/ML (< 0.10)
[2019-08-10] MEDS: HEPARIN SOD (PORCINE) 5000 UNITS/ML VIAL SC SCH (06:20)
--- NOTE | 2019-08-10 06:47 | ECHO ---
DATE OF STUDY: 08/09/2019 DATE OF : 1955 AGE: 64 REFERRING PROVIDER: Dr. Dony Lynne PATIENT LOCATION: Room 4227 REASON FOR STUDY: Congestive heart failure. 2-D MEASUREMENTS: IVS: 0.9 cm LV: 3.9 cm LVPW: 0.97 cm LA: 2.9 cm Aorta: 3.8 cm IVC: 1.4 cm DOPPLER MEASUREMENTS: Peak velocity across the aortic valve: 1.3 m/s Peak velocity across the LVOT: 1.4 m/s Mitral E: 0.78 Mitral A: 0.81 Ratio: Less than 1.0 Maximum tricuspid valve velocity: 3.2 m/s 2-D COMMENTS: 1. Normal left ventricular size, wall thickness, and normal global left ventricular systolic function. The estimated left ventricular systolic ejection fraction is 65-70%. 2. Normal left atrium. The right atrium and the right ventricle appeared to be mildly enlarged in limited views. 3. The atrial septum appeared to be normal without evidence of defect or shunt. 4. Mildly enlarged aortic root at 3.8 cm. 5. Normal aortic valve, mitral valve, tricuspid valve, and pulmonic valve. The proximal pulmonary artery branches were not well visualized. 6. The inferior vena cava was normal in size, central venous pressure might be normal. DOPPLER: Only mild tricuspid regurgitation detected and trace pulmonic regurgitation. The calculated pulmonary artery systolic pressure varies between 40-50 mmHg. Abnormal relaxation pattern was noted across the mitral valve leaflets as well as mitral valve annulus consistent with features of grade 1 left ventricular diastolic dysfunction. IMPRESSION: 1. Normal global left ventricular systolic function. There are some features of left ventricular diastolic dysfunction manifested by abnormal relaxation, grade 1. 2. Mild tricuspid regurgitation with probably moderate pulmonary hypertension. The right atrium and the right ventricle appeared to be mildly enlarged in limited views. There are findings also consistent with right ventricular hypertrophy.
[2019-08-10] MEDS: HumaLOG INSULIN (NovoLOG) PER UNIT SC SCH (07:30)
[2019-08-10] MEDS: DOXYCYCLINE HYCLATE 100 MG TAB PO SCH (08:50)
[2019-08-10] MEDS: buPROPion **XL** TABLET 150MG (WELLBUTRIN XL) PO SCH (08:50)
[2019-08-10] MEDS ORDERED: LOSARTAN 50 MG TAB PO SCH (09:00)
[2019-08-10 09:37] VITALS: BP 124/79
[2019-08-10] MEDS ORDERED: PRED10PA PO (11:29)
--- NOTE | 2019-08-10 13:36 | DS.PDOC ---
Discharge Summary General Date of Admission Aug 08, 2019 at 18:17 Date of Discharge 08/10/2019 Attending Physician: IBRAHIMA CARDONA MD Discharge Summary PROCEDURES PERFORMED DURING STAY: None. ADMITTING DIAGNOSES: 1. COPD exacerbation. DISCHARGE DIAGNOSES: 1. COPD exacerbation, acute kidney injury. COMPLICATIONS/CHIEF COMPLAINT: Chf Copd Cor Pulmonale Diabetes Mellitus. HISTORY OF PRESENT ILLNESS: 64-year-old male with an extensive medical history, was admitted for COPD exacerbation and acute kidney injury. Patient was treated with nebulizers and IV steroids along with supplemental oxygen to maintain adequate oxygenation. Clinically has improved significantly, ambulating around the unit multiple times on his home oxygen of 2 L/m. His lungs sound significantly better since admission, will be discharged home on oral steroid taper to complete his treatment. Acute kidney injury was likely from cardiorenal syndrome, treated with IV Lasix and significant improvement in creatinine was noted. Creatinine is close to baseline, will discharge on oral home Lasix for further diuresis. Patient is clinically and hemodynamically stable for discharge and outpatient follow-up. HOSPITAL COURSE: As above. DISCHARGE MEDICATIONS: Please see below. ALLERGIES: Please see below. PHYSICAL EXAMINATION: VITAL SIGNS: Please see below. GENERAL: No distress HEENT: Normocephalic, atraumatic, moist mucous membranes NECK: Supple CARDIOVASCULAR EXAMINATION: S1, S2, no murmurs RESPIRATORY EXAMINATION: Diminished, poor air movement, no wheezing ABDOMINAL EXAMINATION: Soft, nontender, nondistended, positive bowel sounds EXTREMITIES: Range of motion intact SKIN: No rash NEUROLOGICAL EXAMINATION: Alert and oriented 3, no focal deficits PSYCHIATRIC EXAMINATION: Calm and cooperative LABORATORY DATA: Please see below. IMAGING: TTE with moderately elevated right ventricular systolic pressure, EF within normal limits. PROGNOSIS: Guarded ACTIVITY: As tolerated. DIET: Cardiac DISCHARGE PLAN: Patient will follow with PCP in 1-2 weeks DISPOSITION: 01 Home, Self-Care. DISCHARGE INSTRUCTIONS: 1. As above. DISCHARGE CONDITION: Stable. TIME SPENT ON DISCHARGE: Greater than 32 minutes. Vital Signs/I&Os Vital Signs Date Time Temp Pulse Resp B/P (MAP) Pulse Ox O2 Delivery O2 Flow Rate FiO2 08/10/19 09:37 124/79 08/10/19 09:00 2.0 08/10/19 05:07 97.7 101 18 96 Nasal Cannula I&O- Last 24 Hours up to 6 AM 08/10/19 05:59 Intake Total 1570 ml Balance 1570 ml Laboratory Data Labs 24H Laboratory Tests 2 08/09/19 16:43: Bedside Glucose (Misc Panel) 244H 08/09/19 19:53: Bedside Glucose (Misc Panel) 174H 08/10/19 05:26: Anion Gap 3L, Glomerular Filtration Rate > 60.0, Calcium Level 9.0, Phosphorus Level 2.5, Magnesium Level 2.0, Total Creatine Kinase 81, Creatine Kinase MB 3.4, Creatine Kinase MB Relative Index 4.20H, Troponin I < 0.02 08/10/19 11:51: Bedside Glucose (Misc Panel) 135H CBC/BMP Laboratory Tests 08/10/19 05:26 FSBS Laboratory Tests Test 08/09/19 16:43 08/09/19 19:53 08/10/19 11:51 Range/Units Bedside Glucose (Misc Panel) 244 174 135 80-115 MG/DL Discharge Medications Scheduled Bupropion Hcl (Bupropion Xl) 150 Mg Tab, 150 MG PO DAILY, (Reported) Fluticasone Propion/Salmeterol (Fluticasone-Salmeterol 232-14) 1 Each Aer.pow.ba, 1 INH INH BID, (Reported) PATIENT STATES HE WAS RECENTLY SWITCHED TO THIS MEDICATION AND IT HAS BEEN GIVING HIM HEADACHES AND DOESN'T SEEM TO BE WORKING. HE WAS PREVIOUSLY ON BREO 200MG AND INCRUSE INHALERS AND HE STATED THESE MEDICATIONS WORKED WELL BUT HIS INSURANCE WILL NO LONGER COVER BREO Furosemide (Furosemide) 40 Mg Tab, 40 MG PO DAILY, (Reported) Losartan Potassium (Losartan Potassium) 50 Mg Tab, 50 MG PO DAILY, (Reported) Metformin HCl (Metformin HCl) 500 Mg Tablet, 500 MG PO BID, (Reported) Prednisone (Prednisone) 10 Mg Tab.ds.pk, 10 MG PO DAILY Take 4 tabs daily x2 days followed by 3 tabs daily x2 days followed by 2 tabs daily x2 days followed by 1 tab daily x2 days. Spironolactone (Spironolactone) 25 Mg Tab, 25 MG PO BID, (Reported) Vitamin B Complex (Vitamin B Complex) 1 Tab Tab, 1 TAB PO DAILY, (Reported) Scheduled PRN Albuterol Sulfate (Proair Hfa) 108 Mcg/Act Aer, 2 PUFF INH Q4H PRN for SHORTNESS OF BREATH, (Reported) Ipratropium/Albuterol Sulfate (Combivent Respimat 20-100 Mcg) 1 Aer Aer, 1 PUFF INH QID PRN for SHORTNESS OF BREATH, (Reported) Allergies Coded Allergies: No Known Allergies (Unverified , 04/09/19) IBRAHIMA CARDONA MD Aug 10, 2019 13:36
--- NOTE | 2019-08-13 21:13 | ECGEPIP ---
[facility] Test Date: 2019-08-10 Pat Name: TRINY AMOR Department: Room: [place] [address] Gender: Male It Service Manager: : 1955 Requested By: ALEXANDER WOODARD Order Number: [id number] Reading MD: Ryan Glover Measurements Intervals [place] Rate: 97 P: 78 [place]: 149 QRS: 82 QRSD: 85 T: 67 QT: 322 QTc: 410 Interpretive Statements Normal sinus rhythm with sinus arrhythmia ST elevation consider inferior injury Repolarization abnormalities are increased since 08/08/2019 Electronically Signed on 08-13-2019 21:13:00 EST by Ryan Glover
== END 2019-08-10 12:29 | disposition home or self-care (01) | DRG 140 ==
LOC: M ED 16:12 → M ED INP 18:17 → M MSPAV 19:55
PROVIDERS: ADMIT Internal Medicine; ATTEND Internal Medicine
DX: J44.1 Chronic obstructive pulmonary disease with (acute) exacerbation (principal); N17.9 Acute kidney failure, unspecified; I27.81 Cor pulmonale (chronic); I11.0 Hypertensive heart disease with heart failure; I50.9 Heart failure, unspecified; Z79.899 Other long term (current) drug therapy; G47.33 Obstructive sleep apnea (adult) (pediatric); F17.200 Nicotine dependence, unspecified, uncomplicated; E11.9 Type 2 diabetes mellitus without complications

== ENCOUNTER → 2019-08-14 | Outpatient (REF) | payer OTHER, MEDICAID ==
[~2019-08-14] MED LIST changes: +FLUT1INH3 INH; +METF-839 PO; +PRED10PA PO
[2019-08-14 20:33] LABS: BASO # 0.1 10^3/uL (0.0-0.2); BASO % 0.6 % (0.0-1.0); EOS % 0.1 % (0.0-3.0); HEMATOCRIT 42.5 % (42.0-52.0); HEMOGLOBIN 13.1 g/dl (13.5-17.5); LYMPH # 1.8 10^3/uL (1.5-5.0); MEAN CORPUSCULAR HEMOGLOBIN 28.5 pg (27.0-33.0); MEAN CORPUSCULAR HGB CONC 30.8 g/dl (32.0-36.5); MEAN CORPUSCULAR VOLUME 92.4 fl (80.0-96.0); MONO % 12.6 % (0.0-5.0); NEUTROPHILS # 4.6 10^3/uL (1.5-8.5); NEUTROPHILS % 59.5 % (36.0-66.0); PLATELET COUNT, AUTOMATED 330 10^3/uL (150-450); WHITE BLOOD COUNT 7.8 10^3/uL (4.0-10.0)
[2019-08-14 20:38] LABS: ALBUMIN 3.2 GM/DL (3.2-5.2); ALT/SGPT 30 U/L (12-78); BILIRUBIN,TOTAL 0.4 MG/DL (0.2-1.0); BLOOD UREA NITROGEN 12 MG/DL (7-18); CALCIUM LEVEL 9.5 MG/DL (8.8-10.2); CARBON DIOXIDE LEVEL 36 MEQ/L (21-32); CHLORIDE LEVEL 100 MEQ/L (98-107); CREATININE FOR GFR 1.03 MG/DL (0.70-1.30); GLOMERULAR FILTRATION RATE > 60.0 (>49); GLUCOSE, FASTING 101 MG/DL (70-100); POTASSIUM SERUM 4.4 MEQ/L (3.5-5.1); SODIUM LEVEL 139 MEQ/L (136-145)
[2019-08-14 20:41] LABS: HEMOGLOBIN A1c 6.7 %
== END ==
LOC: M LAB REF 19:12
PROVIDERS: ATTEND Nurse Practitioner Adult Health
DX: E11.9 Type 2 diabetes mellitus without complications (principal); J44.9 Chronic obstructive pulmonary disease, unspecified

== ENCOUNTER 2019-11-08 15:25 | Inpatient (IN) | payer MEDICAID, OTHER ==
[~2019-11-08] VITALS: Ht 160 cm; Wt 68.5 kg
[2019-11-08] MEDS ORDERED: INCR1INH INH (15:34)
[2019-11-08] MEDS: IPRATROPIUM 0.5MG/ALBUTEROL 2.5MG INH SOL UD 3ML (DUONEB)(J7620) INH SCH ×2 (16:00→23:09)
[2019-11-08] MEDS ORDERED: NS IV ONE (16:00)
[2019-11-08] MEDS ORDERED: methylPREDNISolone INJ 125 MG/2 ML VIAL (J2930) IV ONE (16:15)
[2019-11-08] MEDS ORDERED: cefTRIAXone SOD 2 GM in D5W MINI-BAG PLUS 50 ML IV ONE (16:15)
[2019-11-08 16:17] LABS: VENOUS BASE EXCESS 1.2 (-2.0-2.0); VENOUS HCO3 30.4 MEQ/L (23.0-27.0); VENOUS O2 SATURATION 40.7 % (60.0-80.0); VENOUS PARTIAL PRESSURE CO2 68.4 mmHg (38.0-50.0); VENOUS PARTIAL PRESSURE O2 24.1 mmHg (30.0-50.0); VENOUS PH 7.265 UNITS (7.330-7.430); VENOUS STANDARD HCO3 24.1 MEQ/L; VENOUS TOTAL CO2 32.5 MEQ/L (24.0-28.0)
[2019-11-08 16:24] LABS: HEMOGLOBIN 14.5 g/dl (13.5-17.5); MEAN CORPUSCULAR HEMOGLOBIN 27.7 pg (27.0-33.0); MEAN CORPUSCULAR HGB CONC 30.2 g/dl (32.0-36.5); MEAN CORPUSCULAR VOLUME 91.6 fl (80.0-96.0); PLATELET COUNT, AUTOMATED 170 10^3/uL (150-450); RED BLOOD COUNT 5.24 10^6/uL (4.30-6.10); WHITE BLOOD COUNT 13.6 10^3/uL (4.0-10.0)
[2019-11-08] MEDS: IPRATROPIUM 0.5MG/ALBUTEROL 2.5MG INH SOL UD 3ML (DUONEB)(J7620) NEB SCH ×3 (16:24→17:00)
[2019-11-08] MEDS ORDERED: VITATAB73 PO (16:34)
[2019-11-08] MEDS ORDERED: BREO1INH3 INH (16:34)
--- NOTE | 2019-11-08 16:36 | REP ---
CHEST, SINGLE VIEW: Single view of the chest is performed. There is an area of infiltrate in the right lung base. No infiltrate is seen in the left lung. The heart is not enlarged. The mediastinal silhouette is unchanged. There are degenerative changes of the spine. IMPRESSION: Right basilar infiltrate. Electronically Signed by Orville Chicas MD 11/09/2019 12:39 P
[2019-11-08 16:56] LABS: ANISOCYTOSIS 1+; ATYPICAL LYMPH 3 % (0-5); LYMPHOCYTES 14 % (16-44); MONOCYTES 14 % (0-5); NEUTROPHILS 44 % (28-66)
[2019-11-08 16:57] LABS: HYPOCHROMASIA 1+; PLATELET ESTIMATE NORMAL (NORMAL)
[2019-11-08 17:02] LABS: ALBUMIN 3.2 GM/DL (3.2-5.2); ALT/SGPT 17 U/L (12-78); BILIRUBIN,DIRECT 0.2 MG/DL (0.0-0.2); BILIRUBIN,TOTAL 0.4 MG/DL (0.2-1.0); BLOOD UREA NITROGEN 33 MG/DL (7-18); CALCIUM LEVEL 8.9 MG/DL (8.8-10.2); CARBON DIOXIDE LEVEL 30 MEQ/L (21-32); CHLORIDE LEVEL 93 MEQ/L (98-107); CK-MB VALUE MASS 2.2 NG/ML (<3.6); CPK CREATINE PHOSPHOKINASE 499 U/L (39-308); GLOMERULAR FILTRATION RATE 30.8 (>49); GLUCOSE, FASTING 138 MG/DL (70-100); MB/CK RELATIVE INDEX 0.44 (< OR =4); NT-PRO BNP 1338 PG/ML (<125); POTASSIUM SERUM 4.5 MEQ/L (3.5-5.1); SODIUM LEVEL 130 MEQ/L (136-145); THYROID STIMULATING HORMONE 0.332 uIU/ML (0.358-3.740); TOTAL PROTEIN 7.6 GM/DL (6.4-8.2); TROPONIN I < 0.02 NG/ML (< 0.10)
--- NOTE | 2019-11-08 17:56 | HPEPDOC ---
General Date of Admission Date of Service: Nov 08, 2019 Chief Complaint The patient is a 64-year-old male admitted with a reason for visit of Low Oxygen. Source: Patient Exam Limitations: No limitations Timing/Duration: Day(s) Severity: Mild, Moderate Associated Symptoms: Cough, Shortness of breath History of Present Illness Patient is 64 years old male with past medical history of COPD on home oxygen, obstructive sleep apnea, hypertension, CHF, diabetes presented to the hospital w ith increased shortness of breath associated with yellowish sputum production and cough. Patient stated that his symptoms started 2 days ago and has been progressively worse. In emergency room patient was found to have leukocytosis of 13.6, elevated lactic acid of 3.6, BNP 1300, XR shows area of infiltrate in the right lung base. Home Medications Scheduled Bupropion Hcl (Bupropion Xl) 150 Mg Tab, 150 MG PO DAILY, (Reported) Fluticasone/Vilanterol (Breo Ellipta 200-25 Mcg INH) 1 Each Blst.w.dev, 1 PUFF INH DAILY, (Reported) Furosemide (Furosemide) 40 Mg Tab, 40 MG PO DAILY, (Reported) Losartan Potassium (Losartan Potassium) 50 Mg Tab, 50 MG PO DAILY, (Reported) Metformin HCl (Metformin HCl) 500 Mg Tablet, 500 MG PO BID, (Reported) Spironolactone (Spironolactone) 25 Mg Tab, 25 MG PO BID, (Reported) Umeclidinium [place] (Incruse Ellipta) 62.5 Mcg Blst.w.dev, 1 PUFF INH DAILY, (Reported) Vitamin B Complex (Vitamin B Complex) 1 Each Tablet, 1 TAB PO DAILY, (Reported) Scheduled PRN Albuterol Sulfate (Proair Hfa) 108 Mcg/Act Aer, 2 PUFF INH Q4H PRN for SHORTNESS OF BREATH, (Reported) Allergies Coded Allergies: fluticasone (Verified Adverse Reaction, Mild, HEADACHE FROM HFA NOT DISKUS, 11/08/19) salmeterol (Verified Adverse Reaction, Mild, HEADACHE FROM HFA NOT DISKUS, 11/08/19) Past Medical History Medical History 1. Objective sleep apnea. 2. COPD on home oxygen. 3. CHF. 4. Hypertension 5. Diabetes 6. Current smoker Surgical History Appendectomy. Family History Mother had psychiatric illnesses Social History * Smoker: current smoker Alcohol: Denies Drugs: denies A-FIB/CHADSVASC A-FIB History Current/History of A-Fib/PAF?: No Current PO Anticoag Therapy: No Review of Systems Constitutional: Reports: Chills, Fatigue; Denies: Fever Eyes: Denies: Pain, Vision change ENT: Denies: Ear Pain Skin: Denies: Rash, Lesions Pulmonary: Reports: Dyspnea, Cough Cardiovascular: Denies: Chest Pain, Palpitations Gastrointestinal: Denies: Nausea, Vomiting Genitourinary: Denies: Dysuria, Frequency Hematologic: Denies: Bruising Endocrine: Denies: Polydipsia, Polyphagia Musculoskeletal: Denies: Neck Pain Neurological: Denies: Weakness Psych: Reports: Mood Normal Physical Examination General Exam: Positive: Alert, Cooperative Eye Exam: Positive: PERRLA ENT Exam: Positive: Atraumatic Neck Exam: Positive: Supple; Negative: JVD Chest Exam: Positive: Rhonchi; Negative: Clear to auscultation Heart Exam: Positive: Tachycardic Telemetry: Positive: Sinus Abdomen Exam: Positive: Normal bowel sounds Extremity Exam: Negative: Clubbing, Cyanosis Skin Exam: Positive: Nl turgor and temperature Neuro Exam: Positive: Strength at 5/5 X4 ext, Cranial Nerves 3-12 NL Psych Exam: Positive: Mental status NL Vital Signs Vital Signs Date Time Temp Pulse Resp B/P (MAP) Pulse Ox O2 Delivery O2 Flow Rate FiO2 11/08/19 16:14 11/08/19 15:25 97.9 137 20 95 Room Air Laboratory Data Labs 24H Laboratory Tests 2 11/08/19 16:05: Nucleated Red Blood Cells % (auto) 0.0, Neutrophils 44, Band Neutrophils 25H, Lymphocytes (Manual) 14L, Monocytes (Manual) 14H, Atypical Lymphocytes 3, Hypochromasia 1+, Anisocytosis 1+, Macrocytosis 1+, Platelet Estimate NORMAL, Blood Gas Bicarbonate Standard 24.1, Venous Blood pH 7.265L, Venous Blood Partial Pressure CO2 68.4H, Venous Blood Partial Pressure O2 24.1L, Venous Blood Total Carbon Dioxide 32.5H, Venous Blood HCO3 30.4H, Venous Blood Oxygen Saturation 40.7L, Venous Blood Base Excess 1.2, Anion Gap 7L, Glomerular Filtration Rate 30.8L, Lactic Acid Level 3.6*H, Calcium Level 8.9, Total Bilirubin 0.4, Direct Bilirubin 0.2, Aspartate Amino Transf (AST/SGOT) 34, Alanine Aminotransferase (ALT/SGPT) 17, Alkaline Phosphatase 100, Total Creatine Kinase 499H, Creatine Kinase MB 2.2, Creatine Kinase MB Relative Index 0.44, Troponin I < 0.02, MB-Bbz-R-Type Natriuretic Peptide 1338H, Total Protein 7.6, Albumin 3.2, Albumin/Globulin Ratio 0.73L, Thyroid Stimulating Hormone (TSH) 0.332L CBC/BMP Laboratory Tests 11/08/19 16:05 Microbiology Microbiology 11/08/19 Blood Culture, Received Pending 11/08/19 Respiratory Virus Panel (PCR) ([facility]), Received Pending 11/08/19 Blood Culture, Received Pending Assessment/Plan Patient is 64 years old male with past medical history of COPD on home oxygen, obstructive sleep apnea, hypertension, CHF, diabetes presented to the hospital with increased shortness of breath associated with yellowish sputum production and cough. Patient stated that his symptoms started 2 days ago and has been progressively worse. In emergency room patient was found to have leukocytosis of 13.6, elevated lactic acid of 3.6, BNP 1300, XR shows area of infiltrate in the right lung base. Problems (1) Sepsis Status: Acute Problem Text: Patient has leukocytosis, elevated lactic acid and dyspnea Gentle IV fluid given elevated BNP and CHF history Azithromycin IV, ceftriaxone IV (2) Pneumonia Status: Acute Problem Text: Community-acquired pneumonia Chest x-ray shows right lobe infiltrate Azithromycin IV, ceftriaxone IV Sputum culture, blood culture Inhalers Incentive spirometry (3) Diabetes mellitus Status: Chronic Problem Text: Insulin sliding scale Diabetes diet (4) FEDERICO (acute kidney injury) Status: Acute Problem Text: Most likely prerenal secondary to dehydration Continue to monitor Gentle IV fluid Plan / VTE VTE Prophylaxis Ordered?: Yes BONNIE YUNG DO Nov 08, 2019 17:56
[2019-11-08] MEDS ORDERED: METOPROLOL TART 12.5 MG PER 1/2 TAB PO ONE (18:00)
[2019-11-08] MEDS ORDERED: DEXTROSE 50% 50 ML SYRINGE IV PRN (18:00)
[2019-11-08] MEDS ORDERED: GLUCAGON FOR INJ 1 MG VIAL (J1610) SC PRN (18:00)
[2019-11-08] MEDS ORDERED: GLUCOSE 4 GM CHEW TABLET PO PRN (18:00)
[2019-11-08] MEDS ORDERED: ACETAMINOPHEN 325 MG TAB As Ordered ONE (18:29)
[2019-11-08] MEDS: ACETAMINOPHEN TAB 650MG DOSE (2X325MG) PO PRN (18:34)
[2019-11-08] MEDS: NS 1,000 ML IV SCH (18:48)
[2019-11-08 18:51] VITALS: BP 113/70
[2019-11-08] MEDS: cefTRIAXone SOD 1 GM in D5W MINI-BAG PLUS 50 ML IV SCH (18:54)
[2019-11-08] MEDS: HEPARIN SOD (PORCINE) 5000 UNITS/ML VIAL (J1644 PER 1000UNITS) SC SCH (18:55)
[2019-11-08] MEDS: AZITHROMYCIN INJ 500 MG, VIAL MATE ADAPTER 1 EACH in D5W 250 ML IV SCH (20:36)
[2019-11-08] MEDS: HumaLOG INSULIN (NovoLOG) PER UNIT SC SCH (21:00)
[2019-11-08 22:00] VITALS: BP 111/75
[2019-11-09] MEDS: IPRATROPIUM 0.5MG/ALBUTEROL 2.5MG INH SOL UD 3ML (DUONEB)(J7620) INH SCH ×6 (00:07→19:49)
[2019-11-09] MEDS: NS 1,000 ML IV SCH ×2 (00:52→18:32)
[2019-11-09 02:00] VITALS: BP 136/84
[2019-11-09] MEDS: HEPARIN SOD (PORCINE) 5000 UNITS/ML VIAL (J1644 PER 1000UNITS) SC SCH ×2 (05:53→17:31)
[2019-11-09 06:00] VITALS: BP 117/68
[2019-11-09 06:30] LABS: MEAN CORPUSCULAR HEMOGLOBIN 27.7 pg (27.0-33.0); MEAN CORPUSCULAR HGB CONC 30.2 g/dl (32.0-36.5); MEAN CORPUSCULAR VOLUME 91.5 fl (80.0-96.0); PLATELET COUNT, AUTOMATED 158 10^3/uL (150-450)
[2019-11-09 06:59] LABS: CALCIUM LEVEL 8.6 MG/DL (8.8-10.2); CREATININE FOR GFR 1.9 MG/DL (0.70-1.30); GLOMERULAR FILTRATION RATE 38.4 (>49); MAGNESIUM LEVEL 1.9 MG/DL (1.8-2.4); POTASSIUM SERUM 4.3 MEQ/L (3.5-5.1)
[2019-11-09] MEDS: buPROPion **XL** TABLET 150MG (WELLBUTRIN XL) PO SCH (08:16)
[2019-11-09] MEDS: LOSARTAN 50 MG TAB PO SCH (08:20)
[2019-11-09] MEDS: OSELTAMIVIR PHOSPHATE 30MG CAPSULE PO SCH ×2 (08:20→20:35)
[2019-11-09] MEDS: HumaLOG INSULIN (NovoLOG) PER UNIT SC SCH ×4 (08:21→20:35)
[2019-11-09 10:00] VITALS: BP 98/69
--- NOTE | 2019-11-09 13:21 | ECGEPIP ---
[facility] - ED Test Date: 2019-11-08 Pat Name: TRINY AMOR Department: Room: - Gender: Male [employer] I[employer]igator: ct : 1955 Requested By: Tricia Porter Order Number: [id number] Reading MD: Tricia Porter Measurements Intervals [place] Rate: 129 P: 78 MN: 133 QRS: 100 QRSD: 82 T: 70 QT: 287 QTc: 421 Interpretive Statements SINUS TACHYCARDIA BORDERLINE RIGHT AXIS DEVIATION ABNORMAL RHYTHM ECG NSTTW abnormalities Electronically Signed on 11-09-2019 13:20:45 EST by Tricia Porter
[2019-11-09 14:00] VITALS: BP 113/78
--- NOTE | 2019-11-09 15:31 | IPNPDOC ---
Text Note Date of Service The patient was seen on 11/09/19. NOTE Subjective: Patient stated that he feels much better today. His breathing imp roved. Objective: VITAL SIGNS: Please see below. GENERAL APPEARANCE: Well-nourished, well-developed, not in apparent distress HEENT: Normocephalic, atraumatic. Mucous members moist and pink CARDIOVASCULAR: Regular rate and rhythm. No murmurs, rubs or gallops. Radial pulses are intact. There is no lower extremity edema LUNGS: Mildly coarse lung sounds bilaterally ABDOMEN: Abdomen is soft and nontender. MUSCULOSKELETAL: Range of motion is intact in all 4 extremities NEUROLOGICAL: Cranial nerves II-12 are grossly intact. Speech is not dysarthric Assessment/Plan Patient is 64 years old male with past medical history of COPD on home oxygen, obstructive sleep apnea, hypertension, CHF, diabetes presented to the hospital with increased shortness of breath associated with yellowish sputum production and cough. Patient stated that his symptoms started 2 days ago and has been progressively worse. In emergency room patient was found to have leukocytosis of 13.6, elevated lactic acid of 3.6, BNP 1300, XR shows area of infiltrate in the right lung base. Patient was tested positive for flu Problems (1) Sepsis Secondary to flu viral infection Resolved Gentle IV fluid given elevated BNP and CHF history Azithromycin IV, ceftriaxone IV (2) Pneumonia Community-acquired pneumonia Secondary to flu viral infection with co-bacterial infection Chest x-ray shows right lobe infiltrate Azithromycin IV, ceftriaxone IV Sputum culture, blood culture Inhalers Incentive spirometry (3) Diabetes mellitus Insulin sliding scale Diabetes diet (4) FEDERICO (acute kidney injury) Improved Most likely prerenal secondary to dehydration Continue to monitor Gentle IV fluid VS,Fishbone, I+O VS, Fishbone, I+O Laboratory Tests 11/08/19 16:05 11/09/19 06:10 Vital Signs Date Time Temp Pulse Resp B/P (MAP) Pulse Ox O2 Delivery O2 Flow Rate FiO2 11/09/19 14:00 98.3 109 18 113/78 (90) 97 Nasal Cannula 2.0 I&O- Last 24 Hours up to 6 AM 11/09/19 06:00 Intake Total 1450 ml Balance 1450 ml BONNIE YUNG DO Nov 09, 2019 15:31
[2019-11-09] MEDS: cefTRIAXone SOD 1 GM in D5W MINI-BAG PLUS 50 ML IV SCH (17:31)
[2019-11-09 18:00] VITALS: BP 114/78
[2019-11-09] MEDS: AZITHROMYCIN INJ 500 MG, VIAL MATE ADAPTER 1 EACH in D5W 250 ML IV SCH (18:32)
[2019-11-09] MEDS: ACETAMINOPHEN TAB 650MG DOSE (2X325MG) PO PRN (20:36)
[2019-11-09 22:00] VITALS: BP 108/78
[2019-11-10] VITALS (7 sets, daily range): BP systolic 102–129; BP diastolic 72–78; O2SAT 94
[2019-11-10] MEDS: IPRATROPIUM 0.5MG/ALBUTEROL 2.5MG INH SOL UD 3ML (DUONEB)(J7620) INH SCH ×6 (00:47→21:25)
[2019-11-10] MEDS: NS 1,000 ML IV SCH (01:18)
[2019-11-10] MEDS: HEPARIN SOD (PORCINE) 5000 UNITS/ML VIAL (J1644 PER 1000UNITS) SC SCH ×2 (05:53→17:40)
[2019-11-10] MEDS: HumaLOG INSULIN (NovoLOG) PER UNIT SC SCH ×4 (07:39→20:50)
[2019-11-10] MEDS: LOSARTAN 50 MG TAB PO SCH (07:40)
[2019-11-10] MEDS: OSELTAMIVIR PHOSPHATE 30MG CAPSULE PO SCH ×2 (07:40→20:15)
[2019-11-10] MEDS: buPROPion **XL** TABLET 150MG (WELLBUTRIN XL) PO SCH (07:41)
[2019-11-10 09:15] LABS: BASO % 0.2 % (0.0-1.0); EOS % 0.2 % (0.0-3.0); HEMATOCRIT 40.6 % (42.0-52.0); HEMOGLOBIN 12.3 g/dl (13.5-17.5); LYMPH # 1.1 10^3/uL (1.5-5.0); LYMPH % 21.6 % (24.0-44.0); MEAN CORPUSCULAR HEMOGLOBIN 27.8 pg (27.0-33.0); MEAN CORPUSCULAR HGB CONC 30.3 g/dl (32.0-36.5); MEAN CORPUSCULAR VOLUME 91.9 fl (80.0-96.0); MONO # 0.8 10^3/uL (0.0-0.8); MONO % 15.2 % (0.0-5.0); NEUTROPHILS # 3.1 10^3/uL (1.5-8.5); NEUTROPHILS % 62.2 % (36.0-66.0); PLATELET COUNT, AUTOMATED 163 10^3/uL (150-450); RED BLOOD COUNT 4.42 10^6/uL (4.30-6.10)
[2019-11-10 09:33] LABS: BLOOD UREA NITROGEN 17 MG/DL (7-18); CALCIUM LEVEL 8.8 MG/DL (8.8-10.2); CARBON DIOXIDE LEVEL 30 MEQ/L (21-32); CHLORIDE LEVEL 104 MEQ/L (98-107); CREATININE FOR GFR 1.04 MG/DL (0.70-1.30); GLOMERULAR FILTRATION RATE > 60.0 (>49); GLUCOSE, FASTING 96 MG/DL (70-100); POTASSIUM SERUM 4.1 MEQ/L (3.5-5.1); SODIUM LEVEL 138 MEQ/L (136-145)
--- NOTE | 2019-11-10 15:04 | IPNPDOC ---
Text Note Date of Service The patient was seen on 11/10/19. NOTE Subjective: Patient stated that he feels much better today. No any acute events overnight Objective: VITAL SIGNS: Please see below. GENERAL APPEARANCE: Well-nourished, well-developed, not in apparent distress HEENT: Normocephalic, atraumatic. Mucous members moist and pink CARDIOVASCULAR: Regular rate and rhythm. No murmurs, rubs or gallops. Radial pulses are intact. There is no lower extremity edema LUNGS: Mildly coarse lung sounds bilaterally ABDOMEN: Abdomen is soft and nontender. MUSCULOSKELETAL: Range of motion is intact in all 4 extremities NEUROLOGICAL: Cranial nerves II-12 are grossly intact. Speech is not dysarthric Assessment/Plan Patient is 64 years old male with past medical history of COPD on home oxygen, obstructive sleep apnea, hypertension, CHF, diabetes presented to the hospital with increased shortness of breath associated with yellowish sputum production and cough. Patient stated that his symptoms started 2 days ago and has been progressively worse. In emergency room patient was found to have leukocytosis of 13.6, elevated lactic acid of 3.6, BNP 1300, XR shows area of infiltrate in the right lung base. Patient was tested positive for flu Problems (1) Sepsis Secondary to flu viral infection Resolved Azithromycin IV, ceftriaxone IV (2) Pneumonia Community-acquired pneumonia Secondary to flu viral infection with co-bacterial infection Chest x-ray shows right lobe infiltrate Azithromycin IV, ceftriaxone IV Sputum culture, blood culture Inhalers Incentive spirometry (3) Diabetes mellitus Insulin sliding scale Diabetes diet (4) FEDER[place] (acute kidney injury) Improved Most likely prerenal secondary to dehydration Continue to monitor Obstructive sleep apnea CPAP overnight VS,[place], I+O VS, Fishbone, I+O Laboratory Tests 11/10/19 08:57 Vital Signs Date Time Temp Pulse Resp B/P (MAP) Pulse Ox O2 Delivery O2 Flow Rate FiO2 11/10/19 14:00 99.1 115 18 128/77 (94) 98 Nasal Cannula 2.0 I&O- Last 24 Hours up to 6 AM 11/10/19 06:00 Intake Total 3695 ml Balance 3695 ml BONNIE YUNG DO Nov 10, 2019 15:04
[2019-11-10] MEDS: cefTRIAXone SOD 1 GM in D5W MINI-BAG PLUS 50 ML IV SCH (16:34)
[2019-11-10] MEDS: AZITHROMYCIN INJ 500 MG, VIAL MATE ADAPTER 1 EACH in D5W 250 ML IV SCH (17:40)
[2019-11-10] MEDS: ACETAMINOPHEN TAB 650MG DOSE (2X325MG) PO PRN (21:20)
[2019-11-11] MEDS: LEVALBUTEROL 1.25 MG/0.5 ML CONCENTRATE NEB INH SCH ×4 (00:45→12:05)
[2019-11-11 02:00] VITALS: BP_SYST 114; BP_SYST 188; BP_DIAS 75; BP_DIAS 87
[2019-11-11 04:28] VITALS: O2SAT 93
[2019-11-11] MEDS: ACETAMINOPHEN TAB 650MG DOSE (2X325MG) PO PRN (05:07)
[2019-11-11] MEDS: HEPARIN SOD (PORCINE) 5000 UNITS/ML VIAL (J1644 PER 1000UNITS) SC SCH (05:08)
[2019-11-11 06:00] VITALS: BP 119/77
[2019-11-11 06:03] LABS: HEMATOCRIT 36.3 % (42.0-52.0); HEMOGLOBIN 11.3 g/dl (13.5-17.5); MEAN CORPUSCULAR HGB CONC 31.1 g/dl (32.0-36.5); MEAN CORPUSCULAR VOLUME 89.9 fl (80.0-96.0); PLATELET COUNT, AUTOMATED 177 10^3/uL (150-450); RED BLOOD COUNT 4.04 10^6/uL (4.30-6.10); WHITE BLOOD COUNT 4.6 10^3/uL (4.0-10.0)
[2019-11-11 06:32] LABS: BLOOD UREA NITROGEN 6 MG/DL (7-18); CALCIUM LEVEL 8.5 MG/DL (8.8-10.2); CARBON DIOXIDE LEVEL 31 MEQ/L (21-32); CHLORIDE LEVEL 104 MEQ/L (98-107); CREATININE FOR GFR 0.89 MG/DL (0.70-1.30); GLOMERULAR FILTRATION RATE > 60.0 (>49); GLUCOSE, FASTING 124 MG/DL (70-100); POTASSIUM SERUM 3.7 MEQ/L (3.5-5.1); SODIUM LEVEL 139 MEQ/L (136-145)
[2019-11-11] MEDS: HumaLOG INSULIN (NovoLOG) PER UNIT SC SCH ×2 (07:41→12:00)
[2019-11-11 07:42] VITALS: BP 118/78
[2019-11-11] MEDS: buPROPion **XL** TABLET 150MG (WELLBUTRIN XL) PO SCH (07:42)
[2019-11-11] MEDS: LOSARTAN 50 MG TAB PO SCH (07:42)
[2019-11-11] MEDS: OSELTAMIVIR PHOSPHATE 30MG CAPSULE PO SCH (07:42)
[2019-11-11] MEDS ORDERED: OSEL30CA PO (09:23)
[2019-11-11] MEDS ORDERED: LEVO500T3 PO (09:23)
[2019-11-11] MEDS ORDERED: PRED5PAK PO (09:40)
[2019-11-11 10:00] VITALS: BP 116/77
--- NOTE | 2019-11-11 13:58 | DS.PDOC ---
Discharge Summary General Date of Admission Nov 08, 2019 at 17:32 Date of Discharge 11/11/2019 Discharge Summary PROCEDURES PERFORMED DURING STAY: [None]. ADMITTING DIAGNOSES: Sepsis Pneumonia Diabetes mellitus FEDER[place] (acute kidney injury) DISCHARGE DIAGNOSES: Sepsis Pneumonia Diabetes mellitus FEDER[place] (acute kidney injury) COMPLICATIONS/CHIEF COMPLAINT: Chf Campos On Cpap Pneumonia Sepsis. HISTORY OF PRESENT ILLNESS: Patient is 64 years old male with past medical history of COPD on home oxygen, obstructive sleep apnea, hypertension, CHF, diabetes presented to the hospital with increased shortness of breath associated with yellowish sputum production and cough. Patient stated that his symptoms started 2 days ago and has been progressively worse. In emergency room patient was found to have leukocytosis of 13.6, elevated lactic acid of 3.6, BNP 1300, XR shows area of infiltrate in the right lung base. Patient was tested positive for flu HOSPITAL COURSE: During hospital stay following issue addressed (1) Sepsis Secondary to flu viral infection with bacterial infection Resolved Patient received Azithromycin IV, ceftriaxone IV (2) Pneumonia Community-acquired pneumonia Secondary to flu viral infection with co-bacterial infection Chest x-ray shows right lobe infiltrate Azithromycin IV, ceftriaxone IV Sputum culture, blood culture negative Inhalers Incentive spirometry (3) Diabetes mellitus Insulin sliding scale Diabetes diet (4) [place]ER[place] (acute kidney injury) Improved Most likely prerenal secondary to dehydration Continue to monitor Obstructive sleep apnea CPAP overnight DISCHARGE MEDICATIONS: Please see below. ALLERGIES: Please see below. PHYSICAL EXAMINATION ON DISCHARGE: Objective: VITAL SIGNS: Please see below. GENERAL APPEARANCE: Well-nourished, well-developed, not in apparent distress HEENT: Normocephalic, atraumatic. Mucous members moist and pink CARDIOVASCULAR: Regular rate and rhythm. No murmurs, rubs or gallops. Radial pulses are intact. There is no lower extremity edema LUNGS: Mildly coarse lung sounds bilaterally ABDOMEN: Abdomen is soft and nontender. MUSCULOSKELETAL: Range of motion is intact in all 4 extremities NEUROLOGICAL: Cranial nerves II-12 are grossly intact. Speech is not dysarthric LABORATORY DATA: Please see below. IMAGING: CHEST, SINGLE VIEW: Single view of the chest is performed. There is an area of infiltrate in the right lung base. No infiltrate is seen in the left lung. The heart is not enlarged. The mediastinal silhouette is unchanged. There are degenerative changes of the spine. IMPRESSION: Right basilar infiltrate. PROGNOSIS: Favorable ACTIVITY: As tolerated DIET: Cardiac DISCHARGE PLAN: Home DISPOSITION: , Self-Care. DISCHARGE INSTRUCTIONS: Continue incentive spirometer ITEMS TO FOLLOWUP ON ON OUTPATIENT: Follow-up with PCP DISCHARGE CONDITION: [Stable]. TIME SPENT ON DISCHARGE: Greater than 20 minutes. Vital Signs/I&Os Vital Signs Date Time Temp Pulse Resp B/P (MAP) Pulse Ox O2 Delivery O2 Flow Rate FiO2 11/11/19 10:00 99.0 100 18 116/77 (90) 98 Nasal Cannula 2.0 11/11/19 04:28 28 I&O- Last 24 Hours up to 6 AM 11/11/19 06:00 Intake Total 1815 ml Output Total 1575 ml Balance 240 ml Laboratory Data Labs 24H Laboratory Tests 2 11/10/19 16:25: Bedside Glucose (Misc Panel) 133H 11/10/19 20:49: Bedside Glucose (Misc Panel) 111 11/11/19 05:22: Nucleated Red Blood Cells % (auto) 0.0, Anion Gap 4L, Glomerular Filtration Rate > 60.0, Calcium Level 8.5L, Magnesium Level 2.0 11/11/19 11:35: Bedside Glucose (Misc Panel) 95 CBC/BMP Laboratory Tests 11/11/19 05:22 FSBS Laboratory Tests Test 11/10/19 16:25 11/10/19 20:49 11/11/19 11:35 Range/Units Bedside Glucose (Misc Panel) 133 111 95 80-115 MG/DL Microbiology Microbiology 11/08/19 Blood Culture - Preliminary, Resulted No Growth after 48 hours. All Specime... 11/08/19 Respiratory Virus Panel (PCR) ([facility]) - Final, Complete Influenza A H1-2009 11/08/19 Blood Culture - Preliminary, Resulted No Growth after 48 hours. All Specime... Discharge Medications Scheduled Bupropion Hcl (Bupropion Xl) 150 Mg Tab, 150 MG PO DAILY, (Reported) Fluticasone/Vilanterol (Breo Ellipta 200-25 Mcg INH) 1 Each Blst.w.dev, 1 PUFF INH DAILY, (Reported) Furosemide (Furosemide) 40 Mg Tab, 40 MG PO DAILY, (Reported) Levofloxacin (Levofloxacin) 500 Mg Tablet, 1 TAB PO DAILY Losartan Potassium (Losartan Potassium) 50 Mg Tab, 50 MG PO DAILY, (Reported) Metformin HCl (Metformin HCl) 500 Mg Tablet, 500 MG PO BID, (Reported) Oseltamivir Phosphate (Oseltamivir Phosphate) 30 Mg Capsule, 30 MG PO BID Prednisone (Prednisone) 5 Mg Tab.ds.pk, 0 PO ASDIRECTED 6 day dose pack taper Spironolactone (Spironolactone) 25 Mg Tab, 25 MG PO BID, (Reported) Umeclidinium [place] (Incruse Ellipta) 62.5 Mcg Blst.w.dev, 1 PUFF INH DAILY, (Reported) Vitamin B Complex (Vitamin B Complex) 1 Each Tablet, 1 TAB PO DAILY, (Reported) Scheduled PRN Albuterol Sulfate (Proair Hfa) 108 Mcg/Act Aer, 2 PUFF INH Q4H PRN for SHORTNESS OF BREATH, (Reported) Allergies Coded Allergies: fluticasone (Verified Adverse Reaction, Mild, HEADACHE FROM HFA NOT DISKUS, 11/08/19) salmeterol (Verified Adverse Reaction, Mild, HEADACHE FROM HFA NOT DISKUS, 11/08/19) BONNIE YUNG DO Nov 11, 2019 13:58
== END 2019-11-11 13:20 | disposition home or self-care (01) | DRG 720 ==
LOC: M ED 15:25 → M ED INP 17:32 → ENRESERV 18:13 → M MSPAV 18:48
PROVIDERS: ADMIT Internal Medicine; ATTEND Internal Medicine
DX: A41.9 Sepsis, unspecified organism (principal); N17.9 Acute kidney failure, unspecified; J18.9 Pneumonia, unspecified organism; I11.0 Hypertensive heart disease with heart failure; I50.9 Heart failure, unspecified; E11.9 Type 2 diabetes mellitus without complications; J44.9 Chronic obstructive pulmonary disease, unspecified; G47.33 Obstructive sleep apnea (adult) (pediatric); Z79.899 Other long term (current) drug therapy; Z88.8 Allergy status to other drugs, medicaments and biological substances; F17.200 Nicotine dependence, unspecified, uncomplicated

== ENCOUNTER → 2019-11-14 | Outpatient (REF) | payer OTHER ==
[~2019-11-14] MED LIST changes: +INCR1INH INH; +LEVO500T3 PO; +OSEL30CA PO; +PRED5PAK PO; +VITATAB73 PO
[2019-11-14 18:09] LABS: BASO % 0.4 % (0.0-1.0); EOS % 0.2 % (0.0-3.0); HEMATOCRIT 40.6 % (42.0-52.0); HEMOGLOBIN 12.5 g/dl (13.5-17.5); LYMPH # 1.4 10^3/uL (1.5-5.0); LYMPH % 25.2 % (24.0-44.0); MEAN CORPUSCULAR HEMOGLOBIN 27.8 pg (27.0-33.0); MEAN CORPUSCULAR HGB CONC 30.8 g/dl (32.0-36.5); MEAN CORPUSCULAR VOLUME 90.2 fl (80.0-96.0); MONO # 0.8 10^3/uL (0.0-0.8); MONO % 14.9 % (0.0-5.0); NEUTROPHILS # 3.1 10^3/uL (1.5-8.5); NEUTROPHILS % 57.3 % (36.0-66.0); PLATELET COUNT, AUTOMATED 367 10^3/uL (150-450); WHITE BLOOD COUNT 5.4 10^3/uL (4.0-10.0)
[2019-11-14 18:18] LABS: ALBUMIN 3.1 GM/DL (3.2-5.2); ALT/SGPT 36 U/L (12-78); BILIRUBIN,TOTAL 0.4 MG/DL (0.2-1.0); BLOOD UREA NITROGEN 12 MG/DL (7-18); CALCIUM LEVEL 9.4 MG/DL (8.8-10.2); CARBON DIOXIDE LEVEL 35 MEQ/L (21-32); CHLORIDE LEVEL 102 MEQ/L (98-107); CREATININE FOR GFR 0.96 MG/DL (0.70-1.30); GLOMERULAR FILTRATION RATE > 60.0 (>49); GLUCOSE, FASTING 106 MG/DL (70-100); POTASSIUM SERUM 3.8 MEQ/L (3.5-5.1); SODIUM LEVEL 141 MEQ/L (136-145); TOTAL PROTEIN 7.2 GM/DL (6.4-8.2)
[2019-11-14 19:13] LABS: HEMOGLOBIN A1c 6.7 %
== END ==
LOC: M LAB REF 17:16
PROVIDERS: ATTEND Nurse Practitioner Adult Health
DX: E11.9 Type 2 diabetes mellitus without complications (principal); I50.9 Heart failure, unspecified

== ENCOUNTER → 2020-02-27 | Outpatient (REF) | payer OTHER, MEDICAID ==
[2020-02-27 19:13] LABS: HEMOGLOBIN A1c 6.4 %
[2020-02-27 19:33] LABS: ALBUMIN 3.7 GM/DL (3.2-5.2); ALT/SGPT 16 U/L (12-78); BILIRUBIN,TOTAL 0.5 MG/DL (0.2-1.0); BLOOD UREA NITROGEN 13 MG/DL (7-18); CARBON DIOXIDE LEVEL 29 MEQ/L (21-32); CHLORIDE LEVEL 102 MEQ/L (98-107); CREATININE FOR GFR 1.04 MG/DL (0.70-1.30); GLOMERULAR FILTRATION RATE > 60.0 (>49); GLUCOSE, FASTING 132 MG/DL (70-100); NT-PRO BNP 28 PG/ML (<125); SODIUM LEVEL 139 MEQ/L (136-145); TOTAL PROTEIN 8.1 GM/DL (6.4-8.2)
== END ==
LOC: M LAB REF 17:13
PROVIDERS: ATTEND Nurse Practitioner Adult Health
DX: I50.9 Heart failure, unspecified (principal); E11.9 Type 2 diabetes mellitus without complications

== ENCOUNTER → 2020-07-29 | Outpatient (CLI) | payer OTHER ==
--- NOTE | 2020-07-29 10:22 | REP ---
INDICATION: NICOTINE DEPENDENCE COMPARISON: 07/24/2019 TECHNIQUE: Axial noncontrast images from the thoracic inlet to the upper abdomen using low-dose lung screening technique (LDCT). FINDINGS: Lung doan are well aerated. Mild emphysematous changes are suggested along with mild bronchiectasis similar to prior examination. No consolidation, significant nodule, or mass lesion is appreciated. Small 3 mm nodular densities in the right lung remains stable compared through 09/25/2017. No effusion. No pneumothorax. Limited evaluation of the mediastinum demonstrates atherosclerotic changes. IMPRESSION: Lung rads category 2. Management recommendations include annual low-dose surveillance. <Electronically signed by Lonnie Hassan > 07/29/20 [id number]
== END ==
LOC: M RAD 09:49
PROVIDERS: ATTEND Internal Medicine Pulmonary Disease
DX: F17.218 Nicotine dependence, cigarettes, with other nicotine-induced disorders (principal); Z12.2 Encounter for screening for malignant neoplasm of respiratory organs

== ENCOUNTER → 2020-08-27 | Outpatient (REF) | payer MEDICARE, MEDICAID ==
[2020-08-27 17:20] LABS: HEMOGLOBIN A1c 6.4 %
[2020-08-27 17:34] LABS: ALBUMIN 3.7 GM/DL (3.2-5.2); ALT/SGPT 12 U/L (12-78); BILIRUBIN,TOTAL 0.3 MG/DL (0.2-1.0); BLOOD UREA NITROGEN 13 MG/DL (7-18); CALCIUM LEVEL 9.6 MG/DL (8.8-10.2); CARBON DIOXIDE LEVEL 33 MEQ/L (21-32); CHLORIDE LEVEL 104 MEQ/L (98-107); CREATININE FOR GFR 1.08 MG/DL (0.70-1.30); GLOMERULAR FILTRATION RATE > 60.0 (>49); GLUCOSE, FASTING 88 MG/DL (70-100); POTASSIUM SERUM 4.8 MEQ/L (3.5-5.1); SODIUM LEVEL 139 MEQ/L (136-145); TOTAL PROTEIN 7.8 GM/DL (6.4-8.2)
== END ==
LOC: M LAB REF 16:22
PROVIDERS: ATTEND Nurse Practitioner Adult Health
DX: E11.9 Type 2 diabetes mellitus without complications (principal)

== ENCOUNTER → 2020-11-26 | Outpatient (REF) | payer MEDICARE, MEDICAID ==
[~2020-11-26] MED LIST changes: -BUPR150T3 PO; +BUPR150T4 PO
== END ==
LOC: M LAB REF 16:04
PROVIDERS: ATTEND Nurse Practitioner Adult Health
DX: Z11.9 Encounter for screening for infectious and parasitic diseases, unspecified (principal)

== ENCOUNTER 2021-01-25 02:24 | Emergency (ER) | payer MEDICARE, MEDICAID ==
[~2021-01-25] VITALS: Ht 162.6 cm; Wt 73.9 kg
[~2021-01-25 02:24] MED LIST changes: +BUPR150T12 PO; -BUPR150T4 PO
[2021-01-25 03:27] LABS: BASO % 0.3 % (0.0-1.0); EOS # 0.3 10^3/uL (0.0-0.5); EOS % 2.5 % (0.0-3.0); HEMATOCRIT 46.1 % (42.0-52.0); HEMOGLOBIN 14.1 g/dl (13.5-17.5); LYMPH % 8.5 % (24.0-44.0); MEAN CORPUSCULAR HEMOGLOBIN 28.8 pg (27.0-33.0); MEAN CORPUSCULAR HGB CONC 30.6 g/dl (32.0-36.5); MEAN CORPUSCULAR VOLUME 94.3 fl (80.0-96.0); MONO # 1.6 10^3/uL (0.0-0.8); MONO % 13.7 % (2.0-8.0); NEUTROPHILS # 8.9 10^3/uL (1.5-8.5); NEUTROPHILS % 74.7 % (36.0-66.0); PLATELET COUNT, AUTOMATED 224 10^3/uL (150-450); RED BLOOD COUNT 4.89 10^6/uL (4.30-6.10)
--- NOTE | 2021-01-25 03:31 | REPVR ---
PROCEDURE INFORMATION: Exam: XR Chest Exam date and time: 01/25/2021 2:56 AM Age: 65 years old Clinical indication: Cough and dyspnea; Additional info: Dyspnea/cough TECHNIQUE: Imaging protocol: XR of the chest. Views: 1 view. COMPARISON: CR PORTABLE CHEST X-RAY 11/08/2019 3:42 PM FINDINGS: Lungs: Pulmonary hyperinflation with increased lucency of lung. Bibasilar clearing of pulmonary infiltrates since the prior study. There are no interval infiltrates. Pleural spaces: Unremarkable. No pleural effusion. No pneumothorax. Heart/Mediastinum: The heart and mediastinum are unchanged. Bones/joints: Unremarkable. IMPRESSION: 1. Suggestion of some degree of COPD. 2. Clearing of bilateral pulmonary infiltrates since 11/08/2019. No acute interval process is identified. Electronically signed by: Gautam Solo On 01/25/2021 03:31:44 AM
[2021-01-25 03:36] LABS: VENOUS BASE EXCESS -1.2 (-2.0-2.0); VENOUS PARTIAL PRESSURE CO2 60.9 mmHg (38.0-50.0); VENOUS PARTIAL PRESSURE O2 57.5 mmHg (30.0-50.0); VENOUS PH 7.265 UNITS (7.330-7.430); VENOUS STANDARD HCO3 23.2 MEQ/L; VENOUS TOTAL CO2 28.9 MEQ/L (24.0-28.0)
[2021-01-25 03:37] LABS: WHITE BLOOD COUNT 11.9 10^3/uL (4.0-10.0)
[2021-01-25 04:07] LABS: ALBUMIN 3.5 GM/DL (3.2-5.2); ALT/SGPT 17 U/L (12-78); BILIRUBIN,DIRECT 0.1 MG/DL (0.0-0.2); BILIRUBIN,TOTAL 0.4 MG/DL (0.2-1.0); BLOOD UREA NITROGEN 15 MG/DL (7-18); CARBON DIOXIDE LEVEL 34 MEQ/L (21-32); CHLORIDE LEVEL 101 MEQ/L (98-107); CK-MB VALUE MASS 1.8 NG/ML (<3.6); CPK CREATINE PHOSPHOKINASE 442 U/L (39-308); CREATININE FOR GFR 1.09 MG/DL (0.70-1.30); GLOMERULAR FILTRATION RATE > 60.0 (>49); GLUCOSE, FASTING 127 MG/DL (70-100); MB/CK RELATIVE INDEX 0.41 (< OR =4); NT-PRO BNP 78 PG/ML (<125); POTASSIUM SERUM 4.8 MEQ/L (3.5-5.1); SODIUM LEVEL 137 MEQ/L (136-145); THYROID STIMULATING HORMONE 0.496 uIU/ML (0.358-3.740); THYROXINE (T4) 9.4 UG/DL (4.5-12.0); TOTAL PROTEIN 7.7 GM/DL (6.4-8.2); TROPONIN I < 0.02 NG/ML (< 0.10)
--- NOTE | 2021-01-25 05:07 | ECGEPIP ---
[facility] - ED Test Date: 2021-01-25 Pat Name: TRINY AMOR Department: Room: - Gender: Male Clinic Administrator: Gretchen TRIPP : 1955 Requested By: SCAR Nichols Order Number: [id number] Reading MD: Henrry Chakraborty Measurements Intervals [place] Rate: 101 P: 80 MN: 140 QRS: 83 QRSD: 78 T: 70 QT: 318 QTc: 412 Interpretive Statements Sinus tachycardia NONSPECIFIC T WAVE ABNORMALITY(S) SIMILAR TO 11/08/19 Electronically Signed on 01-25-2021 5:07:05 EDT by Henrry Chakraborty
[2021-01-25] MEDS ORDERED: methylPREDNISolone 125MG 2ML VIAL IV ONE (06:00)
[2021-01-25] MEDS: COMBIVENT RESPIMAT 100-20MCG INHALER 4GM INH SCH ×3 (06:14→06:36)
[2021-01-25 08:40] VITALS: O2SAT 97
[2021-01-25] MEDS ORDERED: PRED20TA PO (08:41)
[2021-01-25 08:45] VITALS: BP 124/81
== END 2021-01-25 08:52 | disposition home or self-care (01) ==
LOC: M ED 02:24
DX: J44.9 Chronic obstructive pulmonary disease, unspecified (principal); R00.0 Tachycardia, unspecified; B34.8 Other viral infections of unspecified site; R06.02 Shortness of breath; F17.200 Nicotine dependence, unspecified, uncomplicated; Z79.899 Other long term (current) drug therapy; Z88.8 Allergy status to other drugs, medicaments and biological substances
CPT/HCPCS: 71045; 80048; 80076; 82550; 82553; 82803; 83605; 83880; 84436; 84443; 84484; 85025; 87040; 87798; 93005; 93041; 94640; 96374; 99285; J2930

== ENCOUNTER → 2021-08-11 | Outpatient (CLI) | payer OTHER ==
--- NOTE | 2021-08-11 10:54 | REP ---
INDICATION: NICOTINE DEPENDENCE. COMPARISON: 07/24/2019 TECHNIQUE: Standard low-dose lung CT screening protocol FINDINGS: Lung doan are well inflated. There is mild cylindrical bronchiectatic change bilaterally. On image 22 there is a 3 mm nodule which is unchanged in retrospect consistent with a benign finding. I do not see any new nodules, pleural thickening, calcified pleural plaque, effusion or parenchymal mass there is no acute infiltrate. Some minor peripheral scarring in the right upper lobe. The aorta has calcifications in the arch. No gross aneurysm. Pulmonary arteries are prominent centrally and at the maria isabel, tapering rapidly suggesting pulmonary artery hypertension. Degenerative osteophytes throughout the spine without bony destructive lesions. IMPRESSION: 1. Lung rads category 2 benign. Benign finding. No evidence of malignancy. Stable 3 mm nodule periphery of the right upper lobe and small zone of the fibrotic change right upper lobe. No new or acute finding. Patients with this category of findings have less than 1 % chance of malignancy at the time of the examination. There is COPD, pulmonary artery hypertension and some bronchiectatic change. 2. For patients at high risk of lung malignancy, continued old annual low-dose screening CT recommended. <Electronically signed by Dominik Perales > 08/11/21 [id number]
== END ==
LOC: M RAD 08:24
PROVIDERS: ATTEND Internal Medicine Pulmonary Disease
DX: Z12.2 Encounter for screening for malignant neoplasm of respiratory organs (principal); F17.218 Nicotine dependence, cigarettes, with other nicotine-induced disorders

== ENCOUNTER → 2022-06-20 | Outpatient (REF) | payer OTHER, MEDICARE ==
[~2022-06-20] MED LIST changes: +ATOR1TAB21; -CEFD1CAP8 PO; +CEFD300C41 PO; +COMBAER6; +LEVO1TAB39 PO; -LEVO500T3 PO; +LOSA25TA13; +LOSA25TA13 PO; -LOSA25TA14; -LOSA25TA14 PO; +LOSA50TA28 PO; -LOSA50TA88 PO
== END ==
LOC: M LAB REF 12:36
PROVIDERS: ATTEND Internal Medicine Medical Oncology
DX: R89.4 Abnormal immunological findings in specimens from other organs, systems and tissues (principal)

== ENCOUNTER → 2022-07-01 | Outpatient (CLI) | payer OTHER, MEDICARE | LOC: M RAD 10:44 | PROVIDERS: ATTEND Internal Medicine Medical Oncology | DX: D47.2 Monoclonal gammopathy (principal); M47.812 Spondylosis without myelopathy or radiculopathy, cervical region; M25.78 Osteophyte, vertebrae; M47.815 Spondylosis without myelopathy or radiculopathy, thoracolumbar region ==

== ENCOUNTER 2022-07-27 14:14 | Emergency (ER) | payer MEDICARE ==
[2022-07-27] VITALS (8 sets, daily range): BP systolic 130–151; BP diastolic 69–80
[~2022-07-27] VITALS: Ht 162.6 cm; Wt 70.0 kg
[~2022-07-27 14:14] MED LIST changes: -IPRA0.00 INH; -LIDOCAINE 1% MDV 20ML VIAL As Ordered ONE; -PROA1AER2 INH
[2022-07-27 15:37] LABS: RSV AMPLIFICATION NEGATIVE (NEGATIVE)
[2022-07-27 15:41] LABS: ALBUMIN 1.9 GM/DL (3.2-5.2); ALT/SGPT 15 U/L (12-78); BILIRUBIN,TOTAL 0.4 MG/DL (0.2-1.0); BLOOD UREA NITROGEN 24 MG/DL (7-18); CALCIUM LEVEL 9.7 MG/DL (8.8-10.2); CARBON DIOXIDE LEVEL 27 MEQ/L (21-32); CHLORIDE LEVEL 100 MEQ/L (98-107); CREATININE FOR GFR 1.26 MG/DL (0.70-1.30); GLOMERULAR FILTRATION RATE > 60.0 (>49); GLUCOSE, FASTING 109 MG/DL (70-100); POTASSIUM SERUM 4.7 MEQ/L (3.5-5.1); SODIUM LEVEL 134 MEQ/L (136-145); TOTAL PROTEIN 10.7 GM/DL (6.4-8.2)
[2022-07-27] MEDS ORDERED: PROA1AER2 INH (17:47)
[2022-07-27] MEDS ORDERED: IPRA0.00 INH (17:47)
[2022-07-27] MEDS ORDERED: HOME MED LIST COMPLETE! XX SCH (17:55)
[2022-07-27 20:11] LABS: INR 1.06
== END 2022-07-27 21:23 | disposition short-term general hospital (02) ==
LOC: M ED 14:14
DX: C95.01 Acute leukemia of unspecified cell type, in remission (principal); D64.9 Anemia, unspecified; I50.9 Heart failure, unspecified; E11.9 Type 2 diabetes mellitus without complications; I10 Essential (primary) hypertension; E78.5 Hyperlipidemia, unspecified; J44.9 Chronic obstructive pulmonary disease, unspecified; F20.9 Schizophrenia, unspecified; G47.33 Obstructive sleep apnea (adult) (pediatric); R77.9 Abnormality of plasma protein, unspecified; F17.200 Nicotine dependence, unspecified, uncomplicated; Z79.84 Long term (current) use of oral hypoglycemic drugs; Z79.899 Other long term (current) drug therapy; Z88.8 Allergy status to other drugs, medicaments and biological substances
CPT/HCPCS: 36415; 36430; 38222; 77012; 80053; 85025; 85049; 85055; 85610; 86850; 86870; 86900; 86901; 86920; 87631; 88300; 88305; 88311; 88313; 99285; P9016

== ENCOUNTER → 2022-07-27 | Outpatient (CLI) | payer MEDICARE ==
[~2022-07-27] MED LIST changes: -ATOR1TAB21; +ATOR1TAB21 PO; -COMBAER6; +IPRA0.00 INH; +LIDOCAINE 1% MDV 20ML VIAL As Ordered ONE; +PROA1AER2 INH
[2022-07-27 13:54] LABS: MEAN CORPUSCULAR HEMOGLOBIN 23.4 pg (27.0-33.0); MEAN CORPUSCULAR HGB CONC 28.9 g/dl (32.0-36.5); MEAN CORPUSCULAR VOLUME 80.9 fl (80.0-96.0); RED BLOOD COUNT 1.88 10^6/uL (4.30-6.10); WHITE BLOOD COUNT 18.2 10^3/uL (4.0-10.0)
[2022-07-27 14:02] VITALS: BP 128/74
[2022-07-27 14:12] LABS: HEMATOCRIT 15.2 % (42.0-52.0); HEMOGLOBIN 4.4 g/dl (13.5-17.5); PLATELET COUNT, AUTOMATED 58 10^3/uL (150-450)
[2022-07-27 14:55] LABS: LYMPHOCYTES 58 % (16-44); MONOCYTES 1 % (0-5); MYELOCYTES 2 % (0-0); NEUTROPHILS 8 % (28-66)
[2022-07-27 14:56] LABS: ATYPICAL LYMPH 8 % (0-5); BLAST CELLS 23 % (0-0)
[2022-07-27 15:01] LABS: MICROCYTOSIS 3+
[2022-07-27 15:02] LABS: HYPOCHROMASIA 2+; OVALOCYTES 1+; PLATELET ESTIMATE DECREASED (NORMAL)
[2022-07-27 15:03] LABS: TEAR DROP CELLS 1+
== END ==
LOC: M IRPRO 12:37
PROVIDERS: ATTEND Internal Medicine Medical Oncology
DX: R77.9 Abnormality of plasma protein, unspecified (principal)

== ENCOUNTER 2022-09-01 08:33 | Inpatient (IN) | payer MEDICARE, OTHER ==
[2022-09-01] VITALS (36 sets, daily range): BP systolic 90–117; BP diastolic 50–72
[~2022-09-01] VITALS: Ht 165.1 cm; Wt 69.5 kg
[~2022-09-01 08:33] MED LIST changes: +IPRA0.00 INH; +PROA1AER2 INH
[2022-09-01] MEDS ORDERED: NS 1,870 ML in IV 1 EA IV ONE (08:45)
[2022-09-01] MEDS ORDERED: cefTRIAXone SOD 2 GM in D5W MINI-BAG PLUS 50 ML IV ONE (08:45)
[2022-09-01] MEDS ORDERED: ACETAMINOPHEN TAB 650MG DOSE (2X325MG) PO ONE (09:05)
[2022-09-01 09:07] LABS: ABG BASE EXCESS -4.8 (-2.0-2.0); ABG HCO3 20.7 MEQ/L (22.0-26.0); ABG O2 SATURATION 89.9 % (95.0-99.0); ABG PARTIAL PRESSURE CO2 40.5 mmHg (35.0-45.0); ABG PARTIAL PRESSURE O2 64.8 mmHg (75.0-100.0); ABG STANDARD HCO3 20.3 MEQ/L (22.0-26.0); ABG pH (ARTERIAL) 7.327 UNITS (7.350-7.450)
[2022-09-01 09:10] LABS: LYMPH # 0.6 10^3/uL (1.5-5.0); LYMPH % 91.3 % (24.0-44.0); MEAN CORPUSCULAR HEMOGLOBIN 26.7 pg (27.0-33.0); MEAN CORPUSCULAR VOLUME 88.9 fl (80.0-96.0); MONO % 5.8 % (2.0-8.0); NEUTROPHILS % 2.9 % (36.0-66.0); RED BLOOD COUNT 2.25 10^6/uL (4.30-6.10)
[2022-09-01 09:11] LABS: PLATELET COUNT, AUTOMATED 45 10^3/uL (150-450)
[2022-09-01 09:14] LABS: WHITE BLOOD COUNT 0.7 10^3/uL (4.0-10.0)
[2022-09-01] MEDS ORDERED: MEROPENEM INJ 1 GM in IV 1 EA IV ONE (09:20)
[2022-09-01] MEDS ORDERED: ALLO300T2 PO (09:21)
[2022-09-01] MEDS: NOREPINEPHRINE 4MG IN D5 250ML 4 MG in IV 1 EA IV SCH ×20 (09:23→20:33)
[2022-09-01 09:29] LABS: INR 1.92; PROTHROMBIN TIME 22.3 SECONDS (12.5-14.5)
[2022-09-01 09:30] LABS: PARTIAL THROMBOPLASTIN TIME 32.3 SECONDS (24.8-34.2)
[2022-09-01] MEDS ORDERED: FILGRASTIM 300 MCG/0.5 ML SYRINGE **SC ADMINISTRATION ONLY SC ONE (09:50)
[2022-09-01 10:46] LABS: ABG BASE EXCESS -5.4 (-2.0-2.0); ABG HCO3 20.8 MEQ/L (22.0-26.0); ABG O2 SATURATION 90.3 % (95.0-99.0); ABG PARTIAL PRESSURE CO2 46.3 mmHg (35.0-45.0); ABG PARTIAL PRESSURE O2 66.3 mmHg (75.0-100.0); ABG STANDARD HCO3 19.8 MEQ/L (22.0-26.0); ABG TOTAL CO2 22.3 MEQ/L (23.0-31.0); ABG pH (ARTERIAL) 7.271 UNITS (7.350-7.450)
[2022-09-01] MEDS ORDERED: IPRATROPIUM 0.5MG/ALBUTEROL 2.5MG INH SOL UD 3ML (DUONEB) NEB ONE (11:00)
[2022-09-01 11:06] LABS: ALBUMIN 1.6 G/DL (3.2-5.2); BILIRUBIN,DIRECT 0.6 MG/DL (<0.4); BILIRUBIN,TOTAL 0.8 MG/DL (0.3-1.2); C REACTIVE PROTEIN QUANTITATIV 30.3 MG/DL (<1.0); CALCIUM LEVEL 8.5 MG/DL (8.3-10.6); CREATININE FOR GFR 3.15 MG/DL (0.70-1.30); GLOMERULAR FILTRATION RATE 21.2 (>49); POTASSIUM SERUM 4.8 MMOL/L (3.5-5.1); TOTAL PROTEIN 8.3 G/DL (5.7-8.2)
[2022-09-01 12:08] LABS: ABG BASE EXCESS -5.2 (-2.0-2.0); ABG HCO3 20.2 MEQ/L (22.0-26.0); ABG O2 SATURATION 98.4 % (95.0-99.0); ABG PARTIAL PRESSURE CO2 39.2 mmHg (35.0-45.0); ABG PARTIAL PRESSURE O2 127.8 mmHg (75.0-100.0); ABG STANDARD HCO3 20.1 MEQ/L (22.0-26.0); ABG TOTAL CO2 21.5 MEQ/L (23.0-31.0); ABG pH (ARTERIAL) 7.331 UNITS (7.350-7.450)
[2022-09-01] MEDS ORDERED: VANCOMYCIN HCL 1,250 MG in NS 250 ML IV ONE (13:05)
[2022-09-01] MEDS ORDERED: NS 1,000 ML IV ONE (13:05)
[2022-09-01] MEDS ORDERED: VANCOMYCIN HCL 750 MG, VIAL MATE ADAPTER 1 EACH in D5W 250 ML IV ONE (14:00)
[2022-09-01 14:42] LABS: LYMPH # 0.4 10^3/uL (1.5-5.0); MEAN CORPUSCULAR HEMOGLOBIN 27.4 pg (27.0-33.0); MEAN CORPUSCULAR HGB CONC 31.3 g/dl (32.0-36.5); MEAN CORPUSCULAR VOLUME 87.5 fl (80.0-96.0); MONO # 0.1 10^3/uL (0.0-0.8); RED BLOOD COUNT 2.08 10^6/uL (4.30-6.10)
[2022-09-01 14:50] LABS: WHITE BLOOD COUNT 0.5 10^3/uL (4.0-10.0)
[2022-09-01 14:51] LABS: HEMATOCRIT 18.2 % (42.0-52.0); HEMOGLOBIN 5.7 g/dl (13.5-17.5); PLATELET COUNT, AUTOMATED 39 10^3/uL (150-450)
[2022-09-01] MEDS ORDERED: patient comment (14:53)
[2022-09-01] MEDS ORDERED: HOME MED LIST COMPLETE! XX SCH (14:55)
[2022-09-01] MEDS ORDERED: VANCOMYCIN HCL 500 MG in D5W MINI-BAG PLUS 100 ML IV ONE (15:00)
[2022-09-01] MEDS: IPRATROPIUM 0.5MG/ALBUTEROL 2.5MG INH SOL UD 3ML (DUONEB) NEB SCH ×2 (15:54→20:53)
[2022-09-01] MEDS ORDERED: LevoFLOXacin IV 750 MG in IV 1 EA IV SCH (16:00)
[2022-09-01] MEDS ORDERED: GLUCAGON INJ 1MG VIAL SC PRN (16:20)
[2022-09-01] MEDS ORDERED: GLUCOSE 4GM CHEW TABLET PO PRN (16:20)
[2022-09-01] MEDS ORDERED: DEXTROSE 50% 50 ML SYRINGE IV PRN (16:20)
[2022-09-01 16:48] LABS: ABG BASE EXCESS -9.4 (-2.0-2.0); ABG HCO3 19.2 MEQ/L (22.0-26.0); ABG O2 SATURATION 99.5 % (95.0-99.0); ABG PARTIAL PRESSURE CO2 57.6 mmHg (35.0-45.0); ABG STANDARD HCO3 16.8 MEQ/L (22.0-26.0)
[2022-09-01 16:50] LABS: ABG pH (ARTERIAL) 7.141 UNITS (7.350-7.450)
[2022-09-01 16:52] LABS: APPEARANCE, URINE MANUAL HAZY (CLEAR); COLOR, URINE MANUAL DK YELLOW (YELLOW)
[2022-09-01 16:53] LABS: BILIRUBIN, URINE MANUAL NEGATIVE (NEGATIVE); BLOOD URINE MANUAL POSITIVE (NEGATIVE); GLUCOSE, URINE (UA) MANUAL NEGATIVE (NEGATIVE); KETONE, URINE MANUAL NEGATIVE (NEGATIVE); LEUKOCYTE ESTERASE, URINE MAN TRACE (NEGATIVE); NITRITE, URINE MANUAL NEGATIVE (NEGATIVE); PROTEIN, URINE MANUAL 1+ mg/dL (NEGATIVE); UROBILINOGEN, URINE MANUAL NORMAL (NORMAL)
[2022-09-01 17:01] LABS: BACTERIA, URINE NONE SEEN; SQUAMOUS EPITHELIAL CELL URINE SMALL AMOUNT /hpf (SMALL AMT); TRANSITIONAL EPI CELLS, URINE SMALL AMOUNT /hpf
[2022-09-01 17:02] LABS: AMORPHOUS SEDIMENT, URINE LARGE AMOUNT (NEGATIVE); MUCUS, URINE SMALL AMOUNT (NEGATIVE)
[2022-09-01] MEDS ORDERED: SODIUM BICARBONATE 8.4% INJ 50ML SYRINGE IV STA (17:12)
[2022-09-01] MEDS ORDERED: SODIUM BICARBONATE 8.4% INJ 50ML SYRINGE As Ordered ONE (17:13)
[2022-09-01] MEDS: INSULIN LISPRO (NovoLOG) PER UNIT SC SCH ×2 (17:31→23:15)
[2022-09-01] MEDS ORDERED: NS 1,000 ML IV SCH (17:50)
[2022-09-01 18:08] LABS: ALBUMIN 1.3 G/DL (3.2-5.2); BILIRUBIN,TOTAL 0.8 MG/DL (0.3-1.2); CREATININE FOR GFR 3.01 MG/DL (0.70-1.30); GLOMERULAR FILTRATION RATE 22.4 (>49); MAGNESIUM LEVEL 1.4 MG/DL (1.8-2.4); PHOSPHORUS LEVEL 7.2 MG/DL (2.4-5.1); POTASSIUM SERUM 5.7 MMOL/L (3.5-5.1); TOTAL PROTEIN 7.2 G/DL (5.7-8.2)
[2022-09-01] MEDS: VASOPRESSIN INJ 20 UNITS in NS 499 ML IV SCH (18:13)
[2022-09-01 18:31] LABS: ABG BASE EXCESS -8.8 (-2.0-2.0); ABG HCO3 20.1 MEQ/L (22.0-26.0); ABG PARTIAL PRESSURE O2 109.6 mmHg (75.0-100.0); ABG STANDARD HCO3 17.3 MEQ/L (22.0-26.0)
[2022-09-01 18:33] LABS: ABG PARTIAL PRESSURE CO2 61.3 mmHg (35.0-45.0); ABG pH (ARTERIAL) 7.133 UNITS (7.350-7.450)
[2022-09-01] MEDS ORDERED: methylPREDNISolone 125MG 2ML VIAL IV ONE (18:45)
[2022-09-01] MEDS ORDERED: methylPREDNISolone 40MG 1ML VIAL IV ONE (18:45)
[2022-09-01] MEDS ORDERED: DEXTROSE 50% 50 ML SYRINGE IV STA ×2 (20:08→23:15)
[2022-09-01] MEDS ORDERED: HumuLIN R (REGULAR) INSULIN (NovoLIN R) **100U/ML** PER UNIT IV STA ×2 (20:08→23:15)
[2022-09-01] MEDS: SOD POLYSTYRENE SULFONATE SUSP 15GM 60ML UD PO ONE ×2 (20:21→20:30)
[2022-09-01 20:38] LABS: ABG BASE EXCESS -9.1 (-2.0-2.0); ABG HCO3 20.6 MEQ/L (22.0-26.0); ABG O2 SATURATION 93.4 % (95.0-99.0); ABG TOTAL CO2 22.8 MEQ/L (23.0-31.0)
[2022-09-01 20:40] LABS: ABG pH (ARTERIAL) 7.091 UNITS (7.350-7.450)
[2022-09-01 20:41] LABS: ABG PARTIAL PRESSURE CO2 69.4 mmHg (35.0-45.0)
[2022-09-01] MEDS: MEROPENEM INJ 1 GM in IV 1 EA IV SCH (21:25)
[2022-09-01 22:05] LABS: HEMATOCRIT 24.6 % (42.0-52.0); MEAN CORPUSCULAR HEMOGLOBIN 28.5 pg (27.0-33.0); MEAN CORPUSCULAR HGB CONC 31.3 g/dl (32.0-36.5); MEAN CORPUSCULAR VOLUME 91.1 fl (80.0-96.0)
[2022-09-01 22:07] LABS: HEMOGLOBIN 7.7 g/dl (13.5-17.5); PLATELET COUNT, AUTOMATED 33 10^3/uL (150-450); WHITE BLOOD COUNT 0.3 10^3/uL (4.0-10.0)
[2022-09-01] MEDS: SODIUM BICARBONATE 150 MEQ in STERILE WATER LITER BAG 1,000 ML IV SCH (22:28)
[2022-09-01 22:29] LABS: ALBUMIN 1.5 G/DL (3.2-5.2); BILIRUBIN,TOTAL 0.9 MG/DL (0.3-1.2); CALCIUM LEVEL 6.6 MG/DL (8.3-10.6); CREATININE FOR GFR 3.1 MG/DL (0.70-1.30); GLOMERULAR FILTRATION RATE 21.6 (>49); MAGNESIUM LEVEL 1.7 MG/DL (1.8-2.4); POTASSIUM SERUM 6.5 MMOL/L (3.5-5.1); TOTAL PROTEIN 7.9 G/DL (5.7-8.2)
[2022-09-01] MEDS ORDERED: SOD POLYSTYRENE SULFONATE SUSP 15GM 60ML UD PO ONE (23:15)
[2022-09-01] MEDS ORDERED: FUROSEMIDE 40MG/4ML VIAL (J1940) IV ONE (23:15)
[2022-09-01] MEDS ORDERED: CALCIUM GLUCONATE 1,000 MG in D5W MINI-BAG PLUS 100 ML IV ONE (23:15)
[2022-09-01] MEDS ORDERED: SOD POLYSTYRENE SULFONATE SUSP 30GM 120ML ENEMA PR ONE (23:15)
[2022-09-01 23:30] LABS: ABG BASE EXCESS -8.9 (-2.0-2.0); ABG HCO3 19.3 MEQ/L (22.0-26.0); ABG O2 SATURATION 95.8 % (95.0-99.0); ABG PARTIAL PRESSURE CO2 54.1 mmHg (35.0-45.0); ABG PARTIAL PRESSURE O2 88.6 mmHg (75.0-100.0); ABG STANDARD HCO3 17.2 MEQ/L (22.0-26.0); ABG pH (ARTERIAL) 7.171 UNITS (7.350-7.450)
[2022-09-02] VITALS (89 sets, daily range): BP systolic 79–117; BP diastolic 42–73
[2022-09-02] MEDS: VASOPRESSIN INJ 20 UNITS in NS 499 ML IV SCH ×3 (01:48→18:23)
[2022-09-02] MEDS ORDERED: SOD POLYSTYRENE SULFONATE SUSP 15GM 60ML UD PO ONE (02:10)
[2022-09-02 05:26] LABS: ABG BASE EXCESS -6.2 (-2.0-2.0); ABG HCO3 21.2 MEQ/L (22.0-26.0); ABG O2 SATURATION 97.2 % (95.0-99.0); ABG PARTIAL PRESSURE CO2 51.1 mmHg (35.0-45.0); ABG PARTIAL PRESSURE O2 96.1 mmHg (75.0-100.0); ABG STANDARD HCO3 19.4 MEQ/L (22.0-26.0); ABG TOTAL CO2 22.7 MEQ/L (23.0-31.0)
[2022-09-02 05:27] LABS: ABG pH (ARTERIAL) 7.235 UNITS (7.350-7.450)
[2022-09-02] MEDS: INSULIN LISPRO (NovoLOG) PER UNIT SC SCH ×4 (05:31→23:30)
[2022-09-02 05:44] LABS: HEMATOCRIT 24.6 % (42.0-52.0); HEMOGLOBIN 7.8 g/dl (13.5-17.5); LYMPH # 0.2 10^3/uL (1.5-5.0); LYMPH % 78.9 % (24.0-44.0); MEAN CORPUSCULAR HEMOGLOBIN 28.3 pg (27.0-33.0); MEAN CORPUSCULAR HGB CONC 31.7 g/dl (32.0-36.5); MEAN CORPUSCULAR VOLUME 89.1 fl (80.0-96.0); MONO % 10.5 % (2.0-8.0); NEUTROPHILS % 10.6 % (36.0-66.0); PLATELET COUNT, AUTOMATED 28 10^3/uL (150-450); RED BLOOD COUNT 2.76 10^6/uL (4.30-6.10)
[2022-09-02 05:45] LABS: WHITE BLOOD COUNT 0.2 10^3/uL (4.0-10.0)
[2022-09-02 06:39] LABS: ALBUMIN 1.6 G/DL (3.2-5.2); BILIRUBIN,TOTAL 1.4 MG/DL (0.3-1.2); CALCIUM LEVEL 6.6 MG/DL (8.3-10.6); CREATININE FOR GFR 3.32 MG/DL (0.70-1.30)
[2022-09-02] MEDS ORDERED: PHYTONADIONE 5 MG TAB PO ONE (07:30)
[2022-09-02] MEDS: IPRATROPIUM 0.5MG/ALBUTEROL 2.5MG INH SOL UD 3ML (DUONEB) NEB SCH ×4 (07:37→20:09)
[2022-09-02] MEDS ORDERED: VANCOMYCIN HCL 500 MG in D5W MINI-BAG PLUS 100 ML IV SCH (08:00)
[2022-09-02] MEDS: PANTOPRAZOLE 40MG VIAL IV SCH (08:17)
[2022-09-02] MEDS ORDERED: ONDANSETRON 4MG 2ML VIAL IV PRN (09:10)
[2022-09-02] MEDS ORDERED: ACETAMINOPHEN TAB 650MG DOSE (2X325MG) PO PRN (09:10)
[2022-09-02] MEDS ORDERED: FILGRASTIM 300 MCG/0.5 ML SYRINGE **SC ADMINISTRATION ONLY SC ONE (10:00)
[2022-09-02] MEDS: NOREPINEPHRINE 4MG IN D5 250ML 4 MG in IV 1 EA IV SCH ×4 (10:11→14:31)
[2022-09-02] MEDS: MEROPENEM INJ 1 GM in IV 1 EA IV SCH ×2 (10:11→21:18)
[2022-09-02] MEDS ORDERED: FUROSEMIDE 100MG/10ML VIAL (J1940) IV ONE (11:00)
[2022-09-02] MEDS: NYSTATIN 500,000 U/5 ML SUSP UDC PO SCH ×3 (12:24→23:29)
[2022-09-02] MEDS: SODIUM BICARBONATE 150 MEQ in STERILE WATER LITER BAG 1,000 ML IV SCH (13:50)
[2022-09-02 14:17] LABS: ABG BASE EXCESS -4.3 (-2.0-2.0); ABG HCO3 22.5 MEQ/L (22.0-26.0); ABG O2 SATURATION 96.1 % (95.0-99.0); ABG STANDARD HCO3 20.9 MEQ/L (22.0-26.0); ABG pH (ARTERIAL) 7.271 UNITS (7.350-7.450)
[2022-09-02 14:56] LABS: ALBUMIN 1.2 G/DL (3.2-5.2); BILIRUBIN,TOTAL 1.8 MG/DL (0.3-1.2); CALCIUM LEVEL 5.5 MG/DL (8.3-10.6); CREATININE FOR GFR 3.63 MG/DL (0.70-1.30); POTASSIUM SERUM 5.8 MMOL/L (3.5-5.1)
[2022-09-02] MEDS ORDERED: CALCIUM CHLORIDE 10% 1 GM/10 ML SYR IV STA (15:02)
[2022-09-02] MEDS ORDERED: HumuLIN R (REGULAR) INSULIN (NovoLIN R) **100U/ML** PER UNIT IV STA (15:11)
[2022-09-02] MEDS ORDERED: DEXTROSE 50% 50 ML SYRINGE IV STA (15:11)
[2022-09-02] MEDS ORDERED: ALBUTEROL SULFATE 2.5 MG/0.5 ML INH NEB SOLN NEB ONE (15:15)
[2022-09-02] MEDS: NOREPINEPHRINE BITARTRATE 16 MG in D5W 484 ML IV SCH (18:23)
[2022-09-03] VITALS (96 sets, daily range): BP systolic 82–129; BP diastolic 47–78
[2022-09-03] MEDS ORDERED: ROCURONIUM BROMIDE 50 MG/5 ML VIAL IV ONE (00:04)
[2022-09-03] MEDS ORDERED: propofoL 200 MG/20 ML VIAL IV ONE (00:04)
[2022-09-03] MEDS: VASOPRESSIN INJ 20 UNITS in NS 499 ML IV SCH ×3 (01:42→17:22)
[2022-09-03 05:11] LABS: MEAN CORPUSCULAR HEMOGLOBIN 28.8 pg (27.0-33.0); MEAN CORPUSCULAR HGB CONC 32.9 g/dl (32.0-36.5); MEAN CORPUSCULAR VOLUME 87.4 fl (80.0-96.0); RED BLOOD COUNT 1.91 10^6/uL (4.30-6.10)
[2022-09-03 05:16] LABS: HEMOGLOBIN 5.5 g/dl (13.5-17.5); PLATELET COUNT, AUTOMATED 16 10^3/uL (150-450); WHITE BLOOD COUNT 0.1 10^3/uL (4.0-10.0)
[2022-09-03 05:17] LABS: HEMATOCRIT 16.7 % (42.0-52.0)
[2022-09-03 05:41] LABS: CREATININE FOR GFR 4.38 MG/DL (0.70-1.30); GLOMERULAR FILTRATION RATE 14.5 (>49); POTASSIUM SERUM 4.6 MMOL/L (3.5-5.1)
[2022-09-03] MEDS: NYSTATIN 500,000 U/5 ML SUSP UDC PO SCH ×3 (05:50→17:36)
[2022-09-03] MEDS: INSULIN LISPRO (NovoLOG) PER UNIT SC SCH ×3 (05:50→17:36)
[2022-09-03 05:59] LABS: ABG BASE EXCESS -3.4 (-2.0-2.0); ABG HCO3 23.6 MEQ/L (22.0-26.0); ABG PARTIAL PRESSURE CO2 55.1 mmHg (35.0-45.0); ABG PARTIAL PRESSURE O2 154.9 mmHg (75.0-100.0); ABG STANDARD HCO3 21.6 MEQ/L (22.0-26.0); ABG TOTAL CO2 25.3 MEQ/L (23.0-31.0)
[2022-09-03 07:09] LABS: CALCIUM LEVEL 4.8 MG/DL (8.3-10.6)
[2022-09-03] MEDS ORDERED: CALCIUM CHLORIDE 10% 1 GM/10 ML SYR IV STA ×2 (07:20→08:05)
[2022-09-03] MEDS: IPRATROPIUM 0.5MG/ALBUTEROL 2.5MG INH SOL UD 3ML (DUONEB) NEB SCH ×4 (07:22→19:22)
[2022-09-03] MEDS: NOREPINEPHRINE BITARTRATE 16 MG in D5W 484 ML IV SCH ×2 (08:16→22:18)
[2022-09-03] MEDS ORDERED: VANCOMYCIN HCL 500 MG in D5W MINI-BAG PLUS 100 ML IV SCH (09:00)
[2022-09-03] MEDS ORDERED: CALCIUM CHLORIDE 10% 1 GM in D5W 100 ML IV ONE (09:00)
[2022-09-03] MEDS: MEROPENEM INJ 1 GM in IV 1 EA IV SCH ×2 (09:10→21:38)
[2022-09-03] MEDS: PANTOPRAZOLE 40MG VIAL IV SCH (09:10)
[2022-09-03] MEDS: FILGRASTIM 300 MCG/0.5 ML SYRINGE **SC ADMINISTRATION ONLY SC SCH (09:42)
[2022-09-03] MEDS ORDERED: SODIUM CHLORIDE 0.9% INJ 10 ML SYR IV PRN (11:05)
[2022-09-03] MEDS: SODIUM BICARBONATE 150 MEQ in STERILE WATER LITER BAG 1,000 ML IV SCH (11:52)
[2022-09-03 15:42] LABS: HEMOGLOBIN 7.2 g/dl (13.5-17.5); RED BLOOD COUNT 2.49 10^6/uL (4.30-6.10)
[2022-09-03 15:43] LABS: HEMATOCRIT 22.3 % (42.0-52.0); MEAN CORPUSCULAR HEMOGLOBIN 28.9 pg (27.0-33.0); MEAN CORPUSCULAR HGB CONC 32.3 g/dl (32.0-36.5); MEAN CORPUSCULAR VOLUME 89.6 fl (80.0-96.0); WHITE BLOOD COUNT 0.1 10^3/uL (4.0-10.0)
[2022-09-03 15:44] LABS: PLATELET COUNT, AUTOMATED 25 10^3/uL (150-450)
[2022-09-03 15:52] LABS: INR 1.72; PROTHROMBIN TIME 20.5 SECONDS (12.5-14.5)
[2022-09-03 15:53] LABS: PARTIAL THROMBOPLASTIN TIME 34.3 SECONDS (24.8-34.2)
[2022-09-03 16:00] LABS: PHOSPHORUS LEVEL 10.5 MG/DL (2.4-5.1)
[2022-09-03] MEDS ORDERED: LevoFLOXacin IV 500 MG in IV 1 EA IV SCH (17:00)
[2022-09-03 21:11] LABS: HEMATOCRIT 21.5 % (42.0-52.0); MEAN CORPUSCULAR HEMOGLOBIN 28.6 pg (27.0-33.0); MEAN CORPUSCULAR HGB CONC 32.6 g/dl (32.0-36.5); MEAN CORPUSCULAR VOLUME 87.8 fl (80.0-96.0); RED BLOOD COUNT 2.45 10^6/uL (4.30-6.10)
[2022-09-03 21:14] LABS: PLATELET COUNT, AUTOMATED 16 10^3/uL (150-450)
[2022-09-03 21:57] LABS: CREATININE FOR GFR 3.15 MG/DL (0.70-1.30); GLOMERULAR FILTRATION RATE 21.2 (>49); MAGNESIUM LEVEL 1.4 MG/DL (1.8-2.4); PHOSPHORUS LEVEL 7.1 MG/DL (2.4-5.1); POTASSIUM SERUM 4.1 MMOL/L (3.5-5.1)
[2022-09-03] MEDS: MAG SULF 1GM/100ML (MAG RUN) 1 GM in IV 1 EA IV SCH ×2 (22:18→23:28)
[2022-09-04] VITALS (138 sets, daily range): BP systolic 61–168; BP diastolic 38–108
[2022-09-04] MEDS: NYSTATIN 500,000 U/5 ML SUSP UDC PO SCH ×5 (00:18→23:18)
[2022-09-04] MEDS: CALCIUM GLUCONATE 1,000 MG, VIAL MATE ADAPTER 1 EACH in NS 100 ML IV SCH ×4 (00:47→06:57)
[2022-09-04] MEDS: VASOPRESSIN INJ 20 UNITS in NS 499 ML IV SCH ×4 (00:59→20:38)
[2022-09-04 03:25] LABS: MEAN CORPUSCULAR HEMOGLOBIN 28.3 pg (27.0-33.0); MEAN CORPUSCULAR HGB CONC 32.7 g/dl (32.0-36.5); MEAN CORPUSCULAR VOLUME 86.7 fl (80.0-96.0); RED BLOOD COUNT 2.33 10^6/uL (4.30-6.10)
[2022-09-04 03:59] LABS: CREATININE FOR GFR 2.55 MG/DL (0.70-1.30); GLOMERULAR FILTRATION RATE 27.1 (>49); MAGNESIUM LEVEL 1.9 MG/DL (1.8-2.4); PHOSPHORUS LEVEL 5.1 MG/DL (2.4-5.1); POTASSIUM SERUM 4.1 MMOL/L (3.5-5.1)
[2022-09-04 04:02] LABS: HEMATOCRIT 20.2 % (42.0-52.0); HEMOGLOBIN 6.6 g/dl (13.5-17.5); PLATELET COUNT, AUTOMATED 11 10^3/uL (150-450)
[2022-09-04] MEDS ORDERED: MAG SULF 1GM/100ML (MAG RUN) 1 GM in IV 1 EA IV ONE ×2 (04:05→08:00)
[2022-09-04] MEDS: INSULIN LISPRO (NovoLOG) PER UNIT SC SCH ×5 (06:00→23:18)
[2022-09-04 06:24] LABS: ABG BASE EXCESS -1.1 (-2.0-2.0); ABG HCO3 26.8 MEQ/L (22.0-26.0); ABG O2 SATURATION 91.7 % (95.0-99.0); ABG PARTIAL PRESSURE O2 68.8 mmHg (75.0-100.0); ABG STANDARD HCO3 23.5 MEQ/L (22.0-26.0); ABG TOTAL CO2 28.8 MEQ/L (23.0-31.0)
[2022-09-04 06:27] LABS: ABG pH (ARTERIAL) 7.231 UNITS (7.350-7.450)
[2022-09-04 06:28] LABS: ABG PARTIAL PRESSURE CO2 65.2 mmHg (35.0-45.0)
[2022-09-04] MEDS: IPRATROPIUM 0.5MG/ALBUTEROL 2.5MG INH SOL UD 3ML (DUONEB) NEB SCH ×4 (08:04→20:09)
[2022-09-04] MEDS ORDERED: VASOPRESSIN INJ 20 UNITS/ML VIAL As Ordered ONE (08:33)
[2022-09-04] MEDS: PANTOPRAZOLE 40MG VIAL IV SCH (09:04)
[2022-09-04] MEDS: VANCOMYCIN HCL 500 MG in D5W MINI-BAG PLUS 100 ML IV SCH ×2 (09:05→20:38)
[2022-09-04] MEDS: FILGRASTIM 300 MCG/0.5 ML SYRINGE **SC ADMINISTRATION ONLY SC SCH (09:06)
[2022-09-04 09:44] LABS: HEMATOCRIT 23.3 % (42.0-52.0); HEMOGLOBIN 7.7 g/dl (13.5-17.5); MEAN CORPUSCULAR HEMOGLOBIN 28.9 pg (27.0-33.0); MEAN CORPUSCULAR VOLUME 87.6 fl (80.0-96.0); RED BLOOD COUNT 2.66 10^6/uL (4.30-6.10)
[2022-09-04 09:53] LABS: INR 1.62; PROTHROMBIN TIME 19.5 SECONDS (12.5-14.5)
[2022-09-04 09:54] LABS: PARTIAL THROMBOPLASTIN TIME 31.9 SECONDS (24.8-34.2)
[2022-09-04 09:57] LABS: PLATELET COUNT, AUTOMATED 14 10^3/uL (150-450)
[2022-09-04] MEDS: MEROPENEM INJ 1 GM in IV 1 EA IV SCH ×2 (10:30→20:09)
[2022-09-04] MEDS ORDERED: CALCIUM CHLORIDE 10% 1 GM/10 ML SYR IV STA (10:33)
[2022-09-04 10:55] LABS: CALCIUM LEVEL 7.5 MG/DL (8.3-10.6); CREATININE FOR GFR 2.07 MG/DL (0.70-1.30); GLOMERULAR FILTRATION RATE 34.5 (>49); PHOSPHORUS LEVEL 4.7 MG/DL (2.4-5.1); POTASSIUM SERUM 3.9 MMOL/L (3.5-5.1)
[2022-09-04] MEDS ORDERED: KCL 20MEQ IN 100ML SWI (KRUN) 20 MEQ in IV 1 EA IV ONE ×2 (11:30)
[2022-09-04 15:25] LABS: HEMATOCRIT 23.6 % (42.0-52.0); HEMOGLOBIN 7.7 g/dl (13.5-17.5); MEAN CORPUSCULAR HEMOGLOBIN 28.6 pg (27.0-33.0); MEAN CORPUSCULAR HGB CONC 32.6 g/dl (32.0-36.5); MEAN CORPUSCULAR VOLUME 87.7 fl (80.0-96.0); RED BLOOD COUNT 2.69 10^6/uL (4.30-6.10)
[2022-09-04 15:35] LABS: PLATELET COUNT, AUTOMATED 10 10^3/uL (150-450)
[2022-09-04] MEDS ORDERED: CALCIUM GLUCONATE 1,000 MG, VIAL MATE ADAPTER 1 EACH in NS 100 ML IV ONE ×2 (16:00→23:00)
[2022-09-04 16:31] LABS: CALCIUM LEVEL 7.8 MG/DL (8.3-10.6); CREATININE FOR GFR 1.85 MG/DL (0.70-1.30); GLOMERULAR FILTRATION RATE 39.3 (>49); MAGNESIUM LEVEL 2.1 MG/DL (1.8-2.4); PHOSPHORUS LEVEL 3.9 MG/DL (2.4-5.1); POTASSIUM SERUM 4.1 MMOL/L (3.5-5.1)
[2022-09-04] MEDS: LevoFLOXacin IV 500 MG in IV 1 EA IV SCH (18:01)
[2022-09-04 18:42] LABS: ABG BASE EXCESS -3.6 (-2.0-2.0); ABG HCO3 24.7 MEQ/L (22.0-26.0); ABG O2 SATURATION 92.6 % (95.0-99.0); ABG STANDARD HCO3 21.4 MEQ/L (22.0-26.0); ABG TOTAL CO2 26.6 MEQ/L (23.0-31.0)
[2022-09-04 18:45] LABS: ABG PARTIAL PRESSURE CO2 63.8 mmHg (35.0-45.0); ABG pH (ARTERIAL) 7.205 UNITS (7.350-7.450)
[2022-09-04] MEDS ORDERED: ROCURONIUM BROMIDE 50 MG/5 ML VIAL IV SCH (19:30)
[2022-09-04] MEDS ORDERED: ETOMIDATE INJ 20MG/10ML VIAL IV STA (19:30)
[2022-09-04 19:52] LABS: ABG PARTIAL PRESSURE O2 220.8 mmHg (75.0-100.0); ABG STANDARD HCO3 22.8 MEQ/L (22.0-26.0)
[2022-09-04 19:55] LABS: ABG PARTIAL PRESSURE CO2 63.8 mmHg (35.0-45.0); ABG pH (ARTERIAL) 7.228 UNITS (7.350-7.450)
[2022-09-04] MEDS: dexmedeTOMidine 200 MCG in IV 1 EA IV SCH ×3 (20:03→23:41)
[2022-09-04 21:15] LABS: HEMATOCRIT 22.7 % (42.0-52.0); HEMOGLOBIN 7.5 g/dl (13.5-17.5); MEAN CORPUSCULAR HEMOGLOBIN 28.6 pg (27.0-33.0); MEAN CORPUSCULAR VOLUME 86.6 fl (80.0-96.0); RED BLOOD COUNT 2.62 10^6/uL (4.30-6.10)
[2022-09-04 21:22] LABS: PLATELET COUNT, AUTOMATED 8 10^3/uL (150-450); WHITE BLOOD COUNT 0.1 10^3/uL (4.0-10.0)
[2022-09-04 21:57] LABS: CALCIUM LEVEL 7.7 MG/DL (8.3-10.6); CREATININE FOR GFR 1.69 MG/DL (0.70-1.30); GLOMERULAR FILTRATION RATE 43.6 (>49); MAGNESIUM LEVEL 2.1 MG/DL (1.8-2.4); PHOSPHORUS LEVEL 2.9 MG/DL (2.4-5.1)
[2022-09-04] MEDS: NOREPINEPHRINE BITARTRATE 16 MG in D5W 484 ML IV SCH (22:30)
[2022-09-04] MEDS ORDERED: MIDAZOLAM INJ 2MG/2ML VIAL (J2250 PER 1MG) IV STA (23:26)
[2022-09-04] MEDS ORDERED: MIDAZOLAM INJ 2MG/2ML VIAL (J2250 PER 1MG) As Ordered ONE (23:27)
[2022-09-04] MEDS: MIDAZOLAM 100MG/100ML-0.9%NACL 100 MG in IV 1 EA IV SCH (23:36)
[2022-09-05] VITALS (99 sets, daily range): BP systolic 62–157; BP diastolic 11–89
[2022-09-05] MEDS: MEROPENEM INJ 1 GM in IV 1 EA IV SCH ×3 (01:04→18:15)
[2022-09-05] MEDS: dexmedeTOMidine 200 MCG in IV 1 EA IV SCH ×2 (01:25→03:10)
[2022-09-05 03:33] LABS: HEMATOCRIT 22.5 % (42.0-52.0); HEMOGLOBIN 7.5 g/dl (13.5-17.5); MEAN CORPUSCULAR HEMOGLOBIN 28.7 pg (27.0-33.0); MEAN CORPUSCULAR HGB CONC 33.3 g/dl (32.0-36.5); MEAN CORPUSCULAR VOLUME 86.2 fl (80.0-96.0); RED BLOOD COUNT 2.61 10^6/uL (4.30-6.10)
[2022-09-05 03:39] LABS: PLATELET COUNT, AUTOMATED 5 10^3/uL (150-450)
[2022-09-05 04:20] LABS: CALCIUM LEVEL 7.6 MG/DL (8.3-10.6); CREATININE FOR GFR 1.46 MG/DL (0.70-1.30); GLOMERULAR FILTRATION RATE 51.6 (>49); MAGNESIUM LEVEL 2.1 MG/DL (1.8-2.4); PHOSPHORUS LEVEL 1.7 MG/DL (2.4-5.1); POTASSIUM SERUM 3.7 MMOL/L (3.5-5.1)
[2022-09-05] MEDS: VASOPRESSIN INJ 20 UNITS in NS 499 ML IV SCH ×3 (04:27→18:41)
[2022-09-05] MEDS: CALCIUM GLUCONATE 1,000 MG, VIAL MATE ADAPTER 1 EACH in NS 100 ML IV SCH ×8 (04:54→22:58)
[2022-09-05] MEDS: NYSTATIN 500,000 U/5 ML SUSP UDC PO SCH ×2 (05:30→11:32)
[2022-09-05] MEDS ORDERED: KCL 20MEQ IN 100ML SWI (KRUN) 20 MEQ in IV 1 EA IV ONE ×4 (05:30→13:00)
[2022-09-05] MEDS: INSULIN LISPRO (NovoLOG) PER UNIT SC SCH ×4 (05:30→23:38)
[2022-09-05 05:54] LABS: ABG BASE EXCESS -0.4 (-2.0-2.0); ABG HCO3 25.4 MEQ/L (22.0-26.0); ABG PARTIAL PRESSURE CO2 47.2 mmHg (35.0-45.0); ABG PARTIAL PRESSURE O2 69.4 mmHg (75.0-100.0); ABG STANDARD HCO3 24.1 MEQ/L (22.0-26.0); ABG TOTAL CO2 26.9 MEQ/L (23.0-31.0); ABG pH (ARTERIAL) 7.349 UNITS (7.350-7.450)
[2022-09-05] MEDS ORDERED: SODIUM PHOSPHATE INJ 30 MMOL in D5W 500 ML IV ONE (06:00)
[2022-09-05] MEDS: IPRATROPIUM 0.5MG/ALBUTEROL 2.5MG INH SOL UD 3ML (DUONEB) NEB SCH ×4 (07:03→19:19)
[2022-09-05] MEDS: HYDROCORTISONE 100 MG/2 ML VIAL (J1720 PER 1) IV SCH ×3 (08:21→23:37)
[2022-09-05 09:41] LABS: HEMATOCRIT 23.7 % (42.0-52.0); HEMOGLOBIN 7.8 g/dl (13.5-17.5); MEAN CORPUSCULAR HEMOGLOBIN 28.2 pg (27.0-33.0); MEAN CORPUSCULAR HGB CONC 32.9 g/dl (32.0-36.5); MEAN CORPUSCULAR VOLUME 85.6 fl (80.0-96.0); RED BLOOD COUNT 2.77 10^6/uL (4.30-6.10)
[2022-09-05 09:42] LABS: PLATELET COUNT, AUTOMATED 10 10^3/uL (150-450)
[2022-09-05] MEDS: FILGRASTIM 300 MCG/0.5 ML SYRINGE **SC ADMINISTRATION ONLY SC SCH (09:45)
[2022-09-05] MEDS: PANTOPRAZOLE 40MG VIAL IV SCH (09:45)
[2022-09-05 10:23] LABS: CALCIUM LEVEL 7.5 MG/DL (8.3-10.6); CREATININE FOR GFR 1.32 MG/DL (0.70-1.30); GLOMERULAR FILTRATION RATE 57.9 (>49); MAGNESIUM LEVEL 2.1 MG/DL (1.8-2.4); PHOSPHORUS LEVEL 2.8 MG/DL (2.4-5.1); POTASSIUM SERUM 3.8 MMOL/L (3.5-5.1); VANCOMYCIN RANDOM 9.5 UG/ML
[2022-09-05] MEDS: MICAFUNGIN SODIUM 100 MG in D5W MINI-BAG PLUS 100 ML IV SCH (11:34)
[2022-09-05] MEDS ORDERED: VANCOMYCIN HCL 1,000 MG, VIAL MATE ADAPTER 1 EACH in D5W 250 ML IV ONE (12:00)
[2022-09-05] MEDS: NOREPINEPHRINE BITARTRATE 16 MG in D5W 484 ML IV SCH ×2 (12:44→22:11)
[2022-09-05 15:18] LABS: HEMATOCRIT 25.1 % (42.0-52.0); HEMOGLOBIN 8.4 g/dl (13.5-17.5); MEAN CORPUSCULAR HEMOGLOBIN 28.6 pg (27.0-33.0); MEAN CORPUSCULAR HGB CONC 33.5 g/dl (32.0-36.5); MEAN CORPUSCULAR VOLUME 85.4 fl (80.0-96.0); RED BLOOD COUNT 2.94 10^6/uL (4.30-6.10)
[2022-09-05 15:19] LABS: PLATELET COUNT, AUTOMATED 7 10^3/uL (150-450); WHITE BLOOD COUNT 0.1 10^3/uL (4.0-10.0)
[2022-09-05 15:53] LABS: BLOOD UREA NITROGEN 32 MG/DL (9-23); CALCIUM LEVEL 7.6 MG/DL (8.3-10.6); CARBON DIOXIDE LEVEL 17 MMOL/L (20-31); CHLORIDE LEVEL 103 MMOL/L (98-107); CREATININE FOR GFR 1.27 MG/DL (0.70-1.30); GLOMERULAR FILTRATION RATE > 60.0 (>49); GLUCOSE, FASTING 195 MG/DL (74-106); MAGNESIUM LEVEL 1.9 MG/DL (1.8-2.4); PHOSPHORUS LEVEL 2.1 MG/DL (2.4-5.1); POTASSIUM SERUM 5.1 MMOL/L (3.5-5.1); SODIUM LEVEL 135 MMOL/L (136-145)
[2022-09-05] MEDS ORDERED: PHENYLEPHRINE HCL INJ 50 MG in D5W 495 ML IV SCH (16:00)
[2022-09-05] MEDS: LevoFLOXacin IV 500 MG in IV 1 EA IV SCH (16:40)
[2022-09-05 17:53] LABS: BLOOD UREA NITROGEN 32 MG/DL (9-23); CALCIUM LEVEL 7.6 MG/DL (8.3-10.6); CARBON DIOXIDE LEVEL 22 MMOL/L (20-31); CHLORIDE LEVEL 102 MMOL/L (98-107); CREATININE FOR GFR 1.26 MG/DL (0.70-1.30); GLOMERULAR FILTRATION RATE > 60.0 (>49); GLUCOSE, FASTING 193 MG/DL (74-106); POTASSIUM SERUM 4.3 MMOL/L (3.5-5.1); SODIUM LEVEL 136 MMOL/L (136-145)
[2022-09-05 18:37] LABS: MAGNESIUM LEVEL 2.1 MG/DL (1.8-2.4)
[2022-09-05] MEDS ORDERED: POTASSIUM PHOSPHATE INJ 30 MMOL in D5W 250 ML IV ONE (18:55)
[2022-09-05] MEDS ORDERED: SODIUM PHOSPHATE INJ 30 MMOL in NS 250 ML IV ONE (19:30)
[2022-09-05] MEDS: VANCOMYCIN HCL 1,000 MG, VIAL MATE ADAPTER 1 EACH in D5W 250 ML IV SCH (20:01)
[2022-09-05 21:23] LABS: HEMATOCRIT 25.7 % (42.0-52.0); HEMOGLOBIN 8.8 g/dl (13.5-17.5); MEAN CORPUSCULAR HEMOGLOBIN 28.8 pg (27.0-33.0); MEAN CORPUSCULAR HGB CONC 34.2 g/dl (32.0-36.5); RED BLOOD COUNT 3.06 10^6/uL (4.30-6.10)
[2022-09-05 21:26] LABS: PLATELET COUNT, AUTOMATED 5 10^3/uL (150-450); WHITE BLOOD COUNT 0.1 10^3/uL (4.0-10.0)
[2022-09-05 22:06] LABS: BLOOD UREA NITROGEN 30 MG/DL (9-23); CALCIUM LEVEL 7.6 MG/DL (8.3-10.6); CARBON DIOXIDE LEVEL 22 MMOL/L (20-31); CHLORIDE LEVEL 101 MMOL/L (98-107); CREATININE FOR GFR 1.18 MG/DL (0.70-1.30); GLOMERULAR FILTRATION RATE > 60.0 (>49); GLUCOSE, FASTING 220 MG/DL (74-106); MAGNESIUM LEVEL 2.1 MG/DL (1.8-2.4); PHOSPHORUS LEVEL 2.5 MG/DL (2.4-5.1); POTASSIUM SERUM 4.3 MMOL/L (3.5-5.1); SODIUM LEVEL 135 MMOL/L (136-145)
[2022-09-05] MEDS: MIDAZOLAM 100MG/100ML-0.9%NACL 100 MG in IV 1 EA IV SCH (23:06)
[2022-09-06] VITALS (66 sets, daily range): BP systolic 70–171; BP diastolic 38–98
[2022-09-06] MEDS: MEROPENEM INJ 1 GM in IV 1 EA IV SCH (01:18)
[2022-09-06 03:29] LABS: HEMATOCRIT 25.4 % (42.0-52.0); HEMOGLOBIN 8.7 g/dl (13.5-17.5); MEAN CORPUSCULAR HEMOGLOBIN 28.7 pg (27.0-33.0); MEAN CORPUSCULAR HGB CONC 34.3 g/dl (32.0-36.5); MEAN CORPUSCULAR VOLUME 83.8 fl (80.0-96.0); RED BLOOD COUNT 3.03 10^6/uL (4.30-6.10)
[2022-09-06] MEDS: VASOPRESSIN INJ 20 UNITS in NS 499 ML IV SCH ×2 (03:39→11:32)
[2022-09-06 03:40] LABS: WHITE BLOOD COUNT 0.1 10^3/uL (4.0-10.0)
[2022-09-06 03:41] LABS: PLATELET COUNT, AUTOMATED 3 10^3/uL (150-450)
[2022-09-06] MEDS ORDERED: CALCIUM GLUCONATE 1,000 MG, VIAL MATE ADAPTER 1 EACH in NS 100 ML IV ONE (03:50)
[2022-09-06 03:51] LABS: BLOOD UREA NITROGEN 32 MG/DL (9-23); CALCIUM LEVEL 7.6 MG/DL (8.3-10.6); CARBON DIOXIDE LEVEL 25 MMOL/L (20-31); CHLORIDE LEVEL 102 MMOL/L (98-107); CREATININE FOR GFR 1.24 MG/DL (0.70-1.30); GLOMERULAR FILTRATION RATE > 60.0 (>49); GLUCOSE, FASTING 150 MG/DL (74-106); MAGNESIUM LEVEL 2.2 MG/DL (1.8-2.4); PHOSPHORUS LEVEL 2.8 MG/DL (2.4-5.1); POTASSIUM SERUM 4.2 MMOL/L (3.5-5.1); SODIUM LEVEL 137 MMOL/L (136-145); VANCOMYCIN RANDOM 17.3 UG/ML
[2022-09-06] MEDS: INSULIN LISPRO (NovoLOG) PER UNIT SC SCH ×2 (05:22→11:30)
[2022-09-06 05:40] LABS: ABG pH (ARTERIAL) 7.354 UNITS (7.350-7.450)
[2022-09-06 05:41] LABS: ABG BASE EXCESS -2.1 (-2.0-2.0); ABG HCO3 23.4 MEQ/L (22.0-26.0); ABG O2 SATURATION 94.9 % (95.0-99.0); ABG PARTIAL PRESSURE CO2 42.9 mmHg (35.0-45.0); ABG PARTIAL PRESSURE O2 79.9 mmHg (75.0-100.0); ABG STANDARD HCO3 22.7 MEQ/L (22.0-26.0); ABG TOTAL CO2 24.7 MEQ/L (23.0-31.0)
[2022-09-06] MEDS: NOREPINEPHRINE BITARTRATE 16 MG in D5W 484 ML IV SCH (07:20)
[2022-09-06] MEDS: IPRATROPIUM 0.5MG/ALBUTEROL 2.5MG INH SOL UD 3ML (DUONEB) NEB SCH ×2 (08:13→11:41)
[2022-09-06] MEDS: PANTOPRAZOLE 40MG VIAL IV SCH (08:27)
[2022-09-06] MEDS: HYDROCORTISONE 100 MG/2 ML VIAL (J1720 PER 1) IV SCH (08:27)
[2022-09-06] MEDS: VANCOMYCIN HCL 1,000 MG, VIAL MATE ADAPTER 1 EACH in D5W 250 ML IV SCH (08:28)
[2022-09-06 09:01] LABS: HEMATOCRIT 24.5 % (42.0-52.0); HEMOGLOBIN 8.5 g/dl (13.5-17.5); MEAN CORPUSCULAR HEMOGLOBIN 29.2 pg (27.0-33.0); MEAN CORPUSCULAR HGB CONC 34.7 g/dl (32.0-36.5); MEAN CORPUSCULAR VOLUME 84.2 fl (80.0-96.0); RED BLOOD COUNT 2.91 10^6/uL (4.30-6.10)
[2022-09-06 09:02] LABS: PLATELET COUNT, AUTOMATED 2 10^3/uL (150-450); WHITE BLOOD COUNT 0.1 10^3/uL (4.0-10.0)
[2022-09-06 09:29] LABS: CHLORIDE LEVEL 103 MMOL/L (98-107); POTASSIUM SERUM 4.1 MMOL/L (3.5-5.1); SODIUM LEVEL 137 MMOL/L (136-145)
[2022-09-06 09:30] LABS: CARBON DIOXIDE LEVEL 25 MMOL/L (20-31)
[2022-09-06 09:35] LABS: CALCIUM LEVEL 7.4 MG/DL (8.3-10.6); GLUCOSE, FASTING 149 MG/DL (74-106)
[2022-09-06 09:36] LABS: BLOOD UREA NITROGEN 29 MG/DL (9-23); MAGNESIUM LEVEL 2.1 MG/DL (1.8-2.4)
[2022-09-06 09:37] LABS: CREATININE FOR GFR 1.11 MG/DL (0.70-1.30); GLOMERULAR FILTRATION RATE > 60.0 (>49)
[2022-09-06] MEDS: FILGRASTIM 300 MCG/0.5 ML SYRINGE **SC ADMINISTRATION ONLY SC SCH (10:00)
[2022-09-06] MEDS ORDERED: MEROPENEM INJ 500 MG in IV 1 EA IV SCH (10:00)
[2022-09-06] MEDS: MICAFUNGIN SODIUM 100 MG in D5W MINI-BAG PLUS 100 ML IV SCH (11:18)
[2022-09-06] MEDS ORDERED: LevoFLOXacin IV 750 MG in IV 1 EA IV SCH (12:00)
[2022-09-06] MEDS: dexmedeTOMidine 200 MCG in IV 1 EA IV SCH (13:36)
[2022-09-06] MEDS ORDERED: LORazepam 2 MG/ML VIAL IV PRN (14:00)
[2022-09-06] MEDS ORDERED: SCOPOLAMINE 1MG TRANSDERMAL PATCH TOP PRN (14:00)
[2022-09-06] MEDS ORDERED: MORPHINE 2 MG/ML 1ML VIAL IV PRN ×2 (14:00→15:15)
[2022-09-08 17:08] LABS: BODY FLUID CULTURE Not indicated. (.); LEGIONELLA ANTIGEN URINE Negative (Negative); ORGANISM ID Not indicated. (.); SPECIMEN SOURCE Urine (.); URINE STREP PNEUMONIAE ANTIGEN Negative (Negative)
== END 2022-09-06 15:43 | disposition expired | DRG 871 ==
LOC: EDBD 08:33 → M ED 08:33 → M ED INP 13:57 → ENRESERV 14:31 → M ICU 15:42
PROVIDERS: ADMIT Internal Medicine; ATTEND Internal Medicine
PROC: 30233N1 Transfusion of Nonautologous Red Blood Cells into Peripheral Vein, Percutaneous Approach (ICD-10-PCS; principal; 2022-09-01)
PROC: 30233J1 Transfusion of Nonautologous Serum Albumin into Peripheral Vein, Percutaneous Approach (ICD-10-PCS; 2022-09-02)
PROC: B246ZZZ Ultrasonography of Right and Left Heart (ICD-10-PCS; 2022-09-02)
PROC: 02HV33Z Insertion of Infusion Device into Superior Vena Cava, Percutaneous Approach (ICD-10-PCS; 2022-09-03)
PROC: 5A1D90Z Performance of Urinary Filtration, Continuous, Greater than 18 hours Per Day (ICD-10-PCS; 2022-09-03)
PROC: 5A1945Z Respiratory Ventilation, 24-96 Consecutive Hours (ICD-10-PCS; 2022-09-04)
DX: A41.02 Sepsis due to Methicillin resistant Staphylococcus aureus (principal); J96.21 Acute and chronic respiratory failure with hypoxia; J96.22 Acute and chronic respiratory failure with hypercapnia; R65.21 Severe sepsis with septic shock; J18.9 Pneumonia, unspecified organism; C83.00 Small cell B-cell lymphoma, unspecified site; I50.32 Chronic diastolic (congestive) heart failure; D61.818 Other pancytopenia; D84.821 Immunodeficiency due to drugs; E87.29 Other acidosis; N17.9 Acute kidney failure, unspecified; J44.0 Chronic obstructive pulmonary disease with (acute) lower respiratory infection; E87.1 Hypo-osmolality and hyponatremia; K56.7 Ileus, unspecified; Z66 Do not resuscitate; R29.6 Repeated falls; E11.9 Type 2 diabetes mellitus without complications; E78.5 Hyperlipidemia, unspecified; I11.0 Hypertensive heart disease with heart failure; F20.9 Schizophrenia, unspecified; G47.33 Obstructive sleep apnea (adult) (pediatric); Z92.21 Personal history of antineoplastic chemotherapy; F17.210 Nicotine dependence, cigarettes, uncomplicated; E87.5 Hyperkalemia; I95.9 Hypotension, unspecified